=== PATIENT | female | born 1950 | race Caucasian/White ===

== ENCOUNTER 2020-01-17 21:38 | Emergency (ER) | payer MEDICARE, SELFPAY ==
[2020-01-17 21:39] VITALS: BP 162/93; PULSE 88; RESP 23; TEMP 37; O2SAT 93; BMI 21.2
[2020-01-17 21:54] VITALS: BP 162/93; PULSE 88; RESP 20; TEMP 37; O2SAT 93
[2020-01-17 21:55] VITALS: O2SAT 93
[2020-01-17] MEDS: predniSONE 20 MG Tablet 60 MG PO (22:27)
--- NOTE | 2020-01-17 22:35 | RAD_ITS ---
STUDY: X-RAY CHEST REASON FOR EXAM: Female, 69 years old. COUGH, SOB TECHNIQUE: PA and lateral views of the chest. COMPARISON: None. FINDINGS: Small rounded opaque is seen in the bilateral lower lobe regions is favored to be related to nipple markings. Possible small right lower lobe infiltrate is near the midline. There is hyperinflation of the lungs consistent with chronic obstructive lung disease (COPD). Diffuse cystic emphysematous changes are present. Interstitial scarring is also seen in both lungs. There is no demonstrated pleural abnormality. Normal size heart. Normal mediastinum and adali. Normal visualized pulmonary arteries. There is atherosclerotic calcification of the aortic arch with tortuosity. There is demineralization of the osseous structures. Multiple healed bilateral rib fractures noted, left greater than right . There is no demonstrated abnormality of the visualized soft tissue structures of the upper abdomen. RAD/Chest PA and Lateral IMPRESSION: 1. Small rounded opaque is seen in the bilateral lower lobe regions is favored to be related to nipple markings. Possible small right lower lobe infiltrate is near the midline. Suggest repeat examination with nipple markers and possible lordotic view for greater evaluation. Electronically Signed: Charan Mckeon MD at 23:17 EDT , Service support ,
--- NOTE | 2020-01-17 23:21 | ED.VIS.GEN ---
History of Present Illness Chief Complaint: Shortness of Breath Informant: Patient Onset: Days Narrative: 4-day history worsening cough mild productive sputum with wheeze. She states she was using a primary for paint inside the house when symptoms started. She has tobacco history denies diagnosed asthma or COPD history. No fevers. No chest pains. No vomiting or diarrhea. Prior similar symptoms: No Past Medical History - Allergies and Home Meds Allergies/Adverse Reactions: Allergies No Known Allergies Allergy (Verified 01/17/20 21:39) Primary Care Physician: Care Physician,No Primary [Primary Care Provider] - Past Medical History: - - Hypertension, osteopenia Smoking Status: Current every day smoker Review of Systems General: Denies: Chills, Fever, Sweats Eyes: Denies: Visual changes - bilaterally, Diplopia ENT: Denies: Rhinorrhea, Sore throat Cardiovascular: Denies: Chest pain, Palpitations Respiratory: Reports: Dyspnea, Cough, Sputum. Denies: Dyspnea on exertion Gastrointestinal: Denies: Abdominal pain, Nausea, Vomiting, Diarrhea, Melena, Hematochezia Genitourinary: Denies: Dysuria, Hematuria, Frequency Musculoskeletal: Denies: Back pain, Extremity Pain Skin: Denies: Rash, Wounds Neurological: Denies: Headache, Weakness, Numbness Physical Exam Vital Signs/Narrative: Vital Signs Temp Pulse Resp BP Pulse Ox 01/17/20 21:54 98.6 F 88 20 H 162/93 H 93 01/17/20 21:39 98.6 F 88 23 H 162/93 H 93 Inital Vital Signs reviewed: Yes General: Well nourished, Well developed, No Acute Distress Head: Normocephalic, Atraumatic Eyes: Perrl, EOMI ENT: Moist mucous membranes, No rhinorrhea Neck: Supple, Nontender Cardiovascular: Regular rate, Regular rhythm, No murmurs Respiratory: No distress, Chest nontender, Rhonchi, - - Mild rhonchi right mid lobe Abdomen: Soft, Nontender, Nondistended, Normal bowel sounds Back: Nontender, Normal Inspection Extremities: Nontender, No edema Skin: Normal color, No rash Neurological: Alert, Oriented x3, Cranial nerves II-XII grossly intact, Normal Strength, Normal Sensation Psychological: Normal affect, Normal Mood Diagnostic/Tx/Re-eval Clinical Impression(s) from Imaging Studies Chest X-Ray 01/17/20 22:35 IMPRESSION: 1. Small rounded opaque is seen in the bilateral lower lobe regions is favored to be related to nipple markings. Possible small right lower lobe infiltrate is near the midline. Suggest repeat examination with nipple markers and possible lordotic view for greater evaluation. Electronically Signed: Charan Mckeon MD at 23:17 EDT , Service support , - Medical Decision Making Patient nontoxic no respiratory distress. With her tobacco history concerns for COPD history. She had rhonchi improved with inhaler given in the ED and dispensed. She started on steroids, chest x-ray is concerning right lower lobe infiltrate, she had radiopaque nodules reported could be nipple linings from radiology. She started on Zithromax in the ED, strict signs symptom discussed return otherwise follow-up with her PCP for further testing as needed. All questions were answered. ED Disposition - Plan for ED Patient: Disposition: Home or Assisted Living Diagnosis: Pneumonia Instructions: Pneumonia, ED COPD Flare Prescriptions: predniSONE tablet 60 mg PO DAILY #12 tab Transmission Status: Pending to [facility] Azithromycin [Zithromax] 250 mg PO DAILY #4 tab Transmission Status: Pending to [facility] [address] Referrals: Care Physician,No Primary [Primary Care Provider] - Flip Santiago MD [NON-STAFF] - 5-7 Days Additional Instructions: Concerns for right lower lobe early infiltrate. COPD lungs, will need further testing as an outpatient for diagnosis. Continue her inhaler 1 puff every 2-4 hours as needed. Take steroids and antibiotics as prescribed.
[2020-01-17] MEDS: Azithromycin 250 MG Tablet 500 MG PO (23:52)
[2020-01-17 23:53] VITALS: BP 147/78; PULSE 72; RESP 19; TEMP 37; O2SAT 95
== END 2020-01-17 23:45 | disposition home or self-care (01) ==
PROVIDERS: Emergency Provider Emergency Medicine
DX: J18.9 Pneumonia, unspecified organism (principal); J44.1 Chronic obstructive pulmonary disease with (acute) exacerbation; I10 Essential (primary) hypertension; M85.80 Other specified disorders of bone density and structure, unspecified site; F17.210 Nicotine dependence, cigarettes, uncomplicated; Z79.899 Other long term (current) drug therapy
CPT/HCPCS: 36415; 71046; 99283

== ENCOUNTER → 2020-06-15 | Outpatient (CLI) | payer MEDICARE, SELFPAY ==
[2020-06-15 09:16] LABS: Bacteria 0 SEEN /hpf (None Seen); Mucous, Urine 0 SEEN /hpf (<or=2+); Red Blood Cells-Urine 0 SEEN /hpf (0-5); White Blood Cells 0 SEEN /hpf (0-5)
[2020-06-15 10:06] LABS: Absolute Lymphocyte Count 1.69 X10^3/uL (0.83-4.51); Absolute Neutrophil Count 3.2 X10^3/uL (2.0-7.7); Basophil# 0.05 X10^3/uL; Basophil% 0.9 % (0-1); Eosinophil# 0.09 X10^3/uL; Eosinophils% 1.7 % (0-5); Hematocrit 49.8 % (37-47); Hemoglobin 16.5 g/dL (12.0-15.0); Lymphocyte # 1.69 X10^3/ul (4.0); Lymphocyte % 31.1 % (19-41); Mean Corp Hgb Conc 33.1 g/dL (32-36); Mean Corpuscular Hgb 34.7 pg (27.0-32.0); Mean Corpuscular Volume 104.8 fL (81-99); Mean Platelet Vol. 11.1 fl (6.2-12.0); Monocyte# 0.44 X10^3/uL; Monocyte% 8.1 % (0-10); NRBC Flagged by Analyzer 0 % (0-5); Neutrophil # 3.16 X10^3/uL (2.7-7.7); Platelet Count 203 K/mm3 (150-450); RBC Distribution Width CV 12.9 % (11.6-14.6); RBC Distribution Width SD 50.6 fl (35.1-43.9); Red Blood Count 4.75 M/mm3 (4.2-5.4); White Blood Count 5.4 K/mm3 (4.4-11.0)
[2020-06-15 10:12] LABS: Color, Urine Yellow (Yellow); Glucose, Dipstick Normal (Normal); Ketone-Dipstick Negative (Negative); Leukocyte Esterase-Dipstick Negative /ul (Negative); Nitrite-Dipstick Negative (Negative); Occult Blood-Urine Negative /ul (Negative); Protein-Dipstick Negative (Negative); Urine Bilirubin Dipstick Negative (Negative); Urine Clarity Clear (Clear); Urine Urobilinogen Normal (Normal)
[2020-06-15 10:28] LABS: Squamous Epithelial Cells - UA 0-5 SEEN /hpf (5-10)
[2020-06-15 10:43] LABS: ALB/GLOB Ratio 1.1 RATIO (0.9-2.4); AST(SGOT) 18 U/L (15-37); Alanine Aminotransfer ALT/SGPT 18 U/L (13-56); Albumin, Serum 3.7 g/dL (3.2-5.0); Alkaline Phosphatase 104 U/L (45-117); Anion Gap 4 (5-15); BUN 9 mg/dL (7-18); BUN/Creat Ratio 12.6 RATIO (10-20); Calcium,Total 9.3 mg/dL (8.5-10.1); Chloride 105 mmol/L (98-107); Cholesterol 211 mg/dL (200); Creatinine, Serum 0.72 mg/dL (0.55-1.02); EST Glomerular Filtration Rate 86 mL/min (>60); Est Glom Filt Rate - Afr Amer 104 mL/min (>60); Globulin 3.3 g/dL (2.2-4.2); Glucose 77 mg/dL (74-106); High Density Lipoprotein 93 mg/dL; Phosphorus 4.3 mg/dL (2.5-4.9); Sodium Level 139 mmol/L (136-145); Thyroid Stim Hormone (TSH) 2.16 uIU/mL (0.358-3.74); Triglycerides 60 mg/dL; Very Low Density Lipoprotein 12 mg/dL (5-40)
[2020-06-16 14:26] LABS: Ferritin 101 ng/mL (8-252); Iron 106 ug/dL (50-170); Iron Binding Capacity,Total 354 ug/dL (250-450); PERCENT IRON SATURATION 29.9 % (15.0-55.0)
[2020-06-19 14:12] LABS: Transferrin 243 mg/dL (192-364)
== END | disposition home or self-care (01) ==
LOC: MFPLAB 09:13
PROVIDERS: PCP Family Medicine; Referring Provider Family Medicine; Visit Provider Family Medicine
DX: I10 Essential (primary) hypertension (principal); M81.0 Age-related osteoporosis without current pathological fracture; D75.1 Secondary polycythemia; Z72.0 Tobacco use
CPT/HCPCS: 36415; 80053; 80061; 81001; 82306; 82728; 83540; 83550; 83735; 84100; 84443; 84466; 85025

== ENCOUNTER → 2020-06-23 14:12 | Outpatient (CLI) | payer MEDICARE, MEDICAID, SELFPAY ==
--- NOTE | 2020-06-23 14:21 | CT_ITS ---
STUDY: CT CHEST WITHOUT CONTRAST- LOW DOSE SCREENING PROTOCOL REASON FOR EXAM: Female, 70 years old. Current smoker. 20 pack per year history. No current symptoms of lung cancer or pulmonary infection. Shared decision-making with referring PCP documented in patient''s record. RADIATION DOSAGE (If Supplied By Facility): CTDIvol = ( 2.01 ) mGy, DLP = ( 72.73 ) mGycm TECHNIQUE: Low dose screening CT examination performed from the base of the neck to the upper abdomen. Sagittal and coronal reformatted images performed. Sagittal and coronal MIP images provided. The measurements provided are average, rounded measurements per ACR guidelines. COMPARISON: Chest x-ray 01/17/2020 FINDINGS: Mild emphysematous changes. Bilateral linear scarring. 2.5 cm spiculated density in the apex of the right lung likely represents scarring but underlying mass including scar carcinoma cannot be excluded. Therefore correlation with PET CT scan is recommended. No other noncalcified nodule or mass. There is no demonstrated pleural abnormality. Normal heart and pericardium. There are calcifications of the coronary arteries. Normal mediastinum. Normal hilar regions. Normal unenhanced pulmonary arteries. There is atherosclerotic calcification of the aortic arch with tortuosity and elongation of the aortic arch and descending thoracic aorta. Normal osseous structures. There is no demonstrated abnormality of the visualized upper abdomen. CT/Low Dose CT Lung Screening IMPRESSION: 1. 2.5 cm area of probable scarring in the apex of the right lung bronchogenic carcinoma cannot be excluded and correlation with PET CT scan is recommended.. 2. Incidental findings include mild emphysema and calcified coronary artery plaque.. ASSESSMENT CATEGORY: LungRADS 4B - Suspicious. Recommend pulmonology consultation. Additional evaluation is warranted with chest CT with IV contrast, PET/CT, and/or tissue sampling depending on the probability of malignancy and patient comorbidities. Electronically Signed: Zoran Ludwig MD at 9:29 EDT Tel , Service support ,
== END ==
PROVIDERS: PCP Family Medicine; Referring Provider Family Medicine; Visit Provider Family Medicine
DX: F17.210 Nicotine dependence, cigarettes, uncomplicated (principal); Z12.2 Encounter for screening for malignant neoplasm of respiratory organs
CPT/HCPCS: G0297

== ENCOUNTER → 2020-07-03 13:57 | Outpatient (CLI) | payer MEDICARE, MEDICAID, SELFPAY ==
--- NOTE | 2020-07-03 13:45 | SPU_PTH ---
PATIENT: VAL HOWE LOC: [facility] U#:[id number] AGE/SX: 75/F ROOM: RE07/03/[address]: Dr. Ramon Schafer MD : 1950 BED: DIS: SPEC #: [id number] RECD: 07/03/20 14:39 STATUS: FRANDY REQ #: [id number] JESSICA: 07/03/20 13:[address]: Ramon Schafer V DEPT: CYTOLOGY RECD BY: Desi Wolf ENTERED: 07/03/20 14:40 SP TYPE: Sputum Cy OT DR: Dr. Doron Castaneda MD Tissues: Sputum Procedures: Pap Stain (control) Special Stain Group II Special Stain Group I AFB Stain (control) Cytospin Fluid HEADER OPERATION: Not noted PRE-OP DIAGNOSIS: Cough, lung nodule TISSUE SUBMITTED: Sputum for cytology DIAGNOSIS CYTOLOGY Sputum for cytology (smears and cytospin): Negative for malignant cells. Special stain for acid fast bacilli is negative for organisms; matched control is appropriate. JOSE:nuvia 07/04/20 CYTOLOGY STUDY Slides are reviewed. CYTOLOGY GROSS Received is 0.5 ml of white mucoidy fluid labeled with the patient's name and and designated per the requisition as sputum. Submitted for cytology preparation. / nuvia 07/03/20 TC:5 CPT: 48421, 29516
[2020-07-03 14:11] LABS: Cytology, Body Fluid / CSF SEE PATHOLOGY REPORT
== END ==
PROVIDERS: PCP Family Medicine; Referring Provider Internal Medicine Pulmonary Disease; Visit Provider Internal Medicine Pulmonary Disease
DX: R05 Cough (principal); R91.1 Solitary pulmonary nodule
CPT/HCPCS: 87015; 87070; 87101; 87116; 87205; 87206; 88108; 88312; 88313

== ENCOUNTER → 2020-07-11 15:03 | Outpatient (CLI) | payer MEDICARE, MEDICAID, SELFPAY ==
--- NOTE | 2020-07-11 15:00 | PET_ITS ---
EXAMINATION: FDG PET/CT INDICATIONS: A 70-year-old female with reported history of pulmonary nodularity. COMPARISON EXAMINATION: CT of the chest report dated 06/23/2020 INDEX LESION SIZE SUV INTERPRETATION Right upper lung-right upper lobe 29.6-mm (frame 205) 0.9 Quantitative criteria for viable neoplasm are not fulfilled, sequential radiologic investigation recommended NON-INDEX LESION SIZE SUV INTERPRETATION Left parotid space 2.4 Quantitative criteria for viable neoplasm are not fulfilled TECHNIQUE: Following the intravenous administration of 10.89 mCi of F-18 deoxyglucose via the left antecubital fossa, multiplanar image acquisitions of the neck, chest, abdomen and pelvis to level of mid thigh, obtained at one hour post radiopharmaceutical administration contemporaneously interpreted with the current CT of the neck, chest, abdomen and pelvis to level of mid thigh, dated 07/11/[address] of the chest report dated 06/23/2020 reveal: SERUM GLUCOSE LEVEL: 82 mg/dl. FINDINGS: 1. Subtle increased glucose metabolism is defined in the right apical lung field-right upper lobe generating a calculated maximal standard uptake value of 0.9. The maximal axial diameter of the corresponding parenchymal density-mass on review of CT of the chest dated 07/11/2020 is 29.6-mm. 2. Normal physiologic distribution of the radiopharmaceutical is apparent in the hepatic (2.8) and splenic parenchyma, both renal units, bladder and visualized intestinal tract. The visualized portion of the cerebral cortex demonstrate symmetric and preserved glucose metabolism. Diffuse radiopharmaceutical concentration is noted in all four quadrants of the abdomen and pelvis. The right and to a lesser extent left kidneys demonstrate prominent collecting system activity at the level of the renal pelvis and right kidney to include superior-inferior pole calyces. Asymmetric increased tracer concentration is observed in the left parotid space registering a calculated maximal standard uptake value of 2.4. Prominent radiopharmaceutical concentration is defined in the ascending and descending thoracic aorta commensurate with activated leukocytes associated with atherosclerotic plaque formation. Pertinent CT findings are as follows: CHEST: There is atherosclerotic calcification defined in the thoracic aorta without evidence of dilatation-aneurysm formation. Coronary arterial calcification is observed. Bilateral axillary soft tissue densities with fatty hilus are ametabolic. Mediastinal soft tissue densities reveal no evidence of increased tracer uptake. There are no additional parenchymal densities-nodules defined in the right and left hemithorax with discernible quantitatively significant increased FDG distribution. ABDOMEN AND PELVIS: A soft tissue nodule noted in the left upper abdomen is non-glucose avid and likely represents a visualized splenule. Cholelithiasis is defined. There is atherosclerotic calcification defined in the abdominal aorta without evidence of dilatation-aneurysm formation. Pelvic arterial calcification is observed. Right-left inguinal soft tissue densities with fatty hilus are ametabolic. SKELETAL: Degenerative changes are noted in the cervical, thoracic and lumbar spine. There is diffuse demineralization identified throughout the axial skeletal structures. PET/PET/CT Tumor Base -Thigh Init IMPRESSION: 1. NEGATIVE EXAMINATION. There is no definitive quantitative scintigraphic evidence of viable neoplasm. 2. Increased tracer concentration observed in the right upper lung-right upper lobe does not fulfill quantitative criteria for viable neoplasm. (Ena et al, Annals of Internal Medicine, 138:724, 2003). 3. Metabolic and/or anatomic stability may be ensured in the right upper lung-right upper lobe abnormality with repeat FDG PET study and/or CT of the thorax in 3-6 months if clinically indicated. (Xiu, Journal of Nuclear Medicine 45:88, P2004 Roc, Seminars in Thoracic and Cardiovascular Surgery 14:292, 2002). 4. The increase in fluorine labeled glucose uptake noted in the left parotid space does not fulfill quantitative criteria for malignant transformation. Correlation with CT of the neck with intravenous contrast may be of benefit. Electronic Signature Zoran Means D.O. Accurate Quantification of SUVs for this report are calculated using the exclusive [employer]. Electronically Signed: Zoran Means DO at 0:01 EST Tel , Service support ,
== END ==
PROVIDERS: PCP Family Medicine; Referring Provider Internal Medicine Pulmonary Disease; Visit Provider Internal Medicine Pulmonary Disease
DX: C34.90 Malignant neoplasm of unspecified part of unspecified bronchus or lung (principal); R91.8 Other nonspecific abnormal finding of lung field
CPT/HCPCS: 78815; A9552

== ENCOUNTER → 2020-07-14 14:15 | Outpatient (CLI) | payer MEDICARE, MEDICAID, SELFPAY ==
--- NOTE | 2020-07-14 14:32 | RAD_ITS ---
STUDY: X-RAY CHEST REASON FOR EXAM: Female, 70 years old. FOLLOW UP LUNG NODULE TECHNIQUE: PA and lateral views of the chest. COMPARISON: 01/17/2020 FINDINGS: Lungs are hyperexpanded with chronic interstitial changes. A previously described rounded opacification in the right lower lung field is no longer identified. There is no demonstrated pleural abnormality. Normal size heart. Normal mediastinum and adali. Normal visualized pulmonary arteries. Normal visualized aortic arch and descending thoracic aorta. There are diffuse degenerative changes of the visualized thoracic spine. There is degenerative osteoarthritis of the bilateral shoulders. There is no demonstrated abnormality of the visualized soft tissue structures of the upper abdomen. RAD/Chest PA and Lateral IMPRESSION: Hyperexpanded lungs with chronic interstitial changes, no superimposed acute pulmonary process, previously described oval nodule in the right lower lobe not seen on today''s study Electronically Signed: Zachery Padilla MD at 9:32 EST , Service support ,
== END ==
PROVIDERS: PCP Family Medicine; Referring Provider Internal Medicine Pulmonary Disease; Visit Provider Internal Medicine Pulmonary Disease
DX: R91.1 Solitary pulmonary nodule (principal)
CPT/HCPCS: 71046

== ENCOUNTER → 2020-10-16 13:06 | Outpatient (CLI) | payer MEDICARE, MEDICAID, SELFPAY ==
[2020-10-19 20:07] LABS: QNTFERON TB Mitogen Value > 10.00 IU/mL (.); QNTFERON TB Nil Value 0.06 IU/mL (.); QNTFERON TB1+ Ag Value 5.08 IU/mL (.); QNTFERON TB2+ Ag Value 5.06 IU/mL (.)
[2020-10-19 20:21] LABS: QNTIFERON TB Positive Criteria Positive (Negative)
== END ==
PROVIDERS: PCP Family Medicine; Referring Provider Internal Medicine Pulmonary Disease; Visit Provider Internal Medicine Pulmonary Disease
DX: J44.9 Chronic obstructive pulmonary disease, unspecified (principal); R91.1 Solitary pulmonary nodule
CPT/HCPCS: 36415; 86480

== ENCOUNTER → 2020-12-22 10:25 | Outpatient (CLI) | payer MEDICARE, MEDICAID, SELFPAY ==
--- NOTE | 2020-12-22 10:30 | BI_ITS ---
MAMMOGRAPHY - BILATERAL SCREENING REASON FOR EXAM: Female, 70 years old. Routine annual screening examination. PERTINENT HISTORY: Non-contributory. TECHNIQUE: Digital bilateral breast javier (3D mammographic acquisition) in the CC and MLO projections. 2-D mediolateral oblique (MLO) and craniocaudad (CC) views of both breasts were obtained. CAD: Full Field Digital Mammography with Computer Added Detection was performed. COMPARISON: Comparison is made with prior outside examination of 10/12/2019. FINDINGS: Breast Composition: The breasts are heterogeneously dense, which may obscure small masses. There are no dominant masses or suspicious calcifications. No other significant abnormalities are identified. There has been no significant change since the prior study. BI/SCRN MAMM (CAD)W/JAVIER BILAT IMPRESSION: Stable bilateral screening mammogram. Yearly follow-up mammogram recommended. (A) ASSESSMENT CATEGORY: BIRADS Category 1: Negative. A letter regarding these results will be sent to the patient by the facility within 30 days. Approximately 10% of breast cancers are not detected by mammography. A normal mammogram should not delay biopsy of a clinically suspicious abnormality. [id number] Electronically Signed: Chriss Palomo MD at 12:15 EDT , Service support ,
== END ==
PROVIDERS: PCP Family Medicine; Referring Provider Family Medicine; Visit Provider Family Medicine
DX: Z12.31 Encounter for screening mammogram for malignant neoplasm of breast (principal)
CPT/HCPCS: 77063; 77067

== ENCOUNTER 2020-12-24 02:10 | Inpatient (IN) | payer MEDICARE, MEDICAID, SELFPAY ==
[2020-12-24] VITALS (25 sets, daily range): BP systolic 79–165; BP diastolic 51–89; PULSE 64–99; RESP 16–18; TEMP 36.3–37; O2SAT 87–100; BMI 23.3; BMI 21.9
--- NOTE | 2020-12-24 02:21 | EDS_ITS ---
HPI History of Present Illness Chief Complaint: Lower Extremity Injury Informant: patient Onset/Context/Timing Onset: Today Context: Sudden Onset Timing: Continuous Current Severity: Moderate Maximum Severity: Moderate Worsened by: Right hip movement or attempting weightbearing. Narrative Narrative: 70-year-old female today was trying to open her car door in a parking lot she fell landing awkwardly on her right hip and has had pain since that time. She is unable to bear weight. She is never had any hip problems or hip surgeries. She denies any other complaints. Prior similar symptoms: No Recent Illness/Hospitalization: No PFSH PFSH Medical History Alcohol abuse COPD (chronic obstructive pulmonary disease) Hypertension Smoker Home Medications alendronate 70 mg PO Q7D@0700 01/17/20 [History Last Taken Unknown] amlodipine 10 mg PO DAILY 01/17/20 [History Last Taken Unknown] umeclidinium-vilanterol [Anoro Ellipta] 1 inh INHALATION DAILY 12/24/20 [History Last Taken Unknown] Allergy/AdvReac Type Severity Reaction Status Date / Time No Known Allergies Allergy Verified 01/17/20 21:39 Social History Smoking Status: Current every day smoker ROS ROS ED ROS Narrative Patient had an acute injury of her right hip today. She denies any recent illness. Review of Systems ROS Unobtainable: Denies due to encephalopathy Constitutional Constitutional ED: Denies fever(s) Eyes Eyes: Denies change in vision ENT ENT ED: Denies sore throat Cardiovascular Cardiovascular: Denies chest pain or palpitations Respiratory/Chest Respiratory/Chest: Denies dyspnea Gastrointestinal Gastrointestinal: Denies abdominal pain Genitourinary Genitourinary ED: Denies dysuria Musculoskeletal Musculoskeletal: Denies myalgias Integumentary Denies rash Neurologic Neurologic: Denies headache(s) Psychiatric Psychiatric: Denies depression Endocrine Endocrinology: Denies polyuria Allergic/Immunologic Allergic/Immunologic ED: Denies urticaria EXAM Physical Exam Narrative Exam Narrative: Older female no acute distress. Brought in by squad medicated with fentanyl prior to arrival. HEENT exam unremarkable atraumatic. Neck nontender. Lungs clear to auscultation bilaterally. Heart regular rhythm no murmur. Chest wall nontender. Abdomen soft nontender. Pelvic girdle intact. She is sitting with her right hip flexed. She has pain to palpation of the right hip and pelvis and also pain with passive range of motion of the right hip. Right distal femur, knee, lower leg ankle and foot are nontender neurovascular intact. Left lower extremity is unremarkable. Both upper extremities are nontender. 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 Back nontender. Her right foot has a normal pulse and sensation. Neurologically she is awake alert with no focal motor deficits. Const Vital Signs: 12/24/20 02:11 12/24/20 03:39 Temperature 98 F 98.4 F Temperature Source Temporal Oral Pulse Rate 81 70 Respiratory Rate 16 18 Blood Pressure 165/89 H 138/78 H Blood Pressure Mean 114 98 Pulse Ox 95 92 Oxygen Delivery Method Room Air Room Air Positive well nourished and well developed General Appearance ED: well developed HEENT Reports moist mucous membranes Negative for tenderness Eyes PERRL and EOMs intact bilaterally Neck no lymphadenopathy, supple and no JVD General: Negative for tenderness Chest Wall inspection of chest normal Resp normal respiratory effort and clear to auscultation bilaterally Cardio regular rate, regular rhythm and no murmurs GI normal to inspection, nondistended, normoactive bowel sounds Back/Spine no CVA tenderness Cervical Spine: Negative for cervical spine tenderness Thoracic Spine / Upper Back: Negative for thoracic spinal tenderness or paraspinal muscle tenderness Lumbar Spine / Lower Back: Negative for lumbar spinal tenderness Extremity normal to inspection Extremity Narrative: Right hip tender with pain with passive range of motion. No shortening or rotation noted at this time. Right foot neurovascular intact. Neuro oriented x3 and CN's II-XII intact bilaterally Sensorium / Orientation: alert Motor Exam: strength 5/5 throughout Psych mental status grossly normal Skin no rashes or lesions noted MDM MDM MDM Narrative Medical decision making narrative: 70-year-old female fell today in a parking lot and has right hip pain worse with movement and states she is unable to bear weight. X-ray being obtained. She is being medicated with IV morphine and Zofran. Patient has a right hip fracture on x-ray. I have already spoken orthopedic physician on-call and the hospitalist will admit the patient. Labs will be obtained an EKG for preoperative management. I have already discussed the patient's x-ray results with her and family. She is resting comfortably currently after the IV pain medication. Impression: Acute right hip femoral neck fracture Lab Data Lab results narrative: CBC showed a white count of 14. Hemoglobin 16. PT/INR normal. Chemistries normal. X-ray showed a right femoral neck fracture. Preop EKG showed a normal sinus rhythm rate of 69 with no acute signs of MS nor ischemia. Labs: Laboratory Results - last 24 hr 12/24/20 12/24/20 12/24/20 02:12 02:12 02:12 WBC 14.0 H RBC 4.70 Hgb 16.4 H Hct 48.5 H MCV 103.2 H MCH 34.9 H MCHC 33.8 RDW Std Deviation 45.6 H RDW Coeff of Andra 11.8 Plt Count 202 MPV 12.0 PT 13.2 INR 1.1 Sodium 134 L Potassium 3.6 Chloride 100 Carbon Dioxide 25.0 Anion Gap 9 BUN 8 Creatinine 0.59 Estim Creat Clear Calc 42.59 Est GFR (MDRD) Af Amer 131 Est GFR (MDRD) Non-Af 108 BUN/Creatinine Ratio 13.6 Glucose 106 Calcium 9.1 Radiography Diagnostic Testing: Radiology Impression Hip/Pelvis X-Ray 12/24/20 02:47 IMPRESSION: Right subcapital femoral neck fracture with mild impaction. Electronically Signed: Arcelia Bonner MD at 3:28 EDT , Service support , Right hip x-ray and pelvis 3 views interpreted by myself shows femoral neck fracture. Discharge Plan Dx/Rx/DC Orders Clinical Impression: Closed fracture of right hip requiring operative repair Disposition Disposition: Acute Care Hospital [facility]
[2020-12-24] MEDS: morphine 8 MG/ML Syringe 6 MG IV (02:27)
[2020-12-24] MEDS: Ondansetron 4 MG/2 ML Vial IV (02:28)
--- NOTE | 2020-12-24 02:47 | RAD_ITS ---
STUDY: X-RAY - PELVIS AND RIGHT HIP REASON FOR EXAM: Female, 70 years old. fall and right hip pain TECHNIQUE: 3 views of the pelvis and hip. COMPARISON: None. FINDINGS: There is a non-specific bowel gas pattern. Normal visualized soft tissue structures. There are multiple calcified phleboliths. There is diffuse osteopenia. There is narrowing with cortical sclerosis and osteophyte formation of the sacroiliac joint consistent with degenerative osteoarthritic changes. Normal bilateral superior and inferior pubic rami. There are degenerative changes of the pubic symphysis with articular narrowing and sclerosis. Normal bilateral ischial tuberosities. There is a right subcapital femoral fracture with mild impaction. There is osteoarthritic spur formation of the acetabular rim. There is mild articular joint space narrowing of the hip. RAD/HIP, UNI W/ Pelvis 2-3 Views IMPRESSION: Right subcapital femoral neck fracture with mild impaction. Electronically Signed: Arcelia Bonner MD at 3:28 EDT , Service support ,
--- NOTE | 2020-12-24 03:10 | EKG12_ITS ---
Test Reason : PRE-OP Blood Pressure : / mmHG Vent. Rate : 069 BPM Atrial Rate : 069 BPM P-R Int : 148 ms QRS Dur : 078 ms QT Int : 438 ms P-R-T Axes : 064 044 038 degrees QTc Int : 469 ms Normal sinus rhythm Normal ECG Confirmed by BEL ANDERSON, GAIL ([id number]), editor newspaper REJI KING ([id number]) on 12/26/2020 10:52:43 AM Referred By: KRISTA Confirmed By:GAIL STAPLES MD
[2020-12-24 03:17] LABS: Hematocrit 48.5 % (37-47); Hemoglobin 16.4 g/dL (12.0-15.0); Mean Corp Hgb Conc 33.8 g/dL (32-36); Mean Corpuscular Hgb 34.9 pg (27.0-32.0); Mean Corpuscular Volume 103.2 fL (81-99); Platelet Count 202 K/mm3 (150-450); RBC Distribution Width CV 11.8 % (11.6-14.6); RBC Distribution Width SD 45.6 fl (35.1-43.9)
[2020-12-24 03:26] LABS: International Normalized Ratio 1.1; Prothrombin Time (Protime)PT. 13.2 SECONDS (11.7-14.9)
[2020-12-24 03:27] LABS: Anion Gap 9 (5-15); BUN 8 mg/dL (7-18); BUN/Creat Ratio 13.6 RATIO (10-20); Calcium,Total 9.1 mg/dL (8.5-10.1); Chloride 100 mmol/L (98-107); Creatinine, Serum 0.59 mg/dL (0.55-1.02); EST Glomerular Filtration Rate 108 mL/min (>60); Est Glom Filt Rate - Afr Amer 131 mL/min (>60); Estimated Creatinine Clearance 42.59 ml/min; Glucose 106 mg/dL (74-106); Potassium 3.6 mmol/L (3.5-5.1); Sodium Level 134 mmol/L (136-145)
--- NOTE | 2020-12-24 03:36 | PCM.HP.STD ---
HPI - General General Date of Admission: 12/24/20 Chief Complaint: Fall HPI Narrative VAL HOWE, is a 70 F with a significant history of hypertension; COPD; tobacco abuse and alcohol dependence who presents to the emergency department with fall. Reportedly patient was at [employer] parking lot. In an attempt to open her car door she slipped and she fell. Following the fall she developed excruciating pain at her right hip. She described the pain as sharp and spasm. The pain improves with rest and the pain worsens with movement. The pain is nonradiating. PFSH Medical History Alcohol abuse COPD (chronic obstructive pulmonary disease) Hypertension Osteoporosis Smoker Home Medications alendronate 70 mg PO Q7D@0700 01/17/20 [History Last Taken Unknown] amlodipine 10 mg PO DAILY 01/17/20 [History Last Taken Unknown] umeclidinium-vilanterol [Anoro Ellipta] 1 inh INHALATION DAILY 12/24/20 [History Last Taken Unknown] Allergy/AdvReac Type Severity Reaction Status Date / Time No Known Allergies Allergy Verified 01/17/20 21:39 Family History Mother Cancer Father Heart disease Surgical History H/O: hysterectomy Social History Smoking Status: Current every day smoker alcohol intake: current details: Heavy drinker ROS ROS Narrative 12 point review of system is negative except as stated in HPI. Vital Signs Vital Signs Vital Signs: 12/24/20 02:11 Temperature 98 F Temperature Source Temporal Pulse Rate 81 Respiratory Rate 16 Blood Pressure 165/89 H Blood Pressure Mean 114 Pulse Ox 95 Oxygen Delivery Method Room Air Physical Exam Narrative Thin frame lady Alert and oriented x3 Nontraumatic; normocephalic Lung clear to auscultate Heart sounds S1-S2. No murmur, gallop or rubs. Abdomen bowel sounds present soft, nontender nondistended Extremity without edema cyanosis or clubbing. Lab / Micro Data Result Diagrams: 12/24/20 02:12 12/24/20 02:12 Labs: Laboratory Results - last 24 hr 12/24/20 12/24/20 12/24/20 02:12 02:12 02:12 WBC 14.0 H RBC 4.70 Hgb 16.4 H Hct 48.5 H MCV 103.2 H MCH 34.9 H MCHC 33.8 RDW Std Deviation 45.6 H RDW Coeff of Andra 11.8 Plt Count 202 MPV 12.0 PT 13.2 INR 1.1 Sodium 134 L Potassium 3.6 Chloride 100 Carbon Dioxide 25.0 Anion Gap 9 BUN 8 Creatinine 0.59 Estim Creat Clear Calc 42.59 Est GFR (MDRD) Af Amer 131 Est GFR (MDRD) Non-Af 108 BUN/Creatinine Ratio 13.6 Glucose 106 Calcium 9.1 Radiology Impression Hip/Pelvis X-Ray 12/24/20 02:47 IMPRESSION: Right subcapital femoral neck fracture with mild impaction. Electronically Signed: Arcelia Bonner MD at 3:28 EDT , Service support , Assessment & Plan Assessment/Plan (1) Closed fracture of right hip requiring operative repair: Status: Acute Code(s): S72.001A - Fracture of unspecified part of neck of right femur, initial encounter for closed fracture Qualifiers: Encounter type: initial encounter Qualified Code(s): S72.001A - Fracture of unspecified part of neck of right femur, initial encounter for closed fracture Plan: Impression of hip/pelvis x-ray by radiologist: Right subcapital femoral neck fracture with mild impaction. [place] right hip/pelvis x-ray was independently interpreted. I agree with the latest interpretation Pain control with IV morphine. Bowel protocol and antiemetics with IV Zofran ordered. Tylenol as needed ordered. We will keep n.p.o. except meds. While n.p.o. lactated Ringer's ordered. Preop evaluation: ACS NSQIP surgical risk calculator with below to risk of cardiopulmonary complications. See chart for paper. History of osteoporosis. Check vitamin D level. (2) Leukocytosis: Status: Acute Code(s): D72.829 - Elevated white blood cell count, unspecified Qualifiers: Leukocytosis type: unspecified Qualified Code(s): D72.829 - Elevated white blood cell count, unspecified Plan: Review of emergency department labs showed elevated white counts (14,000). Review of previous records shows that on 06/15/2020 has white count was 5,400. Likely reactive. Trend. (3) Erythrocytosis: Status: Acute Code(s): D75.1 - Secondary polycythemia Plan: Review of emergency department labs showed high hemoglobin and increased hematocrit.Review of previous records shows that this is chronic. Likely from tobacco abuse and COPD. Trend. (4) Smoker: Status: Chronic Code(s): F17.200 - Nicotine dependence, unspecified, uncomplicated Plan: Counseled. Declined nicotine patch. (5) Alcohol abuse: Status: Chronic Code(s): F10.10 - Alcohol abuse, uncomplicated Plan: Patient drinks about 6 packs of beer per day. Counseled. Folic acid, thiamine, multivitamins ordered. Ativan per [facility] protocol. Visit Charges Inpatient E&M: 50643 Init Hosp L3
--- NOTE | 2020-12-24 04:50 | NURSING ---
pt reports drinking 4-6 cans of beer a day
[2020-12-24] MEDS: Lactated Ringers 1,000 ML 50 ML IV ×2 (04:59→11:45)
[2020-12-24] MEDS: 0.9% Saline Lock 10 ML Syringe IV ×2 (04:59→07:44)
--- NOTE | 2020-12-24 05:37 | RAD_ITS ---
STUDY: X-RAY CHEST REASON FOR EXAM: Female, 70 years old. Preop TECHNIQUE: Single AP portable view of the chest. COMPARISON: 07/14/2020 FINDINGS: The lungs are clear and expanded. There is no demonstrated pleural abnormality. Normal size heart. Normal mediastinum and adali. Normal visualized pulmonary arteries. Normal visualized aortic arch and descending thoracic aorta. Normal visualized thoracic spine. Normal visualized ribs, clavicles, and shoulders. There is no demonstrated abnormality of the visualized soft tissue structures of the upper abdomen. RAD/Chest 1 View (Portable) IMPRESSION: Normal x-ray examination of the chest. Electronically Signed: Zoran Ludwig MD at 6:26 EDT Tel , Service support ,
[2020-12-24] MEDS: Ipratropium/Albuterol Sulfate 3 ML AMPUL.NEB INHALATION ×2 (07:30→20:15)
[2020-12-24] MEDS: Morphine 2 MG/ML Syringe IV (07:43)
--- NOTE | 2020-12-24 09:00 | FEM_PTH ---
PATIENT: VAL HOWE LOC: MS3 U#:[id number] AGE/SX: 70/F ROOM: GA318 RE12/24/[address]: Dr. Mandi Prado MD : 1950 BED: 1 DIS: 12/25/2020 SPEC #: [id number] RECD: 12/25/20 06:49 STATUS: FRANDY REDony #: [id number] JESSICA: 12/24/20 09:[address]: Eugene Chopra DEPT: SURGICAL PATHOLOGY RECD BY: Desi Wolf ENTERED: 12/25/20 08:05 SP TYPE: FEM HEAD OTHR DR: MD Dr. Doron Miles MD Dr. Nana Yaa Koram, MD Dr. Rodney Miller, MD Tissues: Femoral region, NOS Procedures: Decalcification bone/plaque Surgery Specimen Level IV Comments: @ Ordering doctor for DEC edited from to [email or web address] Marquez by GILA at 12/25/20 0947 @ Ordering doctor for SUV edited from to [email or web address] Marquez by GILA at 12/25/20 0947 @ Submitting doctor edited from to [email or web address] Marquez by GILA at 12/25/20 0947 HEADER OPERATION: Total hip replacement PRE-OP DIAGNOSIS: Closed fracture of right hip TISSUE SUBMITTED: Right hip bone and soft tissue MICROSCOPIC DIAGNOSIS Right hip bone and soft tissue, total hip replacement/resection: Femoral head with focal area of hemorrhage, clinically closed fracture right hip. JOSE:nuvia 12/28/2020 MICROSCOPIC DESCRIPTION Slides are reviewed. GROSS DESCRIPTION Received is one container labeled with the patient's name and designated right hip bone and tissue. The specimen consists of a femoral head measuring 6.5 x 4.5 x 4.5 cm. The neck of the femoral head is disrupted and dark reyes in color consistent with fracture site. The articular surfaces are grossly unremarkable. Fragments of adherent reyes tissue is present on the bone measuring 2 x 1 x 0.5 cm. [employer] sections are submitted in two cassettes after decalcification. / AM:nuvia 12/25/20 TC:5 CPT: 03341, 31060
[2020-12-24 09:07] LABS: Alcohol, Blood (Medical)-Serum < 3.0 mg/dL
--- NOTE | 2020-12-24 09:36 | CON.PCM_ITS ---
Assessment & Plan Assessment/Plan (1) Closed fracture of right hip requiring operative repair: Status: Acute Code(s): S72.001A - Fracture of unspecified part of neck of right femur, initial encounter for closed fracture Qualifiers: Encounter type: initial encounter Qualified Code(s): S72.001A - Fracture of unspecified part of neck of right femur, initial encounter for closed fracture Plan: 1. Right hip impacted femoral neck fracture, patient and her family given treatment options consisting of percutaneous pinning or total hip replacement surgery. Risks benefits and alternative procedures discussed. After explaining the treatment options and answering all of their questions they have decided to proceed with right total hip replacement. They understand this is a bigger procedure. They understand increased risk of dislocation, leg length discrepancy, increased blood loss. Also increased risk of DVT, PE, infection. However they understand with out hip replacement she would be at a higher risk for fracture nonunion malunion avascular necrosis. Also a longer recovery. Typically with hip pinning with limited weightbearing. We will plan on proceeding with a right total hip replacement. Appropriate preoperative antibiotics and postoperative DVT prevention. She will continue on the hospitalist service. Social service will be consulted for discharge planning. Risk of surgery including but not limited to from operative or postoperative complications. Risk of anesthetic complications such as heart attacks, strokes, seizures, or . Risk of infections. Risk of damage to nerves arteries tendons. Risk of inadvertent fractures or dislocations. Risk of bone or wound healing complications. Possibility of nonunion malunion pain stiffness weakness. Possible need for further surgery such as hardware removal. Risk of DVT PE and other potential complications could lead to or disability explained. No guarantees were stated or implied. All of their questions were answered. Appropriate informed consent was obtained and signed for surgical intervention. Patient was advised to stop smoking. Other medical comorbidities evaluated and treatment for hospitalist service HPI Consult Data Date of Consult: 12/24/20 HPI Narrative HPI Narrative: VAL HOWE, is a 70 F who presents with a right hip fracture after falling yesterday in a parking lot. She denies severe pre-existing right hip pain. She was not able to walk. Fracture occurred around 8 PM. I was notified about the patient around 3:30 AM. Patient had tried going home. Ambulance was called. Patient was admitted to hospitalist service. Orthopedics consulted. Denies head injury or loss of consciousness. [facility] Medical History Alcohol abuse COPD (chronic obstructive pulmonary disease) History of stress test Hypertension Injury of head and neck Kidney stones Osteoporosis Smoker Home Medications alendronate 70 mg PO Q7D@0700 01/17/20 [History Last Taken Unknown] amlodipine 10 mg PO DAILY 01/17/20 [History Last Taken Unknown] umeclidinium-vilanterol [Anoro Ellipta] 1 inh INHALATION DAILY 12/24/20 [History Last Taken Unknown] Allergy/AdvReac Type Severity Reaction Status Date / Time No Known Allergies Allergy Verified 01/17/20 21:39 Family History Mother Cancer Father Heart disease Surgical History (Updated 12/24/20 @ 04:24 by Liz Flores) H/O: hysterectomy S/P hysterectomy Social History Smoking Status: Current every day smoker alcohol intake: current details: Heavy drinker Physical Exam Narrative Patient is laying in bed comfortably. Right hip has mild shortening without severe rotation. Right hip has pain on palpation. She has no pain at the left hip or lower extremity. No pain with moving the left hip. Pain with moving the right hip. No calf pain or swelling bilaterally. Negative Homans' sign bilaterally. Legs are neurovascular intact. Good active motion toes and ankles. Distal pulses are intact. X-rays AP pelvis AP and lateral right hip shows an impacted displaced femoral neck fracture. There is no obvious left hip fracture. There is mild degenerative changes about the right hip. Degenerative changes of the lumbar spine are noted. Laboratory work and vital signs reviewed. Of note patient has a history of tuberculosis for which she says she was successfully treated and is no longer requiring treatment Lab / Micro Data Result Diagrams: 12/24/20 02:12 12/24/20 02:12 Labs: Laboratory Results - last 24 hr 12/24/20 12/24/20 12/24/20 02:12 02:12 02:12 WBC 14.0 H RBC 4.70 Hgb 16.4 H Hct 48.5 H MCV 103.2 H MCH 34.9 H MCHC 33.8 RDW Std Deviation 45.6 H RDW Coeff of Andra 11.8 Plt Count 202 MPV 12.0 PT 13.2 INR 1.1 Sodium 134 L Potassium 3.6 Chloride 100 Carbon Dioxide 25.0 Anion Gap 9 BUN 8 Creatinine 0.59 Estim Creat Clear Calc 42.59 Est GFR (MDRD) Af Amer 131 Est GFR (MDRD) Non-Af 108 BUN/Creatinine Ratio 13.6 Glucose 106 Calcium 9.1 Ethyl Alcohol Blood Type Antibody Screen 12/24/20 12/24/20 03:37 08:24 WBC RBC Hgb Hct MCV MCH MCHC RDW Std Deviation RDW Coeff of Andra Plt Count MPV PT INR Sodium Potassium Chloride Carbon Dioxide Anion Gap BUN Creatinine Estim Creat Clear Calc Est GFR (MDRD) Af Amer Est GFR (MDRD) Non-Af BUN/Creatinine Ratio Glucose Calcium Ethyl Alcohol < 3.0 Blood Type O POSITIVE Antibody Screen NEGATIVE Radiology Impression Hip/Pelvis X-Ray 12/24/20 02:47 IMPRESSION: Right subcapital femoral neck fracture with mild impaction. Electronically Signed: Arcelia Bonner MD at 3:28 EDT , Service support , Chest X-Ray 12/24/20 05:37 IMPRESSION: Normal x-ray examination of the chest. Electronically Signed: Zoran Ludwig MD at 6:26 EDT Tel , Service support ,
[2020-12-24] MEDS: Cefazolin 2 GM in 0.9% Normal Saline 100 ML IV (10:00)
--- NOTE | 2020-12-24 11:50 | RAD_ITS ---
STUDY: X-RAY - PELVIS AND RIGHT HIP REASON FOR EXAM: Female, 70 years old. Post op total hip TECHNIQUE: 2 views of the pelvis and hip. COMPARISON: 12/24/2020 at oh to 47 FINDINGS: There is a non-specific bowel gas pattern. Normal visualized soft tissue structures. Normal bilateral iliac wings, sacroiliac joints and visualized sacrum. Normal bilateral superior and inferior pubic rami. Normal pubic symphysis. Normal bilateral ischial tuberosities. Interval right hip arthroplasty for treatment of the subcapital femoral neck fracture. Subcutaneous emphysema consistent with recent surgery.. RAD/Hip Min 2 Views (Portable) IMPRESSION: Interval recent right hip arthroplasty for treatment of subcapital femoral neck fracture Electronically Signed: Zoran Ludwig MD at 12:40 EDT Tel , Service support ,
--- NOTE | 2020-12-24 12:11 | PCM.PN.HOSP ---
Subjective Subjective: Pain controlled in right leg at rest. Objective Data Objective Data Vital Signs: Vital Signs Temp Pulse Resp BP Pulse Ox 36.7 C 75 18 121/72 H 97 12/24/20 11:39 12/24/20 12:00 12/24/20 12:00 12/24/20 12:00 12/24/20 12:00 Oxygen Flow Rate (L/min) 2 Oxygen Delivery Method Nasal Cannula Weight: 120 lb Body Mass Index (BMI) 21.9 Intake & Output: Intake and Output for Last 24 Hours 12/22/20 12/23/20 12/24/20 23:59 23:59 23:59 Intake Total 1330 / 1330 Balance 1330 / 1330 Lab / Micro Data Result Diagrams: 12/24/20 02:12 12/24/20 02:12 Labs: Laboratory Results - last 24 hr 12/24/20 12/24/20 12/24/20 02:12 02:12 02:12 WBC 14.0 H RBC 4.70 Hgb 16.4 H Hct 48.5 H MCV 103.2 H MCH 34.9 H MCHC 33.8 RDW Std Deviation 45.6 H RDW Coeff of Andra 11.8 Plt Count 202 MPV 12.0 PT 13.2 INR 1.1 Sodium 134 L Potassium 3.6 Chloride 100 Carbon Dioxide 25.0 Anion Gap 9 BUN 8 Creatinine 0.59 Estim Creat Clear Calc 42.59 Est GFR (MDRD) Af Amer 131 Est GFR (MDRD) Non-Af 108 BUN/Creatinine Ratio 13.6 Glucose 106 Calcium 9.1 Ethyl Alcohol Blood Type Antibody Screen 12/24/20 12/24/20 03:37 08:24 WBC RBC Hgb Hct MCV MCH MCHC RDW Std Deviation RDW Coeff of Andra Plt Count MPV PT INR Sodium Potassium Chloride Carbon Dioxide Anion Gap BUN Creatinine Estim Creat Clear Calc Est GFR (MDRD) Af Amer Est GFR (MDRD) Non-Af BUN/Creatinine Ratio Glucose Calcium Ethyl Alcohol < 3.0 Blood Type O POSITIVE Antibody Screen NEGATIVE Radiography Diagnostic Testing: Radiology Impression Hip/Pelvis X-Ray 12/24/20 02:47 IMPRESSION: Right subcapital femoral neck fracture with mild impaction. Electronically Signed: Arcelia Bonner MD at 3:28 EDT , Service support , Chest X-Ray 12/24/20 05:37 IMPRESSION: Normal x-ray examination of the chest. Electronically Signed: Zoran Ludwig MD at 6:26 EDT Tel , Service support , Physical Exam Const alert and oriented x3 Resp normal respiratory effort and clear to auscultation bilaterally Cardio regular rate, regular rhythm, S1 normal heart sound and S2 normal heart sound GI normal to inspection, nondistended, normoactive bowel sounds Assessment & Plan Assessment/Plan (1) Closed fracture of right hip requiring operative repair: Status: Acute Code(s): S72.001A - Fracture of unspecified part of neck of right femur, initial encounter for closed fracture Qualifiers: Encounter type: initial encounter Qualified Code(s): S72.001A - Fracture of unspecified part of neck of right femur, initial encounter for closed fracture Plan: Impression of hip/pelvis x-ray by radiologist: Right subcapital femoral neck fracture with mild impaction. [place] right hip/pelvis x-ray was independently interpreted. I agree with the latest interpretation Pain control with IV morphine. Bowel protocol and antiemetics with IV Zofran ordered. Tylenol as needed ordered. We will keep n.p.o. except meds. While n.p.o. lactated Ringer's ordered. Preop evaluation: ACS NSQIP surgical risk calculator with below to risk of cardiopulmonary complications. See chart for paper. History of osteoporosis. Check vitamin D level. Plan for right total hip replacement SCDs in place (2) Leukocytosis: Status: Acute Code(s): D72.829 - Elevated white blood cell count, unspecified Qualifiers: Leukocytosis type: unspecified Qualified Code(s): D72.829 - Elevated white blood cell count, unspecified Plan: Review of emergency department labs showed elevated white counts (14,000). Review of previous records shows that on 06/15/2020 has white count was 5,400. Likely reactive. Trend. (3) Erythrocytosis: Status: Acute Code(s): D75.1 - Secondary polycythemia Plan: Review of emergency department labs showed high hemoglobin and increased hematocrit.Review of previous records shows that this is chronic. Likely from tobacco abuse and COPD. Trend. (4) Smoker: Status: Chronic Code(s): F17.200 - Nicotine dependence, unspecified, uncomplicated Plan: Counseled. Declined nicotine patch. (5) Alcohol abuse: Status: Chronic Code(s): F10.10 - Alcohol abuse, uncomplicated Plan: Patient drinks about 6 packs of beer per day. Counseled. Folic acid, thiamine, multivitamins ordered. Ativan per [facility] protocol. Visit Charges Inpatient E&M: 58297 Subs Hosp L2
--- NOTE | 2020-12-24 15:40 | NURSING ---
DR ARROYO NOTIFIED OF PT BP 79/51 - NEW ORDER RECEIVED
[2020-12-24] MEDS: Lactated Ringers 500 ML 999 ML IV (15:42)
[2020-12-24] MEDS: Cefazolin 1 GM/50 ML BAG IV ×2 (16:10→23:49)
--- NOTE | 2020-12-24 16:20 | RAD_ITS ---
STUDY: X-RAY - PELVIS AND RIGHT HIP REASON FOR EXAM: Female, 70 years old. Foreign Body removal TECHNIQUE: 3 fluoroscopic views of the pelvis and hip. Dose area product: 10.45 Gycm2 COMPARISON: Earlier today FINDINGS: Right hip replacement is grossly similar in visualized extent. Metallic foreign body has been removed.. RAD/Hip Min 2 Views (Portable) IMPRESSION: Fluoroscopic guidance for removal of metallic foreign body. Electronically Signed: Gama Trammell MD ([place]) at 17:13 EDT , Service support ,
--- NOTE | 2020-12-24 17:33 | PCM.OP.PRO ---
Assessment & Plan Assessment/Plan (1) Closed fracture of right hip requiring operative repair: Status: Acute Code(s): S72.001A - Fracture of unspecified part of neck of right femur, initial encounter for closed fracture Qualifiers: Encounter type: initial encounter Qualified Code(s): S72.001A - Fracture of unspecified part of neck of right femur, initial encounter for closed fracture Plan: Preoperative diagnosis: [Right] hip femoral neck fracture Postoperative diagnosis: Same Operation: [Right] total hip replacement surgery Surgeon: Dr. Eugene Chopra MD Gun Stock Maker: Patricia Dietz PA-C Anesthesia: General Anesthesiologist Dr. Joyce Special medications: IV [Ancef], IV Tranexamic acid Complications: None EBL: 100 Indications for surgery : Patient is a [ 70]-year-old with a a femoral neck fracture that occurred yesterday. Due to persistent pain and disability, they decided to proceed with hip replacement surgery. Appropriate informed consent was obtained and signed. Appropriate medical workup was performed preoperatively and patient was deemed safe for surgery by the anesthesia department as well. exceptional children teacher assistant, physician exceptional children teacher assistant, was utilized throughout the entire procedure. They were vital in helping with patient positioning, holding of retractors, exposing the tissues adequately for safe completion of the procedure including cutting of the bone, helping hog cutter appropriate alignment and sizing of the components, implantation of the components, as well as wound closure, bandage application, and safe patient transfer. Without surgical clinical reviewer, physician exceptional children teacher assistant, surgical time would have been significantly increased, and surgical outcome would have been less optimal. Operative findings: Patient had severe arthritis of the involved hip joint. They underwent a small posterior approach to the hip. We utilized a size [8 press-fit Accolade 2 stem] 127 degree neck angle, a press fit acetabular component size [52] titanium cluster, Trident X3 10? hooded polyethylene liner with a 36 mm inner diameter, a Biolox ceramic femoral head size [36] with a +0 neck length. This reproduced their anatomy nicely. Clinically good leg lengths were noted. Good hip stability through range of motion with no undue pistoning. Standard wound closure in layers, followed by waldemar, followed by Mepilex dressing Details of procedure: Patient was taken to the operating room and transferred to the operating table. Given appropriate anesthetic agent by that department. Patient was then rolled into a lateral decubitus position with the involved painful hip up in the air. Appropriate timeouts had been performed. Hip had been appropriately marked with my initials. Padded anterior and posterior position was utilized. Axillary roll placed. MARGARETTE hose and SCDs on the nonoperative limb utilized throughout the procedure. Tranexamic acid and IV antibiotics given preoperatively. Operative lower extremity was prepped padded and draped in the usual orthopedic sterile fashion for the procedure. I injected the pain relieving solution in the standard sterile technique of the soft tissues of the hip carefully. Incision was made curving over the tip of the greater trochanter posteriorly. Full thickness skin flaps are raised down on the fascia charly. Fascia charly was opened in length with our incision. Charnley self-retaining hip retractor was carefully placed by the surgeon. Leg was appropriately rotated and held by the exceptional children teacher assistant. Retractor was used to lift the abductors anteriorly to visualize the piriformis tendon and external rotators. Area was infiltrated with pain relieving cocktail. Piriformis tendon and external rotators released off the greater trochanter with the Bovie. Tagging suture was placed in each of these separately. We then split the tissue superior to the piriformis tendon through capsule and onto the pelvis. Acetabular labrum was also divided. With traction and manipulation arthritic femoral head was dislocated from the acetabulum. Extra care was taken due to known fracture. Retractors were carefully placed around the femoral neck. Cutting guide was utilized to map out the proposed cut approximately 1 fingerbreadth above the lesser trochanter. This femoral neck cut was carried out with a saw. Arthritic femoral head removed and measured and inspected. Inferior acetabular retractor was placed by the surgeon, held by the exceptional children teacher assistant. Bone hook utilized to pull the proximal femur anteriorly. Labrum removed from about the acetabulum a long knife. Tissue removed from the depth of the acetabulum with the Bovie. Arthritic acetabulum was noted. We began reaming with the appropriate sized reamer based on the measurement of the femoral head. Reaming was done with 45? of abduction, 20? of anteversion, reproducing there anatomy. Reaming was done incrementally up to the appropriate size creating a smooth cylindrical acetabulum and was done down to healthy bone. Trial acetabular component 1 millimeters smaller than the largest reamer was utilized with the outrigger device. Appropriate abduction and anteversion confirmed as well as size and position of cup. We irrigated with bulb syringe saline. Appropriate acetabular opponent was opened and hammered into position with the outrigger device, with 45? of abduction and 20 degrees of anteversion. We could see through the hole in the cup it was adequately down onto the bone in the pelvis. Good stability was noted. Trial liner with a 10? hudson was appropriately positioned. Any anterior and/ or posterior osteophytes removed with an osteotome, rondure. Acetabular retractors removed. A proximal femoral elevator utilized. Held by the exceptional children teacher assistant. We used a sharp awl entering down inside the bone of the proximal femur. Utilized the Shortlist cutting osteotome in the proximal lateral greater trochanteric region. The fragment removed. Broaching was then done from the smallest broach, upto the appropriate size. Good stability was confirmed. We then trialed the construct with a standard neck length and appropriate sized femoral head on 127? angle neck. We were happy with the construct. Good stability to flexion, rotation by the exceptional children teacher assistant. At this point trials removed. I now placed the appropriate polyethylene acetabular liner into a clean dry previously placed shell. This was hammered into position. Suction device was used to confirm its stability. We now exposed the proximal femur with appropriate retractors in place, held by the exceptional children teacher assistant, actual femoral stem was checked, opened, and then hammered into the proximal femur and seated down to a similar position as the trial had. We now again trialed appropriate neck length upon. It was then opened. Now impacted the appropriate sized femoral head, neck construct onto the clean dried trunion. Was noted to be stable. Hip was inspected, and joint was reduced for a final time. Good hip stability and leg lengths noted. This was then irrigated with saline and cleaned. Next the remainder of the pain relieving solution was injected carefully throughout the soft tissues of the hip joint. Closure was carried out with a combination of #1 Vicryl, running #2 strata fix in the fascia charly, followed by mid layer #1 Vicryl with #1 strata fix running. Next running 0 strata fix, followed by skin waldemar, Xeroform, Mepilex dressing. We placed MARGARETTE hose and SCD on the operative leg. Patient awoken from the anesthetic and transferred back to room bed in recovery room in satisfactory condition. Patient will be admitted for pain management, PT, IV antibiotics, medication for DVT prevention. Hospitalist consulted for postoperative medical management. Hopeful discharge to home in 1-3 days This note was generated with [employer] software. It may contain incorrect words, spelling, and punctuation that were not noted in checking the note before signing.
--- NOTE | 2020-12-24 17:37 | PRO.PCM_ITS ---
Assessment & Plan Assessment/Plan (1) Retained foreign body: Status: Acute Code(s): Z18.9 - Retained foreign body fragments, unspecified material Plan: Preoperative diagnosis: Status post right hip replacement with retained foreign body Postoperative diagnosis: Same Operation: Removal of deep retained foreign body right hip Surgeon: Dr. Eugene Chopra MD Circular Knitter Helper: None Anesthesia: General Anesthesiologist Dr. Joyce Special medications: IV [Ancef], Indications for surgery : Patient is a 70-year-old that underwent right hip replacement earlier today. Metal femoral cutting guide was inadvertently left in patient. This was discovered on postoperative x-rays. Patient and her family given options regarding surgical and nonsurgical treatment for this. They did wish to proceed with surgical removal of this today. I felt that was a very reasonable plan. Operative findings: Patient had metallic retained cutting guide along the proximal femur. It was removed with the help of fluoroscopy. Details of procedure: Patient was taken to the operating room and transferred to the operating table. Given appropriate anesthetic agent by that department. Patient was then rolled into a lateral decubitus position with the involved painful hip up in the air. Appropriate timeouts had been performed. Hip had been appropriately marked with my initials. Padded anterior and posterior position was utilized. Axillary roll placed. MARGARETTE hose and SCDs on the nonoperative limb utilized throughout the procedure. Tranexamic acid and IV antibiotics given preoperatively. Operative lower extremity was prepped padded and draped in the usual orthopedic sterile fashion for the procedure. Waldemar had been previously removed sterilely. Knife was used to enter the incision removing stitches along the way through the subcutaneous tissue, mid layer closure, fascial closure. At this point I attempted to palpate the retained foreign material and could not. Fluoroscopy was brought in to help guide my blunt dissection with my fingers. Ultimately with the help of a Moody I was able to remove the retained cutting guide without incident. Hip joint was not purposefully entered during this procedure, repair of the external rotators remained intact. No undue bleeding was noted. Area was thoroughly irrigated with irrisept. Fluoroscopy was utilized to confirm complete removal of the metallic cutting guide and showed no obvious hip dislocation or fractures. AP lateral and oblique films were taken. Several pictures were saved. Closure was carried out with a combination of #1 Vicryl, running #2 strata fix in the fascia charly, followed by mid layer #1 Vicryl with #1 strata fix running. Next running 0 strata fix, followed by skin waldemar, Xeroform, Mepilex dressing. We placed MARGARETTE hose and SCD on the operative leg. Patient awoken from the anesthetic and transferred back to room bed in recovery room in satisfactory condition. Patient will be admitted for pain management, PT, IV antibiotics, medication for DVT prevention. Hospitalist consulted for postoperative medical management. Hopeful discharge to home in 1-3 days This note was generated with [employer] dictation software. It may contain incorrect words, spelling, and punctuation that were not noted in checking the note before signing.
[2020-12-24] MEDS: Lactated Ringers 1,000 ML 125 ML IV (18:06)
[2020-12-24] MEDS: Thiamine Hydrochloride 100 MG Tablet PO (18:49)
[2020-12-24] MEDS: Acetaminophen 500 MG Tablet 1000 MG PO (20:37)
[2020-12-25 02:30] VITALS: BP 102/60; PULSE 73; RESP 16; TEMP 36.7; O2SAT 95
[2020-12-25] MEDS: Lactated Ringers 1,000 ML 125 ML IV (02:43)
[2020-12-25] MEDS: Mag Hydrox/Al Hydrox/Simeth 30 ML UDC PO ×2 (03:25→14:47)
[2020-12-25 05:43] LABS: Absolute Lymphocyte Count 0.64 X10^3/uL (0.83-4.51); Absolute Neutrophil Count 11.4 X10^3/uL (2.0-7.7); Basophil# 0.01 X10^3/uL; Basophil% 0.1 % (0-1); Hematocrit 36.3 % (37-47); Hemoglobin 11.7 g/dL (12.0-15.0); Lymphocyte # 0.64 X10^3/ul (0.83-4.51); Lymphocyte % 5.1 % (19-41); Mean Corp Hgb Conc 32.2 g/dL (32-36); Mean Corpuscular Hgb 34.1 pg (27.0-32.0); Mean Corpuscular Volume 105.8 fL (81-99); Mean Platelet Vol. 11.9 fl (6.2-12.0); NRBC Flagged by Analyzer 0 % (0-5); Neutrophil # 11.35 X10^3/uL (2.7-7.7); Neutrophil % 90.4 % (47-70); Platelet Count 164 K/mm3 (150-450); RBC Distribution Width CV 12.1 % (11.6-14.6); RBC Distribution Width SD 47.2 fl (35.1-43.9); Red Blood Count 3.43 M/mm3 (4.2-5.4); White Blood Count 12.6 K/mm3 (4.4-11.0)
[2020-12-25] MEDS: Acetaminophen 500 MG Tablet 1000 MG PO ×2 (05:47→14:43)
[2020-12-25 06:01] LABS: Anion Gap 6 (5-15); BUN 9 mg/dL (7-18); BUN/Creat Ratio 9.8 RATIO (10-20); Calcium,Total 8.4 mg/dL (8.5-10.1); Chloride 103 mmol/L (98-107); Creatinine, Serum 0.92 mg/dL (0.55-1.02); EST Glomerular Filtration Rate 64 mL/min (>60); Est Glom Filt Rate - Afr Amer 78 mL/min (>60); Estimated Creatinine Clearance 46.29 ml/min; Glucose 170 mg/dL (74-106); Potassium 3.7 mmol/L (3.5-5.1); Sodium Level 138 mmol/L (136-145)
[2020-12-25 06:45] VITALS: PULSE 66; RESP 16; O2SAT 92
[2020-12-25] MEDS: Ipratropium/Albuterol Sulfate 3 ML AMPUL.NEB INHALATION (06:45)
[2020-12-25 07:36] VITALS: BP 94/60; PULSE 72; RESP 16; TEMP 36.9; O2SAT 92
[2020-12-25] MEDS: Cefazolin 1 GM/50 ML BAG IV (07:47)
[2020-12-25] MEDS: Multivitamins,Ther W-Minerals Tablet 1 TABLET PO (07:47)
[2020-12-25] MEDS: Folic Acid 1 MG Tablet PO (07:48)
[2020-12-25] MEDS: Aspirin 81 MG TAB.CHEW PO (07:48)
[2020-12-25] MEDS: Thiamine Hydrochloride 100 MG Tablet PO (07:48)
[2020-12-25 09:31] LABS: Vitamin D,25 Hydroxy 29.7 ng/mL
[2020-12-25] MEDS: Senna/Docusate Sodium 1 Tablet 2 TABLET PO (10:29)
--- NOTE | 2020-12-25 10:30 | CASEMGMT ---
SAMIA CLAUDIO Face to Face with patient for initial transition planning/care coordination assessment. RN SHANON introduced self and role at [facility]. Patient sitting in chair, alert and oriented. Patient willing to participate in assessment and is able to answer all questions appropriately. Care providers, pharmacy, and demographics verified. Patient wishes to discharge home and would like outpatient therapy at discharge. Patient states she has no further needs or concerns at this time. CM to follow for discharge planning needs that may arise. PCP: Tonya Specialists: Brock López Pharmacy: [facility] Insurance: [employer] [facility] Prescription Benefit: yes Living Will/HPOA: none LNOK: Daughter Living Arrangements: Patient lives alone in a mobile home with 3 steps and railing to enter the home. Patient is independent at home. Transportation: daughter/son, information given regarding [facility] Transport Van DME/HHC: Patient denies previous DME or HHC. Patient will need walker at discharge. Patient was provided a list of DME providers consistent with the patient?s preferred geographic region, medical needs, and insurance network. The patient?s preferred provider is [facility]. Patient wishes to schedule her own outpatient therapy. Scripts for outpatient therapy and walker received. Referral made to [employer] and arranged for delivery to patient's room prior to discharge. Patient provided script for outpatient therapy and information on @Pay. Disposition Plan: Patient to discharge home with outpatient therapy, family support, and follow-up plans in place. Betty JOHNSON, RN, CM
--- NOTE | 2020-12-25 13:42 | PCM.PN.ORT ---
Subjective Subjective: 70-year-old female underwent right total hip replacement yesterday afternoon. No adverse events overnight pain has been well controlled she has gotten up and ambulated with physical therapy with a walker. She is using Tylenol for pain control. She currently denies chest pain shortness of breath dizziness or calf pain. She seems to be doing well overall. The plan is for discharge back to home later this afternoon with outpatient physical therapy. Objective Data Objective Data Vital Signs: Vital Signs Temp Pulse Resp BP Pulse Ox 98.4 F 72 16 94/60 92 12/25/20 07:36 12/25/20 07:36 12/25/20 07:36 12/25/20 07:36 12/25/20 07:36 Oxygen Flow Rate (L/min) 2 Oxygen Delivery Method Room Air Weight: 120 lb Body Mass Index (BMI) 21.9 Intake & Output: Intake and Output for Last 24 Hours 12/23/20 12/24/20 12/25/20 23:59 23:59 23:59 Intake Total 2192.5 / 2930.0 2060.42 / 2060.42 Output Total 125 / 125 Balance 2192.5 / 2805.0 1935.42 / 1935.42 Lab / Micro Data Result Diagrams: 12/25/20 05:22 12/25/20 05:22 Labs: Laboratory Results - last 24 hr 12/24/20 12/25/20 12/25/20 05:41 05:22 05:22 WBC 12.6 H RBC 3.43 L Hgb 11.7 L Hct 36.3 L MCV 105.8 H MCH 34.1 H MCHC 32.2 RDW Std Deviation 47.2 H RDW Coeff of Andra 12.1 Plt Count 164 MPV 11.9 Immature Gran % (Auto) 0.400 Neut % (Auto) 90.4 H Lymph % (Auto) 5.1 L [place] % (Auto) 4.0 Eos % (Auto) 0.0 Baso % (Auto) 0.1 Absolute Neuts (auto) 11.4 H Absolute Lymphs (auto) 0.64 L Nucleated RBC % 0 Sodium 138 Potassium 3.7 Chloride 103 Carbon Dioxide 29.0 Anion Gap 6 BUN 9 Creatinine 0.92 Estim Creat Clear Calc 46.29 Est GFR (MDRD) Af Amer 78 Est GFR (MDRD) Non-Af 64 BUN/Creatinine Ratio 9.8 L Glucose 170 H Calcium 8.4 L Vitamin D 25-Hydroxy 29.7 Radiography Diagnostic Testing: Radiology Impression Hip X-Ray 12/24/20 16:20 IMPRESSION: Fluoroscopic guidance for removal of metallic foreign body. Electronically Signed: Gama Trammell MD (Brooks) at 17:13 EDT , Service support , Physical Exam Narrative Patient is alert and oriented x3 no acute distress at rest breathing easily without respiratory distress inspection of right hip is with clean dry waterproof dressing without active drainage erythema warmth or signs of infection. Gentle range of motion right hip without significant increased pain. Mild bruising about the thigh laterally. Negative Luis Alberto bilaterally without signs of DVT sensation intact light touch patient is able to actively plantar and dorsiflex bilateral feet against resistance neurovascularly intact Laboratory results were discussed and reviewed with Dr. Eugene Chopra Assessment & Plan Assessment/Plan (1) Closed fracture of right hip requiring operative repair: Status: Acute Code(s): S72.001A - Fracture of unspecified part of neck of right femur, initial encounter for closed fracture Qualifiers: Encounter type: initial encounter Qualified Code(s): S72.001A - Fracture of unspecified part of neck of right femur, initial encounter for closed fracture Plan: Postoperative x-rays were discussed and reviewed at length with Dr. Eugene Chopra Postop day #1 following right total hip arthroplasty. Plan to continue Tylenol as needed for pain control. We will plan for use of aspirin 81 mg twice daily for blood clot prevention for 1 month postoperative. Continue with PT/OT weightbearing as tolerated right lower extremity with a walker. Continue with hip dislocation precautions. These were demonstrated to patient she voiced understanding. Encourage incentive spirometry. Continue discharge planning with case management. Plan for discharge with outpatient physical therapy. Continue postoperative medical management per hospitalist group. Patient is orthopedically stable and okay for discharge to home when cleared medically having adequate pain control and doing well with physical therapy. We will plan to see her in follow-up 2 weeks postoperative with x-rays and staple removal.
--- NOTE | 2020-12-25 14:32 | PCM.DC ---
Discharge Instructions Outpatient Procedure Reason For Visit: R FEMORAL NECK FRACTURE Follow Up Care Test Results: Test results from this visit will be discussed in further detail at your follow-up appointment, if applicable. Discharge Plan Admission Admit Date/Time: 12/24/20 03:36 Primary Reason for Your Visit: mechanical fall, hip fracture Attending Provider: Mandi Prado Primary Care Provider: Doron Castaneda Consulting Providers: Eugene Chopra Instructions Patient Instructions: ED Fracture, Lower Extremity, ED Abuse Drug Narcotic Sedative Rx Discharge Orders/Prescriptions Prescriptions: New aspirin 81 mg Tablet,Chewable 81 mg PO BIDCM Qty: 60 RF: 0 Continued alendronate 70 MG tablet 70 mg PO Q7D@0700 RF: 0 amlodipine 10 MG tablet 10 mg PO DAILY RF: 0 Anoro Ellipta 62.5-25 mcg/actuation blister with device 1 inh INHALATION DAILY RF: 0 Referrals: Doron Castaneda MD [Primary Care Provider] - In 1 Week Eugene Chopra MD [STAFF PHYSICIAN] - Within 2 Weeks Disposition Disposition (needs filled in before D/C Order can be placed): Home, self care
--- NOTE | 2020-12-25 14:33 | DS.PCM_ITS ---
Providers Date of Admission: 12/24/20 Primary Care Physician: Dr. Doron Castaneda MD Consultations 12/24/20 04:45 Consult: Orthopedics Routine Consulting Provider: Eugene Chopra Reason for Consult: R Femoral neck fracture EMERGENT Consult: No MD Notified: Yes Date Notified:: 12/24/20 Time Notified: 03:35 Method of Notification: Verbal Comments:: dr kirby pt in ER Reason For Visit: R FEMORAL NECK FRACTURE Diagnosis Discharge Diagnosis (1) Closed fracture of right hip requiring operative repair: Status: Acute Code(s): S72.001A - Fracture of unspecified part of neck of right femur, initial encounter for closed fracture Qualifiers: Encounter type: initial encounter Qualified Code(s): S72.001A - Frac ture of unspecified part of neck of right femur, initial encounter for closed fracture Medications at Discharge Home Medications alendronate 70 mg PO Q7D@0700 01/17/20 amlodipine 10 mg PO DAILY 01/17/20 Anoro Ellipta 1 inh INHALATION DAILY 12/24/20 aspirin 81 mg PO BIDCM #60 tab 12/25/20 Hospital Course Operations total hip replacement Procedures None Summary of Care Provided Minutes Spent on Discharge: 50 Hospital Course: Patient is a 70-year-old female with an extensive past medical history which includes hypertension, COPD, nicotine dependence and alcohol dependence who was admitted via the ED on 12/24/2020 with a complaint of mechanical fall. She fell while she was at the [employer] parking lot while she was trying to open her car. She had excruciating right hip pain and so she came into the ED. Imaging of the right hip done showed a right subcapital femoral neck fracture with mild impaction. She was placed on pain control with IV morphine and p.o. Tylenol. Orthopedic service was consulted. She had a right hip replacement done on 12/24/2020. Postop course was complicated by a metal femoral cutting guide which was inadvertently left in the patient and was disco mj on postoperative x-rays and patient chose to proceed with surgical removal of this. This was removed with fluoroscopy on 12/24/2020. Patient remained stable after surgery and ambulated well with physical therapy. Pain was well controlled. She remained stable and was discharged home with outpatient physical therapy on 12/25/2020. She was discharged on aspirin 81 mg twice daily for 1 month for DVT prophylaxis. She is follow-up with her primary care doctor and also to follow-up with orthopedic surgery. Patient was seen and examined prior to discharge. Pain was well controlled and she had no complaints. Review of symptoms otherwise negative. Labs and vitals reviewed. Her medication reviewed and reconciled. Physical Exam Const alert, oriented x3 and no apparent distress General Appearance: cooperative and comfortable HEENT normocephalic, head/scalp atraumatic and moist oral mucous membranes Eyes PERRL Resp normal respiratory effort, no retractions and no use of accessory muscles Cardio regular rate, regular rhythm, S1 normal heart sound, S2 normal heart sound and no murmurs Extremity normal to inspection Extremity Narrative: intact dressing over right hip Neuro oriented x3 Sensorium / Orientation: awake and alert Psych affect normal ABG / Lab / Microbiology Data Result Diagrams: 12/25/20 05:22 12/25/20 05:22 Laboratory: Laboratory Results - last 24 hr 12/24/20 12/25/20 12/25/20 05:41 05:22 05:22 WBC 12.6 H RBC 3.43 L Hgb 11.7 L Hct 36.3 L MCV 105.8 H MCH 34.1 H MCHC 32.2 RDW Std Deviation 47.2 H RDW Coeff of Andra 12.1 Plt Count 164 MPV 11.9 Immature Gran % (Auto) 0.400 Neut % (Auto) 90.4 H Lymph % (Auto) 5.1 L [place] % (Auto) 4.0 Eos % (Auto) 0.0 Baso % (Auto) 0.1 Absolute Neuts (auto) 11.4 H Absolute Lymphs (auto) 0.64 L Nucleated RBC % 0 Sodium 138 Potassium 3.7 Chloride 103 Carbon Dioxide 29.0 Anion Gap 6 BUN 9 Creatinine 0.92 Estim Creat Clear Calc 46.29 Est GFR (MDRD) Af Amer 78 Est GFR (MDRD) Non-Af 64 BUN/Creatinine Ratio 9.8 L Glucose 170 H Calcium 8.4 L Vitamin D 25-Hydroxy 29.7 Radiography Diagnostic Testing: Radiology Impression Hip X-Ray 12/24/20 16:20 IMPRESSION: Fluoroscopic guidance for removal of metallic foreign body. Electronically Signed: Gama Trammell MD (Brooks) at 17:13 EDT , Service support , Meaningful Use Info Meaningful Use Diagnoses (Choose all that apply): None applicable Discharge Plan Admission Admit Date/Time: 12/24/20 03:36 Primary Reason for Your Visit: mechanical fall, hip fracture Attending Provider: Mandi Prado Primary Care Provider: Doron Castaneda Consulting Providers: Eugene Chopra Instructions Patient Instructions: ED Fracture, Lower Extremity, ED Abuse Drug Narcotic Sedative Rx Discharge Orders/Prescriptions Prescriptions: New aspirin 81 mg Tablet,Chewable 81 mg PO BIDCM Qty: 60 RF: 0 Continued alendronate 70 MG tablet 70 mg PO Q7D@0700 RF: 0 amlodipine 10 MG tablet 10 mg PO DAILY RF: 0 Anoro Ellipta 62.5-25 mcg/actuation blister with device 1 inh INHALATION DAILY RF: 0 Referrals: Doron Castaneda MD [Primary Care Provider] - In 1 Week Eugene Chopra MD [STAFF PHYSICIAN] - Within 2 Weeks Disposition Disposition (needs filled in before D/C Order can be placed): Home, self care Visit Charges Inpatient E&M: 13166 Disch Hosp
[2020-12-25 14:38] VITALS: BP 111/68; PULSE 69; RESP 16; TEMP 37; O2SAT 94
--- NOTE | 2020-12-25 14:38 | CASEMGMT ---
Social Work Note JAVIER reviewed chart. Pt drinks 4-6 beers a day. SW in to speak with pt. SW introduced self and role at [facility]. Pt is alert and orientated x3. Initially pt denied any Mental Health or Substance Abuse. SW specifically asked pt about ETOH use. Pt confirms she drinks ETOH Daily. Pt states I drink a few beers in the afternoon. SW asked pt what a few means to her. Pt states I can drink 1-2, up to 4, pending how I feel. Pt states she drinks the small ones. SW asked pt if she wanted any substance use resources and pt denied. Pt denied additional needs or concerns at this time. Betty Caraballo OUTPATIENT ADMITTING CLERK, [employer]
--- NOTE | 2020-12-25 15:55 | CHAPLAIN ---
Type of Pastoral Visit _x__ Initial Visit ___ Follow-up Visit ___ On-call Visit ___ General Patient Visit ___ Spiritual Assessment ___ Family Conference ___ Bereavement ___ Rapid Response ___ Code Blue ___ Other (describe below) Pastoral Care Referral From _x__ Patient ___ Family ___ Nurse ___ Physician ___ Agricultural Education Professor ___ Biomedical Analytical Scientist ___ Other (describe below) Sacrament/Intervention _x__ Active listening ___ Anointing ___ Methodist ___ Bereavement ___ Communion ___ Rebecca exploration ___ ___ Life review ___ Prayer ___ Reconciliation ___ Sacrament of Sick ___ Supportive presence ___ Wedding ___ Other (describe below) Pastoral Comments patient states that she is doing much better and is going home today; pt says she has no concerns or needs at this time
== END 2020-12-25 16:35 | disposition home or self-care (01) | DRG 522 ==
LOC: ED 03:34 → MS3 04:16
PROVIDERS: Anesthesiology; Orthopaedic Surgery; Admitting Provider Hospitalist; Emergency Provider Emergency Medicine; PCP Family Medicine; Visit Provider Student in an Organized Health Care Education/Training Program
PROC: 0SR90JZ Replacement of Right Hip Joint with Synthetic Substitute, Open Approach (ICD-10-PCS; CPT 27130; principal; 2020-12-24 09:00)
PROC: 0SR902Z Replacement of Right Hip Joint with Metal on Polyethylene Synthetic Substitute, Open Approach (ICD-10-PCS; principal; 2020-12-24 15:30)
DX: S72.011A Unspecified intracapsular fracture of right femur, initial encounter for closed fracture (principal); T81.500A Unspecified complication of foreign body accidentally left in body following surgical operation, initial encounter; M16.11 Unilateral primary osteoarthritis, right hip; F17.210 Nicotine dependence, cigarettes, uncomplicated; I10 Essential (primary) hypertension; J44.9 Chronic obstructive pulmonary disease, unspecified; D72.829 Elevated white blood cell count, unspecified; D75.1 Secondary polycythemia; F10.10 Alcohol abuse, uncomplicated; Y79.3 Surgical instruments, materials and orthopedic devices (including sutures) associated with adverse incidents; W18.30XA Fall on same level, unspecified, initial encounter; Y93.89 Activity, other specified; Y92.481 Parking lot as the place of occurrence of the external cause; Y99.8 Other external cause status
CPT/HCPCS: 36415; 71045; 73502; 76000; 77063; 77067; 80048; 82077; 82306; 85025; 85027; 85610; 86850; 86900; 86901; 88305; 88307; 88311; 93005; 94640; 97162; 97166; 97530; 99285; C1776; J7120; A4216; J2405

== ENCOUNTER → 2021-01-08 08:06 | Outpatient (CLI) | payer MEDICARE, MEDICAID, SELFPAY ==
[2020-12-24 04:07] VITALS: BMI 21.9
--- NOTE | 2021-01-08 08:09 | CT_ITS ---
STUDY: CT CHEST WITHOUT CONTRAST REASON FOR EXAM: Female, 70 years old. Chest pain, pulmonary nodule RADIATION DOSAGE (If Supplied By Facility): CTDIvol = ( 5.26 ) mGy, DLP = ( 188.40 ) mGycm TECHNIQUE: Transaxial imaging was performed without the administration of intravenous contrast material. Multiplanar coronal and sagittal images were reformatted. Individualized dose optimization techniques were used for this CT. COMPARISON: 06/23/2020 FINDINGS: Lung windows again show underlying emphysema. Stable 2.5 cm spiculated nodule in the apex of the right lung is unchanged from the previous study. There is also a stable area of architectural distortion/nodularity in the right upper lobe on axial image 28. No new suspicious noncalcified mass or nodule. No organized infiltrate or effusion. Soft tissue windows show normal-appearing thyroid gland. No suspicious axillary or mediastinal adenopathy. No pleural or pericardial effusions. There are calcified coronary vessels. Bony structures show degenerative change. Normal unenhanced pulmonary arteries. Normal aorta arch and descending thoracic aorta. There is no demonstrated abnormality of the visualized upper abdomen. CT/Chest without Contrast IMPRESSION: Stable spiculated nodules in the right upper lobe unchanged from previous pet/CT scans dating back to 07/11/2020. No new suspicious noncalcified mass or nodule. No organized infiltrate or effusion. Degenerative bony changes Electronically Signed: Zachery Padilla MD at 9:52 EDT , Service support ,
== END ==
PROVIDERS: PCP Family Medicine; Referring Provider Internal Medicine Pulmonary Disease; Visit Provider Internal Medicine Pulmonary Disease
DX: R91.1 Solitary pulmonary nodule (principal)
CPT/HCPCS: 71250

== ENCOUNTER → 2021-02-15 11:37 | Outpatient (CLI) | payer MEDICARE, MEDICAID, SELFPAY ==
[2020-12-24 04:07] VITALS: BMI 21.9
--- NOTE | 2021-02-15 11:39 | RAD_ITS ---
STUDY: X-RAY CHEST REASON FOR EXAM: Female, 70 years old. COPD TECHNIQUE: 2 views COMPARISON: 12/24/2020. FINDINGS: The heart and mediastinum are within normal limits. Both lung ruby are clear but hyperinflated. There is a pleural parenchymal scarring involving the right apex. The visualized bones are somewhat osteoporotic. There is increase in the thoracic kyphosis. There is no pleural effusion or pneumothorax. RAD/Chest PA and Lateral IMPRESSION: Negative study for intrathoracic active. Electronically Signed: Pietro Pancho, at 12:32 EDT Tel , Service support ,
== END ==
PROVIDERS: PCP Family Medicine; Referring Provider Family Medicine; Visit Provider Family Medicine
DX: J44.9 Chronic obstructive pulmonary disease, unspecified (principal)
CPT/HCPCS: 71046

== ENCOUNTER 2021-03-19 13:00 | Outpatient (RCR) | payer MEDICARE, MEDICAID, SELFPAY ==
[2020-12-24 04:07] VITALS: BMI 21.9
--- NOTE | 2021-01-11 11:53 | HP.PTEVAL_ITS ---
Patient's Visit Information VAL HOWE is a 70 year old F referred to Physical Therapy by Dr. Mandi Prado MD with a diagnosis of Right THR 12/24/2020. Date of Evaluation: 01/11/21 Physical Therapist: Riya Ramos DPT - Visit Plan Frequency: 3x /Week Duration: 4 Weeks Plan: Right THR 12/24/2020 Focus on LE and core strength/stabilization with functional mobility. HEP Given IE: sit to stand, marching, hip abd, hip add, TR/HR all ex in sitting- educated to bring cane to next PT session - Subjective She locked her keys in the car and was trying to get the door open- she fell and landed on her hip- ended up in the ER with a hip fracture. Dr. Eugene Chopra performed a posterior THR on December 24, 2020. She stayed 2 nights and then went home. Lives in a mobile home with 4 stairs to enter with a single hand rail. Fully I prior to injury. She is able to do everything except bathing- her daughter helps due to fear of falling. Lives alone but daughter is close and can help as needed. Is using a FWW-no AD prior to injury. She now has a fear of falling. She did not have home health- came straight to outpatient. Was brought to [facility] by the van and plans to use if for transportation. Pain today is about a 1/10. He took the waldemar out and took x-rays yesterday and everything looked great. Worst: 2/10 Agg: sitting a lot Eases: getting up and moving around Best: 0/10. Pain is located in the side of the hip and radiates thigh and behind the knee. is aware and told her its from the surgery. Sleep: disturbed-but has found comfortable position- she is a normally a side sleeper. She is currently trying to sleep on her back. First major surgery/injury. No N/T in the LE. She was active prior to injury- mowed her yard- cleaned her house. Work: does not work. No loss or change in bowel or bladder. No falls prior to this fall and none since. PMHx/Meds: none since she was at the hospital - Objective Posture: FH, RS- can correct with verbal cues but does not maintain. Gait: FWW- antalgic step through pattern with decreased heel/toe pattern and stance phase- single point cane step to pattern. Stairs: asc/desc 8 recip with 2 HR- poor control with descent. Observation: incision healing well. HR/TR: able with UE A. SLS: weight shift but unable to SLS without UE A. Special Test: sit to stand 30 sec: 11 with UE A, TU.70 seconds with FWW. ROM: WFL in all planes- Hip: 90 degrees due to hip precautions. Strength: Core: fair, Hip: flexion: 4.3 lbs of force, extn: 16.6 lbs of force, abd: 4/5, add: 4/5, IR/ER: not tested. Knee: 4+/5, Ankle: 5/5 - Goals Goal 1:: Patient will be I with HEP and progression Goal Time Frame: 4-6 Weeks Goal 2:: Patient will ambulate >300 feet with normalized gait pattern and LRD Goal Time Frame: 4-6 Weeks Goal 3:: Patient will asc/desc 8 stairs recip with 1 HR Goal Time Frame: 4-6 Weeks Goal 4:: Patient will report sleeping through the night for 1 week Goal Time Frame: 4-6 Weeks - Rehabilitation Potential Physical Therapy Diagnosis: Patient presents with hypomobility- she has decreased strength, flex and muscular endurance s/p Right THR leading to decreased ability to perform ADL's and ambulate without AD. Rehabilitation Potential: Fair - Anticipated Interventions Patient/Client Instruction: Educate patient on: Benefits of Fitness Program Therapeutic Exercise to Include: Strength training, Endurance training, Balance training, Body mechanics, Postural training, Flexibilty training, Gait and locomotor training, Neuromotor development, Dynamic Lumbar Stabilization, Scapular Strength/Stabilization For the Purpose of:: To improve muscle performance and motor function Functional Training to Include: Gait training TENS: Yes Cryotherapy (ice pack, ice massage): Yes Thermo therapy (hot pack): Yes Ultrasound (thermal/non thermal): No Thank you for the opportunity to evaluate your patient. For Medicare and Medicare HMO plans, please review the plan of care and approve it. It will need to be FAXED BACK to us at [phone] for Medicare purposes. For Medicare only, by signing this I certify the plan of care. Please let me know if there are questions or concerns regarding this plan of care. Physician Signature: Date:
--- NOTE | 2021-02-19 14:19 | HP.PTREVAL ---
Dr. Doron Castaneda MD, It has been my pleasure to treat VAL HOWE over the last 13 visits for Right THR 12/24/2020. Please see the progress note below for an update on the physical therapy plan of care! Subjective: Patient reports that she is 70% back to normal due to lack of strength. Does have some pain but it comes and goes. Worst: 4/10 she rolled over onto the side in her sleep a few days ago. Best: 0/10 Eases: pain medication, ice and rest. Starting to walk without her cane- is doing better on stairs. Objective/Function: Posture: FH, RS- can correct with verbal cues but does not maintain. Gait: no AD- mildly antalgic- good maximo Stairs: asc/desc 8 recip with 1 HR- fair control with descent. HR/TR: able with UE A. SLS: 5 sec. Special Test: sit to stand 30 sex: 14 without UE A, TU.78 without AD. ROM: WFL in all planes- Hip: 90 degrees due to hip precautions. Strength: Core: fair, Hip: flexion: 10.5 lbs of force, extn: 24.8 lbs of force, abd: 4+/5, add: 4+/5, IR/ER: not tested. Knee: 12/27, Ankle: 12/27 Plan Plan: 02/19/2021: Continue to progress towards functional goals and strength of the LE. Pt to see PT next for reassessment or possible d/c. Goals Goal 1:: Patient will be I with HEP and progression Goal Time Frame: 4-6 Weeks Goal Progress: Progressing Goal 2:: Patient will ambulate >300 feet with normalized gait pattern and LRD Goal Time Frame: 4-6 Weeks Goal Progress: Progressing Goal 3:: Patient will asc/desc 8 stairs recip with 1 HR Goal Time Frame: 4-6 Weeks Goal Progress: Progressing Goal 4:: Patient will report sleeping through the night for 1 week Goal Time Frame: 4-6 Weeks Goal Progress: Progressing Anticipated Interventions Patient/Client Instruction: Educate patient on: Benefits of Fitness Program Therapeutic Exercise to Include: Strength training, Endurance training, Balance training, Body mechanics, Postural training, Flexibilty training, Gait and locomotor training, Neuromotor development, Dynamic Lumbar Stabilization, Scapular Strength/Stabilization For the Purpose of:: To improve muscle performance and motor function Functional Training to Include: Gait training TENS: Yes Cryotherapy (ice pack, ice massage): Yes Thermo therapy (hot pack): Yes Ultrasound (thermal/non thermal): No Please do not hesitate to contact me at [phone] by phone or if you have questions or concerns regarding this new plan of care! Sincerely, KARIN LezamaT
--- NOTE | 2021-03-19 13:45 | HP.PTDCSUM ---
It has been my pleasure to treat VAL HOWE referred by Dr. Doron Castaneda MD, with the diagnosis of Right THR 12/24/2020 for a total of 21 visit(s). Discharge Date: Please see the following information for a summary of their discharge status. Subjective: Patient reports that she is feeling really good. She has some soreness in the right hip on the lateral aspect. Spoke to the MD and told her to continue therapy and just tell them she was sore. Worst: -10/04. Has a hard time carrying objects up the stairs (ex dog food or heavy bag of groceries). % Improvement: 90 Objective/Function: Posture: good throughout Gait: no AD- no deviation noted- good maximo Stairs: asc/desc 8 recip with 1 HR- good technique HR/TR: able with UE A. SLS: 10 sec. Special Test: sit to stand 30 sex: 17 without UE A, TU.4 without AD. ROM: WFL in all planes- Hip: 90 degrees due to hip precautions. Strength: Core: fair, Hip: flexion: 15 lbs of force, extn: 30 lbs of force, abd: 4+/5, add: 4+/5, IR/ER: not tested. Knee: 5/5, Ankle: 5/5 Goal 1:: Patient will be I with HEP and progression Goal Progress: Progressing Goal 2:: Patient will ambulate >300 feet with normalized gait pattern and LRD Goal Progress: Progressing Goal 3:: Patient will asc/desc 8 stairs recip with 1 HR Goal Progress: Progressing Goal 4:: Patient will report sleeping through the night for 1 week Goal Progress: Progressing Plan: 03/19/2021: Discharge to I home exercise program If there are questions or concerns regarding this patient's physical therapy, please feel free to call me at [phone]. Thank you for the referral of this patient. Sincerely, KARIN LezamaT
== END 2021-03-19 16:12 | disposition home or self-care (01) ==
LOC: PT 13:00
PROVIDERS: PCP Family Medicine; Referring Provider Family Medicine; Visit Provider Family Medicine
DX: S72.001D Fracture of unspecified part of neck of right femur, subsequent encounter for closed fracture with routine healing (principal); X58.XXXD Exposure to other specified factors, subsequent encounter
CPT/HCPCS: 97110; 97116; 97164

== ENCOUNTER → 2021-05-09 15:39 | Outpatient (CLI) | payer MEDICARE, MEDICAID, SELFPAY ==
--- NOTE | 2021-05-09 | IMM_PTH ---
PATIENT: VAL HOWE LOC: PATIENCE U#:[id number] AGE/SX: 75/F ROOM: RE05/09/[address]: Dr. Rojelio Chen MD : 1950 BED: DIS: SPEC #: [id number] RECD: 05/11/21 15:02 STATUS: FRANDY SRAVANI #: [id number] JESSICA: 05/09/21 00:[address]: Rojelio Chen DEPT: IMMUNOHISTOCHEMISTRY RECD BY: Rachel Langford ENTERED: 05/11/21 15:03 SP TYPE: IMMUNO OTHR DR: Dr. Doron Castaneda MD Tissues: Tongue, NOS Procedures: p16 (initial) PHYSICIAN & INSTITUTION [place] [id number] SPECIMEN INFORMATION: Tissue Source: Left tongue mass Clinical Info: Left tongue mass Specimen Number: [id number] CPT code: 00604 METHODOLOGY: Deparaffinized sections of prefer/formalin-fixed tissue or PAP/DQ stained slides are incubated with monoclonal/polyclonal antibodies/oligonucleotide probes. Localization is made via biotin free immunoperoxidase method. Appropriate controls are performed and reacted as expected. Results on target cell population are indicated in the following table: RESULTS: ANTIBODY / CLONE RESULT P16 (E6H4) positive These tests were developed and their performance characteristics determined by [facility]. They may not have been cleared or approved by the U.S. Food and Drug Administration. The FDA has determined that such clearance or approval is not necessary. The above immunohistochemical/dualISH markers are ordered and reviewed by the Pathologist. 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 JOSE:nuvia 05/14/2021
--- NOTE | 2021-05-09 14:15 | TOBX_PTH ---
PATIENT: VAL HOWE LOC: PATIENCE U#:[id number] AGE/SX: 75/F ROOM: RE05/09/[address]: Dr. Rojelio Chen MD : 1950 BED: DIS: SPEC #: [id number] RECD: 05/10/21 13:12 STATUS: FRANDY SRAVANI #: [id number] JESSICA: 05/09/21 14:[address]: Rojelio Chen DEPT: SURGICAL PATHOLOGY RECD BY: Desi Wolf ENTERED: 05/10/21 13:13 SP TYPE: TONGUE BX OT DR: Dr. 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 See comment. JOSE:nuvia 05/11/2021 COMMENT Immunohistochemistry for surrogate HPV marker (p16) will be performed and results will be reported separately. Case has been reviewed in consultation with Dr. Jennings who concurs with the above diagnosis. IDC:AM MICROSCOPIC DESCRIPTION Slides are reviewed. GROSS DESCRIPTION Received in fixative is one container labeled with the patient's name and designated left tongue mass. The specimen consists of two irregular fragments of light reyes soft tissue that in aggregate measure 0.5 x 0.3 x 0.1 cm. The specimen is totally submitted in one cassette. / AM:nuvia 05/10/21 TC:0 CPT: 55574 ADDENDUM ADDENDUM ADDENDUM ADDENDUM ADDENDUM ADDENDUM ADDENDUM ADDENDUM ADDENDUM ADDENDUM 10/30/2021 11:45 ADDENDUM 10/30/2021 11:45 ADDENDUM 10/30/2021 11:45 ADDENDUM 10/30/2021 11:45 ADDENDUM 10/30/2021 11:45 This addendum is added to incorporate an outside pathology consultation report. The case was examined at [facility] (#[id number]) and the following diagnosis was rendered. 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 Please see complete above mentioned consultation report in EMR
== END ==
PROVIDERS: PCP Family Medicine; Visit Provider Otolaryngology
DX: K14.9 Disease of tongue, unspecified (principal)
CPT/HCPCS: 88305; 88342

== ENCOUNTER → 2021-05-29 15:23 | Outpatient (CLI) | payer MEDICARE, MEDICAID, SELFPAY ==
--- NOTE | 2021-05-29 15:00 | PET_ITS ---
EXAMINATION: FDG PET-CT INDICATIONS: A 71-year-old female with reported history of head and neck carcinoma presenting for restaging examination and reevaluation of pulmonary nodularity. COMPARISON EXAMINATION: FDG PET-CT report dated 07/11/20 NON-INDEX LESION SIZE SUV INTERPRETATION Left parotid space 8.8-mm (frame 229) 2.9 comp. to 2.4 (07/11/20) May be further investigated with CT of the neck with intravenous contrast secondary to the quantitative degree of uptake TECHNIQUE: Following the intravenous administration of 17.15 mCi of F-18 deoxyglucose via the left antecubital fossa, multiplanar image acquisitions of the neck, chest, abdomen and pelvis to level of mid thigh, obtained at one hour post radiopharmaceutical administration contemporaneously interpreted with the current CT of the neck, chest, abdomen and pelvis, to level of mid thigh, dated 05/29/21 via coregistration and FDG PET-CT report dated 07/11/20 reveals: BLOOD GLUCOSE LEVEL:?? 92 mg/dl?HEIGHT:?62 inches?WEIGHT: 119 lbs. FINDINGS: Head/Neck: Asymmetric increased FDG distribution remains apparent in the left parotid space generating a current calculated maximal standard uptake value of 2.9, compared to 2.4 defined on the previous examination. The maximal axial diameter of the corresponding metabolic abnormality on review of CT of the neck dated 05/29/21 is 8.8-mm (AP). There is no evidence of abnormal increased glucose metabolism in the pharyngeal mucosal space, parapharyngeal space, bilateral-lateral and anterior neck, hypopharynx and distribution of the laryngeal structures. The visualized portion of the cerebral cortical-subcortical structures demonstrate symmetric and preserved glucose metabolism. CHEST: There is no quantitative scintigraphic evidence of abnormal increased glucose metabolism within the context of the bilateral hemithorax pulmonary parenchyma, right and left hemithorax pleural interface, mediastinal structures and right-left thoracic perihilum. The previously identified subtle increase in glucose concentration observed in the right lung-right upper lobe is not apparent on the present examination. Review of CT of the chest demonstrates no significant interval changes compared to the examination dated 07/11/2020. Abdomen/Pelvis: Normal physiologic distribution of the radiopharmaceutical is apparent in the hepatic (2.4/2.8) and splenic parenchyma, both renal units, bladder and visualized intestinal tract. The previously described anatomic findings on CT of the abdomen and pelvis dated 07/11/2020 are unchanged on the present examination. Skeletal: There is a visualized right hip arthroplasty. PET/PET/CT Tumor Base -Thigh Init IMPRESSION: 1. The increase in FDG distribution redefined in the left parotid space may be further investigated with CT of the neck with intravenous contrast if clinically indicated. 2. There is no evidence of abnormal increased fluorine labeled glucose uptake within the context of the right upper lung-right upper lobe on the present examination. 3. Anatomic stability may be ensured in the nonglucose avid right upper lobe parenchymal density with repeat FDG PET-CT imaging and/or CT of the chest in 6-9 months if clinically indicated. (Roc, Seminars in Thoracic and Cardiovascular Surgery 14:292, 2002). 4. Overall compared to the previous FDG PET CT study dated 07/11/2020, there is no significant interval change. Electronic Signature Zoran Means D.O. Accurate Quantification of SUVs for this report are calculated using the exclusive [employer], (U.S. Patent No. 10, 674, 983). Standardization and correction of the FDG SUV metric exclusively available with [employer] intellectual property, allow for vendor non-specific objective quantitative sequential FDG PET-CT comparison and otherwise unobtainable optimization of the sensitivity and specificity of the examination. Electronically Signed: Zoran Means DO at 11:01 EDT Tel , Service support ,
== END ==
PROVIDERS: PCP Family Medicine; Referring Provider Otolaryngology; Visit Provider Otolaryngology
DX: C02.9 Malignant neoplasm of tongue, unspecified (principal); R91.8 Other nonspecific abnormal finding of lung field
CPT/HCPCS: 78815; A9552

== ENCOUNTER → 2021-06-04 | Outpatient (CLI) | payer MEDICARE, MEDICAID, SELFPAY ==
--- NOTE | 2021-06-04 09:30 | ASPOS_PTH ---
PATIENT: VAL HOWE LOC: PATIENCE U#:[id number] AGE/SX: 71/F ROOM: RE06/04/[address]: Dr. Rojelio Chen MD : 1950 BED: DIS: 06/04/2021 SPEC #: [id number] RECD: 06/04/21 10:30 STATUS: FRANDY REDony #: [id number] JESSICA: 06/04/21 09:[address]: Rojelio Chen DEPT: CYTOLOGY RECD BY: Desi Wolf ENTERED: 06/04/21 10:39 SP TYPE: ASP HERE OTHR DR: Dr. Doron Castaneda MD Tissues: Jaw, NOS Procedures: Surgery Specimen Level IV Cytology Other Fine Needle Asp on Site HEADER OPERATION: Fine needle aspiration, left angle of jaw mass PRE-OP DIAGNOSIS: Left angle of jaw mass TISSUE SUBMITTED: FNA, left angle of jaw mass DIAGNOSIS CYTOLOGY Fine needle aspiration, left angle jaw mass (smears and cell block): Negative for malignant cells. See comment. AM:nuvia 06/05/2021 COMMENT The specimen is evaluated at the time of FNA by Dr. Jennings. Immediate Evaluation = Benign salivary gland tissue and polymorphous lymphocytes present. The specimen contains benign salivary gland tissue and polymorphous lymphocytes. There is no evidence of carcinoma. The presence of polymorphous lymphocytes may represent chronic inflammation in the salivary gland and/or a benign lymph node. The differential diagnosis also includes a benign Warthin?s tumor. Clinical correlation is suggested. Reference is made to the patient's left tongue mass biopsy ([id number]) in which invasive well-differentiated squamous cell carcinoma was identified. Case has been reviewed in consultation with Dr. Ruiz who concurs with the above diagnosis. IDC:SJ CYTOLOGY STUDY Slides are reviewed. CYTOLOGY GROSS Received is 0.2 ml of reddish fluid labeled with the patient's name, and designated left angle of jaw mass. Four imprints and two paps are made from the submitted fluid and the rest is added to CytoL[employer] for cell block preparation. Submitted for cytology study. / AM:nuvia 06/04/2021 TC:5 CPT: 48431, 05190, 06288, 06517
== END | disposition home or self-care (01) ==
LOC: LABSPEC 09:24
PROVIDERS: PCP Family Medicine; Visit Provider Otolaryngology
DX: R91.8 Other nonspecific abnormal finding of lung field (principal)
CPT/HCPCS: 10021; 88161; 88305; 88307

== ENCOUNTER → 2021-07-06 10:34 | Outpatient (CLI) | payer MEDICARE, MEDICAID, SELFPAY ==
[2021-07-06 10:37] LABS: Bacteria 0 SEEN /hpf (None Seen); Mucous, Urine 0 SEEN /hpf (<or=2+); Red Blood Cells-Urine 0 SEEN /hpf (0-5); White Blood Cells 0 SEEN /hpf (0-5)
[2021-07-06 12:27] LABS: Absolute Lymphocyte Count 1.35 X10^3/uL (0.83-4.51); Absolute Neutrophil Count 5.5 X10^3/uL (2.0-7.7); Basophil# 0.06 X10^3/uL; Basophil% 0.8 % (0-1); Eosinophils% 1.3 % (0-5); Hematocrit 51.7 % (37-47); Hemoglobin 17.1 g/dL (12.0-15.0); Lymphocyte # 1.35 X10^3/ul (0.83-4.51); Lymphocyte % 17.9 % (19-41); Mean Corp Hgb Conc 33.1 g/dL (32-36); Mean Corpuscular Hgb 34.1 pg (27.0-32.0); Mean Corpuscular Volume 103.2 fL (81-99); Mean Platelet Vol. 11.9 fl (6.2-12.0); Monocyte# 0.57 X10^3/uL; Monocyte% 7.5 % (0-10); NRBC Flagged by Analyzer 0 % (0-5); Neutrophil # 5.46 X10^3/uL (2.7-7.7); Neutrophil % 72.2 % (47-70); Platelet Count 181 K/mm3 (150-450); RBC Distribution Width CV 12.4 % (11.6-14.6); RBC Distribution Width SD 47.8 fl (35.1-43.9); Red Blood Count 5.01 M/mm3 (4.2-5.4); White Blood Count 7.6 K/mm3 (4.4-11.0)
[2021-07-06 12:30] LABS: Color, Urine Yellow (Yellow); Glucose, Dipstick Normal (Normal); Ketone-Dipstick Negative (Negative); Leukocyte Esterase-Dipstick Negative /ul (Negative); Nitrite-Dipstick Negative (Negative); Occult Blood-Urine Negative /ul (Negative); Protein-Dipstick Negative (Negative); Urine Bilirubin Dipstick Negative (Negative); Urine Clarity Sl. Cloudy (Clear); Urine Urobilinogen Normal (Normal)
[2021-07-06 12:41] LABS: ALB/GLOB Ratio 0.9 RATIO (0.9-2.4); AST(SGOT) 19 U/L (15-37); Alanine Aminotransfer ALT/SGPT 30 U/L (13-56); Albumin, Serum 3.4 g/dL (3.2-5.0); Alkaline Phosphatase 97 U/L (45-117); Anion Gap 8 (5-15); BUN 10 mg/dL (7-18); BUN/Creat Ratio 16.3 RATIO (10-20); Calcium,Total 8.8 mg/dL (8.5-10.1); Chloride 103 mmol/L (98-107); Creatinine, Serum 0.62 mg/dL (0.55-1.02); EST Glomerular Filtration Rate 102 mL/min (>60); Est Glom Filt Rate - Afr Amer 124 mL/min (>60); Globulin 3.8 g/dL (2.2-4.2); Glucose 88 mg/dL (74-106); Protein, Total 7.2 g/dL (6.4-8.2); Sodium Level 138 mmol/L (136-145)
[2021-07-06 12:46] LABS: Squamous Epithelial Cells - UA 0-5 SEEN /hpf (5-10)
[2021-07-06 12:50] LABS: Vitamin D,25 Hydroxy 25.4 ng/mL
== END ==
PROVIDERS: PCP Family Medicine; Referring Provider Family Medicine; Visit Provider Family Medicine
DX: E55.9 Vitamin D deficiency, unspecified (principal); I10 Essential (primary) hypertension
CPT/HCPCS: 36415; 80053; 81001; 82306; 85025

== ENCOUNTER → 2021-07-11 08:08 | Outpatient (CLI) | payer MEDICARE, MEDICAID, SELFPAY ==
[2020-12-24 04:07] VITALS: BMI 21.9
--- NOTE | 2021-07-11 08:11 | CT_ITS ---
STUDY: CT CHEST WITHOUT CONTRAST REASON FOR EXAM: Female, 71 years old. PULM NODULE. History of tongue cancer. RADIATION DOSAGE (If Supplied By Facility): CTDIvol = ( 6.34 ) mGy, DLP = ( 228.23 ) mGycm TECHNIQUE: Transaxial imaging was performed without the administration of intravenous contrast material. Multiplanar coronal and sagittal images were reformatted. Individualized dose optimization techniques were used for this CT. COMPARISON: Comparison is made with prior study dated 01/08/2021. FINDINGS: There is a 2.7 cm x 1.9 cm pleural-based density in the posterior medial aspect of the right upper lobe with evidence of bronchiectasis and perinodular scarring. Posterior to this, there is a 6.5 mm noncalcified nodule in the medial aspect of the superior segment of the right lower lobe. Mild scarring in the anterior medial aspect of the right middle lobe. There is no demonstrated pleural abnormality. There are calcifications of the coronary arteries. There are multiple small lymph nodes within the mediastinum, which are normal in size and morphology most compatible with reactive lymph hyperplasia. Normal hilar regions. Normal unenhanced pulmonary arteries. There is atherosclerotic calcification of the aortic arch with tortuosity and elongation of the aortic arch and descending thoracic aorta. There are multi-level degenerative changes of the thoracic spine. There is no demonstrated abnormality of the visualized upper abdomen. CT/Chest without Contrast IMPRESSION: Stable appearance of the 2.7 cm x 1.9 cm spiculated nodule in the posterior medial right lung apex with surrounding bronchiectasis and scarring. Electronically Signed: Chriss Palomo MD at 10:35 EST , Service support ,
== END ==
PROVIDERS: PCP Family Medicine; Referring Provider Internal Medicine Pulmonary Disease; Visit Provider Internal Medicine Pulmonary Disease
DX: R91.1 Solitary pulmonary nodule (principal)
CPT/HCPCS: 71250

== ENCOUNTER 2021-10-31 11:09 | Outpatient (CLI) | payer MEDICARE, MEDICAID, SELFPAY ==
[2021-10-31 11:12] LABS: Mucous, Urine 0 SEEN /hpf (<or=2+); Red Blood Cells-Urine 0 SEEN /hpf (0-5); White Blood Cells 0 SEEN /hpf (0-5)
[2021-10-31 11:49] LABS: Color, Urine Yellow (Yellow); Glucose, Dipstick Normal (Normal); Ketone-Dipstick Negative (Negative); Leukocyte Esterase-Dipstick Negative /ul (Negative); Nitrite-Dipstick Negative (Negative); Occult Blood-Urine Negative /ul (Negative); Protein-Dipstick Negative (Negative); Urine Bilirubin Dipstick Negative (Negative); Urine Clarity Clear (Clear); Urine Urobilinogen Normal (Normal)
[2021-10-31 11:55] LABS: Bacteria RARE /hpf (None Seen); Squamous Epithelial Cells - UA 0-5 SEEN /hpf (5-10)
[2021-10-31 11:59] LABS: Absolute Lymphocyte Count 1.31 X10^3/uL (0.83-4.51); Absolute Neutrophil Count 3.4 X10^3/uL (2.0-7.7); Basophil# 0.05 X10^3/uL; Eosinophil# 0.06 X10^3/uL; Eosinophils% 1.1 % (0-5); Hematocrit 48.9 % (37-47); Hemoglobin 16.7 g/dL (12.0-15.0); Lymphocyte # 1.31 X10^3/ul (0.83-4.51); Mean Corp Hgb Conc 34.2 g/dL (32-36); Mean Corpuscular Hgb 36.4 pg (27.0-32.0); Mean Corpuscular Volume 106.5 fL (81-99); Mean Platelet Vol. 11.6 fl (6.2-12.0); Monocyte# 0.37 X10^3/uL; NRBC Flagged by Analyzer 0 % (0-5); Neutrophil % 64.8 % (47-70); Platelet Count 205 K/mm3 (150-450); RBC Distribution Width CV 12.5 % (11.6-14.6); RBC Distribution Width SD 49.6 fl (35.1-43.9); Red Blood Count 4.59 M/mm3 (4.2-5.4); White Blood Count 5.3 K/mm3 (4.4-11.0)
[2021-10-31 12:17] LABS: Microalbumin,Random Urine 23.1 mg/L (NO RANGE EST.)
[2021-10-31 12:32] LABS: Vitamin D,25 Hydroxy 22.4 ng/mL
[2021-10-31 12:48] LABS: ALB/GLOB Ratio 1.1 RATIO (0.9-2.4); AST(SGOT) 19 U/L (15-37); Alanine Aminotransfer ALT/SGPT 19 U/L (13-56); Albumin, Serum 3.6 g/dL (3.2-5.0); Alkaline Phosphatase 86 U/L (45-117); Anion Gap 5 (5-15); BUN 6 mg/dL (7-18); BUN/Creat Ratio 8.3 RATIO (10-20); Calcium,Total 8.8 mg/dL (8.5-10.1); Chloride 106 mmol/L (98-107); Cholesterol 190 mg/dL (200); Creatinine, Serum 0.73 mg/dL (0.55-1.02); EST Glomerular Filtration Rate 84 mL/min (>60); Est Glom Filt Rate - Afr Amer 102 mL/min (>60); Globulin 3.2 g/dL (2.2-4.2); Glucose 96 mg/dL (74-106); High Density Lipoprotein 101 mg/dL; Potassium 3.9 mmol/L (3.5-5.1); Protein, Total 6.8 g/dL (6.4-8.2); Sodium Level 138 mmol/L (136-145); Thyroid Stim Hormone (TSH) 0.65 uIU/mL (0.358-3.74); Triglycerides 90 mg/dL; Very Low Density Lipoprotein 18 mg/dL (5-40)
== END 2021-10-31 23:59 | disposition home or self-care (01) ==
LOC: MFPLAB 11:10
PROVIDERS: PCP Family Medicine; Referring Provider Family Medicine; Visit Provider Family Medicine
DX: I10 Essential (primary) hypertension (principal); E55.9 Vitamin D deficiency, unspecified
CPT/HCPCS: 36415; 80053; 80061; 81001; 82043; 82306; 84443; 85025

== ENCOUNTER → 2022-02-14 | Outpatient (CLI) | payer MEDICARE, MEDICAID, SELFPAY ==
--- NOTE | 2022-02-14 11:25 | RAD_ITS ---
EXAM: XR CHEST, 2 VIEWS CLINICAL INDICATION: COPD TECHNIQUE: Frontal and lateral views of the chest. This report was created using [employer] report generation technology. COMPARISON: 02/15/2021. FINDINGS: LUNGS AND PLEURAL SPACES: Hyperinflation. Parenchymal scarring right apex unchanged. No pneumothorax. No effusion. HEART: Unremarkable. Cardiac silhouette not enlarged. MEDIASTINUM: Central airways and mediastinal contour are unremarkable. BONES/JOINTS: Unremarkable. SOFT TISSUES: Unremarkable. RAD/Chest PA and Lateral IMPRESSION: 1. Hyperinflation. No acute abnormality. 2. Parenchymal scarring right apex unchanged. Electronically Signed: Joey Lamb MD at 3:39 EDT ,
== END | disposition home or self-care (01) ==
LOC: MTRAD 11:18
PROVIDERS: PCP Family Medicine; Referring Provider Family Medicine; Visit Provider Family Medicine
DX: J44.1 Chronic obstructive pulmonary disease with (acute) exacerbation (principal)
CPT/HCPCS: 71046

== ENCOUNTER → 2022-03-18 | Outpatient (CLI) | payer MEDICARE, SELFPAY ==
--- NOTE | 2022-03-18 12:01 | BI_ITS ---
MAMMOGRAPHY - BILATERAL SCREENING REASON FOR EXAM: Female, 72 years old. Routine annual screening examination. PERTINENT HISTORY: Non-contributory. TECHNIQUE: Digital bilateral breast javier (3D mammographic acquisition) in the CC and MLO projections. 2-D mediolateral oblique (MLO) and craniocaudad (CC) views of both breasts were obtained. CAD: Full Field Digital Mammography with Computer Added Detection was performed. COMPARISON: Comparison is made with prior study dated 12/22/2020. FINDINGS: Breast Composition: The breasts are heterogeneously dense, which may obscure small masses. There are no dominant masses or suspicious calcifications. No other significant abnormalities are identified. There has been no significant change since the prior study. BI/SCRN MAMM (CAD)W/JAVIER BILAT IMPRESSION: Stable bilateral screening mammogram. Yearly follow-up mammogram recommended. (A) ASSESSMENT CATEGORY: BIRADS Category 1: Negative. A letter regarding these results will be sent to the patient by the facility within 30 days. Approximately 10% of breast cancers are not detected by mammography. A normal mammogram should not delay biopsy of a clinically suspicious abnormality. [id number] Electronically Signed: Chriss Palomo MD at 13:26 EDT ,
== END | disposition home or self-care (01) ==
LOC: OPBI 11:59
PROVIDERS: PCP Family Medicine; Visit Provider Nurse Practitioner Family
DX: Z12.31 Encounter for screening mammogram for malignant neoplasm of breast (principal)
CPT/HCPCS: 77063; 77067

== ENCOUNTER 2022-06-22 15:53 | Emergency (ER) | payer MEDICARE, SELFPAY ==
[2022-06-22 15:54] VITALS: BP 120/81; PULSE 69; RESP 14; TEMP 36.2; O2SAT 97; BMI 19.8
--- NOTE | 2022-06-22 17:29 | ED.VIS.BACK ---
HPI History of Present Illness Chief Complaint: Back Informant: patient Narrative Narrative: 72-year-old female presenting to the emergency room with a chief complaint of back pain. Patient states she has had back pain for the past several days ever since she was attempting to hang a door inside of her house and came back on her causing her to really strain that she lifted. Since that time she has had pain in the left buttock that is traveling down to her foot. She denies any foot drop or muscle weakness. She denies any loss of sensation. Denies any bowel or bladder dysfunction. There is no red flag history. She is not on any steroids. [facility] Medical History Alcohol abuse COPD (chronic obstructive pulmonary disease) History of stress test Hypertension Injury of head and neck Kidney stones Osteoporosis Smoker Home Medications amlodipine 10 mg tablet 10 mg PO DAILY 01/17/20 [History Last Taken Unknown] hydrocodone-acetaminophen 5-325mg 5mg-325mg 1 tab PO Q6H PRN PRN Pain 3 days #12 TABLETS 06/22/22 [Rx Last Taken Unknown] methylprednisolone 4 mg tablets in a dose pack 4 mg PO UD ##1 06/22/22 [Rx Last Taken Unknown] Allergy/AdvReac Type Severity Reaction Status Date / Time No Known Allergies Allergy Verified 06/22/22 16:13 Family History Mother Cancer Father Heart disease Surgical History H/O: hysterectomy S/P hysterectomy Social History Smoking Status: Current every day smoker tobacco type: cigarettes alcohol intake: current details: Heavy drinker ROS ROS ED Constitutional Constitutional ED: Denies chills or weight loss Eyes Eyes: Denies change in vision or diplopia ENT ENT ED: Denies ear pain, rhinorrhea or sore throat Cardiovascular Cardiovascular: Denies chest pain, orthopnea, palpitations or racing heartbeat Respiratory/Chest Respiratory/Chest: Denies cough, dyspnea or orthopnea Gastrointestinal Gastrointestinal: Denies abdominal pain, diarrhea, nausea or vomiting Genitourinary Genitourinary ED: Denies dysuria, hematuria or urinary frequency Musculoskeletal Musculoskeletal: Reports back pain; Denies arthralgias, myalgias or neck pain Integumentary Denies abscess or rash Neurologic Neurologic: Denies headache(s) or weakness Psychiatric Psychiatric: Denies anxiety, depression, suicidal ideation or suicidal thoughts Endocrine Endocrinology: Denies polydipsia, polyphagia or polyuria Allergic/Immunologic Allergic/Immunologic ED: Denies mouth swelling, tongue swelling or urticaria EXAM Physical Exam Const Vital Signs: 06/22/22 15:54 Temperature 97.2 F L Temperature Source Temporal Pulse Rate 69 Respiratory Rate 14 Blood Pressure 120/81 H Blood Pressure Mean 94 Pulse Ox 97 Oxygen Delivery Method Room Air Positive well nourished and well developed General Appearance ED: well developed HEENT Reports normocephalic, head/scalp atraumatic and moist mucous membranes Eyes PERRL and EOMs intact bilaterally Neck no lymphadenopathy, supple and no JVD Resp normal respiratory effort and clear to auscultation bilaterally Cardio regular rate, regular rhythm and no murmurs GI normal to inspection, nondistended, normoactive bowel sounds and non-tender Palpation: soft Back/Spine no CVA tenderness Back/Spine Narrative: Patient has tenderness to palpation over the left SI joint and left sciatic notch. With palpation at the sciatic notch and the patient reproduces pain traveling down her leg. Extremity normal to inspection General Extremety ED: Negative for edema General Extremity: Negative for edema Neuro oriented x3 and CN's II-XII intact bilaterally Sensorium / Orientation: alert Motor Exam: strength 5/5 throughout Psych mental status grossly normal Mood & Affect: Negative for depressed or tearful Skin no rashes or lesions noted and no wounds MDM MDM MDM Narrative Medical decision making narrative: The patient will be discharged home with a prescription for pain medication and steroids. Instructions for stretching and anti-inflammatories. The patient is instructed to follow-up with primary care. Return if worsening or concerns. At this point I do not have any concerns of cauda equina or other acute spinal neurologic emergency. Discharge Plan Triage Chief Complaint: Back ED Provider: Justin Villegas Dx/Rx/DC Orders Clinical Impression: Sciatica, Acute low back pain Instructions: ED Back Sprain/Strain, ED Sciatica Prescriptions: New hydrocodone-acetaminophen [hydrocodone-acetaminophen] 5-325 mg tablet 1 tab PO Q6H PRN PRN (Reason: Pain) 3 Days Qty: 12 0RF methylprednisolone [methylprednisolone] 4 mg tablets,dose pack 4 mg PO UD Qty: 1 0RF No Action amlodipine 10 MG tablet 10 mg PO DAILY Primary Care Provider: Doron Castaneda Referrals: Doron Castaneda MD [Primary Care Provider] - 1 Week Disposition Disposition: Home, Self Care
== END 2022-06-22 17:37 | disposition home or self-care (01) ==
PROVIDERS: Emergency Provider Emergency Medicine; PCP Family Medicine; Visit Provider Emergency Medicine
DX: M54.40 Lumbago with sciatica, unspecified side (principal); J44.9 Chronic obstructive pulmonary disease, unspecified; I10 Essential (primary) hypertension; F17.210 Nicotine dependence, cigarettes, uncomplicated
CPT/HCPCS: 99282

== ENCOUNTER → 2022-07-12 | Outpatient (CLI) | payer MEDICARE, SELFPAY ==
--- NOTE | 2022-07-12 12:49 | CT_ITS ---
STUDY: CT CHEST WITHOUT CONTRAST REASON FOR EXAM: Female, 72 years old. History of lung nodule and COPD. History of carcinoma of the tongue.. RADIATION DOSAGE (If Supplied By Facility): CTDIvol = ( 6.82 ) mGy, DLP = ( 248.75 ) mGycm TECHNIQUE: Transaxial imaging was performed without the administration of intravenous contrast material. Multiplanar coronal and sagittal images were reformatted. Individualized dose optimization techniques were used for this CT. COMPARISON: Comparison is made with prior study 07/11/2021 FINDINGS: CHEST Stable 2.7 cm x 1.9 cm pleural based irregular density in the medial aspect of the right upper lobe. There is evidence of bronchiectasis and the perinodular scarring. Stable 6.5 mm noncalcified irregular nodule in the medial aspect of the superior segment of the right lower lobe as seen on axial image #29. Stable mild scarring in the anteromedial segment of the right middle lobe. There are calcifications of the coronary arteries. There are multiple small lymph nodes within the mediastinum, which are normal in size and morphology most compatible with reactive lymph hyperplasia. Normal hilar regions. Normal unenhanced pulmonary arteries. Normal aorta arch and descending thoracic aorta. There are multi-level degenerative changes of the thoracic spine. Increased kyphosis. There is no demonstrated abnormality of the visualized upper abdomen. CT/Chest without Contrast IMPRESSION: Stable examination. Electronically Signed: Chriss Palomo MD at 14:05 EST ,
== END | disposition home or self-care (01) ==
PROVIDERS: PCP Family Medicine; Visit Provider Internal Medicine Pulmonary Disease
DX: R91.1 Solitary pulmonary nodule (principal)
CPT/HCPCS: 71250

== ENCOUNTER → 2022-08-05 | Outpatient (CLI) | payer MEDICARE, MEDICAID, SELFPAY ==
--- NOTE | 2022-08-05 09:41 | RAD_ITS ---
CLINICAL HISTORY: Female, 72 years old. Left hip pain. PROCEDURE: ARTHROGRAM - LEFT HIP ARTHROGRAM. CONSENT: The procedure as well as the benefits and possible complications including infection and bleeding were explained to the patient. Informed consent was obtained. FLUOROSCOPY TIME (if supplied): (1 minute and 17 seconds) minutes/seconds Injection Information: 10 cc of dilute MRI contrast Number of images obtained: 1 TECHNIQUE: (All elements of maximal sterile barrier technique followed, including US elements as applicable) The patient was in the supine position. The overlying skin was prepped and draped in usual sterile fashion. Following local anesthetic application and under direct fluoroscopic guidance, a 22-gauge spinal needle was placed into the left hip joint. 2 cc of ISOVUE-300 was injected for confirmation. Following this, 10 cc of dilute MRI contrast was injected. The patient tolerated the procedure well. RAD/Arthrogram Hip w/ MRI IMPRESSION: Left hip arthrogram for MRI examination. The patient tolerated the procedure well. Electronically Signed: Chriss Palomo MD at 11:17 EST ,
--- NOTE | 2022-08-05 10:02 | MRI_ITS ---
EXAM: MR LEFT LOWER EXTREMITY WITH INTRAVENOUS CONTRAST, HIP CLINICAL INDICATION: hip pain -- MR LT HIP ARTHROGRAM TECHNIQUE: Multiplanar and multisequence MR images of the left hip with intravenous contrast. This report was created using Lulu report MEEP technology. CONTRAST: intra articular , 10ml arthrogram solution COMPARISON: X-ray December 24, 2020 FINDINGS: TENDONS: FLEXORS: Contrast/fluid signal along the myotendinous junction of the iliopsoas related to injection with suboptimal hip joint distention; there is suboptimal hip joint distention. EXTENSORS/HAMSTRING: Unremarkable. Intact. ABDUCTORS: Unremarkable. Intact. ADDUCTORS: Unremarkable. Intact. ROTATORS: Unremarkable. Intact. MUSCLES: Unremarkable. Normal bulk and signal. FLUID: Unremarkable. No joint effusion. No trochanteric bursitis. LABRUM: No definite acetabular labral tearing although study is limited by suboptimal joint distention. CARTILAGE: 4 mm cystic focus at the chondral labral junction at the anterior labrum for example on fluid sensitive sequences sagittal image 15 series 7. No other focal chondral defects. BONES/JOINTS: No bone marrow signal alterations. MRI/Lower Ext/Jt Only/W Contrast IMPRESSION: 1. Suboptimal contrast solution distention of the hip joint. 2. 4 mm cystic focus at the chondral-labral junction at the anterior labrum for example on fluid sensitive sequence sagittal image 15 series 7 appears chronic but could be from an old injury or could be degenerative. 3. No definite acetabular labral tearing although study is limited by suboptimal joint distention. Could repeat study if still concerned. Electronically Signed: Benedict Freire MD at 4:05 [facility] ,
[2022-08-05] MEDS: Lidocaine 2% (5ml sdv) 5 ML VIAL.MPF INFILT (10:47)
[2022-08-05] MEDS: Iopamidol 10 ML in Syringe 1 EACH 600 ML INTRAARTIC (10:49)
[2022-08-05] MEDS: Gadoterate Meglumine Diluted 10 ML, Iopamidol 5 ML, Lidocaine 1% (20 ml mdv) 5 ML, Epin... INTRAARTIC (10:49)
== END | disposition home or self-care (01) ==
LOC: RAD 09:34
PROVIDERS: PCP Family Medicine; Referring Provider Family Medicine; Visit Provider Family Medicine
DX: M25.552 Pain in left hip (principal)
CPT/HCPCS: 27093; 73722; 77002; Q9967

== ENCOUNTER → 2022-09-11 | Outpatient (CLI) | payer MEDICARE, SELFPAY ==
[2022-09-11 09:05] LABS: Bacteria 0 SEEN /hpf (None Seen); Mucous, Urine 0 SEEN /hpf (<or=2+); Red Blood Cells-Urine 0 SEEN /hpf (0-5); Squamous Epithelial Cells - UA 0 SEEN /hpf (5-10); White Blood Cells 0 SEEN /hpf (0-5)
[2022-09-11 10:27] LABS: Absolute Lymphocyte Count 1.17 X10^3/uL (0.83-4.51); Absolute Neutrophil Count 3.6 X10^3/uL (2.0-7.7); Basophil# 0.04 X10^3/uL; Basophil% 0.7 % (0-1); Eosinophil# 0.09 X10^3/uL; Eosinophils% 1.7 % (0-5); Hematocrit 45.5 % (37-47); Hemoglobin 15.1 g/dL (12.0-15.0); Lymphocyte # 1.17 X10^3/ul (0.83-4.51); Lymphocyte % 21.5 % (19-41); Mean Corp Hgb Conc 33.2 g/dL (32-36); Mean Corpuscular Volume 105.6 fL (81-99); Mean Platelet Vol. 11.8 fl (6.2-12.0); Monocyte# 0.47 X10^3/uL; Monocyte% 8.7 % (0-10); NRBC Flagged by Analyzer 0 % (0-5); Neutrophil # 3.64 X10^3/uL (2.7-7.7); Platelet Count 192 K/mm3 (150-450); RBC Distribution Width CV 13.3 % (11.6-14.6); RBC Distribution Width SD 52.9 fl (35.1-43.9); Red Blood Count 4.31 M/mm3 (4.2-5.4); White Blood Count 5.4 K/mm3 (4.4-11.0)
[2022-09-11 10:30] LABS: Glucose, Dipstick Normal (Normal); Ketone-Dipstick Negative (Negative); Leukocyte Esterase-Dipstick Negative /ul (Negative); Nitrite-Dipstick Negative (Negative); Occult Blood-Urine Negative /ul (Negative); Protein-Dipstick Negative (Negative); Specific Gravity, Urine 1.015 (1.002-1.030); Urine Bilirubin Dipstick Negative (Negative); Urine Urobilinogen Normal (Normal)
[2022-09-11 10:39] LABS: Color, Urine Yellow (Yellow); Urine Clarity Clear (Clear)
[2022-09-11 10:53] LABS: Vitamin D,25 Hydroxy 31.8 ng/mL
[2022-09-11 10:58] LABS: ALB/GLOB Ratio 1.3 RATIO (0.9-2.4); AST(SGOT) 13 U/L (15-37); Alanine Aminotransfer ALT/SGPT 17 U/L (13-56); Albumin, Serum 3.7 g/dL (3.2-5.0); Alkaline Phosphatase 75 U/L (45-117); Anion Gap 6 (5-15); BUN 9 mg/dL (7-18); BUN/Creat Ratio 12.4 RATIO (10-20); Calcium,Total 9.1 mg/dL (8.5-10.1); Chloride 105 mmol/L (98-107); Cholesterol 218 mg/dL (200); Creatinine, Serum 0.72 mg/dL (0.55-1.02); EST Glomerular Filtration Rate 85 mL/min (>60); Est Glom Filt Rate - Afr Amer 102 mL/min (>60); Globulin 2.9 g/dL (2.2-4.2); Glucose 82 mg/dL (74-106); High Density Lipoprotein 92 mg/dL; Magnesium 1.9 mg/dL (1.6-2.6); Protein, Total 6.6 g/dL (6.4-8.2); Sodium Level 140 mmol/L (136-145); Triglycerides 74 mg/dL; Very Low Density Lipoprotein 15 mg/dL (5-40)
== END | disposition home or self-care (01) ==
LOC: MFPLAB 08:55
PROVIDERS: PCP Family Medicine; Referring Provider Family Medicine; Visit Provider Family Medicine
DX: I10 Essential (primary) hypertension (principal); M81.0 Age-related osteoporosis without current pathological fracture
CPT/HCPCS: 36415; 80053; 80061; 81001; 82306; 83735; 84443; 85025

== ENCOUNTER → 2022-09-12 | Outpatient (CLI) | payer MEDICARE, SELFPAY ==
[2022-09-16 18:36] LABS: Fats, Neutral Normal (.); Fats, Total Normal (.)
== END | disposition home or self-care (01) ==
PROVIDERS: PCP Family Medicine; Visit Provider Family Medicine
DX: R19.7 Diarrhea, unspecified (principal)
CPT/HCPCS: 82274; 82705; 83630; 87177; 87209; 87493

== ENCOUNTER 2022-10-18 09:24 | Day surgery (SDC) | payer MEDICARE, MEDICAID, SELFPAY ==
[2022-10-18] VITALS (7 sets, daily range): BP systolic 91–122; BP diastolic 61–71; PULSE 65–77; RESP 16–20; TEMP 36.5–36.8; O2SAT 95–98
--- NOTE | 2022-10-18 | IMM_PTH ---
PATIENT: VAL HOWE LOC: EN U#:[id number] AGE/SX: 72/F ROOM: RE10/18/[address]: Dr. Audi Redd MD : 1950 BED: DIS: 10/18/2022 SPEC #: [id number] RECD: 10/21/22 12:47 STATUS: FRANDY REDony #: [id number] JESSICA: 10/18/22 00:[address]: Audi Redd DEPT: IMMUNOHISTOCHEMISTRY RECD BY: Rachel Langford ENTERED: 10/21/22 12:50 SP TYPE: IMMUNO OTHR DR: Dr. Doron Castaneda MD Tissues: A - Stomach, NOS Procedures: H Pylori (initial) PHYSICIAN & INSTITUTION [place] [id number] SPECIMEN INFORMATION: Tissue Source: A ? Body of stomach Clinical Info: Fecal occult blood test positive Specimen Number: [id number] CPT code: 67880 METHODOLOGY: Deparaffinized sections of prefer/formalin-fixed tissue or PAP/DQ stained slides are incubated with monoclonal/polyclonal antibodies/oligonucleotide probes. Localization is made via biotin free immunoperoxidase method. Appropriate controls are performed and reacted as expected. Results on target cell population are indicated in the following table: RESULTS: ANTIBODY / CLONE RESULT Block A H Pylori (polyclonal) negative These tests were developed and their performance characteristics determined by [facility]. They may not have been cleared or approved by the U.S. Food and Drug Administration. The FDA has determined that such clearance or approval is not necessary. The above immunohistochemical/dualISH markers are ordered and reviewed by the Pathologist. INTERPRETATION: Body of stomach, biopsy: Negative for Helicobacter pylori organisms. SJ:nuvia 10/22/2022
[2022-10-18] MEDS: Lactated Ringers 1,000 ML 15 ML IV (10:02)
--- NOTE | 2022-10-18 10:30 | EGD_PTH ---
PATIENT: VAL HOWE LOC: EN U#:[id number] AGE/SX: 72/F ROOM: RE10/18/[address]: Dr. Audi Redd MD : 1950 BED: DIS: 10/18/2022 SPEC #: [id number] RECD: 10/18/22 12:02 STATUS: FRANDY LASSITER #: [id number] JESSICA: 10/18/22 10:[address]: Audi Redd DEPT: SURGICAL PATHOLOGY RECD BY: Desi Wolf ENTERED: 10/18/22 13:03 SP TYPE: EGD BIOPSY OT DR: Dr. Doron Castaneda MD Tissues: A - Stomach, NOS B - Descending colon Procedures: Surgery Specimen Level IV HEADER OPERATION: Colonoscopy, EGD ([facility]), biopsy PRE-OP DIAGNOSIS: Fecal occult blood test positive TISSUE SUBMITTED: A ? Body of stomach, B ? Polyp descending colon MICROSCOPIC DIAGNOSIS A. Body of stomach, biopsy: Minimal gastritis. See microscopic description and comment. B. Polyp descending colon, biopsy: Tubular adenoma. JOSE:nuvia 10/21/2022 COMMENT A. The results of immunohistochemistry for Helicobacter pylori will be reported separately ([id number]). MICROSCOPIC DESCRIPTION Slides are reviewed. A. The specimen shows fragments of gastric mucosa with chronic inflammatory cell infiltrates in the lamina propria consisting of lymphocytes and plasma cells, consistent with minimal chronic gastritis. GROSS DESCRIPTION A - Received in fixative is one container labeled with the patient's name and designated body of stomach. The specimen consists of multiple irregular fragments of light reyes soft tissue that in aggregate measure 1.0 x 0.6 x 0.1 cm. The specimen is totally submitted in one cassette. B - Received in fixative is one container labeled with the patient's name and designated polyp descending colon. The specimen consists of one irregular fragment of light reyes soft tissue that measures 0.4 x 0.4 x 0.1 cm. The specimen is totally submitted in one cassette. / JOSE:nuvia 10/18/2022 TC:1 CPT: 69488
--- NOTE | 2022-10-18 10:35 | PCM.HP.BLA ---
History and Physical Date of Admission: 10/18/22 Intake Vital Signs ? 06/22/2215:54 09/19/2307:58 Height 5 ft 2 in 5 ft 1 in Weight: ? 109 lb BMI ? 20.5 BP ? 143/81 H Blood Pressure Location ? Rt brachial Position ? Sitting Respiration ? 18 Pulse ? 75 Pulse Source ? Monitor Temp ? 97.4 F L Temp Source ? Temporal Pulse Oximetry (%) ? 96 Oxygen Delivery Method ? room air Intake Visit Reasons:?HX OF POLYPS, DIARRHEA Chief Complaint: Positive Occult Blood Stool/diarrhea Assistant [employer] Required: No Is patient in pain?: No Allergies No Known Allergies Allergy (Verified 09/19/22 08:59) Medications alendronate 70 mg tablet (Fosamax) 70 mg PO QWEEK 09/19/22 [History Confirmed 09/19/22] amlodipine 10 mg tablet 5 mg PO DAILY 09/19/22 [History Confirmed 09/19/22] calcium carbonate 600 mg calcium (1,500 mg) tablet 600 mg PO BID 09/19/22 [History Confirmed 09/19/22] cholecalciferol (vitamin D3) 50 mcg (2,000 unit) capsule 50 mcg PO DAILY 09/19/22 [History Confirmed 09/19/22] PFSH Medical History?(Updated 09/19/22 @ 09:[address] Audi Redd MD) Alcohol abuse COPD (chronic obstructive pulmonary disease) Diarrhea History of stress test Hypertension Injury of head and neck Kidney stones Osteoporosis Positive fecal occult blood test Smoker Tongue cancer Surgical History?(Updated 09/19/22 @ 08:57 by Jordyn Hernandez) H/O: hysterectomy History of excision of mass S/P hysterectomy Family History? Mother CancerFather Heart disease Social History?(Updated 09/19/22 @ 08:57 by Jordyn Hernandez) Smoking Status:? Current every day smoker tobacco type: cigarettes alcohol intake:? current alcohol intake frequency: 0-2 drinks per day Alcohol type: beer details:? Heavy drinker HPI HPI HPI: Patient is a 72-year-old female here for positive fecal occult blood and history of polyps.? Her last colonoscopy was 2019 and she had about 8 polyps as far as she can remember.? She is not seeing any gross blood in her stool and says that occasionally she has lower abdominal pain. ROS General General: Yes weight change; No appetite, fatigue, colon cancer, breast cancer or weakness HEENT HEENT: Yes eye surgery; No difficulty swallowing, eye injury, swollen glands or hoarseness Endo Endocrine: No thyroid disease, diabetes mellitus, thyroid cancer, Hair loss, heat intolerance or cold intolerance Skin Skin: No rash or changing moles Breast Breast: No left breast lump, right breast lump, nipple discharge, breast pain, abnormal mammogram, abnormal US or breast enlargement Musc Musculoskeletal: No back problems, arthritis, rheumatoid arthritis, gout or joint pain Cardio Cardiovascular: Yes high blood pressure; No murmur, pacemaker, heart disease, atrial fibrillation, heart attack, heart stent, palpitations, shortness of breat with exertion or chest pain Psych Psychiatric: No depression, anxiety or hearing voices Resp Respiratory: No shortness of breath, No sleep apnea, No cough, Yes COPD, No asthma, No emphysema and No wheezing Gastro Gastrointestinal: Yes abdominal pain, No nausea or vomiting, Yes diarrhea, No constipation, Yes blood in stool, No acid reflux, Yes hemorrhoids, No ulcers, No gallbladder problem and No black,tarry stools Dre Hematologic: No blood thinners, No blood disorders, No bleeding, No anemia and No blood clots Neuro Neurologic: No system reviewed and no additional complaints, except as documented, No as per HPI, No abnormal gait, No abnormal hearing, No abnormal movements, No abnormal speech, No behavioral changes, No burning sensations, No confusion, No convulsions, No disequilibrium, No dizziness, No localized weakness, No frequent falls, No headache(s), No lack of coordination, No loss of vision, No memory loss, No numbness, No other visual disturbances, No radicular pain, No restless legs, No sensory deficit, No syncope, No tingling, No tremor(s), No weakness and No other Exam Const General: cooperative Orientation: alert and oriented x3 HENMT Head: normal to inspection Neck Neck: normal visual inspection and full ROM Chest Chest palpation & inspection: normal inspection of the chest Resp Effort & Inspection: normal respiratory effort Auscultation: clear to auscultation bilaterally Cardio Rate: regular rate Rhythm: regular rhythm GI Inspection: non-distended Palpation: soft and nontender Skin General: no rashes or lesions noted Neuro General: patient alert and patient oriented x3 Extrem General: full ROM Psych Appearance: grossly normal Mental Status: mental status grossly normal Assessment and Plan Assessment and Plan (1) Fecal occult blood test positive: ?Status:?Acute ?Plan: Patient had positive fecal occult blood test and she had multiple polyps on her colonoscopy 3 years ago.? Patient was sent here for colonoscopy but she is also complaining of weight loss so I would recommend EGD along with colonoscopy. I explained endoscopy in detail to the patient.? I explained the risks including but not limited to stroke or heart attack with anesthesia, perforation of the GI tract, bleeding, infection.? I explained that any of these could necessitate further emergency surgery.? The patient understands and all questions were answered sufficiently.? The patient wishes to proceed with procedure. Audi Redd MD Pager: [facility] [address] [place] [address], [address] [place] [address] Office: I have examined the patient and the H&P has been reviewed. There are no clinical changes since date of exam.
--- NOTE | 2022-10-18 11:21 | OP.EGD_ITS ---
Patient Name: Berna Price Procedure Date: 10/18/2022 10:39 AM Date of : 1950 Age: 72 Procedure: Upper GI endoscopy Indications: Occult blood in stool, Weight loss Providers: Audi Redd MD Medicines: Monitored Anesthesia Care Patient Profile: This is a 72 year old female. Refer to note in patient chart for documentation of history and physical. Complications: No immediate complications. Estimated blood loss: Minimal. Procedure: Pre-Anesthesia Assessment: - Prior to the procedure, a History and Physical was performed, and patient medications and allergies were reviewed. The patient's tolerance of previous anesthesia was also reviewed. The risks and benefits of the procedure and the sedation options and risks were discussed with the patient. All questions were answered, and informed consent was obtained. Prior Anticoagulants: The patient has taken no previous anticoagulant or antiplatelet agents. After reviewing the risks and benefits, the patient was deemed in satisfactory condition to undergo the procedure. After obtaining informed consent, the endoscope was passed under direct vision. Throughout the procedure, the patient's blood pressure, pulse, and oxygen saturations were monitored continuously. The gastroscope was introduced through the mouth, and advanced to the third part of duodenum. The upper GI endoscopy was accomplished without difficulty. The patient tolerated the procedure well. Scope In: 10:54:18 AM Scope Out: 10:57:46 AM Total Procedure Duration Time 0 hours 3 minutes 28 seconds Findings: A few dispersed, non-bleeding erosions were found in the stomach. There were no stigmata of recent bleeding. Biopsies were taken with a cold forceps for histology. The esophagus was normal. The examined duodenum was normal. Impression: - Non-bleeding erosive gastropathy. Biopsied. - Normal esophagus. - Normal examined duodenum. Recommendation: - Discharge patient to home. - Resume previous diet. - Continue present medications. - Await pathology results. Procedure Code(s): --- Professional --- 00576, Esophagogastroduodenoscopy, flexible, transoral; with biopsy, single or multiple Diagnosis Code(s): --- Professional --- K31.89, Other diseases of stomach and duodenum R19.5, Other fecal abnormalities R63.4, Abnormal weight loss CPT copyright 2017 [employer]. All rights reserved. The codes documented in this report are preliminary and upon surgical manager review may be revised to meet current compliance requirements. Audi Redd MD 10/18/2022 11:20:45 AM This report has been signed electronically. Number of Addenda: 0 Note Initiated On: 10/18/2022 10:39 AM
--- NOTE | 2022-10-18 11:22 | OP.CCLET_ITS ---
10/18/2022 Doron Castaneda [address] [place] [address] Re : Upper GI endoscopy procedure for Berna Dee Dear Dr. Castaneda This procedure was performed on Tuesday, October 18, 2022. My impressions and recommendations are as follows: Impressions : - Non-bleeding erosive gastropathy. Biopsied. - Normal esophagus. - Normal examined duodenum. Recommendations : - Discharge patient to home. - Resume previous diet. - Continue present medications. - Await pathology results. My findings are described in the full procedure note, which is enclosed. If I can be of further assistance, please feel free to contact me at Doctor phone number(s): , Work: . Sincerely, Audi Redd MD 10/18/2022 11:20:45 AM This report has been signed electronically.
--- NOTE | 2022-10-18 11:27 | OP.COLON_ITS ---
Patient Name: Berna Price Procedure Date: 10/18/2022 10:58 AM Date of : 1950 Age: 72 Procedure: Colonoscopy Indications: Gastrointestinal occult blood loss, Weight loss Providers: Audi Redd MD Medicines: Monitored Anesthesia Care Patient Profile: This is a 72 year old female. Refer to note in patient chart for documentation of history and physical. Last Colonoscopy: several years ago. Complications: No immediate complications. Procedure: Pre-Anesthesia Assessment: - Prior to the procedure, a History and Physical was performed, and patient medications and allergies were reviewed. The patient's tolerance of previous anesthesia was also reviewed. The risks and benefits of the procedure and the sedation options and risks were discussed with the patient. All questions were answered, and informed consent was obtained. Prior Anticoagulants: The patient has taken no previous anticoagulant or antiplatelet agents. After reviewing the risks and benefits, the patient was deemed in satisfactory condition to undergo the procedure. After I obtained informed consent, the scope was passed under direct vision. Throughout the procedure, the patient's blood pressure, pulse, and oxygen saturations were monitored continuously. The Colonoscope was introduced through the anus and advanced to the cecum, identified by appendiceal orifice and ileocecal valve. The colonoscopy was performed without difficulty. The patient tolerated the procedure well. The quality of the bowel preparation was good. Scope In: 11:01:59 AM Scope Withdrawal Time 0 hours 6 minutes 0 seconds Scope Out: 11:12:07 AM Total Procedure Duration Time 0 hours 10 minutes 8 seconds Findings: A small polyp was found in the descending colon. The polyp was removed with a hot snare. Resection and retrieval were complete. The exam was otherwise without abnormality on direct and retroflexion views. Impression: - One small polyp in the descending colon, removed with a hot snare. Resected and retrieved. - The examination was otherwise normal on direct and retroflexion views. Recommendation: - Discharge patient to home. - Resume previous diet. - Continue present medications. - Await pathology results. - Repeat colonoscopy in 5 years for surveillance based on pathology results. Procedure Code(s): --- Professional --- 97717, Colonoscopy, flexible; with removal of tumor(s), polyp(s), or other lesion(s) by snare technique Diagnosis Code(s): --- Professional --- D12.4, Benign neoplasm of descending colon R19.5, Other fecal abnormalities R63.4, Abnormal weight loss CPT copyright 2017 [employer]. All rights reserved. The codes documented in this report are preliminary and upon vaccine manager review may be revised to meet current compliance requirements. Audi Redd MD 10/18/2022 11:26:17 AM This report has been signed electronically. Number of Addenda: 0 Note Initiated On: 10/18/2022 10:58 AM
--- NOTE | 2022-10-18 11:27 | OP.CCLET_ITS ---
10/18/2022 Doron Castaneda [address] [place] [address] Re : Colonoscopy procedure for Berna Price Dear Dr. Castaneda This procedure was performed on Tuesday, October 18, 2022. My impressions and recommendations are as follows: Impressions : - One small polyp in the descending colon, removed with a hot snare. Resected and retrieved. - The examination was otherwise normal on direct and retroflexion views. Recommendations : - Discharge patient to home. - Resume previous diet. - Continue present medications. - Await pathology results. - Repeat colonoscopy in 5 years for surveillance based on pathology results. My findings are described in the full procedure note, which is enclosed. If I can be of further assistance, please feel free to contact me at Doctor phone number(s): , Work: . Sincerely, Audi Redd MD 10/18/2022 11:26:17 AM This report has been signed electronically.
== END 2022-10-18 12:31 | disposition home or self-care (01) ==
LOC: EN 09:26 → AC 10:03
PROVIDERS: PCP Family Medicine; Referring Provider Family Medicine; Visit Provider Surgery
PROC: 0DJD8ZZ Inspection of Lower Intestinal Tract, Via Natural or Artificial Opening Endoscopic (ICD-10-PCS; CPT 45378; principal; 2022-10-18 10:25)
DX: D12.4 Benign neoplasm of descending colon (principal); J44.9 Chronic obstructive pulmonary disease, unspecified; F17.210 Nicotine dependence, cigarettes, uncomplicated; Z86.010 Personal history of colon polyps; K29.70 Gastritis, unspecified, without bleeding
CPT/HCPCS: 45385; 43239; 88305; 88342; J7120; J2405

== ENCOUNTER → 2022-12-12 | Outpatient (CLI) | payer MEDICARE, MEDICAID, SELFPAY ==
[2022-12-12 12:14] LABS: Absolute Neutrophil Count 2.9 X10^3/uL (2.0-7.7); Basophil# 0.04 X10^3/uL; Basophil% 0.8 % (0-1); Eosinophils% 2.1 % (0-5); Hematocrit 48.8 % (37-47); Hemoglobin 16.5 g/dL (12.0-15.0); Lymphocyte % 31.1 % (19-41); Mean Corp Hgb Conc 33.8 g/dL (32-36); Mean Corpuscular Volume 103.6 fL (81-99); Mean Platelet Vol. 11.6 fl (6.2-12.0); Monocyte# 0.32 X10^3/uL; Monocyte% 6.6 % (0-10); NRBC Flagged by Analyzer 0 % (0-5); Neutrophil # 2.86 X10^3/uL (2.7-7.7); Neutrophil % 59.2 % (47-70); Platelet Count 193 K/mm3 (150-450); RBC Distribution Width CV 12.4 % (11.6-14.6); RBC Distribution Width SD 47.8 fl (35.1-43.9); Red Blood Count 4.71 M/mm3 (4.2-5.4); White Blood Count 4.8 K/mm3 (4.4-11.0)
[2022-12-12 12:47] LABS: Vitamin D,25 Hydroxy 39.1 ng/mL
[2022-12-12 12:56] LABS: ALB/GLOB Ratio 1.1 RATIO (0.9-2.4); AST(SGOT) 26 U/L (15-37); Alanine Aminotransfer ALT/SGPT 35 U/L (13-56); Albumin, Serum 3.6 g/dL (3.2-5.0); Alkaline Phosphatase 94 U/L (45-117); Anion Gap 4 (5-15); BUN 12 mg/dL (7-18); BUN/Creat Ratio 15.3 RATIO (10-20); Calcium,Total 8.8 mg/dL (8.5-10.1); Chloride 101 mmol/L (98-107); Cholesterol 212 mg/dL (200); Creatinine, Serum 0.78 mg/dL (0.55-1.02); EST Glomerular Filtration Rate 77 mL/min (>60); Est Glom Filt Rate - Afr Amer 93 mL/min (>60); Globulin 3.4 g/dL (2.2-4.2); Glucose 139 mg/dL (74-106); High Density Lipoprotein 93 mg/dL; Potassium 4.3 mmol/L (3.5-5.1); Sodium Level 132 mmol/L (136-145); Thyroid Stim Hormone (TSH) 1.28 uIU/mL (0.358-3.74); Triglycerides 71 mg/dL; Very Low Density Lipoprotein 14 mg/dL (5-40)
[2022-12-13 12:23] LABS: Hemoglobin A1c 5.6 % (3.8-5.6)
[2022-12-13 12:32] LABS: Ferritin 121 ng/mL (8-252); Iron 129 ug/dL (50-170); Iron Binding Capacity,Total 378 ug/dL (250-450); PERCENT IRON SATURATION 34.1 % (15.0-55.0)
[2022-12-14 10:08] LABS: Transferrin 255 mg/dL (192-364)
== END | disposition home or self-care (01) ==
LOC: MFPLAB 09:30
PROVIDERS: PCP Family Medicine; Visit Provider Family Medicine
DX: C02.9 Malignant neoplasm of tongue, unspecified (principal); D75.1 Secondary polycythemia; R73.09 Other abnormal glucose; I10 Essential (primary) hypertension; M81.0 Age-related osteoporosis without current pathological fracture
CPT/HCPCS: 36415; 80053; 80061; 82306; 82728; 83036; 83540; 83550; 84443; 84466; 85025

== ENCOUNTER → 2023-01-14 | Outpatient (CLI) | payer MEDICARE, SELFPAY ==
--- NOTE | 2023-01-14 09:40 | RAD_ITS ---
STUDY: X-RAY CHEST REASON FOR EXAM: Female, 72 years old. Fever and cough TECHNIQUE: PA and lateral views of the chest. COMPARISON: 02/14/2022 FINDINGS: Lungs are hyperexpanded with chronic interstitial changes, no superimposed acute pulmonary process. Normal size heart. Normal mediastinum and adali. Normal visualized pulmonary arteries. Normal visualized aortic arch and descending thoracic aorta. There are diffuse degenerative changes of the visualized thoracic spine. Old healed rib fractures. There is no demonstrated abnormality of the visualized soft tissue structures of the upper abdomen. RAD/Chest PA and Lateral IMPRESSION: Hyperexpanded lungs with chronic interstitial changes, no superimposed acute pulmonary process Electronically Signed: Zachery Padilla MD at 10:28 EDT ,
== END | disposition home or self-care (01) ==
LOC: MTRAD 09:39
PROVIDERS: PCP Family Medicine; Referring Provider Family Medicine; Visit Provider Family Medicine
DX: J44.1 Chronic obstructive pulmonary disease with (acute) exacerbation (principal)
CPT/HCPCS: 71046

== ENCOUNTER → 2023-04-25 | Outpatient (CLI) | payer MEDICARE, SELFPAY ==
--- NOTE | 2023-04-25 08:28 | BI_ITS ---
MAMMOGRAPHY - BILATERAL SCREENING REASON FOR EXAM: Female, 73 years old. Routine annual screening examination. PERTINENT HISTORY: Non-contributory. TECHNIQUE: Digital bilateral breast javier (3D mammographic acquisition) in the CC and MLO projections. 2-D mediolateral oblique (MLO) and craniocaudad (CC) views of both breasts were obtained. CAD: Full Field Digital Mammography with Computer Added Detection was performed. COMPARISON: Comparison is made with prior study dated March 18, 2022 and December 22, 2020. FINDINGS: Breast Composition: The breasts are extremely dense, which lowers the sensitivity of mammography. There are no dominant masses or suspicious calcifications. No other significant abnormalities are identified. There has been no significant change since the prior study. BI/SCRN MAMM (CAD)W/JAVIER BILAT IMPRESSION: Stable bilateral screening mammogram. Yearly follow-up mammogram recommended. (A) ASSESSMENT CATEGORY: BIRADS Category 1: Negative. A letter regarding these results will be sent to the patient by the facility within 30 days. Approximately 10% of breast cancers are not detected by mammography. A normal mammogram should not delay biopsy of a clinically suspicious abnormality. [id number] Electronically Signed: Chriss Palomo MD at 9:57 EDT ,
== END | disposition home or self-care (01) ==
LOC: OPBI 08:27
PROVIDERS: PCP Family Medicine; Referring Provider Nurse Practitioner Family; Visit Provider Nurse Practitioner Family
DX: Z12.31 Encounter for screening mammogram for malignant neoplasm of breast (principal)
CPT/HCPCS: 77063; 77067

== ENCOUNTER → 2023-07-02 | Outpatient (CLI) | payer MEDICARE, SELFPAY ==
[2023-07-02 10:45] LABS: Bacteria 0 SEEN /hpf (None Seen); Mucous, Urine 0 SEEN /hpf (<or=2+); Red Blood Cells-Urine 0 SEEN /hpf (0-5); White Blood Cells 0 SEEN /hpf (0-5)
[2023-07-02 12:18] LABS: Absolute Lymphocyte Count 1.61 X10^3/uL (0.83-4.51); Basophil# 0.06 X10^3/uL; Basophil% 1.2 % (0-1); Eosinophil# 0.07 X10^3/uL; Eosinophils% 1.4 % (0-5); Hematocrit 49.1 % (37-47); Hemoglobin 16.1 g/dL (12.0-15.0); Lymphocyte # 1.61 X10^3/ul (0.83-4.51); Lymphocyte % 31.4 % (19-41); Mean Corp Hgb Conc 32.8 g/dL (32-36); Mean Corpuscular Hgb 33.7 pg (27.0-32.0); Mean Corpuscular Volume 102.7 fL (81-99); Mean Platelet Vol. 11.7 fl (6.2-12.0); Monocyte# 0.37 X10^3/uL; Monocyte% 7.2 % (0-10); NRBC Flagged by Analyzer 0 % (0-5); Neutrophil # 2.99 X10^3/uL (2.7-7.7); Neutrophil % 58.2 % (47-70); Platelet Count 232 K/mm3 (150-450); RBC Distribution Width CV 12.4 % (11.6-14.6); RBC Distribution Width SD 47.7 fl (35.1-43.9); Red Blood Count 4.78 M/mm3 (4.2-5.4); White Blood Count 5.1 K/mm3 (4.4-11.0)
[2023-07-02 12:22] LABS: Color, Urine Yellow (Yellow); Glucose, Dipstick Normal (Normal); Ketone-Dipstick Negative (Negative); Leukocyte Esterase-Dipstick Negative /ul (Negative); Nitrite-Dipstick Negative (Negative); Occult Blood-Urine Negative /ul (Negative); Protein-Dipstick Negative (Negative); Urine Bilirubin Dipstick Negative (Negative); Urine Clarity Sl. Cloudy (Clear); Urine Urobilinogen Normal (Normal)
[2023-07-02 12:31] LABS: Squamous Epithelial Cells - UA 0-5 SEEN /hpf (5-10)
[2023-07-02 12:41] LABS: ALB/GLOB Ratio 1.1 RATIO (0.9-2.4); AST(SGOT) 16 U/L (15-37); Alanine Aminotransfer ALT/SGPT 19 U/L (13-56); Albumin, Serum 3.6 g/dL (3.2-5.0); Alkaline Phosphatase 82 U/L (45-117); Anion Gap 7 (5-15); BUN 9 mg/dL (7-18); BUN/Creat Ratio 12.4 RATIO (10-20); Calcium,Total 8.9 mg/dL (8.5-10.1); Chloride 102 mmol/L (98-107); Cholesterol 214 mg/dL (200); Creatinine, Serum 0.72 mg/dL (0.55-1.02); EST Glomerular Filtration Rate 84 mL/min (>60); Est Glom Filt Rate - Afr Amer 102 mL/min (>60); Globulin 3.4 g/dL (2.2-4.2); Glucose 126 mg/dL (74-106); High Density Lipoprotein 102 mg/dL; Potassium 3.6 mmol/L (3.5-5.1); Sodium Level 139 mmol/L (136-145); Thyroid Stim Hormone (TSH) 1.69 uIU/mL (0.358-3.74); Triglycerides 74 mg/dL; Very Low Density Lipoprotein 15 mg/dL (5-40)
[2023-07-02 12:45] LABS: Vitamin D,25 Hydroxy 39.4 ng/mL
[2023-07-03 14:40] LABS: Hemoglobin A1c 5.4 % (3.8-5.6)
== END | disposition home or self-care (01) ==
LOC: MFPLAB 10:42
PROVIDERS: PCP Family Medicine; Visit Provider Family Medicine
DX: R73.09 Other abnormal glucose (principal); I10 Essential (primary) hypertension; E55.9 Vitamin D deficiency, unspecified
CPT/HCPCS: 36415; 80053; 80061; 81001; 82306; 83036; 84443; 85025

== ENCOUNTER → 2023-07-16 | Outpatient (CLI) | payer MEDICARE, MEDICAID, SELFPAY ==
--- NOTE | 2023-07-16 13:13 | CT_ITS ---
EXAM: CT CHEST, LUNG CANCER SCREENING WITHOUT INTRAVENOUS CONTRAST CLINICAL INDICATION: Z87.981 nicotine dependence. TECHNIQUE: Helically acquired images were obtained of the chest without intravenous contrast using low dose (LDCT) lung cancer screening protocol. This CT exam was performed using one or more of the following dose reduction techniques: automated exposure control, adjustment of the mA and/or kV according to patient size, and/or use of iterative reconstruction technique. COMPARISON: CT chest, 07/11/2021 and 07/12/2022. FINDINGS: LUNGS AND PLEURAL SPACES: Right apical pleural-based spiculated density measuring up to approximately 2.7 cm associated with bronchiectasis and mild volume loss as well as nonspecific pleural thickening is unchanged compared to the prior examination. Additional pleural thickening in the periphery of the right upper lobe with associated calcification. Minimal left apical scarring is unchanged. Multiple unchanged partially calcified and noncalcified solid nodules are present within the right upper lobe, right lower lobe, and right middle lobe. These are unchanged in the largest measures up to approximately 3 mm. Superior segment right lower lobe spiculated nodule essentially unchanged since prior examination measuring up to approximately 7 mm. No new pulmonary nodules or masses are identified. Overall pulmonary hyperinflation. No pneumothorax. HEART: Coronary artery calcifications. Heart size is normal. No pericardial effusion. MEDIASTINUM: No significant abnormality. No mediastinal or hilar adenopathy. Esophagus is unremarkable. No hiatal hernia. THYROID: No significant abnormality. No thyroid lesions. BONES/JOINTS: Degenerative changes throughout the spine. No suspicious lytic or blastic abnormality. VASCULATURE: Atherosclerosis of the aorta and its branch vessels. LYMPH NODES: No significant abnormality. No enlarged lymph nodes. CT/Low Dose CT Lung Screening IMPRESSION: ACR Lung CT Screening Reporting And Data System (Lung-RADS) score: 2 - Benign Appearance or Behavior. Recommend continued annual screening with a low-dose CT (LDCT) in 12 months. Electronically Signed: Berlin Matute DO at 21:46 EST ,
== END | disposition home or self-care (01) ==
LOC: CT 13:12
PROVIDERS: PCP Family Medicine; Referring Provider Internal Medicine Pulmonary Disease; Visit Provider Internal Medicine Pulmonary Disease
DX: Z87.891 Personal history of nicotine dependence (principal)
CPT/HCPCS: 71271

== ENCOUNTER → 2023-12-31 | Outpatient (CLI) | payer MEDICARE, MEDICAID, SELFPAY ==
[2023-12-31 08:27] LABS: Bacteria 0 SEEN /hpf (None Seen); Mucous, Urine 0 SEEN /hpf (<or=2+); Red Blood Cells-Urine 0 SEEN /hpf (0-5); White Blood Cells 0 SEEN /hpf (0-5)
[2023-12-31 10:40] LABS: Absolute Lymphocyte Count 1.66 X10^3/uL (0.83-4.51); Absolute Neutrophil Count 3.1 X10^3/uL (2.0-7.7); Basophil# 0.06 X10^3/uL; Basophil% 1.1 % (0-1); Eosinophils% 3.6 % (0-5); Hematocrit 43.9 % (37-47); Hemoglobin 14.6 g/dL (12.0-15.0); Lymphocyte # 1.66 X10^3/ul (0.83-4.51); Mean Corp Hgb Conc 33.3 g/dL (32-36); Mean Corpuscular Hgb 37.5 pg (27.0-32.0); Mean Corpuscular Volume 112.9 fL (81-99); Monocyte# 0.46 X10^3/uL; Monocyte% 8.3 % (0-10); NRBC Flagged by Analyzer 0 % (0-5); Neutrophil # 3.14 X10^3/uL (2.7-7.7); Neutrophil % 56.8 % (47-70); Platelet Count 208 K/mm3 (150-450); RBC Distribution Width CV 12.9 % (11.6-14.6); RBC Distribution Width SD 53.9 fl (35.1-43.9); Red Blood Count 3.89 M/mm3 (4.2-5.4); White Blood Count 5.5 K/mm3 (4.4-11.0)
[2023-12-31 10:48] LABS: Color, Urine Yellow (Yellow); Glucose, Dipstick Normal (Normal); Ketone-Dipstick Negative (Negative); Leukocyte Esterase-Dipstick Negative /ul (Negative); Nitrite-Dipstick Negative (Negative); Occult Blood-Urine Negative /ul (Negative); Protein-Dipstick Negative (Negative); Urine Bilirubin Dipstick Negative (Negative); Urine Clarity Sl. Cloudy (Clear); Urine Urobilinogen Normal (Normal); Urine pH 6.5 (5.0 - 8.0)
[2023-12-31 10:55] LABS: ALB/GLOB Ratio 1.2 RATIO (0.9-2.4); AST(SGOT) 16 U/L (15-37); Alanine Aminotransfer ALT/SGPT 21 U/L (13-56); Albumin, Serum 3.7 g/dL (3.2-5.0); Alkaline Phosphatase 78 U/L (45-117); Anion Gap 3 (5-15); BUN 10 mg/dL (7-18); Calcium,Total 9.1 mg/dL (8.5-10.1); Chloride 107 mmol/L (98-107); Cholesterol 221 mg/dL (200); Creatinine, Serum 0.77 mg/dL (0.55-1.02); EST Glomerular Filtration Rate 79 mL/min (>60); Est Glom Filt Rate - Afr Amer 95 mL/min (>60); Globulin 3.2 g/dL (2.2-4.2); Glucose 108 mg/dL (74-106); High Density Lipoprotein 101 mg/dL; Magnesium 2.1 mg/dL (1.6-2.6); Potassium 4.2 mmol/L (3.5-5.1); Protein, Total 6.9 g/dL (6.4-8.2); Sodium Level 139 mmol/L (136-145); Thyroid Stim Hormone (TSH) 1.86 uIU/mL (0.358-3.74); Triglycerides 54 mg/dL; Very Low Density Lipoprotein 11 mg/dL (5-40)
[2023-12-31 11:00] LABS: Vitamin D,25 Hydroxy 25.9 ng/mL
[2023-12-31 11:14] LABS: Squamous Epithelial Cells - UA 0-5 SEEN /hpf (5-10)
[2024-01-05 14:36] LABS: Hemoglobin A1c 5.2 % (3.8-5.6)
== END | disposition home or self-care (01) ==
LOC: MFPLAB 08:25
PROVIDERS: PCP Family Medicine; Visit Provider Family Medicine
DX: R73.09 Other abnormal glucose (principal); D75.89 Other specified diseases of blood and blood-forming organs; I10 Essential (primary) hypertension; E55.9 Vitamin D deficiency, unspecified
CPT/HCPCS: 36415; 80053; 80061; 81001; 82306; 82607; 83036; 83735; 84443; 85025

== ENCOUNTER → 2024-01-13 | Outpatient (CLI) | payer MEDICARE, MEDICAID, SELFPAY ==
--- NOTE | 2024-01-13 14:24 | RAD_ITS ---
STUDY: X-RAY CHEST REASON FOR EXAM: Female, 73 years old. Flareup of COPD. TECHNIQUE: Frontal and lateral views of the chest. COMPARISON: January 14, 2023 FINDINGS: Stable hyperinflation with flattening of the hemidiaphragms. There is no demonstrated pleural abnormality. Normal size heart. Normal mediastinum and adali. Normal visualized pulmonary arteries. Aortic tortuosity with calcification unchanged. Diffuse thoracic osteopenia with mild diffuse spondylosis. Multiple left healed rib fractures unchanged. No abnormality of the visualized soft tissue structures of the upper abdomen. RAD/Chest PA and Lateral IMPRESSION: Stable chest with findings compatible with COPD. No acute abnormality. Electronically Signed: Eduardo Mcintyre MD at 15:52 EDT ,
[2024-01-13 17:59] LABS: Vitamin B12 628 pg/mL (211-911)
[2024-01-13 18:08] LABS: Hemoglobin A1c 5.2 % (3.8-5.6)
== END | disposition home or self-care (01) ==
PROVIDERS: PCP Family Medicine; Referring Provider Family Medicine; Visit Provider Family Medicine
DX: R73.09 Other abnormal glucose (principal); J44.1 Chronic obstructive pulmonary disease with (acute) exacerbation; D75.89 Other specified diseases of blood and blood-forming organs
CPT/HCPCS: 36415; 71046; 82607; 83036

== ENCOUNTER → 2024-05-20 | Outpatient (CLI) | payer MEDICARE, MEDICAID, SELFPAY ==
--- NOTE | 2024-05-20 08:46 | BI_ITS ---
MAMMOGRAPHY - BILATERAL SCREENING REASON FOR EXAM: Female, 74 years old. Routine annual screening examination. PERTINENT HISTORY: Non-contributory. TECHNIQUE: Digital bilateral breast javier (3D mammographic acquisition) in the CC and MLO projections. 2-D mediolateral oblique (MLO) and craniocaudad (CC) views of both breasts were obtained. CAD: Full Field Digital Mammography with Computer Added Detection was performed. COMPARISON: Comparison is made with prior study April 25, 2023. FINDINGS: Breast Composition: The breasts are extremely dense, which lowers the sensitivity of mammography. There are no dominant masses or suspicious calcifications. No other significant abnormalities are identified. There has been no significant change since the prior study. BI/SCRN MAMM (CAD)W/JAVIER BILAT IMPRESSION: Stable bilateral screening mammogram. Yearly follow-up mammogram recommended. (A) ASSESSMENT CATEGORY: BIRADS Category 1: Negative. A letter regarding these results will be sent to the patient by the facility within 30 days. Approximately 10% of breast cancers are not detected by mammography. A normal mammogram should not delay biopsy of a clinically suspicious abnormality. [id number] Electronically Signed: Chriss Palomo MD at 9:39 EDT ,
== END | disposition home or self-care (01) ==
LOC: OPBI 08:46
PROVIDERS: PCP Family Medicine; Referring Provider Family Medicine; Visit Provider Family Medicine
DX: Z12.31 Encounter for screening mammogram for malignant neoplasm of breast (principal)
CPT/HCPCS: 77063; 77067

== ENCOUNTER → 2024-07-19 | Outpatient (CLI) | payer MEDICARE, MEDICAID, SELFPAY ==
--- NOTE | 2024-07-19 08:36 | CT_ITS ---
STUDY: LOW DOSE CT LUNG CANCER SCREENING REASON FOR EXAM: Female, 74 years old. One half pack per day smoker x40 years. Quit 3 years ago. History of tongue cancer RADIATION DOSAGE (If Supplied By Facility): CTDIvol = ( 2.01 ) mGy, DLP = ( 68.71 ) mGycm TECHNIQUE: No contrast was administered. Low dose technique was utilized (average mAS-38 and kVp 120). 1.25 mm axial source images with a slice interval of 1.25-mm were reconstructed in lung windows. 2.5 mm axial source images with a slice interval of 2.5-mm were reconstructed in lung windows. 5.0 mm axial source images with a slice interval of 5.0-mm were reconstructed in soft tissue windows. COMPARISON: 07/16/2023 FINDINGS: There is underlying emphysema with a stable 2.7 cm noncalcified spiculated right upper lobe mass with associated traction bronchiectasis and pleural thickening. There is no significant change in its appearance since the previous study. No new suspicious noncalcified mass or nodule. Evidence of chronic bronchitis and interstitial scarring. No organized infiltrate or effusion. No significant interval change since the previous study. Limited soft tissue windows show normal-appearing thyroid gland. Stable subcentimeter in short axis dimension mediastinal and perihilar lymph nodes. The thoracic aorta tapers normally. Calcified coronary vessels noted. Limited cuts of the upper abdomen do not show a suspicious abnormality. Bony structures show degenerative change CT/Low Dose CT Lung Screening IMPRESSION: Lung-RADS category 2 - Continue annual screening with LDCT in 12 months. IMPORTANT NOTES FOR USE: ACR Lung-RADS Version 1.1 Assessment Categories Release Date: 2018 Category: Coded 0-4 bases on nodule(s) with highest degree of suspicion. Negative screen is defined as categories 1 and 2; a positive screen is defined as categories 3 and 4. Category 3 and 4A nodules that are unchanged on interval CT should be coded as category 2, and individuals returned to screening in 12 months. Category 4X: Category 3 or 4 nodules with additional imaging findings that increase the suspicion of lung cancer, such as spiculation, GGN that doubles in size in 1 year, enlarged lymph notes, etc. Category Modifiers: S (significant finding unrelated to lung cancer) Electronically Signed: Zachery Padilla MD at 9:20 EST ,
== END | disposition home or self-care (01) ==
LOC: CT 08:35
PROVIDERS: PCP Family Medicine; Referring Provider Nurse Practitioner Family; Visit Provider Nurse Practitioner Family
DX: Z12.2 Encounter for screening for malignant neoplasm of respiratory organs (principal); F17.210 Nicotine dependence, cigarettes, uncomplicated
CPT/HCPCS: 71271

== ENCOUNTER → 2024-09-03 | Outpatient (CLI) | payer MEDICARE, MEDICAID, SELFPAY ==
[2024-09-03 11:10] LABS: Mucous, Urine 0 SEEN /hpf (<or=2+)
[2024-09-03 15:21] LABS: Color, Urine Yellow (Yellow); Glucose, Dipstick Normal (Normal); Ketone-Dipstick Negative (Negative); Leukocyte Esterase-Dipstick Negative /ul (Negative); Nitrite-Dipstick Negative (Negative); Occult Blood-Urine Negative /ul (Negative); Protein-Dipstick Negative (Negative); Urine Bilirubin Dipstick Negative (Negative); Urine Clarity Clear (Clear); Urine Urobilinogen Normal (Normal)
[2024-09-03 15:22] LABS: Absolute Lymphocyte Count 1.18 X10^3/uL (0.83-4.51); Absolute Neutrophil Count 2.8 X10^3/uL (2.0-7.7); Basophil# 0.04 X10^3/uL; Basophil% 0.9 % (0-1); Eosinophil# 0.05 X10^3/uL; Eosinophils% 1.1 % (0-5); Hematocrit 46.1 % (37-47); Hemoglobin 14.7 g/dL (12.0-15.0); Lymphocyte # 1.18 X10^3/ul (0.83-4.51); Lymphocyte % 26.6 % (19-41); Mean Corp Hgb Conc 31.9 g/dL (32-36); Mean Corpuscular Hgb 33.7 pg (27.0-32.0); Mean Corpuscular Volume 105.7 fL (81-99); Mean Platelet Vol. 11.8 fl (6.2-12.0); Monocyte# 0.32 X10^3/uL; Monocyte% 7.2 % (0-10); NRBC Flagged by Analyzer 0 % (0-5); Neutrophil # 2.83 X10^3/uL (2.7-7.7); Platelet Count 209 K/mm3 (150-450); RBC Distribution Width SD 51.1 fl (35.1-43.9); Red Blood Count 4.36 M/mm3 (4.2-5.4); White Blood Count 4.4 K/mm3 (4.4-11.0)
[2024-09-03 15:27] LABS: Red Blood Cells-Urine 0-5 SEEN /hpf (0-5); Squamous Epithelial Cells - UA 0-5 SEEN /hpf (5-10); White Blood Cells 0-5 SEEN /hpf (0-5)
[2024-09-03 15:28] LABS: Bacteria RARE /hpf (None Seen)
[2024-09-03 15:37] LABS: Vitamin D,25 Hydroxy 30.8 ng/mL
[2024-09-03 16:32] LABS: ALB/GLOB Ratio 1.3 RATIO (0.9-2.4); AST(SGOT) 14 U/L (15-37); Alanine Aminotransfer ALT/SGPT 22 U/L (13-56); Albumin, Serum 3.6 g/dL (3.2-5.0); Alkaline Phosphatase 85 U/L (45-117); Anion Gap 4 (5-15); BUN 7 mg/dL (7-18); BUN/Creat Ratio 11.6 RATIO (10-20); Calcium,Total 9.5 mg/dL (8.5-10.1); Chloride 104 mmol/L (98-107); Cholesterol 199 mg/dL (200); EST Glomerular Filtration Rate 104 mL/min (>60); Est Glom Filt Rate - Afr Amer 126 mL/min (>60); Globulin 2.8 g/dL (2.2-4.2); Glucose 76 mg/dL (74-106); High Density Lipoprotein 92 mg/dL; Magnesium 1.8 mg/dL (1.6-2.6); Potassium 4.2 mmol/L (3.5-5.1); Protein, Total 6.4 g/dL (6.4-8.2); Sodium Level 139 mmol/L (136-145); Triglycerides 66 mg/dL; Very Low Density Lipoprotein 13 mg/dL (5-40)
== END | disposition home or self-care (01) ==
LOC: MFPLAB 11:06
PROVIDERS: PCP Family Medicine; Referring Provider Family Medicine; Visit Provider Family Medicine
DX: M81.0 Age-related osteoporosis without current pathological fracture (principal); I10 Essential (primary) hypertension; E55.9 Vitamin D deficiency, unspecified

== ENCOUNTER → 2024-12-30 | Outpatient (CLI) | payer MEDICARE, MEDICAID, SELFPAY ==
--- NOTE | 2024-12-30 16:50 | RAD_ITS ---
PROCEDURE: CHEST PA AND LATERAL 12/30/2024 REASON FOR EXAM: CHRONIC OBSTRUCTIVE PULMONARY DISEASE, UNSPECIFIED TECHNIQUE: Frontal and lateral views of the chest. COMPARISON: 01/13/2020 FINDINGS: Hardware: None Heart: The heart size is normal. Mediastinum: The mediastinal contour is unremarkable. Lungs: Upper lobe emphysema and scarring. No focal consolidation. No pneumothorax. No pleural effusion.. Bones: Degenerative changes are identified within the thoracic spine. RAD/Chest PA and Lateral IMPRESSION: No acute cardiopulmonary process. Emphysema. Reading Location: [facility]
== END | disposition home or self-care (01) ==
PROVIDERS: PCP Family Medicine; Referring Provider Family Medicine; Visit Provider Family Medicine
DX: J44.9 Chronic obstructive pulmonary disease, unspecified (principal)
CPT/HCPCS: 71046

== ENCOUNTER → 2025-03-02 | Outpatient (CLI) | payer MEDICARE, MEDICAID, SELFPAY ==
[2025-03-02 11:13] LABS: Mucous, Urine 0 SEEN /hpf (<or=2+); Red Blood Cells-Urine 0 SEEN /hpf (0-5)
[2025-03-02 12:49] LABS: Hematocrit 46.6 % (37-47); Hemoglobin 15.6 g/dL (12.0-15.0); Immature Granulocytes Count 0.010 X10^3/uL (0.0-0.0); Mean Corp Hgb Conc 33.5 g/dL (32-36); Mean Corpuscular Volume 103.6 fL (81-99); Mean Platelet Vol. 11.7 fl (6.2-12.0); NRBC Flagged by Analyzer 0 % (0-5); Platelet Count 205 K/mm3 (150-450); RBC Distribution Width CV 13.2 % (11.6-14.6); RBC Distribution Width SD 50.7 fl (35.1-43.9); Red Blood Count 4.50 M/mm3 (4.2-5.4); White Blood Count 5.2 K/mm3 (4.4-11.0)
[2025-03-02 13:05] LABS: Color, Urine Straw (Yellow); Glucose, Dipstick Normal (Normal); Ketone-Dipstick Negative (Negative); Leukocyte Esterase-Dipstick Negative /ul (Negative); Nitrite-Dipstick Negative (Negative); Occult Blood-Urine Negative /ul (Negative); Protein-Dipstick Negative (Negative); Specific Gravity, Urine 1.010 (1.002-1.030); Urine Bilirubin Dipstick Negative (Negative)
[2025-03-02 13:53] LABS: Squamous Epithelial Cells - UA 0-5 SEEN /hpf (5-10)
[2025-03-02 14:06] LABS: AST(SGOT) 24 U/L (<=31); Alanine Aminotransfer ALT/SGPT 16 U/L (<=34); Albumin, Serum 4.4 g/dL (3.4-4.8); Alkaline Phosphatase 91 U/L (35-104); Anion Gap 13 (5-15); BUN 8 mg/dL (4-19); BUN/Creat Ratio 12.8 RATIO (10-20); Calcium,Total 9.5 mg/dL (7.6-11.0); Carbon Dioxide 25.4 mmol/L (21.0-32.0); Chloride 99 mmol/L (98-108); Cholesterol 201 mg/dL (<=200); Globulin 2.4 g/dL (2.2-4.2); Glucose 85 mg/dL (70-99); Low Density Lipoprotein Calc. 74 mg/dL; Magnesium 1.9 mg/dL (1.5-2.2); Potassium 4.1 mmol/L (3.3-5.1); Triglycerides 61 mg/dL; Very Low Density Lipoprotein 12 mg/dL (5-40); Vitamin D,25 Hydroxy 38.2 ng/mL (30-100); cholesterol:hdl ratio screen 1.75
[2025-03-03 15:12] LABS: Ferritin 188 ng/mL (22-378); Iron 88 ug/dL (50-170)
[2025-03-05 05:07] LABS: Transferrin 221 mg/dL (192-364)
== END | disposition home or self-care (01) ==
LOC: MFPLAB 11:05
PROVIDERS: PCP Family Medicine; Referring Provider Family Medicine; Visit Provider Family Medicine
DX: I10 Essential (primary) hypertension (principal); E55.9 Vitamin D deficiency, unspecified; R71.8 Other abnormality of red blood cells
CPT/HCPCS: 36415; 80053; 80061; 81001; 82306; 82728; 83540; 83735; 84443; 84466; 85025

== ENCOUNTER → 2025-04-13 | Outpatient (CLI) | payer MEDICARE, MEDICAID, SELFPAY ==
[2025-04-13 11:12] LABS: Ferritin 221 ng/mL (22-378); Iron 104 ug/dL (50-170)
[2025-04-14 08:09] LABS: Transferrin 212 mg/dL (192-364)
== END | disposition home or self-care (01) ==
LOC: MTLAB 09:03
PROVIDERS: PCP Family Medicine; Referring Provider Family Medicine; Visit Provider Family Medicine
DX: R71.8 Other abnormality of red blood cells (principal)
CPT/HCPCS: 36415; 82728; 83540; 84466

== ENCOUNTER → 2025-06-03 | Outpatient (CLI) | payer MEDICARE, MEDICAID, SELFPAY ==
--- NOTE | 2025-06-03 08:49 | BI_ITS ---
EXAM: SCRN MAMM (CAD)W/JAVIER BILAT DATE: 06/03/2025 CLINICAL HISTORY: F, Age 75 y/o , SCREEN TECHNIQUE: Procedure Code: BISMWCADBTOM Modality: MG Procedure: SCRN MAMM (CAD)W/JAVIER BILAT COMPARISON: Prior exam(s) dated 05/20/2024. FINDINGS: TISSUE DENSITY: The breasts are extremely dense, which lowers the sensitivity of mammography. The mammogram demonstrates that the patient has dense breasts. Supplemental screening with whole breast ultrasound or MRI may be considered for further evaluation. Bilateral Breast Mammographic Findings: No significant masses, calcifications or other abnormalities are identified. BI/SCRN MAMM (CAD)W/JAVIER BILAT IMPRESSION: There is no mammographic evidence of malignancy. OVERALL FINAL ASSESSMENT BI-RADS 1: NEGATIVE... RECOMMENDATION: Routine annual follow-up in 1 Year Additional Recommendation none A letter with findings and recommendations will be mailed to the patient. Reading Location: [id number]
--- NOTE | 2025-06-03 08:49 | BI_ITS ---
EXAM: SCRN MAMM (CAD)W/JAVIER BILAT DATE: 06/03/2025 CLINICAL HISTORY: F, Age 75 y/o , SCREEN TECHNIQUE: Procedure Code: BISMWCADBTOM Modality: MG Procedure: SCRN MAMM (CAD)W/JAVIER BILAT COMPARISON: Prior exam(s) dated 05/20/2024. FINDINGS: TISSUE DENSITY: The breasts are extremely dense, which lowers the sensitivity of mammography. The mammogram demonstrates that the patient has dense breasts. Supplemental screening with whole breast ultrasound or MRI may be considered for further evaluation. Bilateral Breast Mammographic Findings: No significant masses, calcifications or other abnormalities are identified. BI/SCRN MAMM (CAD)W/JAVIER BILAT IMPRESSION: There is no mammographic evidence of malignancy. OVERALL FINAL ASSESSMENT BI-RADS 1: NEGATIVE... RECOMMENDATION: Routine annual follow-up in 1 Year Additional Recommendation none A letter with findings and recommendations will be mailed to the patient. Reading Location: [id number]
== END | disposition home or self-care (01) ==
PROVIDERS: PCP Family Medicine; Referring Provider Family Medicine; Visit Provider Family Medicine
DX: Z12.31 Encounter for screening mammogram for malignant neoplasm of breast (principal)
CPT/HCPCS: 77063; 77067

== ENCOUNTER → 2025-08-19 | Outpatient (CLI) | payer MEDICARE, MEDICAID, SELFPAY ==
--- NOTE | 2025-08-19 07:28 | CT_ITS ---
PROCEDURE: LOW DOSE CT LUNG SCREENING 08/19/2025 REASON FOR EXAM: TOBACCO ABUSE TECHNIQUE: Procedure Code: [id number] Modality: CT Procedure: LOW DOSE CT LUNG SCREENING Coronal and Sagittal reconstruction series were provided. One or more dose reduction techniques were used (e.g., Automated exposure control, adjustment of the mA and/or kV according to patient size, use of iterative reconstruction technique). REFERENCE LINK: [employer] Lung-RADS RADIATION DOSE SUMMARY: CTDlvol: 2 mGy DLP: 69 mGycm COMPARISON: 07/19/2024 FINDINGS: PULMONARY NODULES: (Only nodules >3mm are reported) Nodules described below are on series 2 unless otherwise specified. Pulmonary Nodules: Stable 2.7 cm spiculated nodule of the right upper lobe on image 34. Hardware:Unremarkable Lymph Nodes:Unremarkable Heart and Vasculature:Coronary artery calcifications are noted.Atherosclerotic calcifications of the thoracic aorta. Thoracic aorta and pulmonary arteries have normal contours; noncontrast technique limits evaluation. Coronary Artery Calcifications: Present Lungs and Airways: Advanced emphysematous changes are present. Pleura:Unremarkable Upper Abdomen:Unremarkable Bones:Degenerative changes of the thoracic spine. CT/Low Dose CT Lung Screening IMPRESSION: No new suspicious pulmonary nodules. Coronary artery calcification (CAC) is is present Lung-RADS Category: 2 BENIGN (BASED ON IMAGING FEATURES OR INDOLENT BEHAVIOR). RECOMMEND 12-MONTH SCREENING LDCT. Reading Location: [id number]
--- OUTSIDE RECORDS SUMMARY | 2025-08-19 07:47 | XMS RPT_ITS | CCD ---
Author Organization [facility] Care Team Providers Care Manager Office Name Role Phone Beatrice Arias Primary Care Provider Cal Paris Primary Care Provider Cal Paris Primary Care Provider Unknown, Referring Provider Unavailable Unav ailable Unavailable Unavailable Madelin Duckworth Unavailable Beatrice Arias MD Primary Care Provider Unavailable Unavailable Dr. Madelin Duckworth Primary Care Provider Dr. Madelin Duckworth Referring Provider Dr. Audi Redd Attending Provider Dr. Audi Redd Other Provider Dr. Madelin Duckworth Primary Care Provider Dr. Madelin Duckworth Referring Provider Dr. Audi Redd Attending Provider Dr. Audi Redd Other Provider Dr. Madelin Duckworth Primary Care Provider Dr. Madelin Duckworth Referring Provider Dr. Audi Redd Attending Provider MD ROBERTH ALSTON Attending Unavailable MD ROBERTH ALSTON Referring Unavailable Dr. Madelin Duckworth Primary Care Dr. Madelin Dyer Primary Care MD ROBERTH Camara Attending Unavailable MD ROBERTH ALSTON Referring Unavailable Dr. Madelin Duckworth [place] Primary Care MD ROBERTH Camara Attending Unavailable MD ROBERTH ALSTON Referring Unavailable Dr. Madelin Duckworth [place] Primary [facility] MD ROBERTH Camara Attending Unavailable Tonya ANDERSON, Madelin hussain Primary Care Provider Rojelio Chen MD Unavailable Tonya ANDERSON, Madelin hussain Primary Care Provider Rojelio Chen MD Unavailable Tonya ANDERSON, Dr. Madelin Gonzalez Primary Care Provider [phone] Tonya ANDERSON, Dr. Madelin Gonzalez Attending Provider Tonya ANDERSON, Dr. Madelin Gonzalez Referring Provider ROBERTH ALSTON Attending Unavailable MADELIN DUCKWORTH Primary Care UnavailROBERTH Barroso Attending Unavailable MADELIN DUCKWORTH Primary Care Unavailrebecca Torres SHOW HOST/HOSTESS, Riya Attending Unavailable Melissa SHOW HOST/HOSTESS, Riya Referring Unavailable Madelin Duckworth Primary Care Unavailable Madelin Duckworth Attending Unavailable Madelin Duckworth Referring Unavailable Madelin Duckworth Primary Care Unavailable Madelin Duckworth Referring Unavailable Madelin Duckworth Primary Care Unavailable aMdelin Duckworth Attending Unavailable Madelin Duckworth Referring Unavailable Madelin Duckworth Primary Care Unavailable Madelin Duckworth Attending Unavailable Madelin Duckworth Attending Unavailable Madelin Duckworth Referring Unavailable Madelin Duckworth Primary Care Unavailable Madelin Duckworth Attending Unavailable Madelin Duckworth Referring Unavailable Madelin Duckworth Primary Care Unavailable Madelin Duckworth Attending Unavailable Madelin Duckworth Referring Unavailable Madelin Duckworth Primary Care Unavailable Medications Current Medications Medication Drug Class(es) Dates Sig (Normalized) Sig (Original) alendronic acid 70 mg oral tablet (20 sources) Bisphosphonate Start: 01-17-2020 take 1 tablet by mouth every week Alendronate (Fosamax) 70 mg tablet Active 70 mg PO EVERY WEEK September 19, 2022 1:00am Start: 01-11-2020 alendronate (F OSAMAX) 70 MG tablet Take 1 tablet by mouth every 7 days 12 tablet 1 01/11/2020 Active Start: 10-13-2019 alendronate (F OSAMAX) 70 MG tablet Take 1 tablet by mouth every 7 days 12 tablet 1 10/13/2019 Active Fosamax TABS Andrew ntity: 0 Refills: 0 Ordered: 31-Jul-2022 DO Active amLODIPine 10 mg oral tablet (20 sources) Dihydropyridine Calcium Channel Alisson Start: 09-19-2022 take 5 mg by mouth once daily Amlodipine 10 mg tablet Active 5 mg PO DAILY September 19, 2022 10:00am Start: 09-19-2022 take 5 mg by mouth once daily Amlodipine Active 5 MG PO DAILY September 19, 2022 9:00am Start: 04-17-2021 amLODIPine (No rvasc) 5 mg tablet Take by mouth. 04/17/2021 Active Start: 04-17-2021 amLODIPine Bes ylate 5 MG Oral Tablet Quantity: 90 Refills: 0 Ordered: 17-Apr-2021 DO Start : 17-Apr-2021 Active Start: 03-01-2020 take 1 tablet by arnulfo th once daily amLODIPine (NORVASC) 5 MG tablet Take 1 tablet by mouth daily 30 tablet 3 03/01/2020 Active Start: 01-11-2020 End: 09-19-2022 take 1 tablet by mouth once daily Amlodipine 10 MG tablet Discontinued 10 mg PO DAILY January 17, 2020 12:00am September 19, 2022 10:03am Start: 11-05-2019 take 1 tablet by arnulfo th once daily amLODIPine (NORVASC) 10 MG tablet Indications: Hypertension, unspecified type Take 1 tablet by mouth daily 90 tablet 0 11/05/2019 Active Start: 10-08-2019 take 1 tablet by arnulfo th once daily amLODIPine (NORVASC) 5 MG tablet Indications: Hypertension, unspecified type Take 1 tablet by mouth daily 30 tablet 0 10/08/2019 Active ascorbic acid 1000 mg extended release oral tablet (12 sources) Vitamin C Start: 10-14-2022 Ascorbic Acid (Vitamin C) (Vitamin C) 1,000 mg Capsule, Extended Release Active 1 NMA PO DAILY October 14, 2022 1:00am Start: 10-14-2022 take 1 capsule by mo uth once daily Ascorbic Acid (Vitamin C) (Vitamin C) 1,000 mg Capsule, Extended Release Active 1 CAP PO DAILY October 14, 2022 12:00am ascorbic acid (V itamin C) 500 mg tablet Take by mouth. Active aspirin 81 mg chewable tablet (2 sources) Platelet Aggregation Inhibitor, Nonsteroidal Anti-inflammatory Drug Start: 12-25-2020 take 81 mg by mouth twice daily at mealtime Aspirin Active 81 MG PO TWICE DAILY WITH MEALS 60 December 25, 2020 12:00am 60 actuat budesonide 0.16 mg/actuat / formoterol fumarate 0.0045 mg/actuat metered dose inhaler (2 sources) Corticosteroid, beta2-Adrenergic Agonist Start: 05-10-2024 take 2 puff(s) by mouth twice daily Symbicort 160-4.5 mcg/actuation inhaler INHALE 2 (TWO) puffs BY MOUTH TWICE DAILY. rinse mouth after using the medicine. 05/10/2024 Active calcium carbonate 1500 mg oral tablet (1 source) Start: 09-19-2022 take 600 mg by mouth twice daily Calcium Carbonate Active 600 MG PO TWICE A DAY September 19, 2022 12:00am Calcium Carbonate / Cholecalciferol (9 sources) Vitamin D Start: 11-05-2019 take 2 tablets by mouth once daily calcium carbonate-benjamín min D (CALTRATE) 600-400 MG-UNIT TABS per tab Take 2 tablets by mouth daily 180 tablet 1 11/05/2019 Active Start: 10-13-2019 take 2 tablets by [facility] once daily calcium carbonate-vitamin D (CALTRATE) 600-400 MG-UNIT TABS per tab Take 2 tablets by mouth daily 180 tablet 1 10/13/2019 Active chlorthalidone 25 mg oral tablet (1 source) Thiazide-like Diuretic Start: 2020 take 1 tablet by mouth once daily chlorthalidone (HYGROTON) 25 MG tablet Indications: Essential hypertension Take 1 tablet by mouth daily 30 tablet 3 2020 Active cholecalciferol 0.05 mg oral capsule (9 sources) Vitamin D Start: 09-19-2022 take 1 capsule by mouth once daily Cholecalciferol (Vitamin D3) 50 mcg (2,000 unit) capsule Active 50 ug PO DAILY September 19, 2022 1:00am difluprednate 0.5 mg/ml ophthalmic suspension (2 sources) Start: 08-07-2024 take 1 drop(s) into the eye(s) twice daily difluprednate (Durezol) 0.05 % ophthalmic solution instill one drop into left eye twice a day 08/07/2024 Active doxycycline hyclate 100 mg oral tablet (1 source) Tetracycline-class Drug Start: 02-17-2020 End: 02-22-2020 take 1 tablet by mouth twice daily doxycycline hyclate (VIBRA-TABS) 100 MG tablet Indications: Chronic obstructive pulmonary disease with acute lower respiratory infection (HCC) Take 1 tablet by mouth 2 times daily for 5 days 10 tablet 0 02/17/2020 02/22/2020 Active ergocalciferol, vitamin D2, (VITAMIN D2 ORAL) (4 sources) ergocalciferol, vitamin D2, (VITAMIN D2 ORAL) Take by mouth. Active 12 hr guaiFENesin 600 mg extended release oral tablet (1 source) Start: 02-07-2020 End: 02-22-2020 take 1 tablet by mouth twice daily guaiFENesin (MUCINEX) 600 MG extended release tablet Indications: Chest congestion Take 1 tablet by mouth 2 times daily for 15 days 30 tablet 0 02/07/2020 02/22/2020 Active 200 actuat ipratropium bromide 0.017 mg/actuat metered dose inhaler (2 sources) Anticholinergic Start: 02-07-2020 take 2 puff(s) by inhalation every six hours ipratropium (ATROVENT HFA) 17 MCG/ACT inhaler Indications: Pulmonary emphysema, unspecified emphysema type (HCC) Inhale 2 puffs into the lungs every 6 hours 1 Inhaler 3 02/07/2020 Active lisinopril 10 mg oral tablet (1 source) Angiotensin Converting Enzyme Inhibitor Start: 09-06-2019 End: 10-06-2019 take 1 tablet by mouth once daily lisinopril (PRINIVIL;ZESTRIL) 10 MG tablet Indications: Hypertension, unspecified type Take 1 tablet by mouth daily 30 tablet 0 09/06/2019 10/06/2019 Active meloxicam 7.5 mg oral tablet (12 sources) Nonsteroidal Anti-inflammatory Drug Start: 01-11-2020 take 1 tablet by mouth once daily as needed for pain meloxicam (MOBIC) 7.5 MG tablet Indications: Neck pain, chronic Take 1 tablet by mouth daily as needed for Pain 30 tablet 0 01/11/2020 Active Start: 11-05-2019 take 1 tablet by arnulfo th once daily as needed for pain meloxicam (MOBIC) 7.5 MG tablet Indications: Neck pain, chronic Take 1 tablet by mouth daily as needed for Pain 30 tablet 0 11/05/2019 Active Start: 10-08-2019 take 1 tablet by arnulfo th once daily as needed for pain meloxicam (MOBIC) 7.5 MG tablet Indications: Neck pain, chronic , Chronic bilateral thoracic back pain Take 1 tablet by mouth daily as needed for Pain 15 tablet 0 10/08/2019 Active prednisoLONE acetate 10 mg/ml ophthalmic suspension (4 sources) Corticosteroid Start: 07-07-2023 take 1 drop(s) into the eye(s) three times daily prednisoLONE acetate (Pred-Forte) 1 % ophthalmic suspension instill 1 drop into left eye three times a day 07/07/2023 Active predniSONE 20 mg oral tablet (1 source) Start: 02-17-2020 End: 02-22-2020 take 2 tablets by mouth twice daily predniSONE (DELTASONE) 20 MG tablet Indications: Chronic obstructive pulmonary disease with acute lower respiratory infection (HCC) Take 2 tablets by mouth 2 times daily for 5 days 10 tablet 0 02/17/2020 02/22/2020 Active 1000 ml sodium chloride 9 mg/ml injection (1 source) Start: 10-11-2019 0.9 % sodium chloride infusion tiZANidine 4 mg oral tablet (1 source) Central alpha-2 Adrenergic Agonist Start: 09-06-2019 take 1 tablet by mouth every eight hours as needed for pain tiZANidine (ZANAFLEX) 4 MG tablet Indications: Neck pain, chronic Take 1 tablet by mouth every 8 hours as needed (neck pain) 40 tablet 0 09/06/2019 Active 7 actuat umeclidinium 0.0625 mg/actuat / vilanterol 0.025 mg/actuat dry powder inhaler (2 sources) Anticholinergic, beta2-Adrenergic Agonist Start: 12-24-2020 Umeclidinium-Vilan terol (Anoro Ellipta) 62.5-25 mcg/actuation blister with device Active 1 INH INHALATION DAILY December 24, 2020 12:00am valACYclovir 1000 mg oral tablet (4 sources) Herpesvirus Nucleoside Analog DNA Polymerase Inhibitor, Herpes Simplex Virus Nucleoside Analog DNA Polymerase Inhibitor, Herpes Zoster Virus Nucleoside Analog DNA Polymerase Inhibitor Start: 06-24-2023 take 1 tablet by mouth three times daily valACYclovir (Valtrex) 1 gram tablet Take 1 tablet (1,000 mg) by mouth 3 times a day. 06/24/2023 Active vitamin e 100 unt oral capsule (20 sources) Start: 06-06-2021 vitamin E 45 mg (100 unit) capsule Take by mouth. 06/06/2021 Active Start: 06-06-2021 Vitamin E 100 UNIT Oral Capsule Quantity: 0 Refills: 0 Ordered: 06-Jun-2021 DO Start : 06-Jun-2021 Active Completed/Discontinued Medications Medication Drug Class(es) Dates Sig (Normalized) Sig (Original) acetaminophen 325 mg / HYDROcodone bitartrate 5 mg oral tablet (12 sources) Opioid Agonist Start: 06-22-2022 End: 09-19-2022 Hydrocodone-Acetami nophen 5-325 mg tablet Discontinued 1 {tbl} PO EVERY 6 HOURS NEEDED as needed for Pain 12 3 0 June 22, 2022 September 19, 2022 10:00am Sciatica Sciatica, unspecified side Start: 06-22-2022 End: 09-19-2022 take 1 tablet by mouth every six hours as needed Hydrocodone-Acetaminophen Discontinued 1 TABLET PO EVERY 6 HOURS NEEDED 12 3 June 22, 2022 September 19, 2022 9:00am albuterol sulfate HFA 108 (90 Base) MCG/ACT inhaler 4 puff (1 source) Start: 01-28-2020 End: 01-28-2020 albuterol sulfate HFA 108 (90 Base) MCG/ACT inhaler 4 puff chlorhexidine gluconate 40 mg/ml medicated liquid soap (6 sources) Start: 06-22-2021 Hibiclens 4 % External Liquid USE DIRECTED. Quantity: 1 Refills: 0 Ordered: 22-Jun-2021 Mariam Cochran Start : 22-Jun-2021 Active lidocaine hydrochloride 20 mg/ml mucous membrane topical solution (11 sources) Antiarrhythmic, Amide Local Anesthetic Start: 06-06-2021 Lidocaine Viscous HCl - 2 % Mouth/Throat Solution apply small amount to affected area of tongue 5 minutes before a meal Quantity: 1 Refills: 0 Ordered: 06-Jun-2021 Roberth Alston MD Start : 06-Jun-2021 Active methylPREDNISolone 4 mg oral tablet (12 sources) Corticosteroid Start: 06-22-2022 End: 09-19-2022 Methylprednisolone 4 mg tablets,dose pack Discontinued 4 mg PO DIRECTED 1 0 June 22, 2022 12:00am September 19, 2022 10:00am mupirocin 0.02 mg/mg topical ointment (6 sources) RNA Synthetase Inhibitor Antibacterial Start: 06-22-2021 Mupirocin 2 % External Ointment APPLY SPARINGLY TO AFFECTED AREA(S) TWICE DAILY Quantity: 1 Refills: 0 Ordered: 22-Jun-2021 Mariam Cochran Start : 22-Jun-2021 Active traMADol hydrochloride 50 mg oral tablet (11 sources) Opioid Agonist Start: 06-06-2021 take 1 tablet by mouth every six hours as needed for pain traMADol HCl - 50 MG Oral Tablet Take one tablet every 6 hours as needed for pain Quantity: 28 Refills: 0 Ordered: 06-Jun-2021 Roberth Alston MD Start : 06-Jun-2021 Active Vitamin C TABS (1 source) Vitamin C TABS Quantity: 0 Refills: 0 Ordered: 31-Jul-2022 DO Active Vitamin D TABS (1 source) Vitamin D TABS Quantity: 0 Refills: 0 Ordered: 31-Jul-2022 DO Active Problems Active Problems Problem Classification Problem Date Documented Da te Episodic/Chronic Alcohol-related disorders (14 sources) Alcohol abuse; Translations: [Alcohol abuse, uncomplicated] 12-24-2020 Chronic Cancer of head and neck (20 sources) Malignant tumor of tongue; Translations: [Malignant neoplasm of tongue, unspecified] Onset: 04-18-2023 12-16-2023 Chronic Chronic obstructive pulmonary disease and bronchiectasis (1 source) Chronic obstructive pulmonary disease, unspecified; Translations: [Chronic obstructive pulmonary disease, unspecified] Onset: 01-04-2025 Chronic Diseases of white blood cells (14 sources) Leukocytosis; Translations: [Elevated white blood cell count, unspecified] 12-24-2020 Chronic Essential hypertension (4 sources) Essential hypertension; Translations: [Essential (primary) hypertension] Onset: 2020 2020 Chronic Fracture of neck of femur (hip) (14 sources) Closed fracture of hip; Translations: [Fracture of unspecified part of neck of right femur, initial encounter for closed fracture] 12-24-2020 Episodic Hemorrhoids (11 sources) Internal hemorrhoids grade I; Translations: [First degree hemorrhoids] 10-11-2019 Neoplasms of unspecified nature or uncertain behavior (10 sources) Neoplasm of parotid gland; Translations: [Neoplasm of unspecified behavior of digestive system] Onset: 07-22-2023 12-16-2023 Episodic Osteoporosis (20 sources) Osteoporosis; Translations: [Age-related osteoporosis without current pathological fracture] Onset: 10-13-2019 10-13-2019 Chronic Other gastrointestinal disorders (9 sources) Occult blood in stools; Translations: [Other fecal abnormalities] 09-19-2022 Episodic Other gastrointestinal disorders (3 sources) Other fecal abnormalities; Translations: [Nonspecific abnormal findings in stool contents] 09-19-2022 Episodic Other hematologic conditions (1 source) Other specified diseases of blood and blood-forming organs; Translations: [Other specified diseases of blood and blood-forming organs] Onset: 10-09-2024 Chronic Other hematologic conditions (14 sources) Erythrocytosis; Translations: [Secondary polycythemia] 12-24-2020 Episodic Other hematologic conditions (1 source) Other abnormality of red blood cells; Translations: [Other abnormality of red blood cells] Onset: 05-02-2025 Episodic Other injuries and conditions due to external causes (14 sources) Retained foreign body; Translations: [Retained foreign body fragments, unspecified material] 12-24-2020 Episodic Other lower respiratory disease (1 source) Dyspnea; Translations: [SOB (shortness of breath)] Episodic Other screening for suspected conditions (not mental disorders or infectious disease) (2 sources) Encounter for screening mammogram for malignant neoplasm of breast; Translations: [Encounter for screening for malignant neoplasm of respiratory organs] Onset: 08-17-2024 Episodic Pneumonia (except that caused by tuberculosis or sexually transmitted disease) (14 sources) Pneumonia; Translations: [Pneumonia, unspecified organism] 01-19-2020 Episodic Residual codes; unclassified (1 source) Menopause present Chronic Spondylosis; intervertebral disc disorders; other back problems (20 sources) Sciatica; Translations: [Sciatica, unspecified side] 06-22-2022 Episodic Substance-related disorders (14 sources) Smoker; Translations: [Nicotine dependence, unspecified, uncomplicated] 12-24-2020 Chronic Past or Other Problems Problem Classification Problem Date Documented Da te Episodic/Chronic Other and unspecified benign neoplasm (11 sources) Benign neoplasm of transverse colon; Translations: [Benign neoplasm of transverse colon] Resolved: 10-13-2019 10-11-2019 Episodic Other and unspecified benign neoplasm (11 sources) Benign neoplasm of sigmoid colon; Translations: [Benign neoplasm of sigmoid colon] Resolved: 10-13-2019 10-11-2019 Episodic Other and unspecified benign neoplasm (9 sources) History of adenomatous polyp of colon; Translations: [Hx of adenomatous colonic polyps] Onset: 10-13-2019 10-13-2019 Episodic Residual codes; unclassified (1 source) Edema of lower extremity; Translations: [Leg edema, left] Episodic Unclassified (11 sources) Patient encounter status; Translations: [Screen for colon cancer] Resolved: 10-13-2019 10-11-2019 Unclassified (4 sources) Onset: 07-22-2023 Resolved: 04-06-2024 07-22-2023 Results Test Name Value Interpretation Reference Range Facility SCRN MAMM (CAD)W/JAVIER BILATo n 06-03-2025 SCRN MAMM (CAD)W/JAVIER BILAT [facility] [address] [place] [id number] SCRN MAMM (CAD)W/JAVIER BILAT MR#: [id number] Acct: [id number] Name: BERNA HOWE Rep #: [id number] : 1950 F 75 From: Shannan Purdy MD PCP: Dr. Madelin Duckworth MD Status: REG CLI Study: SCRN MAMM (CAD)W/JAVIER BILAT Date of Exam: 05/25 Exam# [id number] Ordering Dr: Madelin Duckworth MD EXAM: SCRN MAMM (CAD)W/JAVIER BILAT DATE: 06/03/2025 CLINICAL HISTORY: F, Age 75 y/o , SCREEN TECHNIQUE: Procedure Code: [id number] Modality: MG Procedure: SCRN MAMM (CAD)W/JAVIER BILAT COMPARISON: Prior exam(s) dated 05/20/2024. FINDINGS: TISSUE DENSITY: The breasts are extremely dense, which lowers the sensitivity of mammography. The mammogram demonstrates that the patient has dense breasts. Supplemental screening with whole breast ultrasound or MRI may be considered for further evaluation. Bilateral Breast Mammographic Findings: No significant masses, calcifications or other abnormalities are identified. BI/SCRN MAMM (CAD)W/JAVIER BILAT IMPRESSION: There is no mammographic evidence of malignancy. OVERALL FINAL ASSESSMENT BI-RADS 1: NEGATIVE... RECOMMENDATION: Routine annual follow-up in 1 Year Additional Recommendation none A letter with findings and recommendations will be mailed to the patient. Reading Location: [id number] CC: Dr. Madelin Duckworth MD Speech Language Pathologist Travel: Signed Normal [facility] Transferrinon 04-14-2025 Transferrin [Mass/Vol] 212 mg/dL Normal 192-364 [facility] Comment on above: Result Comment: Perf ormed at: CB - [facility] [address] [id number] [employer] Pumper: Collin De La Cruz PhD, Phone: [phone] Performed By: #### L 501.5200, L500.4100, L100.0100, L506.1000, L500.4050, L501.9520 #### [facility] [address] [place], [address] Ferritinon 04-13-2025 Ferritin [Mass/Vol] 221 ng/mL Normal 22-378 [facility] Comment on above: Performed By: #### L 501.5200, L500.4100, L100.0100, L506.1000, L500.4050, L501.9520 #### [facility] [address] [place], [place], [id number] Ironon 04-13-2025 Iron [Mass/Vol] 104 ug/dL Normal 50-[address] [facility] Comment on above: Performed By: #### L 501.5200, L500.4100, L100.0100, L506.1000, L500.4050, L501.9520 #### [facility] [address] [place], [address] Iron measurement (mass/mass) Ordered By: Madelin Duckworth on 04-13-2025 Iron (Unsp spec) [Mass/Mass] 104 ug/dL 50-[address] [facility] Serum or plasma ferritin mya surement (mass/volume)Ordered By: Madelin Duckworth on 04-13-2025 Ferritin [Mass/Vol] 221 ng/mL 22-378 [facility] TransferrinOrdered By: Madelin Duckworth on 04-13-2025 Transferrin [Mass/Vol] 212 mg/dL 192-364 [facility] Comment on above: Performed at: [facility]olyn randall [address] [id number] Director: Collin De La Cruz PhD, Phone: [phone] Transferrinon 03-05-2025 Transferrin [Mass/Vol] 221 mg/dL Normal 192-364 [facility] Comment on above: Order Comment: Order Date: 09/03/24 Order Info: [id number] - [id number] Result Comment: Perf ormed at: [facility] [id number] [employer]: Collin De La Cruz PhD, Phone: [phone] Performed By: #### L 501.5200, L500.4100, L100.0100, L506.1000, L500.4050, L501.9520 #### [facility] [address] [place], [place], [id number] Ferritinon 03-03-2025 Ferritin [Mass/Vol] 188 ng/mL Normal 22-378 [facility] Comment on above: Order Comment: RICHARD Gonzalez ADD MOR FE TRF TO BLOOD DRAWN 03/02/25 USE GREEN TOP FOR SEND OUT WHEN DONE WITH ADD ON MOR FE Order Date: 03/02/25 Order Info: [id number] - CMP Order Info: [id number] - LIPID Order Info: [id number] - MG Order Info: [id number] - TSH Performed By: #### L 506.1001, L400.0001, L503.6150, L503.6550, L3400.3800 #### [facility] [address] [place], [place], [address] Ironon 03-03-2025 Iron [Mass/Vol] 88 ug/dL Normal 50-[address] [facility] Comment on above: Order Comment: RICHARD Gonzalez ADD MOR FE TRF TO BLOOD DRAWN 03/02/25 USE GREEN TOP FOR SEND OUT WHEN DONE WITH ADD ON MOR FE Order Date: 03/02/25 Order Info: [id number] - CMP Order Info: [id number] - LIPID Order Info: [id number] - MG Order Info: [id number] - TSH Performed By: #### L 506.1001, L400.0001, L503.6150, L503.6550, L3400.3800 #### [facility] [address] [place], [place], [address] Absolute lymphocyte countOrd ered By: Madelin Duckworth on 03-02-2025 Lymphocytes Auto (Unsp spec) [#/Vol] 1.07 10*3/uL 0.83-4.[address] [facility] Absolute neutrophil countOrd ered By: Madelin Duckworth on 03-02-2025 Neutrophils (Bld) [#/Vol] 3.5 10*3/uL 2.0-7.[address] [facility] Anion gap in Serum or Plasma Ordered By: Madelin Duckworth on 03-02-2025 Anion gap [Moles/Vol] 13 mmol/L 5-15 [facility] Automated lymphocyte count a s percentage of total leukocytesOrdered By: Madelin Duckworth on 03-02-2025 Lymphocytes/100 WBC Auto (Unsp spec) 20.6 % 19-[address] [facility] BUN/creatinine ratioOrdered By: Madelin Duckworth on 03-02-2025 Urea nitrogen/Creatinine [Mass ratio] 12.8 mg/mg 10-[address] [facility] Basophil percentageOrdered B y: Madelin Duckworth on 03-02-2025 Basophils/100 WBC (Bld) 0.8 % 0-[address] [facility] Bilirubin Test strip Ql (U)O rdered By: Madelin Duckworth on 03-02-2025 Bilirubin Ql (U) Negative Negative [facility] Bilirubin, totalOrdered By: Madelin Duckworth on 03-02-2025 Bilirubin [Mass/Vol] 0.67 mg/dL 0.00-1.30 [facility] CBC W/Diff, Automatedon 07-0 Absolute Lymph 1.07 X10 3/uL Normal 0.83-4.51 [facility] [facility] Comment on above: Order Comment: Order Date: 09/03/24 Order Info: [id number] - [id number] Performed By: #### L 501.5200, L500.4100, L100.0100, L506.1000, L500.4050, L501.9520 #### [facility] [address] [place], [address] Absolute Neut 3.5 X10 3/uL Normal 2.0-7.[address] [facility] Comment on above: Order Comment: Order Date: 09/03/24 Order Info: [id number] - [id number] Performed By: #### L 501.5200, L500.4100, L100.0100, L506.1000, L500.4050, L501.9520 #### [facility] [address] [place], [address] Basophils/100 WBC (Bld) 0.8 % Normal 0-[address] [facility] Comment on above: Order Comment: Order Date: 09/03/24 Order Info: [id number] - [id number] Performed By: #### L 501.5200, L500.4100, L100.0100, L506.1000, L500.4050, L501.9520 #### [facility] [address] [place], [address] Eosinophils/100 WBC (Bld) 1.5 % Normal 0-[address] [facility] Comment on above: Order Comment: Order Date: 09/03/24 Order Info: [id number] - [id number] Performed By: #### L 501.5200, L500.4100, L100.0100, L506.1000, L500.4050, L501.9520 #### [facility] [address] [place], [address] Erythrocyte distribution width (RBC) [Ratio] 13.2 % Normal 11.6-14.[address] [facility] Comment on above: Order Comment: Order Date: 09/03/24 Order Info: [id number] - VITD25 Performed By: #### L 501.5200, L500.4100, L100.0100, L506.1000, L500.4050, L501.9520 #### [facility] [address] [place], [address] Hematocrit (Bld) [Volume fraction] 46.6 % Normal 37-[address] [facility] Comment on above: Order Comment: Order Date: 09/03/24 Order Info: [id number] - VITD25 Performed By: #### L 501.5200, L500.4100, L100.0100, L506.1000, L500.4050, L501.9520 #### [facility] [address] [place], [address] Hemoglobin (Bld) [Mass/Vol] 15.6 g/dL High 12.0-15.[address] [facility] Comment on above: Order Comment: Order Date: 09/03/24 Order Info: [id number] - VITD25 Performed By: #### L 501.5200, L500.4100, L100.0100, L506.1000, L500.4050, L501.9520 #### [facility] [address] [place], [address] IG% 0.200 Normal 0.0-0.[address] [facility] Comment on above: Order Comment: Order Date: 09/03/24 Order Info: [id number] - [id number] Result Comment: IG% - Immature Granulocytes (promyelocytes, myelocytes and metamyelocytes) > 1% indicates that a LEFT SHIFT is Present. Performed By: #### L 501.5200, L500.4100, L100.0100, L506.1000, L500.4050, L501.9520 #### [facility] [address] [place], [address] Lymphocytes/100 WBC (Bld) 20.6 % Normal 19-[address] [facility] Comment on above: Order Comment: Order Date: 09/03/24 Order Info: [id number] - VITD25 Performed By: #### L 501.5200, L500.4100, L100.0100, L506.1000, L500.4050, L501.9520 #### [facility] [address] [place], [address] MCH (RBC) [Entitic mass] 34.7 pg High 27.0-32.[address] [facility] Comment on above: Order Comment: Order Date: 09/03/24 Order Info: [id number] - VITD25 Performed By: #### L 501.5200, L500.4100, L100.0100, L506.1000, L500.4050, L501.9520 #### [facility] [address] [place], [address] MCHC (RBC) [Mass/Vol] 33.5 g/dL Normal 32-36 [facility] Comment on above: Order Comment: Order Date: 09/03/24 Order Info: [id number] - VITD25 Performed By: #### L 501.5200, L500.4100, L100.0100, L506.1000, L500.4050, L501.9520 #### [facility] [address] [place], [address] MCV (RBC) [Entitic vol] 103.6 fL High 81-[address] [facility] Comment on above: Order Comment: Order Date: 09/03/24 Order Info: [id number] - VITD25 Performed By: #### L 501.5200, L500.4100, L100.0100, L506.1000, L500.4050, L501.9520 #### [facility] [address] [place], [address] Monocytes/100 WBC (Bld) 9.2 % Normal 0-[address] [facility] Comment on above: Order Comment: Order Date: 09/03/24 Order Info: [id number] - VITD25 Performed By: #### L 501.5200, L500.4100, L100.0100, L506.1000, L500.4050, L501.9520 #### [facility] [address] [place], [address] Neutrophils/100 WBC (Bld) 67.7 % Normal 47-[address] [facility] Comment on above: Order Comment: Order Date: 09/03/24 Order Info: [id number] - VITD25 Performed By: #### L 501.5200, L500.4100, L100.0100, L506.1000, L500.4050, L501.9520 #### [facility] [address] [place], [address] Nucleated RBC (Bld) [#/Vol] 0 10*3/uL Normal 0-[address] [facility] Comment on above: Order Comment: Order Date: 09/03/24 Order Info: [id number] - VITD25 Performed By: #### L 501.5200, L500.4100, L100.0100, L506.1000, L500.4050, L501.9520 #### [facility] [address] [place], [address] Platelet mean volume (Bld) [Entitic vol] 11.7 fL Normal 6.2-12.[address] [facility] Comment on above: Order Comment: Order Date: 09/03/24 Order Info: [id number] - VITD25 Performed By: #### L 501.5200, L500.4100, L100.0100, L506.1000, L500.4050, L501.9520 #### [facility] [address] [place], [address] Platelets (Bld) [#/Vol] 205 10*3/uL Normal 150-[address] [facility] Comment on above: Order Comment: Order Date: 09/03/24 Order Info: [id number] - [id number] Performed By: #### L 501.5200, L500.4100, L100.0100, L506.1000, L500.4050, L501.9520 #### [facility] [address] [place], [address] RBC (Bld) [#/Vol] 4.50 10*6/uL Normal 4.2-5.4 [facility] Comment on above: Order Comment: Order Date: 09/03/24 Order Info: [id number] - VITD25 Performed By: #### L 501.5200, L500.4100, L100.0100, L506.1000, L500.4050, L501.9520 #### [facility] [address] [place], [address] RDW SD 50.7 fl High 35.1-43.[address] [facility] Comment on above: Order Comment: Order Date: 09/03/24 Order Info: [id number] - VITD25 Performed By: #### L 501.5200, L500.4100, L100.0100, L506.1000, L500.4050, L501.9520 #### [facility] [address] [place], [address] WBC (Bld) [#/Vol] 5.2 10*3/uL Normal 4.4-11.0 [facility] Comment on above: Order Comment: Order Date: 09/03/24 Order Info: [id number] - [id number] Performed By: #### L 501.5200, L500.4100, L100.0100, L506.1000, L500.4050, L501.9520 #### [facility] [address] [place], [address] Calculated very low density lipoprotein (VLDL) cholesterol measurementOrdered By: Madelin Duckworth on 03-02-2025 Calculated very low density lipoprotein (VLDL) cholesterol measurement 12 mg/dL 5-[address] [facility] Carbon dioxide, total [Moles /volume] in Central venous bloodOrdered By: Madelin Duckworth on 03-02-2025 CO2 [Moles/Vol] 25.4 mmol/L 21.0-32.[address] [facility] Chloride assayOrdered By: Candida Duckworth on 03-02-2025 Chloride [Moles/Vol] 99 mmol/L 98-108 [facility] Comprehensive Metabolic Prof ilon 03-02-2025 Albumin [Mass/Vol] 4.4 g/dL Normal 3.4-4.8 [facility] Comment on above: Order Comment: Order Date: 09/03/24 Order Info: [id number] - [id number] Performed By: #### L 501.5200, L500.4100, L100.0100, L506.1000, L500.4050, L501.9520 #### [facility] [address] [place], [address] Albumin/Globulin [Mass ratio] 1.8 {ratio} Normal 0.9-2.[address] [facility] Comment on above: Order Comment: Order Date: 09/03/24 Order Info: [id number] - VITD25 Performed By: #### L 501.5200, L500.4100, L100.0100, L506.1000, L500.4050, L501.9520 #### [facility] [address] [place], [address] ALK PHOS 91 U/L Normal 35-[address] [facility] Comment on above: Order Comment: Order Date: 09/03/24 Order Info: [id number] - VITD25 Performed By: #### L 501.5200, L500.4100, L100.0100, L506.1000, L500.4050, L501.9520 #### [facility] [address] [place], [address] ALT [Catalytic activity/Vol] 16 U/L Normal <=[address] [facility] Comment on above: Order Comment: Order Date: 09/03/24 Order Info: [id number] - [id number] Performed By: #### L 501.5200, L500.4100, L100.0100, L506.1000, L500.4050, L501.9520 #### [facility] [address] [place], [address] AST [Catalytic activity/Vol] 24 U/L Normal <=[address] [facility] Comment on above: Order Comment: Order Date: 09/03/24 Order Info: [id number] - VITD25 Performed By: #### L 501.5200, L500.4100, L100.0100, L506.1000, L500.4050, L501.9520 #### [facility] [address] [place], [address] Bilirubin [Mass/Vol] 0.67 mg/dL Normal 0.00-1.30 [facility] Comment on above: Order Comment: Order Date: 09/03/24 Order Info: [id number] - VITD25 Performed By: #### L 501.5200, L500.4100, L100.0100, L506.1000, L500.4050, L501.9520 #### [facility] [address] [place], [address] BUN/CRE 12.8 RATIO Normal 10-[address] [facility] Comment on above: Order Comment: Order Date: 09/03/24 Order Info: [id number] - VITD25 Performed By: #### L 501.5200, L500.4100, L100.0100, L506.1000, L500.4050, L501.9520 #### [facility] [address] [place], [address] Calcium [Mass/Vol] 9.5 mg/dL Normal 7.6-11.0 [facility] Comment on above: Order Comment: Order Date: 09/03/24 Order Info: [id number] - VITD25 Performed By: #### L 501.5200, L500.4100, L100.0100, L506.1000, L500.4050, L501.9520 #### [facility] [address] [place], [address] Chloride [Moles/Vol] 99 mmol/L Normal 98-108 [facility] Comment on above: Order Comment: Order Date: 09/03/24 Order Info: [id number] - VITD25 Performed By: #### L 501.5200, L500.4100, L100.0100, L506.1000, L500.4050, L501.9520 #### [facility] [address] [place], [address] CO2 [Moles/Vol] 25.4 mmol/L Normal 21.0-32.[address] [facility] Comment on above: Order Comment: Order Date: 09/03/24 Order Info: [id number] - VITD25 Performed By: #### L 501.5200, L500.4100, L100.0100, L506.1000, L500.4050, L501.9520 #### [facility] [address] [place], [address] Creatinine [Mass/Vol] 0.61 mg/dL Low 0.70-1.20 [facility] Comment on above: Order Comment: Order Date: 09/03/24 Order Info: [id number] - VITD25 Performed By: #### L 501.5200, L500.4100, L100.0100, L506.1000, L500.4050, L501.9520 #### [facility] [address] [place], [address] GAP 13 Normal 5-[address] [facility] Comment on above: Order Comment: Order Date: 09/03/24 Order Info: [id number] - VITD25 Performed By: #### L 501.5200, L500.4100, L100.0100, L506.1000, L500.4050, L501.9520 #### [facility] [address] [place], [address] GFR/1.73 sq M.predicted among non-blacks MDRD (S/P/Bld) [Vol rate/Area] 94 mL/min/{1.73_m2} Normal >[address] [facility] Comment on above: Order Comment: Order Date: 09/03/24 Order Info: [id number] - VITD25 Result Comment: mL/m in/1.73m2 CKD-EPI Creatinine Equation (2020) Performed By: #### L 501.5200, L500.4100, L100.0100, L506.1000, L500.4050, L501.9520 #### [facility] [address] [place], [address] Globulin (S) [Mass/Vol] 2.4 g/dL Normal 2.2-4.[address] [facility] Comment on above: Order Comment: Order Date: 09/03/24 Order Info: [id number] - VITD25 Performed By: #### L 501.5200, L500.4100, L100.0100, L506.1000, L500.4050, L501.9520 #### [facility] [address] [place], [address] Glucose [Mass/Vol] 85 mg/dL Normal 70-99 [facility] Comment on above: Order Comment: Order Date: 09/03/24 Order Info: [id number] - VITD25 Performed By: #### L 501.5200, L500.4100, L100.0100, L506.1000, L500.4050, L501.9520 #### [facility] [address] [place], [address] Potassium [Moles/Vol] 4.1 mmol/L Normal 3.3-5.1 [facility] Comment on above: Order Comment: Order Date: 09/03/24 Order Info: [id number] - VITD25 Performed By: #### L 501.5200, L500.4100, L100.0100, L506.1000, L500.4050, L501.9520 #### [facility] [address] [place], [address] Sodium [Moles/Vol] 137 mmol/L Normal 133-145 [facility] Comment on above: Order Comment: Order Date: 09/03/24 Order Info: [id number] - VITD25 Performed By: #### L 501.5200, L500.4100, L100.0100, L506.1000, L500.4050, L501.9520 #### [facility] [address] [place], [address] T PROT 6.8 g/dL Normal 5.9-8.[address] [facility] Comment on above: Order Comment: Order Date: 09/03/24 Order Info: [id number] - VITD25 Performed By: #### L 501.5200, L500.4100, L100.0100, L506.1000, L500.4050, L501.9520 #### [facility] [address] [place], [address] Urea nitrogen [Mass/Vol] 8 mg/dL Normal 4-[address] [facility] Comment on above: Order Comment: Order Date: 09/03/24 Order Info: [id number] - VITD25 Performed By: #### L 501.5200, L500.4100, L100.0100, L506.1000, L500.4050, L501.9520 #### [facility] [address] [place], [address] Eosinophil percentageOrdered By: Madelin Duckworth on 03-02-2025 Eosinophils/100 WBC (Bld) 1.5 % 0-[address] [facility] Erythrocyte distribution wid th ratioOrdered By: Madelin Duckworth on 03-02-2025 Erythrocyte distribution width (RBC) [Ratio] 13.2 % 11.6-14.[address] [facility] Erythrocyte distribution wid th standard deviationOrdered By: Madelin Duckworth on 03-02-2025 Erythrocyte distribution width (RBC) [Ratio] 50.7 fl High 35.1-43.[address] [facility] Glomerular filtration rate ( GFR) estimation/1.73 sq m using serum, plasma, or whole bOrdered By: Madelin Duckworth on 03-02-2025 GFR/1.73 sq M.predicted among non-blacks MDRD (S/P/Bld) [Vol rate/Area] 94 mL/min/{1.73_m2} >[address] [facility] Comment on above: mL/min/1.73m2 CKD-EP I Creatinine Equation (2020) Hematocrit Auto (Bld) [Volum e fraction]Ordered By: Madelin Duckworth on 03-02-2025 Hematocrit (Bld) [Volume fraction] 46.6 % 37-[address] [facility] Hemoglobin measurementOrdere d By: Madelin Duckworth on 03-02-2025 Hemoglobin (Bld) [Mass/Vol] 15.6 g/dL High 12.0-15.[address] [facility] Immature granulocytes/100 WB C Auto (Bld)Ordered By: Madelin Duckworth on 03-02-2025 Immature granulocytes/100 WBC (Bld) 0.200 % 0.0-0.[address] [facility] Comment on above: IG% - Immature Granu locytes (promyelocytes, myelocytes and metamyelocytes) > 1% indicates that a LEFT SHIFT is Present. Iron measurement (mass/mass) Ordered By: Madelin Duckworth on 03-02-2025 Iron (Unsp spec) [Mass/Mass] 88 ug/dL 50-[address] [facility] Ketones Test strip Ql (U)Ord ered By: Madelin Duckworth on 03-02-2025 Ketones Ql (U) Negative Negative [facility] LDL calc ser/plasOrdered By: Madelin Duckworth on 03-02-2025 Cholesterol in LDL [Mass/Vol] 74 mg/dL [facility] Comment on above: Hmfuffwiin=348-481 m g/dL & Higher Dbqj=463 mg/dL or greater Laboratory - Chemistry and C hemistry - challengeOrdered By: Madelin Duckworth on 03-02-2025 AST [Catalytic activity/Vol] 24 U/L <[address] [facility] Lipid Profileon 03-02-2025 CHOL:HDL 1.[address] [facility] Comment on above: Order Comment: Order Date: 09/03/24 Order Info: [id number] - [id number] Performed By: #### L 501.5200, L500.4100, L100.0100, L506.1000, L500.4050, L501.9520 #### [facility] [address] [place], [address] Cholesterol [Mass/Vol] 201 mg/dL Normal <=200 [facility] Comment on above: Order Comment: Order Date: 09/03/24 Order Info: [id number] - [id number] Result Comment: Chol esterol level, Desirable <200 mg/dL Borderline high cholesterol 200-239 mg/dL High cholesterol >=240 mg/dL Recommendations of the NCEP Adult Treatment Panel for the following risk-cutoff thresholds for the [place] population. Performed By: #### L 501.5200, L500.4100, L100.0100, L506.1000, L500.4050, L501.9520 #### [facility] [address] [place], [address] Cholesterol in HDL [Mass/Vol] 115 mg/dL Normal [facility] Comment on above: Order Comment: Order Date: 09/03/24 Order Info: [id number] - VITD25 Result Comment: Margot onal Cholesterol Education Program (NCEP) guidelines: <40 mg/dL: Low HDL-cholesterol (major risk factor for CHD) >= 60 mg/dL: High HDL-cholesterol (negative risk factor for CHD) HDL-cholesterol is affected by a number of factors, e.g. smoking, exercise, hormones, sex and age. Performed By: #### L 501.5200, L500.4100, L100.0100, L506.1000, L500.4050, L501.9520 #### [facility] [address] [place], [address] Cholesterol in LDL [Mass/Vol] 74 mg/dL Normal [facility] Comment on above: Order Comment: Order Date: 09/03/24 Order Info: [id number] - VITD25 Result Comment: Bord sigaiw=659-226 mg/dL Higher Uqas=063 mg/dL or greater Performed By: #### L 501.5200, L500.4100, L100.0100, L506.1000, L500.4050, L501.9520 #### [facility] [address] [place], [address] Cholesterol in VLDL [Mass/Vol] 12 mg/dL Normal 5-[address] [facility] Comment on above: Order Comment: Order Date: 09/03/24 Order Info: [id number] - VITD25 Performed By: #### L 501.5200, L500.4100, L100.0100, L506.1000, L500.4050, L501.9520 #### [facility] [address] [place], [address] Triglyceride [Mass/Vol] 61 mg/dL Normal [facility] Comment on above: Order Comment: Order Date: 09/03/24 Order Info: [id number] - VITD25 Result Comment: The drugs N-Acetylcysteine and Metamizole may falsely depress this assay. Normal range: <150 mg/dL Borderline High: 150-199 mg/dL High: 200-499 mg/dL Very High: >500 mg/dL Performed By: #### L 501.5200, L500.4100, L100.0100, L506.1000, L500.4050, L501.9520 #### [facility] [address] [place], [address] MCV (mean corpuscular volume ) determinationOrdered By: Madelin Duckworth on 03-02-2025 MCV (RBC) [Entitic vol] 103.6 fL High 81-[address] [facility] Magnesiumon 03-02-2025 Magnesium [Mass/Vol] 1.9 mg/dL Normal 1.5-2.2 [facility] Comment on above: Order Comment: Order Date: 09/03/24 Order Info: [id number] - [id number] Performed By: #### L 501.5200, L500.4100, L100.0100, L506.1000, L500.4050, L501.9520 #### [facility] [address] [place], [place], [address] Magnesium measurement (mass/ volume)Ordered By: Madelin Duckworth on 03-02-2025 Magnesium (Unsp spec) [Mass/Vol] 1.9 mg/dL 1.5-2.[address] [facility] Mean corpuscular hemoglobin (MCH) determinationOrdered By: Madelin Duckworth on 03-02-2025 MCH (RBC) [Entitic mass] 34.7 pg High 27.0-32.[address] [facility] Mean corpuscular hemoglobin concentration (MCHC) determinationOrdered By: Madelin Duckworth on 03-02-2025 MCHC (RBC) [Mass/Vol] 33.5 g/dL 32-36 [facility] Mean platelet volume determi nationOrdered By: Madelin Duckworth on 03-02-2025 Platelet mean volume (Bld) [Entitic vol] 11.7 fL 6.2-12.[address] [facility] Microscopic analysis of urin e for red blood cells (RBC)Ordered By: Madelin Duckworth on 03-02-2025 Microscopic analysis of urine for red blood cells (RBC) 0 SEEN /hpf 0-[address] [facility] Monocyte percentageOrdered B y: Madelin Duckworth on 03-02-2025 Monocytes/100 WBC (Bld) 9.2 % 0-[address] [facility] Mucus LM Ql (Urine sed)Order ed By: Madelin Duckworth on 03-02-2025 Mucus Ql (Urine sed) 0 SEEN /hpf [facility] Neutrophil percentageOrdered By: Madelin Duckworth on 03-02-2025 Neutrophils/100 WBC (Bld) 67.7 % 47-[address] [facility] Nitrite Test strip Ql (U)Ord ered By: Madelin Duckworth on 03-02-2025 Nitrite Ql (U) Negative Negative [facility] Nucleated red blood cell per centageOrdered By: Madelin Duckworth on 03-02-2025 Nucleated RBC/100 WBC (Bld) [Ratio] 0 % 0-[address] [facility] Platelet countOrdered By: Candida Duckworth on 03-02-2025 Platelets (Bld) [#/Vol] 205 10*3/uL 150-[address] [facility] Potassium measurement (mass/ volume)Ordered By: Madelin Duckworth on 03-02-2025 Potassium (Unsp spec) [Mass/Vol] 4.1 mmol/L 3.3-5.[address] [facility] Protein Test strip Ql (U)Ord ered By: Madelin Duckworth on 03-02-2025 Protein Ql (U) Negative Negative [facility] RBC Auto (Bld) [#/Vol]Ordere d By: Madelin Duckworth on 03-02-2025 RBC (Bld) [#/Vol] 4.50 10*6/uL 4.2-5.4 [facility] Screening total cholesterol/ high density lipoprotein (HDL) cholesterol ratioOrdered By: Madelin Duckworth on 03-02-2025 Cholesterol.total/Chol esterol in HDL [Mass ratio] 1.75 {ratio} [facility] Serum creatinine measurement (mass/volume)Ordered By: Madelin Duckworth on 03-02-2025 Creatinine [Mass/Vol] 0.61 mg/dL Low 0.70-1.20 [facility] Serum globulin measurementOr dered By: Madelin Duckworth on 03-02-2025 Globulin (S) [Mass/Vol] 2.4 g/dL 2.2-4.[address] [facility] Serum glucose measurement (m ass/volume)Ordered By: Madelin Duckworth on 03-02-2025 Glucose [Mass/Vol] 85 mg/dL 70-99 [facility] Serum or plasma alanine chapin otransferase (ALT) measurementOrdered By: Madelin Duckworth on 03-02-2025 ALT [Catalytic activity/Vol] 16 U/L <[address] [facility] Serum or plasma albumin aida urement (mass/volume)Ordered By: Madelin Duckworth on 03-02-2025 Albumin [Mass/Vol] 4.4 g/dL 3.4-4.8 [facility] Serum or plasma albumin/glob ulin mass ratioOrdered By: Madelin Duckworth on 03-02-2025 Albumin/Globulin [Mass ratio] 1.8 {ratio} 0.9-2.[address] [facility] Serum or plasma alkaline matheus sphatase measurementOrdered By: Madelin Duckworth on 03-02-2025 ALP [Catalytic activity/Vol] 91 U/L 35-[address] [facility] Serum or plasma calcium aida urement (mass/volume)Ordered By: Madelin Duckworth on 03-02-2025 Calcium [Mass/Vol] 9.5 mg/dL 7.6-11.0 [facility] Serum or plasma cholesterol in HDL measurement (mass/volume)Ordered By: Madelin Duckworth on 03-02-2025 Cholesterol in HDL [Mass/Vol] 115 mg/dL >[address] [facility] Comment on above: National Cholesterol Education Program (NCEP) guidelines:<40 mg/dL: Low HDL-cholesterol (major risk factor for CHD)>= 60 mg/dL: High HDL-cholesterol (negative risk factor for CHD)HDL-cholesterol is affected by a number of factors, e.g. smoking, exercise, hormones, sex and age. Serum or plasma cholesterol measurement (mass/volume)Ordered By: Madelin Duckworth on 03-02-2025 Cholesterol [Mass/Vol] 201 mg/dL <201 [facility] Comment on above: Cholesterol level, D esirable <200 mg/dLBorderline high cholesterol 200-239 mg/dLHigh cholesterol >=240 mg/dLRecommendations of the NCEP Adult Treatment Panel for the following risk-cutoff thresholds for the [place] population. Serum or plasma ferritin mya surement (mass/volume)Ordered By: Madelin Duckworth on 03-02-2025 Ferritin [Mass/Vol] 188 ng/mL 22-378 [facility] Serum or plasma urea nitroge n measurement (mass/volume)Ordered By: Madelin Duckworth on 03-02-2025 Urea nitrogen [Mass/Vol] 8 mg/dL 4-[address] [facility] Sodium levelOrdered By: Madelin Duckworth on 03-02-2025 Sodium [Moles/Vol] 137 mmol/L 133-145 [facility] Squamous epithelial cells de tection in urine sediment by light microscopyOrdered By: Madelin Duckworth on 03-02-2025 Epithelial cells.squamous LM Ql (Urine sed) 0-5 SEEN /hpf 5-[address] [facility] TSH DL <= 0.005 mIU/L QnOrde red By: Madelin Duckworth on 03-02-2025 TSH Qn 1.620 uIU/mL 0.300-4.[address] [facility] Thyroid Stim Hormone (TSH)on 03-02-2025 TSH 1.620 uIU/mL Normal 0.300-4.[address] [facility] Comment on above: Order Comment: Order Date: 09/03/24 Order Info: [id number] - VITD25 Performed By: #### L 501.5200, L500.4100, L100.0100, L506.1000, L500.4050, L501.9520 #### [facility] [address] [place], [address] Total proteinOrdered By: Alexsander Duckworth on 03-02-2025 Protein [Mass/Vol] 6.8 g/dL 5.9-8.4 [facility] TransferrinOrdered By: Madelin Duckworth on 03-02-2025 Transferrin [Mass/Vol] 221 mg/dL 192-364 [facility] Comment on above: Performed at: [address] [id number] Director: Collin De La Cruz PhD, Phone: [phone] Triglycerides measurementOrd ered By: Madelin Duckworth on 03-02-2025 Triglyceride [Mass/Vol] 61 mg/dL <[address] [facility] Comment on above: The drugs N-Acetylcy steine and Metamizole may falsely depress this assay. Normal range: <150 mg/dLBorderline High: 150-199 mg/dLHigh: 200-499 mg/dLVery High: >500 mg/dL Urinalysis, Completeon 03-02 EPI,SQUAMOUS 0-5 SEEN Normal 5-[address] [facility] Comment on above: Order Comment: CLEAN CATCH Performed By: #### L 506.1001, L400.0001, L503.6150, L503.6550, L3400.3800 #### [facility] [address] [place], [address] BACTERIA 0 SEEN Normal None Seen [facility] Comment on above: Order Comment: CLEAN CATCH Performed By: #### L 506.1001, L400.0001, L503.6150, L503.6550, L3400.3800 #### [facility] [address] [place], [address] Mucus Ql (Urine sed) 0 SEEN Normal [facility] Comment on above: Order Comment: CLEAN CATCH Performed By: #### L 506.1001, L400.0001, L503.6150, L503.6550, L3400.3800 #### [facility] [address] [place], [address] RBC 0 SEEN Normal 0-[address] [facility] Comment on above: Order Comment: CLEAN CATCH Performed By: #### L 506.1001, L400.0001, L503.6150, L503.6550, L3400.3800 #### [facility] [address] [place], [address] WBC 0 SEEN Normal 0-[address] [facility] Comment on above: Order Comment: CLEAN CATCH Performed By: #### L 506.1001, L400.0001, L503.6150, L503.6550, L3400.3800 #### [facility] [address] [place], [address] Urine clarityOrdered By: Alexsander Duckworth on 03-02-2025 Clarity (U) Clear Clear [facility] Urine color determinationOrd ered By: Madelin Duckworth on 03-02-2025 Color (U) Straw Yellow [facility] Urine glucose detectionOrder ed By: Madelin Duckworth on 03-02-2025 Glucose Ql (U) Normal mg/dl Normal [facility] Urine leukocyte esterase det ection by dipstickOrdered By: Madelin Duckworth on 03-02-2025 Leukocyte esterase Test strip Ql (U) Negative Negative [facility] Urine pHOrdered By: Madelin chamberlain on 03-02-2025 pH (U) 6.0 [pH] 5.0 - 8.[address] [facility] Urine sediment bacteria coun t by microscopy (number/high power field)Ordered By: Madelin Duckworth on 03-02-2025 Bacteria LM.HPF (Urine sed) [#/Area] 0 /[HPF] None Seen [facility] Urine specific gravity measu rementOrdered By: Madelin Duckworth on 03-02-2025 Specific gravity (U) [Rel density] 1.010 1.002-1.[address] [facility] Urine urobilinogen measureme ntOrdered By: Madelin Duckworth on 03-02-2025 Urobilinogen Ql (U) Normal mg/dl Normal [facility] Vitamin D,25 Hydroxyon 03-02 Vitamin D 25-OH 38.2 ng/mL Normal 30-[address] [facility] Comment on above: Order Comment: Order Date: 03/02/25 Order Info: [id number] - CMP Order Info: [id number] - LIPID Order Info: [id number] - MG Order Info: [id number] - TSH Result Comment: Benjamín min D Status Deficiency: <20 ng/mL (50nmol/L) Insufficiency: 20-30 ng/mL (50-75 nmol/L) Sufficiency: 30-100 ng/mL (75-250 nmol/L) Toxicity: >100 ng/mL (>250 nmol/L) Performed By: #### L 506.1001, L400.0001, L503.6150, L503.6550, L3400.3800 #### [facility] [address] [place], [address] White blood cell (WBC) count Ordered By: Madelin Duckworth on 03-02-2025 WBC (Bld) [#/Vol] 5.2 10*3/uL 4.4-11.0 [facility] White blood cell countOrdere d By: Madelin Duckworth on 03-02-2025 White blood cell count 0 SEEN /hpf 0-5 [facility] Chest PA and Lateralon 12-30 Chest PA and Lateral [facility] [address] [place], [place] [address] Chest PA and Lateral MR#: [id number] Acct: [id number] Name: BERNA HOWE Rep #: [id number] : 1950 F 74 From: Zak gonzalez MD PCP: Dr. Madelin Duckworth MD Status: REG CLI Study: Chest PA and Lateral Date of Exam: 12/30/24 Exam# [id number] Ordering Dr: Madelin Duckworth MD PROCEDURE: CHEST PA AND LATERAL 12/30/2024 REASON FOR EXAM: CHRONIC OBSTRUCTIVE PULMONARY DISEASE, UNSPECIFIED TECHNIQUE: Frontal and lateral views of the chest. COMPARISON: 01/13/2020 FINDINGS: Hardware: None Heart: The heart size is normal. Mediastinum: The mediastinal contour is unremarkable. Lungs: Upper lobe emphysema and scarring. No focal consolidation. No pneumothorax. No pleural effusion.. Bones: Degenerative changes are identified within the thoracic spine. RAD/Chest PA and Lateral IMPRESSION: No acute cardiopulmonary process. Emphysema. Reading Location: [facility] CC: Dr. Madelin Duckworth MD Speech Language Pathologist Travel: Signed Normal [facility] CBC W/Diff, Automatedon 08-25 Absolute Lymph 1.18 X10 3/uL Normal 0.83-4.[address] [facility] Comment on above: Order Comment: Order Date: 09/03/24 Order Info: [id number] - CBCD Performed By: #### L 501.5200, L500.4100, L100.0100, L506.1000, L500.4050, L501.9520 #### [facility] [address] [place], [place], [id number] Absolute Neut 2.8 X10 3/uL Normal 2.0-7.[address] [facility] Comment on above: Order Comment: Order Date: 09/03/24 Order Info: [id number] - CBCD Performed By: #### L 501.5200, L500.4100, L100.0100, L506.1000, L500.4050, L501.9520 #### [facility] [address] [place], [address] Basophils/100 WBC (Bld) 0.9 % Normal 0-[address] [facility] Comment on above: Order Comment: Order Date: 09/03/24 Order Info: [id number]- - CBCD Performed By: #### L 501.5200, L500.4100, L100.0100, L506.1000, L500.4050, L501.9520 #### [facility] [address] [place], [address] Eosinophils/100 WBC (Bld) 1.1 % Normal 0-[address] [facility] Comment on above: Order Comment: Order Date: 09/03/24 Order Info: [id number] - CBCD Performed By: #### L 501.5200, L500.4100, L100.0100, L506.1000, L500.4050, L501.9520 #### [facility] [address] [place], [address] Erythrocyte distribution width (RBC) [Ratio] 13.0 % Normal 11.6-14.[address] [facility] Comment on above: Order Comment: Order Date: 09/03/24 Order Info: [id number] - CBCD Performed By: #### L 501.5200, L500.4100, L100.0100, L506.1000, L500.4050, L501.9520 #### [facility] [address] [place], [address] Hematocrit (Bld) [Volume fraction] 46.1 % Normal 37-[address] [facility] Comment on above: Order Comment: Order Date: 09/03/24 Order Info: 0184-1 - CBCD Performed By: #### L 501.5200, L500.4100, L100.0100, L506.1000, L500.4050, L501.9520 #### [facility] [address] [place], [address] Hemoglobin (Bld) [Mass/Vol] 14.7 g/dL Normal 12.0-15.[address] [facility] Comment on above: Order Comment: Order Date: 09/03/24 Order Info: 0184-1 - CBCD Performed By: #### L 501.5200, L500.4100, L100.0100, L506.1000, L500.4050, L501.9520 #### [facility] [address] [place], [address] IG% 0.200 Normal 0.0-0.[address] [facility] Comment on above: Order Comment: Order Date: 09/03/24 Order Info: [id number] - CBCD Result Comment: IG% - Immature Granulocytes (promyelocytes, myelocytes and metamyelocytes) > 1% indicates that a LEFT SHIFT is Present. Performed By: #### L 501.5200, L500.4100, L100.0100, L506.1000, L500.4050, L501.9520 #### [facility] [address] [place], [address] Lymphocytes/100 WBC (Bld) 26.6 % Normal 19-[address] [facility] Comment on above: Order Comment: Order Date: 09/03/24 Order Info: 0184-1 - CBCD Performed By: #### L 501.5200, L500.4100, L100.0100, L506.1000, L500.4050, L501.9520 #### [facility] [address] [place], [address] MCH (RBC) [Entitic mass] 33.7 pg High 27.0-32.[address] [facility] Comment on above: Order Comment: Order Date: 09/03/24 Order Info: 0184-1 - CBCD Performed By: #### L 501.5200, L500.4100, L100.0100, L506.1000, L500.4050, L501.9520 #### [facility] [address] [place], [address] MCHC (RBC) [Mass/Vol] 31.9 g/dL Low 32-36 [facility] Comment on above: Order Comment: Order Date: 09/03/24 Order Info: 0184-1 - CBCD Performed By: #### L 501.5200, L500.4100, L100.0100, L506.1000, L500.4050, L501.9520 #### [facility] [address] [place], [address] MCV (RBC) [Entitic vol] 105.7 fL High 81-[address] [facility] Comment on above: Order Comment: Order Date: 09/03/24 Order Info: 0184-1 - CBCD Performed By: #### L 501.5200, L500.4100, L100.0100, L506.1000, L500.4050, L501.9520 #### [facility] [address] [place], [address] Monocytes/100 WBC (Bld) 7.2 % Normal 0-[address] [facility] Comment on above: Order Comment: Order Date: 09/03/24 Order Info: 0184-1 - CBCD Performed By: #### L 501.5200, L500.4100, L100.0100, L506.1000, L500.4050, L501.9520 #### [facility] [address] [place], [address] Neutrophils/100 WBC (Bld) 64.0 % Normal 47-[address] [facility] Comment on above: Order Comment: Order Date: 09/03/24 Order Info: 0184-1 - CBCD Performed By: #### L 501.5200, L500.4100, L100.0100, L506.1000, L500.4050, L501.9520 #### [facility] [address] [place], [address] Nucleated RBC (Bld) [#/Vol] 0 10*3/uL Normal 0-[address] [facility] Comment on above: Order Comment: Order Date: 09/03/24 Order Info: 0184-1 - CBCD Performed By: #### L 501.5200, L500.4100, L100.0100, L506.1000, L500.4050, L501.9520 #### [facility] [address] [place], [address] Platelet mean volume (Bld) [Entitic vol] 11.8 fL Normal 6.2-12.[address] [facility] Comment on above: Order Comment: Order Date: 09/03/24 Order Info: 0184-1 - CBCD Performed By: #### L 501.5200, L500.4100, L100.0100, L506.1000, L500.4050, L501.9520 #### [facility] [address] [place], [address] Platelets (Bld) [#/Vol] 209 10*3/uL Normal 150-[address] [facility] Comment on above: Order Comment: Order Date: 09/03/24 Order Info: 0184-1 - CBCD Performed By: #### L 501.5200, L500.4100, L100.0100, L506.1000, L500.4050, L501.9520 #### [facility] [address] [place], [address] RBC (Bld) [#/Vol] 4.36 10*6/uL Normal 4.2-5.4 [facility] Comment on above: Order Comment: Order Date: 09/03/24 Order Info: 0184-1 - CBCD Performed By: #### L 501.5200, L500.4100, L100.0100, L506.1000, L500.4050, L501.9520 #### [facility] [address] [place], [address] RDW SD 51.1 fl High 35.1-43.[address] [facility] Comment on above: Order Comment: Order Date: 09/03/24 Order Info: [id number] - CBCD Performed By: #### L 501.5200, L500.4100, L100.0100, L506.1000, L500.4050, L501.9520 #### [facility] [address] [place], [address] WBC (Bld) [#/Vol] 4.4 10*3/uL Normal 4.4-11.0 [facility] Comment on above: Order Comment: Order Date: 09/03/24 Order Info: 0184-1 - CBCD Performed By: #### L 501.5200, L500.4100, L100.0100, L506.1000, L500.4050, L501.9520 #### [facility] [address] [place], [address] Comprehensive Metabolic Prof [facility] 09-03-2024 Albumin [Mass/Vol] 3.6 g/dL Normal 3.2-5.0 [facility] Comment on above: Order Comment: Order Date: 09/03/24 Order Info: [id number] - CMP Order Info: [id number] - LIPID Order Info: [id number] - MG Order Info: [id number] - TSH Performed By: #### L 501.5200, L500.4100, L100.0100, L506.1000, L500.4050, L501.9520 #### [facility] [address] [place], [address] Albumin/Globulin [Mass ratio] 1.3 {ratio} Normal 0.9-2.[address] [facility] Comment on above: Order Comment: Order Date: 09/03/24 Order Info: 86-1 - CMP Order Info: [id number] - LIPID Order Info: [id number] - MG Order Info: 3016-3 - TSH Performed By: #### L 501.5200, L500.4100, L100.0100, L506.1000, L500.4050, L501.9520 #### [facility] [address] [place], [address] ALK P 85 U/L Normal 45-[address] [facility] Comment on above: Order Comment: Order Date: 09/03/24 Order Info: 86-1 - CMP Order Info: [id number] - LIPID Order Info: [id number] - MG Order Info: [id number] - TSH Performed By: #### L 501.5200, L500.4100, L100.0100, L506.1000, L500.4050, L501.9520 #### [facility] [address] [place], [address] ALT [Catalytic activity/Vol] 22 U/L Normal 13-[address] [facility] Comment on above: Order Comment: Order Date: 09/03/24 Order Info: 86-1 - CMP Order Info: [id number] - LIPID Order Info: [id number] - MG Order Info: [id number] - TSH Performed By: #### L 501.5200, L500.4100, L100.0100, L506.1000, L500.4050, L501.9520 #### [facility] [address] [place], [address] AST [Catalytic activity/Vol] 14 U/L Low 15-[address] [facility] Comment on above: Order Comment: Order Date: 09/03/24 Order Info: [id number] - CMP Order Info: [id number] - LIPID Order Info: [id number] - MG Order Info: 3016-3 - TSH Performed By: #### L 501.5200, L500.4100, L100.0100, L506.1000, L500.4050, L501.9520 #### [facility] [address] [place], [address] Bilirubin [Mass/Vol] 0.50 mg/dL Normal 0.20-1.00 [facility] Comment on above: Order Comment: Order Date: 09/03/24 Order Info: [id number] - CMP Order Info: [id number] - LIPID Order Info: [id number] - MG Order Info: 3016-3 - TSH Result Comment: For patients on eltrombopag therapy, use of Dimension [place] TBIL is not recommended. Performed By: #### L 501.5200, L500.4100, L100.0100, L506.1000, L500.4050, L501.9520 #### [facility] [address] [place], [address] BUN/CRE 11.6 RATIO Normal 10-[address] [facility] Comment on above: Order Comment: Order Date: 09/03/24 Order Info: [id number]- - CMP Order Info: [id number] - LIPID Order Info: [id number] - MG Order Info: [id number] - TSH Performed By: #### L 501.5200, L500.4100, L100.0100, L506.1000, L500.4050, L501.9520 #### [facility] [address] [place], [address] CA,Total 9.5 mg/dL Normal 8.5-10.[address] [facility] Comment on above: Order Comment: Order Date: 09/03/24 Order Info: [id number] - CMP Order Info: [id number] - LIPID Order Info: [id number] - MG Order Info: [id number] - TSH Performed By: #### L 501.5200, L500.4100, L100.0100, L506.1000, L500.4050, L501.9520 #### [facility] [address] [place], [address] Chloride [Moles/Vol] 104 mmol/L Normal 98-107 [facility] Comment on above: Order Comment: Order Date: 09/03/24 Order Info: 86-1 - CMP Order Info: [id number] - LIPID Order Info: [id number] - MG Order Info: [id number] - TSH Performed By: #### L 501.5200, L500.4100, L100.0100, L506.1000, L500.4050, L501.9520 #### [facility] [address] [place], [address] CO2 [Moles/Vol] 30.0 mmol/L Normal 21.0-32.[address] [facility] Comment on above: Order Comment: Order Date: 09/03/24 Order Info: 86-1 - CMP Order Info: [id number] - LIPID Order Info: [id number] - MG Order Info: 6-3 - TSH Performed By: #### L 501.5200, L500.4100, L100.0100, L506.1000, L500.4050, L501.9520 #### [facility] [address] [place], [address] Creatinine [Mass/Vol] 0.60 mg/dL Normal 0.55-1.02 [facility] Comment on above: Order Comment: Order Date: 09/03/24 Order Info: 785-1 - CMP Order Info: [id number] - LIPID Order Info: [id number] - MG Order Info: [id number] - TSH Result Comment: The validity of the calculated GFR GFRAA in patients over 70 years has not been determined. Clinical correlation is essential. Performed By: #### L 501.5200, L500.4100, L100.0100, L506.1000, L500.4050, L501.9520 #### [facility] [address] [place], [address] EST GFR - AA 126 mL/min Normal >[address] [facility] Comment on above: Order Comment: Order Date: 09/03/24 Order Info: 86-1 - CMP Order Info: [id number] - LIPID Order Info: [id number] - MG Order Info: [id number] - TSH Result Comment: Afri can [place] GFR Calc Performed By: #### L 501.5200, L500.4100, L100.0100, L506.1000, L500.4050, L501.9520 #### [facility] [address] [place], [address] GAP 4 Low 5-[address] [facility] Comment on above: Order Comment: Order Date: 09/03/24 Order Info: 86-1 - CMP Order Info: [id number] - LIPID Order Info: [id number] - MG Order Info: [id number] - TSH Performed By: #### L 501.5200, L500.4100, L100.0100, L506.1000, L500.4050, L501.9520 #### [facility] [address] [place], [address] GFR/1.73 sq M.predicted among non-blacks MDRD (S/P/Bld) [Vol rate/Area] 104 mL/min/{1.73_m2} Normal >[address] [facility] Comment on above: Order Comment: Order Date: 09/03/24 Order Info: 07-1 - CMP Order Info: [id number] - LIPID Order Info: [id number] - MG Order Info: 6-3 - TSH Result Comment: Non- GFR Calc Performed By: #### L 501.5200, L500.4100, L100.0100, L506.1000, L500.4050, L501.9520 #### [facility] [address] [place], [address] Globulin (S) [Mass/Vol] 2.8 g/dL Normal 2.2-4.[address] [facility] Comment on above: Order Comment: Order Date: 09/03/24 Order Info: [id number] - CMP Order Info: [id number] - LIPID Order Info: [id number] - MG Order Info: 301-3 - TSH Performed By: #### L 501.5200, L500.4100, L100.0100, L506.1000, L500.4050, L501.9520 #### [facility] [address] [place], [address] Glucose [Mass/Vol] 76 mg/dL Normal 74-106 [facility] Comment on above: Order Comment: Order Date: 09/03/24 Order Info: [id number] - CMP Order Info: [id number] - LIPID Order Info: [id number] - MG Order Info: [id number] - TSH Performed By: #### L 501.5200, L500.4100, L100.0100, L506.1000, L500.4050, L501.9520 #### [facility] [address] [place], [address] Potassium [Moles/Vol] 4.2 mmol/L Normal 3.5-5.1 [facility] Comment on above: Order Comment: Order Date: 09/03/24 Order Info: [id number] - CMP Order Info: [id number] - LIPID Order Info: [id number] - MG Order Info: [id number] - TSH Performed By: #### L 501.5200, L500.4100, L100.0100, L506.1000, L500.4050, L501.9520 #### [facility] [address] [place], [address] Sodium [Moles/Vol] 139 mmol/L Normal 136-145 [facility] Comment on above: Order Comment: Order Date: 09/03/24 Order Info: [id number] - CMP Order Info: [id number] - LIPID Order Info: [id number] - MG Order Info: [id number] - TSH Performed By: #### L 501.5200, L500.4100, L100.0100, L506.1000, L500.4050, L501.9520 #### [facility] [address] [place], [address] T PROT 6.4 g/dL Normal 6.4-8.[address] [facility] Comment on above: Order Comment: Order Date: 09/03/24 Order Info: 07-1 - CMP Order Info: - LIPID Order Info: [id number] - MG Order Info: [id number] - TSH Performed By: #### L 501.5200, L500.4100, L100.0100, L506.1000, L500.4050, L501.9520 #### [facility] [address] [place], [address] Urea nitrogen [Mass/Vol] 7 mg/dL Normal 7-[address] [facility] Comment on above: Order Comment: Order Date: 09/03/24 Order Info: [id number]- - CMP Order Info: - LIPID Order Info: [id number] - MG Order Info: [id number] - TSH Performed By: #### L 501.5200, L500.4100, L100.0100, L506.1000, L500.4050, L501.9520 #### [facility] Laboratory [address] [place], [address] Lipid Profileon 09-03-2024 Cholesterol [Mass/Vol] 199 mg/dL Normal 200 [facility] Comment on above: Order Comment: Order Date: 09/03/24 Order Info: 07 - CMP Order Info: [id number] - LIPID Order Info: [id number] - MG Order Info: [id number] - TSH Result Comment: <200 mg/dL Desirable 200-240 mg/dL Borderline >240 mg/dL High Risk Performed By: #### L 501.5200, L500.4100, L100.0100, L506.1000, L500.4050, L501.9520 #### [facility] [address] [place], [address] Cholesterol in HDL [Mass/Vol] 92 mg/dL Normal [facility] Comment on above: Order Comment: Order Date: 09/03/24 Order Info: 07- - CMP Order Info: [id number] - LIPID Order Info: [id number] - MG Order Info: [id number] - TSH Result Comment: The drugs N-Acetylcysteine and Metamizole may falsely depress this assay. Reference Range HDL <40 mg/dL Low HDL Cholesterol HDL >or= 60 mg/dL High HDL Cholesterol Performed By: #### L 501.5200, L500.4100, L100.0100, L506.1000, L500.4050, L501.9520 #### [facility] [address] [place], [address] Cholesterol in LDL [Mass/Vol] 94 mg/dL Normal 0-[address] [facility] Comment on above: Order Comment: Order Date: 09/03/24 Order Info: [id number] - CMP Order Info: - LIPID Order Info: [id number] - MG Order Info: 3 - TSH Performed By: #### L 501.5200, L500.4100, L100.0100, L506.1000, L500.4050, L501.9520 #### [facility] [address] [place], [address] Cholesterol in VLDL [Mass/Vol] 13 mg/dL Normal 5-[address] [facility] Comment on above: Order Comment: Order Date: 09/03/24 Order Info: [id number] - CMP Order Info: - LIPID Order Info: [id number] - MG Order Info: 3 - TSH Performed By: #### L 501.5200, L500.4100, L100.0100, L506.1000, L500.4050, L501.9520 #### [facility] [address] [place], [address] Triglyceride [Mass/Vol] 66 mg/dL Normal [facility] Comment on above: Order Comment: Order Date: 09/03/24 Order Info: [id number] - CMP Order Info: [id number] - LIPID Order Info: [id number] - MG Order Info: 3 - TSH Result Comment: The drugs N-Acetylcysteine and Metamizole may falsely depress this assay. Serum Triglycerides Reference Interval Normal <150 mg/dL Borderline high 150 - 199 mg/dL High 200 - 499 mg/dL Very High > or = 500 mg/dL Performed By: #### L 501.5200, L500.4100, L100.0100, L506.1000, L500.4050, L501.9520 #### [facility] [address] [place], [address] Magnesiumon 09-03-2024 Magnesium [Mass/Vol] 1.8 mg/dL Normal 1.6-2.6 [facility] Comment on above: Order Comment: Order Date: 09/03/24 Order Info: [id number] - CMP Order Info: [id number] - LIPID Order Info: [id number] - MG Order Info: [id number] - TSH Performed By: #### L 501.5200, L500.4100, L100.0100, L506.1000, L500.4050, L501.9520 #### [facility] [address] [place], [address] Thyroid Stim Hormone (TSH)on 09-03-2024 TSH 1.660 uIU/mL Normal 0.358-3.[address] [facility] Comment on above: Order Comment: Order Date: 09/03/24 Order Info: [id number] - CMP Order Info: [id number] - LIPID Order Info: [id number] - MG Order Info: [id number] - TSH Performed By: #### L 501.5200, L500.4100, L100.0100, L506.1000, L500.4050, L501.9520 #### [facility] Laboratory [address] [place], [address] Urinalysis, Completeon 09-03 BACTERIA RARE Normal None Seen [facility] Comment on above: Order Comment: Order Date: 09/03/24 Order Info: [id number] - [id number] Performed By: #### L 501.5200, L500.4100, L100.0100, L506.1000, L500.4050, L501.9520 #### [facility] [address] [place], [address] EPI,SQUAMOUS 0-5 SEEN Normal 5-[address] [facility] Comment on above: Order Comment: Order Date: 09/03/24 Order Info: [id number] - VITD25 Performed By: #### L 501.5200, L500.4100, L100.0100, L506.1000, L500.4050, L501.9520 #### [facility] [address] [place], [address] RBC 0-5 SEEN Normal 0-[address] [facility] Comment on above: Order Comment: Order Date: 09/03/24 Order Info: [id number] - [id number] Performed By: #### L 501.5200, L500.4100, L100.0100, L506.1000, L500.4050, L501.9520 #### [facility] [address] [place], [address] WBC 0-5 SEEN Normal 0-[address] [facility] Comment on above: Order Comment: Order Date: 09/03/24 Order Info: [id number] - VITD25 Performed By: #### L 501.5200, L500.4100, L100.0100, L506.1000, L500.4050, L501.9520 #### [facility] [address] [place], [address] Mucus Ql (Urine sed) 0 SEEN Normal [facility] Comment on above: Order Comment: Order Date: 09/03/24 Order Info: [id number] - VITD25 Performed By: #### L 501.5200, L500.4100, L100.0100, L506.1000, L500.4050, L501.9520 #### [facility] [address] [place], [address] Vitamin D,25 Hydroxyon 09-03 Vitamin D 25-OH 30.8 ng/mL Normal [facility] Comment on above: Order Comment: Order Date: 09/03/24 Order Info: [id number] - [id number] Result Comment: Benjamín min D 25(OH) Status Range Deficiency <20 ng/mL (50nmol/L) Insufficiency 20 - 30 ng/mL (50 - 75 nmol/L) Sufficiency 30 - 100 ng/mL (75 - 250 nmol/L) Toxicity >100 ng/mL (>250 nmol/L) Performed By: #### L 501.5200, L500.4100, L100.0100, L506.1000, L500.4050, L501.9520 #### [facility] [address] [facility] [place], [place], [address] Low Dose CT Lung Screeningon 07-19-[address] Lung Screening [facility] [address] [place], [place] [address] Low Dose CT Lung Screening MR#: [id number] Acct: [id number] Name: BERNA HOWE Rep #: [id number] : 1950 F 74 From: Bentley Padilla MD PCP: Dr. Madelin Duckworth MD Status: [facility] Study: Low Dose CT Lung Screening Date of Exam: 07/19 Exam# [id number] Ordering Dr: Riya Torres SHOW HOST/HOSTESS SHOW HOST/HOSTESS-C [id number] STUDY: LOW DOSE CT LUNG CANCER SCREENING REASON FOR EXAM: Female, 74 years old. One half pack per day smoker x40 years. Quit 3 years ago. History of tongue cancer RADIATION DOSAGE (If Supplied By Facility): CTDIvol = ( 2.01 ) mGy, DLP = ( 68.71 ) mGycm TECHNIQUE: No contrast was administered. Low dose technique was utilized (average mAS-38 and kVp 120). 1.25 mm axial source images with a slice interval of 1.25-mm were reconstructed in lung windows. 2.5 mm axial source images with a slice interval of 2.5-mm were reconstructed in lung windows. 5.0 mm axial source images with a slice interval of 5.0-mm were reconstructed in soft tissue windows. COMPARISON: 07/16/2023 FINDINGS: There is underlying emphysema with a stable 2.7 cm noncalcified spiculated right upper lobe mass with associated traction bronchiectasis and pleural thickening. There is no significant change in its appearance since the previous study. No new suspicious noncalcified mass or nodule. Evidence of chronic bronchitis and interstitial scarring. No organized infiltrate or effusion. No significant interval change since the previous study. Limited soft tissue windows show normal-appearing thyroid gland. Stable subcentimeter in short axis dimension mediastinal and perihilar lymph nodes. The thoracic aorta tapers normally. Calcified coronary vessels noted. Limited cuts of the upper abdomen do not show a suspicious abnormality. Bony structures show degenerative change CT/Low Dose CT Lung Screening IMPRESSION: Lung-RADS category 2 - Continue annual screening with LDCT in 12 months. IMPORTANT NOTES FOR USE: ACR Lung-RADS Version 1.1 Assessment Categories Release Date: 2018 Category: Coded 0-4 bases on nodule(s) with highest degree of suspicion. Negative screen is defined as categories 1 and 2; a positive screen is defined as categories 3 and 4. Category 3 and 4A nodules that are unchanged on interval CT should be coded as category 2, and individuals returned to screening in 12 months. Category 4X: Category 3 or 4 nodules with additional imaging findings that increase the suspicion of lung cancer, such as spiculation, GGN that doubles in size in 1 year, enlarged lymph notes, etc. Category Modifiers: S (significant finding unrelated to lung cancer) Electronically Signed: Zachery Padilla MD at 9:20 EST , CC: JUNITO Torres; Dr. Madelin Duckworth MD Speech Language Pathologist Travel: Signed Normal [facility] Whole blood hemoglobin A1c/t otal hemoglobin ratio (mass fraction)Ordered By: Madelin Duckworth on 11-09-2023 HbA1c (Bld) [Mass fraction] 5.4 % 3.8-5.[address] [facility] Comment on above: Normal < 5.7 % Predi abetic 5.7 - 6.4 % Diabetic >or= 6.5 % Please note range changes. Absolute lymphocyte countOrd ered By: Madelin Duckworth on 07-02-2023 Lymphocytes Auto (Unsp spec) [#/Vol] 1.61 10*3/uL 0.83-4.[address] [facility] Basophil percentageOrdered B y: Madelin Eganerick on 07-02-2023 Basophil percentage 0 SEEN /hpf 0-5 [facility] Basophils/100 WBC (Bld) 1.2 % 0-[address] [facility] Bilirubin [Mass/Vol] 0.50 mg/dL 0.20-1.00 [facility] Comment on above: For patients on eltr ombopag therapy, use of Dimension [place] TBIL is not recommended. Chloride [Moles/Vol] 102 mmol/L 98-107 [facility] Cholesterol [Mass/Vol] 214 mg/dL <200 [facility] Comment on above: <200 mg/dL Desirable 200-240 mg/dL Borderline >240 mg/dL High Risk Eosinophils/100 WBC (Bld) 1.4 % 0-[address] [facility] Glucose [Mass/Vol] 126 mg/dL 74-106 [facility] Comment on above: Fasting Glucose resu lt greater than or equal to 126 mg/dL suggests DIABETES MELLITUS per A.D.A. criteria. Neutrophils (Bld) [#/Vol] 3.0 10*3/uL 2.0-7.[address] [facility] Neutrophils/100 WBC (Bld) 58.2 % 47-[address] [facility] Potassium [Moles/Vol] 3.6 mmol/L 3.5-5.1 [facility] Protein [Mass/Vol] 7.0 g/dL 6.4-8.2 [facility] Sodium [Moles/Vol] 139 mmol/L 136-145 [facility] Triglyceride [Mass/Vol] 74 mg/dL <[address] [facility] Comment on above: The drugs N-Acetylcy steine and Metamizole may falsely depress this assay.Serum Triglycerides Reference Interval Normal <150 mg/dL Borderline high 150 - 199 mg/dL High 200 - 499 mg/dL Very High > or = 500 mg/dL WBC (Bld) [#/Vol] 5.1 10*3/uL 4.4-11.0 [facility] Bilirubin Test strip Ql (U)O rdered By: Madelin Duckworth on 07-02-2023 Bilirubin Ql (U) Negative Negative [facility] Blood erythrocytes count (nu mber/volume)Ordered By: Madelin Duckworth on 07-02-2023 RBC (Bld) [#/Vol] 4.78 10*6/uL 4.2-5.4 [facility] Blood hemoglobin measurement (mass/volume)Ordered By: Madelin Duckworth on 07-02-2023 Hemoglobin (Bld) [Mass/Vol] 16.1 g/dL 12.0-15.[address] [facility] Blood lymphocytes/100 leukoc ytesOrdered By: Madelin Duckworth on 07-02-2023 Lymphocytes/100 WBC (Bld) 31.4 % 19-[address] [facility] Blood monocytes/100 leukocyt esOrdered By: Madelin Duckworth on 07-02-2023 Monocytes/100 WBC (Bld) 7.2 % 0-[address] [facility] Blood platelet mean volumeOr dered By: Madelin Duckworth on 07-02-2023 Platelet mean volume (Bld) [Entitic vol] 11.7 fL 6.2-12.[address] [facility] Determination of erythrocyte mean corpuscular volume (MCV)Ordered By: Madelin Duckworth on 07-02-2023 MCV (RBC) [Entitic vol] 102.7 fL 81-[address] [facility] Hematocrit Auto (Bld) [Volum e fraction]Ordered By: Madelin Duckworth on 07-02-2023 Hematocrit (Bld) [Volume fraction] 49.1 % 37-[address] [facility] Ketones Test strip Ql (U)Ord ered By: Madelin Duckworth on 07-02-2023 Ketones Ql (U) Negative Negative [facility] Laboratory - Chemistry and C hemistry - challengeOrdered By: Madelin Duckworth on 07-02-2023 ALP [Catalytic activity/Vol] 82 U/L 45-[address] [facility] ALT [Catalytic activity/Vol] 19 U/L 13-[address] [facility] CO2 [Moles/Vol] 30.0 mmol/L 21.0-32.[address] [facility] Globulin (S) [Mass/Vol] 3.4 g/dL 2.2-4.[address] [facility] Urea nitrogen/Creatinine [Mass ratio] 12.4 mg/mg 10-[address] [facility] Laboratory - Hematology and Cell countsOrdered By: Madelin Duckworth on 07-02-2023 Erythrocyte distribution width (RBC) [Entitic vol] 47.7 fL 35.1-43.[address] [facility] Erythrocyte distribution width (RBC) [Ratio] 12.4 % 11.6-14.[address] [facility] Immature granulocytes/100 WBC (Bld) 0.600 % 0.0-0.[address] [facility] Comment on above: IG% - Immature Granu locytes (promyelocytes, myelocytes and metamyelocytes) > 1% indicates that a LEFT SHIFT is Present. MCH (RBC) [Entitic mass] 33.7 pg 27.0-32.[address] [facility] Nucleated RBC/100 WBC (Bld) [Ratio] 0 % 0-[address] [facility] MCHC Auto (RBC) [Mass/Vol]Or dered By: Madelin Duckworth on 07-02-2023 MCHC (RBC) [Mass/Vol] 32.8 g/dL 32-36 [facility] Mucus LM Ql (Urine sed)Order ed By: Madelin Duckworth on 07-02-2023 Mucus Ql (Urine sed) 0 SEEN /hpf [facility] Nitrite Test strip Ql (U)Ord ered By: Madelin Duckworth on 07-02-2023 Nitrite Ql (U) Negative Negative [facility] No Panel InformationOrdered By: Madelin Duckworth on 07-02-2023 Estimated GFR (MDRD) Amer 102 mL/min >[address] [facility] Comment on above: GFR Calc Estimated GFR (MDRD) Non-Af Amer 84 mL/min >[address] [facility] Comment on above: Non- GFR Calc Thyroid Stimulating Hormone (TSH) 1.69 uIU/mL 0.358-3.[address] [facility] Vitamin D 25-Hydroxy 39.4 ng/mL [facility] Comment on above: Vitamin D 25(OH) Sta tus Range Deficiency <20 ng/mL (50nmol/L) Insufficiency 20 - 30 ng/mL (50 - 75 nmol/L) Sufficiency 30 - 100 ng/mL (75 - 250 nmol/L) Toxicity >100 ng/mL (>250 nmol/L) Platelets bldOrdered By: Alexsander Duckworth on 07-02-2023 Platelets (Bld) [#/Vol] 232 10*3/uL 150-[address] [facility] Protein Test strip Ql (U)Ord ered By: Madelin Duckworth on 07-02-2023 Protein Ql (U) Negative Negative [facility] Serum or plasma albumin aida urement (mass/volume)Ordered By: Madelin Duckworth on 07-02-2023 Albumin [Mass/Vol] 3.6 g/dL 3.2-5.0 [facility] Serum or plasma albumin/glob ulin mass ratioOrdered By: Madelin Duckworth on 07-02-2023 Albumin/Globulin [Mass ratio] 1.1 {ratio} 0.9-2.[address] [facility] Serum or plasma calcium aida urement (mass/volume)Ordered By: Madelin Duckworth on 07-02-2023 Calcium [Mass/Vol] 8.9 mg/dL 8.5-10.1 [facility] Serum or plasma cholesterol in HDL measurement (mass/volume)Ordered By: Madelin Duckworth on 07-02-2023 Cholesterol in HDL [Mass/Vol] 102 mg/dL >[address] [facility] Comment on above: The drugs N-Acetylcy steine and Metamizole may falsely depress this assay. Reference Range HDL <40 mg/dL Low HDL Cholesterol HDL >or= 60 mg/dL High HDL Cholesterol Serum or plasma cholesterol in VLDL measurement (mass/volume)Ordered By: Madelin Duckworth on 07-02-2023 Cholesterol in VLDL [Mass/Vol] 15 mg/dL 5-[address] [facility] Serum or plasma creatinine m easurement (mass/volume)Ordered By: Madelin Duckworth on 07-02-2023 Creatinine [Mass/Vol] 0.72 mg/dL 0.55-1.02 [facility] Comment on above: The validity of the calculated GFR & GFRAA in patients over 70 years has not been determined. Clinical correlation is essential. Serum or plasma low density lipoprotein (LDL) cholesterol measurement (mass/volume)Ordered By: Madelin Duckworth on 07-02-2023 Cholesterol in LDL [Mass/Vol] 97 mg/dL 0-[address] [facility] Serum or plasma urea nitroge n measurement (mass/volume)Ordered By: Madelin Duckworth on 07-02-2023 Urea nitrogen [Mass/Vol] 9 mg/dL 7-[address] [facility] Squamous epithelial cells de tection in urine sediment by light microscopyOrdered By: Madelin Duckworth on 07-02-2023 Epithelial cells.squamous LM Ql (Urine sed) 0-5 SEEN /hpf 5-[address] [facility] Thin prep Papanicolaou smear with manual screeningOrdered By: Madelin Duckworth on 07-02-2023 Thin prep Papanicolaou smear with manual screening 16 U/L 15-[address] [facility] Thin prep Papanicolaou smear with manual screening 7 5-[address] [facility] Urine blood detectionOrdered By: Madelin Duckworth on 07-02-2023 RBC Ql (U) Negative Negative [facility] RBC Ql (U) 0 SEEN /hpf 0-[address] [facility] Urine clarityOrdered By: Alexsander Duckworth on 07-02-2023 Clarity (U) Sl. Cloudy Clear [facility] Urine color determinationOrd ered By: Madelin Duckworth on 07-02-2023 Color (U) Yellow Yellow [facility] Urine glucose detectionOrder ed By: Madelin Duckworth on 07-02-2023 Glucose Ql (U) Normal mg/dl Normal [facility] Urine leukocyte esterase det ection by dipstickOrdered By: Madelin Duckworth on 07-02-2023 Leukocyte esterase Test strip Ql (U) Negative Negative [facility] Urine pHOrdered By: Madelin chamberlain on 07-02-2023 pH (U) 7.0 [pH] 5.0 - 8.[address] [facility] Urine sediment bacteria coun t by microscopy (number/high power field)Ordered By: Madelin Duckworth on 07-02-2023 Bacteria LM.HPF (Urine sed) [#/Area] 0 /[HPF] None Seen [facility] Urine specific gravity measu rementOrdered By: Madelin Duckworth on 07-02-2023 Specific gravity (U) [Rel density] 1.010 1.002-1.[address] [facility] Urobilinogen Auto test strip Ql (U)Ordered By: Madelin Duckworth on 07-02-2023 Urobilinogen Ql (U) Normal mg/dl Normal [facility] Absolute lymphocyte countOrd ered By: Dr. Duckworth on 12-12-2022 Lymphocytes Auto (Unsp spec) [#/Vol] 1.50 10*3/uL 0.83-4.[address] [facility] Basophil percentageOrdered B y: Dr. Duckworth on 12-12-2022 Basophils/100 WBC (Bld) 0.8 % 0-[address] [facility] Bilirubin [Mass/Vol] 0.60 mg/dL 0.20-1.00 [facility] Comment on above: For patients on eltr ombopag therapy, use of Dimension [place] TBIL is not recommended. Chloride [Moles/Vol] 101 mmol/L 98-107 [facility] Cholesterol [Mass/Vol] 212 mg/dL <200 [facility] Comment on above: <200 mg/dL Desirable 200-240 mg/dL Borderline >240 mg/dL High Risk Eosinophils/100 WBC (Bld) 2.1 % 0-[address] [facility] Glucose [Mass/Vol] 139 mg/dL 74-106 [facility] Comment on above: Fasting Glucose resu lt greater than or equal to 126 mg/dL suggests DIABETES MELLITUS per A.D.A. criteria. Neutrophils (Bld) [#/Vol] 2.9 10*3/uL 2.0-7.[address] [facility] Neutrophils/100 WBC (Bld) 59.2 % 47-[address] [facility] Potassium [Moles/Vol] 4.3 mmol/L 3.5-5.1 [facility] Protein [Mass/Vol] 7.0 g/dL 6.4-8.2 [facility] Sodium [Moles/Vol] 132 mmol/L 136-145 [facility] Triglyceride [Mass/Vol] 71 mg/dL <[address] [facility] Comment on above: The drugs N-Acetylcy steine and Metamizole may falsely depress this assay.Serum Triglycerides Reference Interval Normal <150 mg/dL Borderline high 150 - 199 mg/dL High 200 - 499 mg/dL Very High > or = 500 mg/dL WBC (Bld) [#/Vol] 4.8 10*3/uL 4.4-11.0 [facility] Blood erythrocytes count (nu mber/volume)Ordered By: Dr. Duckworth on 12-12-2022 RBC (Bld) [#/Vol] 4.71 10*6/uL 4.2-5.4 [facility] Blood hemoglobin measurement (mass/volume)Ordered By: Dr. Duckworth on 12-12-2022 Hemoglobin (Bld) [Mass/Vol] 16.5 g/dL 12.0-15.[address] [facility] Blood lymphocytes/100 leukoc ytesOrdered By: Dr. Duckworth on 12-12-2022 Lymphocytes/100 WBC (Bld) 31.1 % 19-[address] [facility] Blood monocytes/100 leukocyt esOrdered By: Dr. Duckworth on 12-12-2022 Monocytes/100 WBC (Bld) 6.6 % 0-[address] [facility] Blood platelet mean volumeOr dered By: Dr. Duckworth on 12-12-2022 Platelet mean volume (Bld) [Entitic vol] 11.6 fL 6.2-12.[address] [facility] Determination of erythrocyte mean corpuscular volume (MCV)Ordered By: Dr. Duckworth on 12-12-2022 MCV (RBC) [Entitic vol] 103.6 fL 81-[address] [facility] Hematocrit Auto (Bld) [Volum e fraction]Ordered By: Dr. Duckworth on 12-12-2022 Hematocrit (Bld) [Volume fraction] 48.8 % 37-[address] [facility] Iron measurement (mass/mass) Ordered By: Dr. Duckworth on 12-12-2022 Iron (Unsp spec) [Mass/Mass] 129 ug/dL 50-[address] [facility] Laboratory - Chemistry and C hemistry - challengeOrdered By: Dr. Duckworth on 12-12-2022 ALP [Catalytic activity/Vol] 94 U/L 45-[address] [facility] ALT [Catalytic activity/Vol] 35 U/L 13-[address] [facility] CO2 [Moles/Vol] 27.0 mmol/L 21.0-32.[address] [facility] Globulin (S) [Mass/Vol] 3.4 g/dL 2.2-4.[address] [facility] Transferrin [Mass/Vol] 255 mg/dL 192-364 [facility] Comment on above: Performed at: - [address] [id number] Director: Collin De La Cruz PhD, Phone: [phone] Urea nitrogen/Creatinine [Mass ratio] 15.3 mg/mg - [facility] Laboratory - Hematology and Cell countsOrdered By: Dr. Duckworth on 12-12-2022 Erythrocyte distribution width (RBC) [Entitic vol] 47.8 fL 35.1-43.[address] [facility] Erythrocyte distribution width (RBC) [Ratio] 12.4 % 11.6-14.[address] [facility] Immature granulocytes/100 WBC (Bld) 0.200 % 0.0-0.[address] [facility] Comment on above: IG% - Immature Granu locytes (promyelocytes, myelocytes and metamyelocytes) > 1% indicates that a LEFT SHIFT is Present. MCH (RBC) [Entitic mass] 35.0 pg 27.0-32.[address] [facility] Nucleated RBC/100 WBC (Bld) [Ratio] 0 % 0-[address] [facility] MCHC Auto (RBC) [Mass/Vol]Or dered By: Dr. Duckworth on 12-12-2022 MCHC (RBC) [Mass/Vol] 33.8 g/dL 32-36 [facility] No Panel InformationOrdered By: Dr. Duckworth on 12-12-2022 Estimated GFR (MDRD) Amer 93 mL/min >[address] [facility] Comment on above: GFR Calc Estimated GFR (MDRD) Non-Af Amer 77 mL/min >[address] [facility] Comment on above: Non- GFR Calc Thyroid Stimulating Hormone (TSH) 1.28 uIU/mL 0.358-3.[address] [facility] Total Iron Binding Capacity 378 ug/dL 250-[address] [facility] Vitamin D 25-Hydroxy 39.1 ng/mL [facility] Comment on above: Vitamin D 25(OH) Sta tus Range Deficiency <20 ng/mL (50nmol/L) Insufficiency 20 - 30 ng/mL (50 - 75 nmol/L) Sufficiency 30 - 100 ng/mL (75 - 250 nmol/L) Toxicity >100 ng/mL (>250 nmol/L) Platelets bldOrdered By: Dr. Duckworth on 12-12-2022 Platelets (Bld) [#/Vol] 193 10*3/uL 150-[address] [facility] Serum or plasma albumin aida urement (mass/volume)Ordered By: Dr. Duckworth on 12-12-2022 Albumin [Mass/Vol] 3.6 g/dL 3.2-5.0 [facility] Serum or plasma albumin/glob ulin mass ratioOrdered By: Dr. Duckworth on 12-12-2022 Albumin/Globulin [Mass ratio] 1.1 {ratio} 0.9-2.[address] [facility] Serum or plasma calcium aida urement (mass/volume)Ordered By: Dr. Duckworth on 12-12-2022 Calcium [Mass/Vol] 8.8 mg/dL 8.5-10.1 [facility] Serum or plasma cholesterol in HDL measurement (mass/volume)Ordered By: Dr. Duckworth on 12-12-2022 Cholesterol in HDL [Mass/Vol] 93 mg/dL >[address] [facility] Comment on above: The drugs N-Acetylcy steine and Metamizole may falsely depress this assay. Reference Range HDL <40 mg/dL Low HDL Cholesterol HDL >or= 60 mg/dL High HDL Cholesterol Serum or plasma cholesterol in VLDL measurement (mass/volume)Ordered By: Dr. Duckworth on 12-12-2022 Cholesterol in VLDL [Mass/Vol] 14 mg/dL 5-[address] [facility] Serum or plasma creatinine m easurement (mass/volume)Ordered By: Dr. Duckworth on 12-12-2022 Creatinine [Mass/Vol] 0.78 mg/dL 0.55-1.02 [facility] Comment on above: The validity of the calculated GFR & GFRAA in patients over 70 years has not been determined. Clinical correlation is essential. Serum or plasma ferritin mya surement (mass/volume)Ordered By: Dr. Duckworth on 12-12-2022 Ferritin [Mass/Vol] 121 ng/mL 8-252 [facility] Serum or plasma iron saturat ion measurement (mass fraction)Ordered By: Dr. Duckworth on 12-12-2022 Iron saturation [Mass fraction] 34.1 % 15.0-55.[address] [facility] Serum or plasma low density lipoprotein (LDL) cholesterol measurement (mass/volume)Ordered By: Dr. Duckworth on 12-12-2022 Cholesterol in LDL [Mass/Vol] 105 mg/dL 0-[address] [facility] Serum or plasma urea nitroge n measurement (mass/volume)Ordered By: Dr. Duckworth on 12-12-2022 Urea nitrogen [Mass/Vol] 12 mg/dL 7-[address] [facility] Thin prep Papanicolaou smear with manual screeningOrdered By: Dr. Duckworth on 12-12-2022 Thin prep Papanicolaou smear with manual screening 26 U/L 15-[address] [facility] Thin prep Papanicolaou smear with manual screening 4 5-[address] [facility] Whole blood hemoglobin A1c/t otal hemoglobin ratio (mass fraction)Ordered By: Dr. Duckworth on 12-12-2022 HbA1c (Bld) [Mass fraction] 5.6 % 3.8-5.[address] [facility] Comment on above: Normal < 5.7 % Predi abetic 5.7 - 6.4 % Diabetic >or= 6.5 % Please note range changes. Ova and parasitesOrdered By: Dr. Duckworth on 09-19-2022 Ova and parasites identified LM Nom (Unsp spec) [facility] No Panel InformationOrdered By: Dr. Duckworth on 09-12-2022 Miscellaneous Test See comment [facility] Comment on above: TEST RESULT LIMITSSt ool CultureSalmonella/Shigella Screen Final reportResult 1 No Salmonella or Shigella recovered.Campylobacter Culture Final reportResult 1No Salmonella or Shigella recovered.E coli Shiga Toxin EIA Negative Negative __ TESTING PERFORMED AT [facility]. ORIGINAL REPORT ON FILE IN LAB CONTAINS ADDITIONAL TEST SITE INFORMATION. Stool Neutral Fats Normal . [facility] Comment on above: Normal (<60 Droplets /HPF) Qualitative fecal fat or lip idsOrdered By: Dr. Duckworth on 09-12-2022 Fat Ql (Stl) Normal . [facility] Comment on above: Normal (<100 Droplet s/HPF)Performed at: [facility] [id number] Director: Collin De La Cruz PhD, Phone: [phone] Absolute lymphocyte countOrd ered By: Dr. Duckworth on 09-11-2022 Lymphocytes Auto (Unsp spec) [#/Vol] 1.17 10*3/uL 0.83-4.[address] [facility] Basophil percentageOrdered B y: Dr. Duckworth on 09-11-2022 Basophil percentage 0 SEEN /hpf 0-5 [facility] Basophils/100 WBC (Bld) 0.7 % 0-[address] [facility] Bilirubin [Mass/Vol] 1.00 mg/dL 0.20-1.00 [facility] Comment on above: For patients on eltr ombopag therapy, use of Dimension [place] TBIL is not recommended. Chloride [Moles/Vol] 105 mmol/L 98-107 [facility] Cholesterol [Mass/Vol] 218 mg/dL <200 [facility] Comment on above: <200 mg/dL Desirable 200-240 mg/dL Borderline >240 mg/dL High Risk Eosinophils/100 WBC (Bld) 1.7 % 0-[address] [facility] Glucose [Mass/Vol] 82 mg/dL 74-106 [facility] Neutrophils (Bld) [#/Vol] 3.6 10*3/uL 2.0-7.[address] [facility] Neutrophils/100 WBC (Bld) 67.0 % 47-[address] [facility] Potassium [Moles/Vol] 4.0 mmol/L 3.5-5.1 [facility] Protein [Mass/Vol] 6.6 g/dL 6.4-8.2 [facility] Sodium [Moles/Vol] 140 mmol/L 136-145 [facility] Triglyceride [Mass/Vol] 74 mg/dL <[address] [facility] Comment on above: The drugs N-Acetylcy steine and Metamizole may falsely depress this assay.Serum Triglycerides Reference Interval Normal <150 mg/dL Borderline high 150 - 199 mg/dL High 200 - 499 mg/dL Very High > or = 500 mg/dL WBC (Bld) [#/Vol] 5.4 10*3/uL 4.4-11.0 [facility] Bilirubin Test strip Ql (U)O rdered By: Dr. Duckworth on 09-11-2022 Bilirubin Ql (U) Negative Negative [facility] Blood erythrocytes count (nu mber/volume)Ordered By: Dr. Duckworth on 09-11-2022 RBC (Bld) [#/Vol] 4.31 10*6/uL 4.2-5.4 [facility] Blood hemoglobin measurement (mass/volume)Ordered By: Dr. Duckworth on 09-11-2022 Hemoglobin (Bld) [Mass/Vol] 15.1 g/dL 12.0-15.[address] [facility] Blood lymphocytes/100 leukoc ytesOrdered By: Dr. Duckworth on 09-11-2022 Lymphocytes/100 WBC (Bld) 21.5 % 19-[address] [facility] Blood monocytes/100 leukocyt esOrdered By: Dr. Duckworth on 09-11-2022 Monocytes/100 WBC (Bld) 8.7 % 0-[address] [facility] Blood platelet mean volumeOr dered By: Dr. Duckworth on 09-11-2022 Platelet mean volume (Bld) [Entitic vol] 11.8 fL 6.2-12.[address] [facility] Determination of erythrocyte mean corpuscular volume (MCV)Ordered By: Dr. Duckworth on 09-11-2022 MCV (RBC) [Entitic vol] 105.6 fL 81-[address] [facility] Hematocrit Auto (Bld) [Volum e fraction]Ordered By: Dr. Duckworth on 09-11-2022 Hematocrit (Bld) [Volume fraction] 45.5 % 37-[address] [facility] Ketones Test strip Ql (U)Ord ered By: Dr. Duckworth on 09-11-2022 Ketones Ql (U) Negative Negative [facility] Laboratory - Chemistry and C hemistry - challengeOrdered By: Dr. Duckworth on 09-11-2022 ALP [Catalytic activity/Vol] 75 U/L 45-[address] [facility] ALT [Catalytic activity/Vol] 17 U/L 13-[address] [facility] CO2 [Moles/Vol] 29.0 mmol/L 21.0-32.[address] [facility] Globulin (S) [Mass/Vol] 2.9 g/dL 2.2-4.[address] [facility] Magnesium [Mass/Vol] 1.9 mg/dL 1.6-2.6 [facility] Urea nitrogen/Creatinine [Mass ratio] 12.4 mg/mg 10-[address] [facility] Laboratory - Hematology and Cell countsOrdered By: Dr. Duckworth on 09-11-2022 Erythrocyte distribution width (RBC) [Entitic vol] 52.9 fL 35.1-43.[address] [facility] Erythrocyte distribution width (RBC) [Ratio] 13.3 % 11.6-14.[address] [facility] Immature granulocytes/100 WBC (Bld) 0.400 % 0.0-0.[address] [facility] Comment on above: IG% - Immature Granu locytes (promyelocytes, myelocytes and metamyelocytes) > 1% indicates that a LEFT SHIFT is Present. MCH (RBC) [Entitic mass] 35.0 pg 27.0-32.[address] [facility] Nucleated RBC/100 WBC (Bld) [Ratio] 0 % 0-[address] [facility] MCHC Auto (RBC) [Mass/Vol]Or dered By: Dr. Duckworth on 09-11-2022 MCHC (RBC) [Mass/Vol] 33.2 g/dL 32-36 [facility] Mucus LM Ql (Urine sed)Order ed By: Dr. Duckworth on 09-11-2022 Mucus Ql (Urine sed) 0 SEEN /hpf [facility] Nitrite Test strip Ql (U)Ord ered By: Dr. Duckworth on 09-11-2022 Nitrite Ql (U) Negative Negative [facility] No Panel InformationOrdered By: Dr. Duckworth on 09-11-2022 Estimated GFR (MDRD) Amer 102 mL/min >[address] [facility] Comment on above: GFR Calc Estimated GFR (MDRD) Non-Af Amer 85 mL/min >[address] [facility] Comment on above: Non- GFR Calc Thyroid Stimulating Hormone (TSH) 1.30 uIU/mL 0.358-3.[address] [facility] Vitamin D 25-Hydroxy 31.8 ng/mL [facility] Comment on above: Vitamin D 25(OH) Sta tus Range Deficiency <20 ng/mL (50nmol/L) Insufficiency 20 - 30 ng/mL (50 - 75 nmol/L) Sufficiency 30 - 100 ng/mL (75 - 250 nmol/L) Toxicity >100 ng/mL (>250 nmol/L) Platelets bldOrdered By: Dr. Duckworth on 09-11-2022 Platelets (Bld) [#/Vol] 192 10*3/uL 150-[address] [facility] Protein Test strip Ql (U)Ord ered By: Dr. Duckworth on 09-11-2022 Protein Ql (U) Negative Negative [facility] Serum or plasma albumin aida urement (mass/volume)Ordered By: Dr. Duckworth on 09-11-2022 Albumin [Mass/Vol] 3.7 g/dL 3.2-5.0 [facility] Serum or plasma albumin/glob ulin mass ratioOrdered By: Dr. Duckworth on 09-11-2022 Albumin/Globulin [Mass ratio] 1.3 {ratio} 0.9-2.[address] [facility] Serum or plasma calcium aida urement (mass/volume)Ordered By: Dr. Duckworth on 09-11-2022 Calcium [Mass/Vol] 9.1 mg/dL 8.5-10.1 [facility] Serum or plasma cholesterol in HDL measurement (mass/volume)Ordered By: Dr. Duckworth on 09-11-2022 Cholesterol in HDL [Mass/Vol] 92 mg/dL >[address] [facility] Comment on above: The drugs N-Acetylcy steine and Metamizole may falsely depress this assay. Reference Range HDL <40 mg/dL Low HDL Cholesterol HDL >or= 60 mg/dL High HDL Cholesterol Serum or plasma cholesterol in VLDL measurement (mass/volume)Ordered By: Dr. Duckworth on 09-11-2022 Cholesterol in VLDL [Mass/Vol] 15 mg/dL 5-[address] [facility] Serum or plasma creatinine m easurement (mass/volume)Ordered By: Dr. Duckworth on 09-11-2022 Creatinine [Mass/Vol] 0.72 mg/dL 0.55-1.02 [facility] Comment on above: The validity of the calculated GFR & GFRAA in patients over 70 years has not been determined. Clinical correlation is essential. Serum or plasma low density lipoprotein (LDL) cholesterol measurement (mass/volume)Ordered By: Dr. Duckworth on 09-11-2022 Cholesterol in LDL [Mass/Vol] 111 mg/dL 0-[address] [facility] Serum or plasma urea nitroge n measurement (mass/volume)Ordered By: Dr. Duckworth on 09-11-2022 Urea nitrogen [Mass/Vol] 9 mg/dL 7-[address] [facility] Squamous epithelial cells de tection in urine sediment by light microscopyOrdered By: Dr. Duckworth on 09-11-2022 Epithelial cells.squamous LM Ql (Urine sed) 0 SEEN /hpf 5-[address] [facility] Thin prep Papanicolaou smear with manual screeningOrdered By: Dr. Duckworth on 09-11-2022 Thin prep Papanicolaou smear with manual screening 13 U/L 15-[address] [facility] Thin prep Papanicolaou smear with manual screening 6 5-[address] [facility] Urine blood detectionOrdered By: Dr. Duckworth on 09-11-2022 RBC Ql (U) Negative Negative [facility] RBC Ql (U) 0 SEEN /hpf 0-[address] [facility] Urine clarityOrdered By: Dr. Duckworth on 09-11-2022 Clarity (U) Clear Clear [facility] Urine color determinationOrd ered By: Dr. Duckworth on 09-11-2022 Color (U) Yellow Yellow [facility] Urine glucose detectionOrder ed By: Dr. Duckworth on 09-11-2022 Glucose Ql (U) Normal mg/dl Normal [facility] Urine leukocyte esterase det ection by dipstickOrdered By: Dr. Duckworth on 09-11-2022 Leukocyte esterase Test strip Ql (U) Negative Negative [facility] Urine pHOrdered By: Dr. Vu ya on 09-11-2022 pH (U) 6.0 [pH] 5.0 - 8.[address] [facility] Urine sediment bacteria coun t by microscopy (number/high power field)Ordered By: Dr. Duckworth on 09-11-2022 Bacteria LM.HPF (Urine sed) [#/Area] 0 /[HPF] None Seen [facility] Urine specific gravity measu rementOrdered By: Dr. Duckworth on 09-11-2022 Specific gravity (U) [Rel density] 1.015 1.002-1.[address] [facility] Urobilinogen Auto test strip Ql (U)Ordered By: Dr. Duckworth on 09-11-2022 Urobilinogen Ql (U) Normal mg/dl Normal [facility] Tobacco Screening.on 022 Adult depression screening assessment No [facility] Work Phone: Fall risk assessment a) No falls within the last year [facility] Work Phone: Tobacco use status CP b) No [facility] Work Phone: Tobacco Screening.on 022 Adult depression screening assessment No [facility] Work Phone: Fall risk assessment a) No falls within the last year [facility] Work Phone: Tobacco use status CPHS b) No [facility] Work Phone: Tobacco Screening.on 022 Fall risk assessment a) No falls within the last year [facility] Work Phone: Tobacco use status CP b) No [facility] Work Phone: Absolute lymphocyte counton 10-31-2021 Lymphocytes Auto (Unsp spec) [#/Vol] 1.31 10*3/uL 0.83-4.[address] [facility] Work Phone: Basophil percentageon 2021 Basophil percentage 0 SEEN /hpf 0-5 [facility] Work Phone: Basophils/100 WBC (Bld) 1.0 % 0-[address] [facility] Work Phone: Bilirubin [Mass/Vol] 0.50 mg/dL 0.20-1.00 [facility] Work Phone: Comment on above: For patients on eltr ombopag therapy, use of Dimension [place] TBIL is not recommended. Chloride [Moles/Vol] 106 mmol/L 98-107 [facility] Work Phone: Cholesterol [Mass/Vol] 190 mg/dL <200 [facility] Work Phone: Comment on above: <200 mg/dL Desirable 200-240 mg/dL Borderline >240 mg/dL High Risk Eosinophils/100 WBC (Bld) 1.1 % 0-[address] [facility] Work Phone: Glucose [Mass/Vol] 96 mg/dL 74-106 [facility] Work Phone: Neutrophils (Bld) [#/Vol] 3.4 10*3/uL 2.0-7.[address] [facility] Work Phone: Neutrophils/100 WBC (Bld) 64.8 % 47-[address] [facility] Work Phone: Potassium [Moles/Vol] 3.9 mmol/L 3.5-5.1 [facility] Work Phone: Protein [Mass/Vol] 6.8 g/dL 6.4-8.2 [facility] Work Phone: Sodium [Moles/Vol] 138 mmol/L 136-145 [facility] Work Phone: Triglyceride [Mass/Vol] 90 mg/dL <[address] [facility] Work Phone: Comment on above: The drugs N-Acetylcy steine and Metamizole may falsely depress this assay.Serum Triglycerides Reference Interval Normal <150 mg/dL Borderline high 150 - 199 mg/dL High 200 - 499 mg/dL Very High > or = 500 mg/dL WBC (Bld) [#/Vol] 5.3 10*3/uL 4.4-11.0 [facility] Work Phone: Bilirubin Test strip Ql (U)o n 10-31-2021 Bilirubin Ql (U) Negative Negative [facility] Work Phone: Blood erythrocytes count (nu mber/volume)on 10-31-2021 RBC (Bld) [#/Vol] 4.59 10*6/uL 4.2-5.4 [facility] Work Phone: Blood hemoglobin measurement (mass/volume)on 10-31-2021 Hemoglobin (Bld) [Mass/Vol] 16.7 g/dL 12.0-15.[address] [facility] Work Phone: Blood lymphocytes/100 leukoc yteson 10-31-2021 Lymphocytes/100 WBC (Bld) 25.0 % 19-[address] [facility] Work Phone: Blood monocytes/100 leukocyt eson 10-31-2021 Monocytes/100 WBC (Bld) 7.0 % 0-[address] [facility] Work Phone: Blood platelet mean volumeon 10-31-2021 Platelet mean volume (Bld) [Entitic vol] 11.6 fL 6.2-12.[address] [facility] Work Phone: Determination of erythrocyte mean corpuscular volume (MCV)on 10-31-2021 MCV (RBC) [Entitic vol] 106.5 fL 81-[address] [facility] Work Phone: Hematocrit Auto (Bld) [Volum e fraction]on 10-31-2021 Hematocrit (Bld) [Volume fraction] 48.9 % 37-[address] [facility] Work Phone: Ketones Test strip Ql (U)on 10-31-2021 Ketones Ql (U) Negative Negative [facility] Work Phone: Laboratory - Chemistry and C hemistry - challengeon 10-31-2021 ALP [Catalytic activity/Vol] 86 U/L 45-[address] [facility] Work Phone: ALT [Catalytic activity/Vol] 19 U/L 13-[address] [facility] Work Phone: CO2 [Moles/Vol] 27.0 mmol/L 21.0-32.[address] [facility] Work Phone: Globulin (S) [Mass/Vol] 3.2 g/dL 2.2-4.[address] [facility] Work Phone: Urea nitrogen/Creatinine [Mass ratio] 8.3 mg/mg 10-[address] [facility] Work Phone: Laboratory - Hematology and Cell countson 10-31-2021 Erythrocyte distribution width (RBC) [Entitic vol] 49.6 fL 35.1-43.[address] [facility] Work Phone: Erythrocyte distribution width (RBC) [Ratio] 12.5 % 11.6-14.[address] [facility] Work Phone: Immature granulocytes/100 WBC (Bld) 1.100 % 0.0-0.[address] [facility] Work Phone: Comment on above: IG% - Immature Granu locytes (promyelocytes, myelocytes and metamyelocytes) > 1% indicates that a LEFT SHIFT is Present. MCH (RBC) [Entitic mass] 36.4 pg 27.0-32.[address] [facility] Work Phone: Nucleated RBC/100 WBC (Bld) [Ratio] 0 % 0-[address] [facility] Work Phone: MCHC Auto (RBC) [Mass/Vol]on 10-31-2021 MCHC (RBC) [Mass/Vol] 34.2 g/dL 32-36 [facility] Work Phone: Mucus LM Ql (Urine sed)on Mucus Ql (Urine sed) 0 SEEN /hpf [facility] Work Phone: Nitrite Test strip Ql (U)on 10-31-2021 Nitrite Ql (U) Negative Negative [facility] Work Phone: No Panel Informationon 10-31 Estimated GFR (MDRD) Amer 102 mL/min >[address] [facility] Work Phone: Comment on above: GFR Calc Estimated GFR (MDRD) Non-Af Amer 84 mL/min >[address] [facility] Work Phone: Comment on above: Non- GFR Calc Thyroid Stimulating Hormone (TSH) 0.65 uIU/mL 0.358-3.[address] [facility] Work Phone: Vitamin D 25-Hydroxy 22.4 ng/mL [facility] Work Phone: Comment on above: Vitamin D 25(OH) Sta tus Range Deficiency <20 ng/mL (50nmol/L) Insufficiency 20 - 30 ng/mL (50 - 75 nmol/L) Sufficiency 30 - 100 ng/mL (75 - 250 nmol/L) Toxicity >100 ng/mL (>250 nmol/L) Platelets bldon 10-31-2021 Platelets (Bld) [#/Vol] 205 10*3/uL 150-[address] [facility] Work Phone: Protein Test strip Ql (U)on 10-31-2021 Protein Ql (U) Negative Negative [facility] Work Phone: Serum or plasma albumin aida urement (mass/volume)on 10-31-2021 Albumin [Mass/Vol] 3.6 g/dL 3.2-5.0 [facility] Work Phone: Serum or plasma albumin/glob ulin mass ratioon 10-31-2021 Albumin/Globulin [Mass ratio] 1.1 {ratio} 0.9-2.[address] [facility] Work Phone: Serum or plasma calcium aida urement (mass/volume)on 10-31-2021 Calcium [Mass/Vol] 8.8 mg/dL 8.5-10.1 [facility] Work Phone: Serum or plasma cholesterol in HDL measurement (mass/volume)on 10-31-2021 Cholesterol in HDL [Mass/Vol] 101 mg/dL >[address] [facility] Work Phone: Comment on above: The drugs N-Acetylcy steine and Metamizole may falsely depress this assay. Reference Range HDL <40 mg/dL Low HDL Cholesterol HDL >or= 60 mg/dL High HDL Cholesterol Serum or plasma cholesterol in VLDL measurement (mass/volume)on 10-31-2021 Cholesterol in VLDL [Mass/Vol] 18 mg/dL 5-[address] [facility] Work Phone: Serum or plasma creatinine m easurement (mass/volume)on 10-31-2021 Creatinine [Mass/Vol] 0.73 mg/dL 0.55-1.02 [facility] Work Phone: Comment on above: The validity of the calculated GFR & GFRAA in patients over 70 years has not been determined. Clinical correlation is essential. Serum or plasma low density lipoprotein (LDL) cholesterol measurement (mass/volume)on 10-31-2021 Cholesterol in LDL [Mass/Vol] 71 mg/dL 0-[address] [facility] Work Phone: Serum or plasma urea nitroge n measurement (mass/volume)on 10-31-2021 Urea nitrogen [Mass/Vol] 6 mg/dL 7-[address] [facility] Work Phone: Squamous epithelial cells de tection in urine sediment by light microscopyon 10-31-2021 Epithelial cells.squamous LM Ql (Urine sed) 0-5 SEEN /hpf 5-[address] [facility] Work Phone: Thin prep Papanicolaou smear with manual screeningon 10-31-2021 Thin prep Papanicolaou smear with manual screening 19 U/L 15-[address] [facility] Work Phone: Thin prep Papanicolaou smear with manual screening 5 5-[address] [facility] Work Phone: Thin prep Papanicolaou smear with manual screening 23.1 mg/L NO RANGE EST. [facility] Work Phone: Urine blood detectionon RBC Ql (U) Negative Negative [facility] Work Phone: RBC Ql (U) 0 SEEN /hpf 0-[address] [facility] Work Phone: Urine clarityon 10-31-2021 Clarity (U) Clear Clear [facility] Work Phone: Urine color determinationon 10-31-2021 Color (U) Yellow Yellow [facility] Work Phone: Urine glucose detectionon Glucose Ql (U) Normal mg/dl Normal [facility] Work Phone: Urine leukocyte esterase det ection by dipstickon 10-31-2021 Leukocyte esterase Test strip Ql (U) Negative Negative [facility] Work Phone: Urine pHon 10-31-2021 pH (U) 5.0 [pH] 5.0 - 8.[address] [facility] Work Phone: Urine sediment bacteria coun t by microscopy (number/high power field)on 10-31-2021 Bacteria LM.HPF (Urine sed) [#/Area] RARE /hpf None Seen [facility] Work Phone: Urine specific gravity measu rementon 10-31-2021 Specific gravity (U) [Rel density] 1.010 1.002-1.[address] [facility] Work Phone: Urobilinogen Auto test strip Ql (U)on 10-31-2021 Urobilinogen Ql (U) Normal mg/dl Normal [facility] Work Phone: Tobacco Screening.on 022 Fall risk assessment a) No falls within the last year [facility] Work Phone: Tobacco use status CPHS b) No [facility] Work Phone: Laboratory - Blood bankon ABO group Nom (Bld) O MG[facility]Ot olaryn [facility] Work Phone: Rh immune globulin screen (Bld) [Interp] Positive Pau n Jessie dominguez Work Phone: No Panel Informationon 06-29 Simone hassan Work Phone: Coronavirus 2019 RNA by PCR, Screening Asymptomticon 06-26-2021 Coronavirus 2019 RNA by PCR, Screening Asymptomtic Not detected Normal See Below Simone dominguez Work Phone: Comment on above: SOURCE: Nasal, Nasop haryngealReference Range: Not Detected.This assay is designed to detect the N, ORF1ab and/or S genes of SARS-CoV-2 via nucleic acid amplification. A Negative (NOT DETECTED) result does not preclude 2019-nCoV infection since the adequacy of sample collection and/or low viral burden may result in presence of viral nucleic acids below the clinical sensitivity of this test method. Negative (NOT DETECTED) result should not be used as the sole basis for treatment or other patient management decisions. Rather negative results should be combined with clinical observations, patient history, and epidemiological information to make patient management decisions.Fact sheet for providers: https://www.fda.gov/media/735877/downloadFact sheet for patients: https://www.fda.gov/media/549538/downloadThis test has received FDA Emergency Use Authorization (EUA) and has been verified by [facility] ([facility]). This test is only authorized for the duration of time that circumstances exist to justify the authorization of the emergency use of in vitro diagnostic tests for the detection of SARS-CoV-2 virus and/or diagnosis of COVID-19 infection under section 564(b)(1) of the Act, 21 U.S.C. 360bbb-3(b)(1), unless the authorization is terminated or revoked sooner. [facility] is certified under CLIA-88 as qualified to perform high complexity testing. Testing is performed in the [facility] laboratories located at [address] [place] [address]. [address] Neck with Contraston 10-2 CT Neck W contrast IV Normal - Yanet [facility] Work Phone: Laboratory - Blood bankon ABO group Nom (Bld) O MG-Ot kingan [facility] Work Phone: [phone] Blood group antibody screen Ql Negative -Otolarernesto [facility] Work Phone: [phone] Rh immune globulin screen (Bld) [Interp] Positive -Otolary n [facility] Work Phone: [phone] Laboratory - Chemistry and C hemistry - challengeon 06-22-2021 Anion gap [Moles/Vol] 15 mmol/L 10 - 20 - Yanet [facility] Work Phone: [phone] Calcium [Mass/Vol] 9.6 mg/dL 8.6 - 10.6 MG-[place] clarice [facility] Work Phone: [phone] Chloride [Moles/Vol] 101 mmol/L 98 - 107 MG-O deisin [facility] Work Phone: [phone] CO2 [Moles/Vol] 26 mmol/L 21 - 32 MG-Otolar yn [facility] Work Phone: [phone] Creatinine [Mass/Vol] 0.63 mg/dL See Below x.ai Ottea [facility] Work Phone: [phone] Comment on above: Reference Range: 0.5 0 - 1.05 Glucose [Mass/Vol] 76 mg/dL 74 - 99 MG-Nazario clarice [facility] Work Phone: [phone] Potassium [Moles/Vol] 4.2 mmol/L 3.5 - 5.3 MG- Ottea [facility] Work Phone: [phone] Sodium [Moles/Vol] 138 mmol/L 136 - 145 MG-Nazario reubenyn [facility] Work Phone: [phone] Urea nitrogen [Mass/Vol] 7 mg/dL 6 - 23 MG-Yanet [facility] Work Phone: Laboratory - Hematology and Cell countson 06-22-2021 Erythrocyte distribution width (RBC) [Ratio] 13.1 % See Below CogniKYanet GFG GroupavocadostoreAlexandria dominguez Work Phone: Comment on above: Reference Range: 11. 5 - 14.5 Hematocrit (Bld) [Volume fraction] 53.4 % above high threshold See Below CogniKYanet [facility] GroupiPowerUpCastle [facility] Work Phone: Comment on above: Reference Range: 36. 0 - 46.0 Hemoglobin (Bld) [Mass/Vol] 17.5 g/dL above high threshold See Below CogniKYanet GFG GroupluísFour [facility] dominguez Work Phone: Comment on above: Reference Range: 12. 0 - 16.0 MCHC (RBC) [Mass/Vol] 32.8 g/dL See Below CogniK Vernongerlachernesto [facility] Work Phone: Comment on above: Reference Range: 32. 0 - 36.0 MCV (RBC) [Entitic vol] 103 fL above high threshold 80 - 100 CogniKVernongerlachernesto [facility] GroupSt[facility] dominguez Work Phone: Platelets (Bld) [#/Vol] 216 10*3/uL 150 - 450 CogniKVernongerlachernesto [facility] Work Phone: RBC (Bld) [#/Vol] 5.17 {x10E12/L} See Below Privacy NetworksYanet GFG GroupavocadostoreSouth [facility] Work Phone: Comment on above: Reference Range: 4.0 0 - 5.20 WBC (Bld) [#/Vol] 5.5 10*3/uL 4.4 - 11.3 CogniKMaugansville chestnut hill hospitalernesto GFG GroupiPowerUpFour [facility]ers [facility] dominguez Work Phone: MRSA Screenon 06-22-2021 Staphylococcus sp identified Org specific cx Nom (Unsp spec) x.aiVernongerlachernesto [facility] Group[facility] ardmorex.aiAlexandria dominguez Work Phone: No Panel Informationon 06-22 >60 >60 CogniKVernongerlachernesto [employer] Work Phone: Comment on above: CALCULATIONS OF JINA MATED GFR ARE PERFORMED USING THE MDRD STUDY EQUATION FOR THE IDMS-TRACEABLE CREATININE METHODS. CLIN CHEM 2007;53:766-72 0.0 {/100_WBC} 0.0-0.0 MG-Otolary n GFG Groupogy-[employer] Work Phone: [email or web address] ?RetrieveTestByDateTime?P alegyqFP=[email or web address]&Date=2 05-04-2021&Time=11%3a09%3a 58%3a00&TestType=ECG&Site =1&OutputType=PDF&Ext=PDF MG-Otolaryn GFG Groupogy-[employer] Work Phone: [phone] Normal sinus rhythm MG-Ot olaryn GFG Groupogy-[employer] Work Phone: [phone] Normal MG-Otolaryn GFG Groupogy-[employer] Work Phone: [phone] 1 MG-Otolaryn GFG Groupogy-[employer] Work Phone: [phone] 1 MG-Otolaryn gology-[employer] Work Phone: [phone] 1 MG-Otolaryn gology-[employer] Work Phone: [phone] 1 MG-Otolaryn gology-[employer] Work Phone: [phone] 1 MG-Otolaryn gology-[employer] Work Phone: [phone] 1 MG-Otolaryn gology-[employer] Work Phone: [phone] 1 MG-Otolaryn gology-[employer] Work Phone: [phone] 1 MG-Otolaryn gology-[employer] Work Phone: [phone] 1 MG-Otolaryn gology-[employer] Work Phone: [phone] MG-Otolaryn gology-[employer] Work Phone: [phone] MG-Otolaryn gology-Jamie dominguez Work Phone: [phone] MG-Otolaryn gology-Jamie dominguez Work Phone: [phone] MG-Otolaryn gology-Jamie dominguez Work Phone: No Panel Informationon 06-13 MG-Otolaryn gology-Jamie dominguez Work Phone: Tobacco Screening.on 021 Fall risk assessment a) No falls within the last year MG-Otolaryn gology-[facility] 4100 Work Phone: Tobacco use status CPHS a) Yes MG-Otolaryn gology-[facility] 4100 Work Phone: US Lower Extremity Bilateral Venous Duplexon 03-30-2020 [facility] Lower Extremity Venous Duplex Report Ordering Physician: Mag Hernandez Diagram Clerk: Yoel Landin Physician: Madelin Tracy MD Location: [facility] Indications: Localized edema. Conclusions 1. There is no evidence of acute deep or superficial venous thrombosis noted in the right lower extremity. 2. There is no evidence of acute deep or superficial venous thrombosis noted in the left lower extremity. 3. Lymph nodes are noted in the right inguinal region. 4. Lymph nodes are noted in the left inguinal region. History: Risk factors: Hypercoagulable state. Age over 65 years. Study data: Complete lower extremity venous duplex evaluation. Grayscale 2D imaging, color Doppler imaging, and spectral Doppler analysis. Location: Vascular laboratory. Objective: Diagnostic evaluation. Procedure: A vascular evaluation was performed with the patient in the supine position. Images were obtained using a [employer] E9 vascular ultrasound machine. Venous flow and imaging: + -+-------+ + +Location +Overall+Properties + + -+-------+ + +R CFV +Patent +Normal phasicity; spontaneous; + + + +normal augmentation; compressible + + -+-------+ + +R saphenofemoral junction+Patent +Compressible + + -+-------+ + +R profunda femoral +Patent +Normal phasicity; spontaneous; + + + +normal augmentation + + -+-------+ + +R FV - prox. +Patent +Compressible + + -+-------+ + +R FV - mid +Patent +Normal phasicity; spontaneous; + + + +normal augmentation; compressible + + -+-------+ + +R FV - distal +Patent +Compressible + + -+-------+ + +R popliteal +Patent +Normal phasicity; spontaneous; + + + +normal augmentation; compressible + + -+-------+ + +R gastrocnemius +Patent +Compressible + + -+-------+ + +R PTV +Patent +Compressible + + -+-------+ + +R peroneal +Patent +Compressible + + -+-------+ + +R soleal +Patent +Compressible + + -+-------+ + +R GSV +Patent +Compressible + + -+-------+ + +L CFV +Patent +Normal phasicity; spontaneous; + + + +normal augmentation; compressible + + -+-------+ + +L saphenofemoral junction+Patent +Compressible + + -+-------+ + +L profunda femoral +Patent +Normal phasicity; spontaneous; + + + +normal augmentation + + -+-------+ + +L FV - prox. +Patent +Compressible + + -+-------+ + +L FV - mid +Patent +Normal phasicity; spontaneous; + + + +normal augmentation; compressible + + -+-------+ + +L FV - distal +Patent +Compressible + + -+-------+ + +L popliteal +Patent +Normal phasicity; spontaneous; + + + +normal augmentation; compressible + + -+-------+ + +L gastrocnemius +Patent +Compressible + + -+-------+ + +L PTV +Patent +Compressible + + -+-------+ + +L peroneal +Patent +Compressible + + -+-------+ + +L soleal +Patent +Compressible + + -+-------+ + +L GSV +Patent +Compressible + + -+-------+ + Prepared and electronically signed by Madelin Tracy MD 03/30/2020 16:28 [facility] [place] [place] [facility] From [facility] - 03/30/2020 4:28 PM EDT [facility] Lower Extremity Venous Duplex Report Ordering Physician: Mag Hernandez Diagram Clerk: Yoel Landin Interpreting Physician: Madelin Tracy MD Location: [facility] Indications: Localized edema. Conclusions 1. There is no evidence of acute deep or superficial venous thrombosis noted in the right lower extremity. 2. There is no evidence of acute deep or superficial venous thrombosis noted in the left lower extremity. 3. Lymph nodes are noted in the right inguinal region. 4. Lymph nodes are noted in the left inguinal region. History: Risk factors: Hypercoagulable state. Age over 65 years. Study data: Complete lower extremity venous duplex evaluation. Grayscale 2D imaging, color Doppler imaging, and spectral Doppler analysis. Location: Vascular laboratory. Objective: Diagnostic evaluation. Procedure: A vascular evaluation was performed with the patient in the supine position. Images were obtained using a [employer] E9 vascular ultrasound machine. Venous flow and imaging: + -+-------+ + +Location +Overall+Properties + + -+-------+ + +R CFV +Patent +Normal phasicity; spontaneous; + + + +normal augmentation; compressible + + -+-------+ + +R saphenofemoral junction+Patent +Compressible + + -+-------+ + +R profunda femoral +Patent +Normal phasicity; spontaneous; + + + +normal augmentation + + -+-------+ + +R FV - prox. +Patent +Compressible + + -+-------+ + +R FV - mid +Patent +Normal phasicity; spontaneous; + + + +normal augmentation; compressible + + -+-------+ + +R FV - distal +Patent +Compressible + + -+-------+ + +R popliteal +Patent +Normal phasicity; spontaneous; + + + +normal augmentation; compressible + + -+-------+ + +R gastrocnemius +Patent +Compressible + + -+-------+ + +R PTV +Patent +Compressible + + -+-------+ + +R peroneal +Patent +Compressible + + -+-------+ + +R soleal +Patent +Compressible + + -+-------+ + +R GSV +Patent +Compressible + + -+-------+ + +L CFV +Patent +Normal phasicity; spontaneous; + + + +normal augmentation; compressible + + -+-------+ + +L saphenofemoral junction+Patent +Compressible + + -+-------+ + +L profunda femoral +Patent +Normal phasicity; spontaneous; + + + +normal augmentation + + -+-------+ + +L FV - prox. +Patent +Compressible + + -+-------+ + +L FV - mid +Patent +Normal phasicity; spontaneous; + + + +normal augmentation; compressible + + -+-------+ + +L FV - distal +Patent +Compressible + + -+-------+ + +L popliteal +Patent +Normal phasicity; spontaneous; + + + +normal augmentation; compressible + + -+-------+ + +L gastrocnemius +Patent +Compressible + + -+-------+ + +L PTV +Patent +Compressible + + -+-------+ + +L peroneal +Patent +Compressible + + -+-------+ + +L soleal +Patent +Compressible + + -+-------+ + +L GSV +Patent +Compressible + + -+-------+ + Prepared and electronically signed by Madelin Tracy MD 03/30/2020 16:28 [place], [place] VL Venous Duplex US Lower Ex t Bilateralon 03-30-2020 VL Venous Duplex US Lower Ext Bilateral Patient Name: BERNA HOWE Ultrasound Exam Date/Time 03/30/2020 16:20:03 EDT Exam VL Venous Duplex US Lower Ext Bilateral Ordering Physician MD HERNANDEZ ELISABETH Accession Number [id number] CPT4 Codes 35768 () Reason For Exam Localized edema Report [facility] Lower Extremity Venous Duplex Report Ordering Physician: Mag Hernandez Diagram Clerk: Yoel Landin Interpreting Physician: Madelin Tracy MD Location: [facility] Indications: Localized edema. Conclusions 1. There is no evidence of acute deep or superficial venous thrombosis noted in the right lower extremity. 2. There is no evidence of acute deep or superficial venous thrombosis noted in the left lower extremity. 3. Lymph nodes are noted in the right inguinal region. 4. Lymph nodes are noted in the left inguinal region. History: Risk factors: Hypercoagulable state. Age over 65 years. Study data: Complete lower extremity venous duplex evaluation. Grayscale 2D imaging, color Doppler imaging, and spectral Doppler analysis. Location: Vascular laboratory. Objective: Diagnostic evaluation. Procedure: A vascular evaluation was performed with the patient in the supine position. Images were obtained using a [employer] E9 vascular ultrasound machine. Venous flow and imaging: + -+-------+ + +Location +Overall+Properties + + -+-------+ + +R CFV +Patent +Normal phasicity; spontaneous; + + + +normal augmentation; compressible + + -+-------+ + +R saphenofemoral junction+Patent +Compressible + + -+-------+ + +R profunda femoral +Patent +Normal phasicity; spontaneous; + + + +normal augmentation + + -+-------+ + +R FV - prox. +Patent +Compressible + + -+-------+ + +R FV - mid +Patent +Normal phasicity; spontaneous; + + + +normal augmentation; compressible + + -+-------+ + +R FV - distal +Patent +Compressible + + -+-------+ + +R popliteal +Patent +Normal phasicity; spontaneous; + + + +normal augmentation; compressible + + -+-------+ + +R gastrocnemius +Patent +Compressible + + -+-------+ + +R PTV +Patent +Compressible + + -+-------+ + +R peroneal +Patent +Compressible + + -+-------+ + +R soleal +Patent +Compressible + + -+-------+ + +R GSV +Patent +Compressible + + -+-------+ + +L CFV +Patent +Normal phasicity; spontaneous; + + + +normal augmentation; compressible + + -+-------+ + +L saphenofemoral junction+Patent +Compressible + + -+-------+ + +L profunda femoral +Patent +Normal phasicity; spontaneous; + + + +normal augmentation + + -+-------+ + +L FV - prox. +Patent +Compressible + + -+-------+ + +L FV - mid +Patent +Normal phasicity; spontaneous; + + + +normal augmentation; compressible + + -+-------+ + +L FV - distal +Patent +Compressible + + -+-------+ + +L popliteal +Patent +Normal phasicity; spontaneous; + + + +normal augmentation; compressible + + -+-------+ + +L gastrocnemius +Patent +Compressible + + -+-------+ + +L PTV +Patent +Compressible + + -+-------+ + +L peroneal +Patent +Compressible + + -+-------+ + +L soleal +Patent +Compressible + + -+-------+ + +L GSV +Patent +Compressible + + -+-------+ + Prepared and electronically signed by Madelin Tracy MD 03/30/2020 16:28 Final Dictated: 03/30/2020 4:28 pm Dictating Physician: MADELIN TRACY Signed Date and Time: 03/30/2020 4:28 pm Signed by: MADELIN TRACY [facility] Full PFT Study With Bronchod ilatoron 01-28-2020 Name: BERNA HOWE PatientID: [id number] Gender: Female Birthdate: 1950 Study Date: 01/28/2020 9:10:46 AM Age: 69 Race: White or Height: 62.0 in, 157.5 cm Weight: 117.0 lbs, 53.2 kg Smoke Status: Smokes Pack Years: 45 Tbco Prod: Cigarettes Ordering Physician: [id number] Interpreting Physician: [id number] Core Manager: FORTINO Testing Location: [facility] Diagnosis: SOB; HX PNEUMONIA 3 WEEKS AGO Spirometry Units Pred PreDrug Pre%Pred Post Post%Pred %Change FVC L,btps 2.86 1.69 59. 1.96 69. 16. FEV1 L,btps 2.17 0.99 46. 1.09 50. 10. FEV1/FVC (%) % 77. 58. 76. 55. 72. -5. SMI45-44% L/s 1.93 0.49 26. 0.58 30. 18. FEFmax L/s 5.56 1.25 22. 1.48 27. 19. MVV in,btps 81.82 22.53 28. Lung Volumes (Body Box) Units Pred PreDrug Pre%Pred TLC L,btps 4.78 VC L,btps 2.86 IC L,btps 2.18 FRC L,btps 2.59 ERV L,btps 0.67 RV L,btps 1.92 RV/TLC (%) % 40. VTG L,btps RAW H2O/L/s 1.48 SGaw cmH2O/L 0.26 Diffusion (DLCO) Units Pred PreDrug Pre%Pred DLCO ml/min/mmHg,stpd 21.26 10.45 49. DLCOHb ml/min/mmHg,stpd 21.26 10.45 49. VAsb L,btps 4.66 2.61 56. D/VAsb ml/min/mmHg/L,stpd 4.57 4.00 88. D/VAsbHb ml/min/mmHg/L,stpd 4.57 4.00 88. VInsp L 1.80 Hgb g/dl 13.40 COHb % Nitrogen Washout Units Pred PreDrug Pre%Pred TLC L,btps 4.78 5.49 115. VC L,btps 2.86 2.99 105. FRC L,btps 2.59 2.68 103. IC L,btps 2.18 2.80 128. ERV L,btps 0.67 0.18 27. RV L,btps 1.92 2.50 130. RV/TLC (%) % 40. 46. 113. 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 PMH: RECENT DX OF PNEUMONIA. FINISHED MEDS LAST WEEK. NO CURRENT BD. STATES WAS ON PREDNISONE AND AN INHALER BUT FINISHED BOTH LAST WEEK. RETESTED AFTER 4 PUFFS ALBUTEROL; SPACER AND INSTRUCTIONS GIVEN. AUD EXP WHEEZE NOTED. UNABLE TO WASHOUT WITHIN 7 MIN TIME LIMIT FOR N2 LUNG VOLUMES. PROD COUGH OF LG AMT CREAMY TENATIOUS SPUTUM. 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 Significant improvement of FEV1, FVC, and/or FEV1/FVC was observed with administration of a bronchodilator. The patient should benefit from Asthma therapy. The diffusion capacity of the patient is moderately decreased due to early stages of emphysema, even when the values are adjusted for alveolar volume. Entering the hemoglobin values confirmed, rather than altering this result. Lung volumes were demonstrated to be normal by the Nitrogen Washout test. An Severe degree of air trapping was demonstrated with the Nitrogen Washout test, which corroborates the obstructive pattern observed with spirometry. TLC, RV, and the RV/TLC levels were all significantly elevated. Forced expiratory spirogram reveals a severe large airways obstructive lung disease. Spirograms are of good quality and do not plateau, indicating slowly emptying areas of the lungs. The respiratory flow volume loop reveals decreased expiratory flow rates at all lung volumes consistent with large and small airways obstruction. Severe large airways obstructive lung disease. Objective evidence of bronchodilator response is noted. Diffusion capacity for singel breath carbon monoxide is moderately reduced. This suggests a decrease in the alveolar capillary surface area for gas exchange and may be under estimated due to inadequate inspired volume. Lung volumes were measured by determining the Functional Residual Capacity (FRC) and determining the lung divisions by a Vital Capacity (VC) maneuver. The Total Lung Capacity (TLC) is normal. The Residual Volume (RV) and RV/TLC ratio are elevated suggesting early airway closure and gas trapping. [place], [place] Aram, [facility] Results From [facility] - 01/28/2020 2:06 PM EDT Name: BERNA HOWE PatientID: [id number] Gender: Female Birthdate: 1950 Study Date: 01/28/2020 9:10:46 AM Age: 69 Race: White or Height: 62.0 in, 157.5 cm Weight: 117.0 lbs, 53.2 kg Smoke Status: Smokes Pack Years: 45 Tbco Prod: Cigarettes Ordering Physician: [id number] Interpreting Physician: [id number] Core Manager: FORTINO Testing Location: [facility] Diagnosis: SOB; HX PNEUMONIA 3 WEEKS AGO Spirometry Units Pred PreDrug Pre%Pred Post Post%Pred %Change FVC L,btps 2.86 1.69 59. 1.96 69. 16. FEV1 L,btps 2.17 0.99 46. 1.09 50. 10. FEV1/FVC (%) % 77. 58. 76. 55. 72. -5. YKQ18-32% L/s 1.93 0.49 26. 0.58 30. 18. FEFmax L/s 5.56 1.25 22. 1.48 27. 19. MVV in,btps 81.82 22.53 28. Lung Volumes (Body Box) Units Pred PreDrug Pre%Pred TLC L,btps 4.78 VC L,btps 2.86 IC L,btps 2.18 FRC L,btps 2.59 ERV L,btps 0.67 RV L,btps 1.92 RV/TLC (%) % 40. VTG L,btps RAW H2O/L/s 1.48 SGaw cmH2O/L 0.26 Diffusion (DLCO) Units Pred PreDrug Pre%Pred DLCO ml/min/mmHg,stpd 21.26 10.45 49. DLCOHb ml/min/mmHg,stpd 21.26 10.45 49. VAsb L,btps 4.66 2.61 56. D/VAsb ml/min/mmHg/L,stpd 4.57 4.00 88. D/VAsbHb ml/min/mmHg/L,stpd 4.57 4.00 88. VInsp L 1.80 Hgb g/dl 13.40 COHb % Nitrogen Washout Units Pred PreDrug Pre%Pred TLC L,btps 4.78 5.49 115. VC L,btps 2.86 2.99 105. FRC L,btps 2.59 2.68 103. IC L,btps 2.18 2.80 128. ERV L,btps 0.67 0.18 27. RV L,btps 1.92 2.50 130. RV/TLC (%) % 40. 46. 113. 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 PMH: RECENT DX OF PNEUMONIA. FINISHED MEDS LAST WEEK. NO CURRENT BD. STATES WAS ON PREDNISONE AND AN INHALER BUT FINISHED BOTH LAST WEEK. RETESTED AFTER 4 PUFFS ALBUTEROL; SPACER AND INSTRUCTIONS GIVEN. AUD EXP WHEEZE NOTED. UNABLE TO WASHOUT WITHIN 7 MIN TIME LIMIT FOR N2 LUNG VOLUMES. PROD COUGH OF LG AMT CREAMY TENATIOUS SPUTUM. 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 Significant improvement of FEV1, FVC, and/or FEV1/FVC was observed with administration of a bronchodilator. The patient should benefit from Asthma therapy. The diffusion capacity of the patient is moderately decreased due to early stages of emphysema, even when the values are adjusted for alveolar volume. Entering the hemoglobin values confirmed, rather than altering this result. Lung volumes were demonstrated to be normal by the Nitrogen Washout test. An Severe degree of air trapping was demonstrated with the Nitrogen Washout test, which corroborates the obstructive pattern observed with spirometry. TLC, RV, and the RV/TLC levels were all significantly elevated. Forced expiratory spirogram reveals a severe large airways obstructive lung disease. Spirograms are of good quality and do not plateau, indicating slowly emptying areas of the lungs. The respiratory flow volume loop reveals decreased expiratory flow rates at all lung volumes consistent with large and small airways obstruction. Severe large airways obstructive lung disease. Objective evidence of bronchodilator response is noted. Diffusion capacity for singel breath carbon monoxide is moderately reduced. This suggests a decrease in the alveolar capillary surface area for gas exchange and may be under estimated due to inadequate inspired volume. Lung volumes were measured by determining the Functional Residual Capacity (FRC) and determining the lung divisions by a Vital Capacity (VC) maneuver. The Total Lung Capacity (TLC) is normal. The Residual Volume (RV) and RV/TLC ratio are elevated suggesting early airway closure and gas trapping. [place], [place] COVID-19on 01-25-2020 SARS-CoV-2 Not Detected Expected Result: Not Detected _ Real-time, RT-PCR performed on the [employer] System by the [facility]. Negative results do not preclude SARS-CoV-2 infection and should not be used as the sole basis for treatment or other patient management decisions. This assay was developed by [employer] and [employer] and distributed under an Emergency Use Authorization (EUA) granted by the FDA for the qualitative detection of SARS-CoV-2 nucleic acid. [place], [place] Test Performed by [facility], [address] [place] [id number] [place], [place] [id number] 01-25-2020 SARS-CoV-2 SARS-CoV-2 --> Statu s: F Not Detected Expected Result: Not Detected _ Real-time, RT-PCR performed on the [employer] MAX System by the [facility]. Negative results do not preclude SARS-CoV-2 infection and should not be used as the sole basis for treatment or other patient management decisions. This assay was developed by [employer] and distributed under an Emergency Use Authorization (EUA) granted by the FDA for the qualitative detection of SARS-CoV-2 nucleic acid. Expected Result: Not Detected _ Real-time, RT-PCR performed on the [employer] MAX System by the [facility]. Negative results do not preclude SARS-CoV-2 infection and should not be used as the sole basis for treatment or other patient management decisions. This assay was developed by [employer] and distributed under an Emergency Use Authorization (EUA) granted by the FDA for the qualitative detection of SARS-CoV-2 nucleic acid. Normal [facility] Comment on above: Performed By: #### C OVID #### [email or web address] [address] [place] [id number] DEXA Bone Density Axial [facility] 10-12-2019 Patient Name: BERNA HOWE ---Bone Density--- Exam Date/Time 10/12/2019 10:55:44 EST Exam OT Bone Density DEXA Axial Skeleton Ordering Physician MD FORMAN NANCY LOUISE Accession Number [id number] CPT4 Codes 52311 () Reason For Exam Asymptomatic menopausal state Report DXA BONE DENSITOMETRY: CLINICAL INDICATION: Asymptomatic post-menopausal status. Screening for osteoporosis. COMPARISON: None TECHNIQUE: Quantitative bone mineral densitometry of the hip and lumbar spine was performed with a dual energy x-ray observed absorptiometry device - Focus IPigiPowerUp Advance at some institutions, HOLOGIC at others. Regions of interest were obtained through the proximal femur and compared to the normal value of young adult women. Regions of interest were also obtained through the lumbar vertebrae with an average value determined and compared to the normal value of young adult women. The difference between your measured bone density and the bone density of a normal young woman is expressed in standard deviations as the T score. Similarly, your measured bone density is also compared to age and race matched values, and expressed in standard deviations as the Z score. According to World Health Organization criteria: T-score of -1.0 or higher is normal. T-score between -1.1 to < -2.5 is low bone density or osteopenia. T-score of -2.5 or lower is abnormally low, compatible with osteoporosis. T-score of -2.5 or less plus fragility fracture indicates severe osteoporosis. FINDINGS: Femoral neck LEFT Density: 0.536 g/cm2 T-score: -2.8. This falls within the osteoporotic range. Z-score: -1.2 Total Hip LEFT Density: 0.661 g/cm2 T-score: -2.3. This falls within the osteopenic range. Z-score: -0.9 Comparison from prior examination: The bone mineralization has not siginficantly changed when compared to the previous study. Spine: L1-L4 Density 1.040 g/cm2 T-score: -0.1. This falls within the normal range. Z-score: 1.9 Comparison from prior examination: The bone mineralization has not significantly changed when compared to the previous study. IMPRESSION: 1. Osteopenia/osteoporosis (especially in the femoral neck). 2. The bone mineralization has not significantly changed when compared to the previous study. FRACTURE RISK: The estimated 10 year risk for a hip fracture is 10% and for a major osteoporosis-related fracture is 26%. (FRAX web version 3.11). RECOMMENDATIONS: General recommendations for prevention of bone loss include: 8779-8471 mg calcium intake per day for adults >50yrs, and no history of renal calculi 800-1000 IU of vitamin D3 per day for adults >50yrs, and no history of renal calculi Weight bearing exercise Discontinue smoking Avoid excessive use of caffeine, soft drinks, and alcoholic beverages In addition, balance training and fall prevention programs can help reduce the risk of fractures Pharmacologic treatment recommendations: Initiate pharmacologic treatment in patients with hip or vertebral fracture. In those with T scores spine by DXA In postmenopausal women and men age 50 or older with low bone mass (T score between -1.0 and -2.5 [osteopenia]) at the femoral neck, total hip, or lumbar spine by DXA have a 10 year hip fracture probability >/= 3% or a 10 year major osteoporosis-related fracture probability >/= 20% based on the [place]-adapted WHO fracture risk model (FRAX). Current FDA-approved pharmacologic options for osteoporosis treatment include bisphosphonates (Fosamax), ibandronate (Boniva), risedronate (Actonel), zoledronic acid (Reclast), estrogens and other hormonal therapies (Evista), parathyroid hormone (Forteo), and denosumab (Prolia). Initiation of pharmacologic therapy should happen only after thorough medical evaluation, discussion of risks and benefits, and with regular monitoring of the therapeutic regimen. Follow-up recommendations: Patients with osteoporosis or or at high risk for fracture should have follow-up bone density tests. For Medicare patients, routine testing is allowed every 2 years. Patients who have low bone mass (T score -2.0 to -2.49), who are currently on treatment for low bone mass, or having risk factors for accelerated bone loss (glucocorticoids, aromatase inhibitors, etc.), consider repeat DXA in 1-2 years. Patients with osteopenia and no risk factors may consider follow-up every 3-5 years. References: National Osteoporosis Foundation. Clinician's Guide to Prevention and Treatment of Osteoporosis. Osteoporosis International. Harden, 2014. DXA Scan Screening, Reporting (FRAX Score) and Follow-up. Sil of Knowledge Evidence - based Summaries. [facility] Entrisphere for Education and Research 2017. Report Dictated on --- Final --- Dictating Physician: MD FIELDS JEFFREY Signed Date and Time: 10/12/2019 2:20 pm Signed by: MD FIELDS JEFFREY Transcribed Date and Time: 10/12/2019 2:21 [facility] Work Phone: [facility], [facility] Incoming Radiology Results From Replaced By [facility] - 10/12/2019 2:22 PM EST Patient Name: BERNA HOWE ---Bone Density--- Exam Date/Time 10/12/2019 10:55:44 EST Exam OT Bone Density DEXA Axial Skeleton Ordering Physician MD DICKSON, RUPESH CHAN Accession Number [id number] CPT4 Codes 55538 () Reason For Exam Asymptomatic menopausal state Report DXA BONE DENSITOMETRY: CLINICAL INDICATION: Asymptomatic post-menopausal status. Screening for osteoporosis. COMPARISON: None TECHNIQUE: Quantitative bone mineral densitometry of the hip and lumbar spine was performed with a dual energy x-ray observed absorptiometry device - Pet[employer]ia at some institutions, HOLOGIC at others. Regions of interest were obtained through the proximal femur and compared to the normal value of young adult women. Regions of interest were also obtained through the lumbar vertebrae with an average value determined and compared to the normal value of young adult women. The difference between your measured bone density and the bone density of a normal young woman is expressed in standard deviations as the T score. Similarly, your measured bone density is also compared to age and race matched values, and expressed in standard deviations as the Z score. According to World Health Organization criteria: T-score of -1.0 or higher is normal. T-score between -1.1 to < -2.5 is low bone density or osteopenia. T-score of -2.5 or lower is abnormally low, compatible with osteoporosis. T-score of -2.5 or less plus fragility fracture indicates severe osteoporosis. FINDINGS: Femoral neck LEFT Density: 0.536 g/cm2 T-score: -2.8. This falls within the osteoporotic range. Z-score: -1.2 Total Hip LEFT Density: 0.661 g/cm2 T-score: -2.3. This falls within the osteopenic range. Z-score: -0.9 Comparison from prior examination: The bone mineralization has not siginficantly changed when compared to the previous study. Spine: L1-L4 Density 1.040 g/cm2 T-score: -0.1. This falls within the normal range. Z-score: 1.9 Comparison from prior examination: The bone mineralization has not significantly changed when compared to the previous study. IMPRESSION: 1. Osteopenia/osteoporosis (especially in the femoral neck). 2. The bone mineralization has not significantly changed when compared to the previous study. FRACTURE RISK: The estimated 10 year risk for a hip fracture is 10% and for a major osteoporosis-related fracture is 26%. (FRAX web version 3.11). RECOMMENDATIONS: General recommendations for prevention of bone loss include: 4331-6445 mg calcium intake per day for adults >50yrs, and no history of renal calculi 800-1000 IU of vitamin D3 per day for adults >50yrs, and no history of renal calculi Weight bearing exercise Discontinue smoking Avoid excessive use of caffeine, soft drinks, and alcoholic beverages In addition, balance training and fall prevention programs can help reduce the risk of fractures Pharmacologic treatment recommendations: Initiate pharmacologic treatment in patients with hip or vertebral fracture. In those with T scores spine by DXA In postmenopausal women and men age 50 or older with low bone mass (T score between -1.0 and -2.5 [osteopenia]) at the femoral neck, total hip, or lumbar spine by DXA have a 10 year hip fracture probability >/= 3% or a 10 year major osteoporosis-related fracture probability >/= 20% based on the [place]-adapted WHO fracture risk model (FRAX). Current FDA-approved pharmacologic options for osteoporosis treatment include bisphosphonates (Fosamax), ibandronate (Boniva), risedronate (Actonel), zoledronic acid (Reclast), estrogens and other hormonal therapies (Evista), parathyroid hormone (Forteo), and denosumab (Prolia). Initiation of pharmacologic therapy should happen only after thorough medical evaluation, discussion of risks and benefits, and with regular monitoring of the therapeutic regimen. Follow-up recommendations: Patients with osteoporosis or or at high risk for fracture should have follow-up bone density tests. For Medicare patients, routine testing is allowed every 2 years. Patients who have low bone mass (T score -2.0 to -2.49), who are currently on treatment for low bone mass, or having risk factors for accelerated bone loss (glucocorticoids, aromatase inhibitors, etc.), consider repeat DXA in 1-2 years. Patients with osteopenia and no risk factors may consider follow-up every 3-5 years. References: National Osteoporosis Foundation. Clinician's Guide to Prevention and Treatment of Osteoporosis. Osteoporosis International. Harden, 2014. DXA Scan Screening, Reporting (FRAX Score) and Follow-up. Sil of Knowledge Evidence - based Summaries. [facility] Entrisphere for Education and Research 2017. Report Dictated on --- Final --- Dictating Physician: MD FIELDS JEFFREY Signed Date and Time: 10/12/2019 2:20 pm Signed by: MD FIELDS JEFFREY Transcribed Date and Time: 10/12/2019 2:21 [facility] Work Phone: MG Breast Tomosynthesis Scr Blon 10-12-2019 MG Breast Tomosynthesis Scr Bl Patient Name: BERNA HOWE Mammography Exam Date/Time 10/12/2019 10:28:14 EST Exam MG Breast Tomosynthesis BI Scr Ordering Physician MD DICKSON, RUPESH CHAN Accession Number [id number] CPT4 Codes 47128 (MG Breast Tomosynthesis Scr Bl), 24315 (MG MAMMO 2D SCREENING) Reason For Exam screening Report TIME SINCE LAST MAMMOGRAM: Baseline mammogram. REASON FOR EXAM: screening, asymptomatic. PROCEDURE: MG BREAST TOMOSYNTHESIS BL SCR: OCTOBER 12, 2019 - 2D/3D Procedure 3D Bilateral CC and MLO view(s) were taken. 2D Bilateral CC and MLO view(s) were taken. TISSUE DENSITY: There are scattered fibroglandular densities. . FINDINGS: No suspicious masses, architectural distortions or suspiciously clustered microcalcifications are identified. Vascular calcifications are noted. There is no evidence of skin thickening or nipple retraction. There are no studies available for comparison. Markings on images: BB's = Nipples; skin lesions Open mashpee = Palpable Line = Scar 2D digital mammography and tomosynthesis imaging were performed and reviewed with CAD. ASSESSMENT: Category 1 Negative RECOMMENDATION: Routine screening mammogram of both breasts in 1 year. . Report Dictated on Cancer Risk Assessment: This risk assessment is based on patient provided information collected in a risk survey taken at the time of this examination. Lifetime breast cancer risk: 5.8% - If greater than or equal to 20%, consider annual mammogram and annual screening Breast MRI or follow up in high risk clinic. Is the patient at elevated risk based on the HBOC criteria? No (Hereditary Breast and Ovarian Cancer) - If yes, consider genetic counseling and testing with high risk follow up. HNPCC mutation risk (Medrano Syndrome): 1% - if greater than or equal to 5%, consider genetic counseling, testing and screening colonoscopy. Final Signed Date and Time: 10/12/2019 12:43 pm Signed by: MD BENNY, [facility] OT Bone Density DEXA Axial S marquitaalvarez 10-12-2019 OT Bone Density DEXA Axial Skeleton Patient Name: BERNA HOWE Bone Density Exam Date/Time 10/12/2019 10:55:44 EST Exam OT Bone Density DEXA Axial Skeleton Ordering Physician MD DICKSON, RUPESH CHAN Accession Number [id number] CPT4 Codes 18106 () Reason For Exam Asymptomatic menopausal state Report DXA BONE DENSITOMETRY: CLINICAL INDICATION: Asymptomatic post-menopausal status. Screening for osteoporosis. COMPARISON: None TECHNIQUE: Quantitative bone mineral densitometry of the hip and lumbar spine was performed with a dual energy x-ray observed absorptiometry device - Focus IPigStorefront at some institutions, HOLOGIC at others. Regions of interest were obtained through the proximal femur and compared to the normal value of young adult women. Regions of interest were also obtained through the lumbar vertebrae with an average value determined and compared to the normal value of young adult women. The difference between your measured bone density and the bone density of a normal young woman is expressed in standard deviations as the T score. Similarly, your measured bone density is also compared to age and race matched values, and expressed in standard deviations as the Z score. According to World Health Organization criteria: T-score of -1.0 or higher is normal. T-score between -1.1 to < -2.5 is low bone density or osteopenia. T-score of -2.5 or lower is abnormally low, compatible with osteoporosis. T-score of -2.5 or less plus fragility fracture indicates severe osteoporosis. FINDINGS: Femoral neck LEFT Density: 0.536 g/cm2 T-score: -2.8. This falls within the osteoporotic range. Z-score: -1.2 Total Hip LEFT Density: 0.661 g/cm2 T-score: -2.3. This falls within the osteopenic range. Z-score: -0.9 Comparison from prior examination: The bone mineralization has not siginficantly changed when compared to the previous study. Spine: L1-L4 Density 1.040 g/cm2 T-score: -0.1. This falls within the normal range. Z-score: 1.9 Comparison from prior examination: The bone mineralization has not significantly changed when compared to the previous study. IMPRESSION: 1. Osteopenia/osteoporosis (especially in the femoral neck). 2. The bone mineralization has not significantly changed when compared to the previous study. FRACTURE RISK: The estimated 10 year risk for a hip fracture is 10% and for a major osteoporosis-related fracture is 26%. (FRAX web version 3.11). RECOMMENDATIONS: General recommendations for prevention of bone loss include: 8893-5110 mg calcium intake per day for adults >50yrs, and no history of renal calculi 800-1000 IU of vitamin D3 per day for adults >50yrs, and no history of renal calculi Weight bearing exercise Discontinue smoking Avoid excessive use of caffeine, soft drinks, and alcoholic beverages In addition, balance training and fall prevention programs can help reduce the risk of fractures Pharmacologic treatment recommendations: Initiate pharmacologic treatment in patients with hip or vertebral fracture. In those with T scores spine by DXA In postmenopausal women and men age 50 or older with low bone mass (T score between -1.0 and -2.5 [osteopenia]) at the femoral neck, total hip, or lumbar spine by DXA have a 10 year hip fracture probability >/= 3% or a 10 year major osteoporosis-related fracture probability >/= 20% based on the [place]-adapted WHO fracture risk model (FRAX). Current FDA-approved pharmacologic options for osteoporosis treatment include bisphosphonates (Fosamax), ibandronate (Boniva), risedronate (Actonel), zoledronic acid (Reclast), estrogens and other hormonal therapies (Evista), parathyroid hormone (Forteo), and denosumab (Prolia). Initiation of pharmacologic therapy should happen only after thorough medical evaluation, discussion of risks and benefits, and with regular monitoring of the therapeutic regimen. Follow-up recommendations: Patients with osteoporosis or or at high risk for fracture should have follow-up bone density tests. For Medicare patients, routine testing is allowed every 2 years. Patients who have low bone mass (T score -2.0 to -2.49), who are currently on treatment for low bone mass, or having risk factors for accelerated bone loss (glucocorticoids, aromatase inhibitors, etc.), consider repeat DXA in 1-2 years. Patients with osteopenia and no risk factors may consider follow-up every 3-5 years. References: National Osteoporosis Foundation. Clinician's Guide to Prevention and Treatment of Osteoporosis. Osteoporosis International. Harden, 2014. DXA Scan Screening, Reporting (FRAX Score) and Follow-up. Sil of Knowledge Evidence - based Summaries. [facility] Entrisp[facility] for Education and Research 2017. Report Dictated on Final Dictating Physician: MD FIELDS JEFFREY Signed Date and Time: 10/12/2019 2:20 pm Signed by: MD FIELDS JEFFREY Transcribed Date and Time: 10/12/2019 2:21 Normal [facility] Surgical Pathologyon 020 Surgical Pathology [id number] [facility] PATHOLOGY AND LABORATORY MEDICINE [address] [place] [id number] FINAL SURGICAL PATHOLOGY REPORT NAME: BERNA HOWE : 1950 69 Y F [facility] NO.: [id number] LOCATION: 1XEO PROCEDURE 10/11/2019 DATE: SURGEON: MIKI GLEASON MD RECEIVED 10/11/2019 DATE: ATTENDING: MIKI GLEASON MD REPORT DATE: 10/12/2019 COPIES TO: DIAGNOSIS: A. COLON, SIGMOID, POLYP X4, BIOPSIES - TUBULAR ADENOMAS. B. COLON, TRANSVERSE, POLYP X2, BIOPSIES - TUBULAR ADENOMAS. ASJ/JAF Signature> JAZMINE ESTES MD CLINICAL INFORMATION: Screening SPECIMEN: (A) COLON POLYP, BIOPSY (B) COLON POLYP, BIOPSY GROSS DESCRIPTION: A. Colon - sigmoid, polyps x4 Received in formalin are multiple portions of pink-reyes tissue and debris aggregating to 1 x 1 cm. The specimen is entirely submitted in a single cassette. (bits ns, 1) B. Colon - transverse, polyps x2 per requisition Received in formalin are three segments of reyes tissue measuring 0.1 to 0.2 cm. Submitted in toto. (3 ns, 1) [id number] Disclaimer: The following statement applies to all immunohistochemistry, in situ hybridization, molecular studies, and immunofluorescence testing. The use of one or more reagents in the above tests is regulated as an analyte specific reagent (ASR). These tests were developed and their performance characteristics determined by the clinical laboratories of [facility]. They have not been cleared by the US Food and Drug Administration (FDA). The FDA has determined that such clearance or approval is not necessary. All the above immunostains were performed on paraffin embedded tissue. Appropriate positive and negative controls (where applicable) were run in parallel with the patient's specimen; these controls showed expected staining pattern, with acceptable intensity of staining. Immunohistochemical assays have not been validated on decalcified tissues. Results should be interpreted with caution given the raised possibility of false negativity on decalcified specimens. Professional Performing Location: [place] [address]. DEPARTMENT OF PATHOLOGY AND LABORATORY MEDICINE [facility] [place] [place] [address] Normal [facility] Vital Signs Date Time Vital Sign Value Performing Clinician Facility 05-17-2025 12:23-0400 Body height 154.9 cm Roberth Alston MD Work Phone: [facility] 05-17-2025 12:23-0400 Body mass index (BMI) [Ratio] 18.52 kg/m2 Roberth Alston MD Work Phone: [facility] 05-17-2025 12:23-0400 Body weight 44.45 kg Roberth Alston MD Work Phone: [facility] 10-19-2024 14:18-0500 Body height 157.5 cm Roberth Alston MD Work Phone: [facility] 10-19-2024 14:18-0500 Body mass index (BMI) [Ratio] 20.49 kg/m2 Roberth Alston MD Work Phone: [facility] 10-19-2024 14:18-0500 Body weight 50.8 kg Roberth Alston MD Work Phone: [facility] 04-06-2024 10:00-0400 Body height 154.9 cm Roberth Alston MD Work Phone: [phone] [place] [address] 04-06-2024 10:00-0400 Body mass index (BMI) [Ratio] 21.9 kg/m2 Roberth Alston MD Work Phone: [facility] 04-06-2024 10:00-0400 Body weight 52.57 kg Roberth Alston MD Work Phone: [phone] [place] [address] 12-16-2023 10:18-0400 Body height 154.9 cm Roberth Alston MD Work Phone: [phone] [place] [address] 12-16-2023 10:18-0400 Body mass index (BMI) [Ratio] 21.54 kg/m2 Roberth Alston MD Work Phone: [facility] 12-16-2023 10:18-0400 Body weight 51.71 kg Roberth Alston MD Work Phone: [phone] [place] [address] 10-18-2022 11:35-0500 Body temperature 97.7 [degF] Dr. Madelin Duckworth Work Phone: [facility] 10-18-2022 11:35-0500 Diastolic blood pressure 66 mm[Hg] Dr. Madelin Duckworth Work Phone: [facility] 10-18-2022 11:35-0500 Heart rate 65 /min Dr. Madelin Duckworth Work Phone: [facility] 10-18-2022 11:35-0500 Respiratory rate 16 /min Dr. Madelin Duckworth Work Phone: [facility] 10-18-2022 11:35-0500 SaO2% (BldA) [Mass fraction] 98 % Dr. Madelin Duckworth Work Phone: [facility] [facility] 10-18-2022 11:35-0500 Systolic blood pressure 111 mm[Hg] Dr. Madelin Duckworth Work Phone: [facility] 10-18-2022 10:03-0500 Body height 154.[address] Madelin Duckworth Work Phone: [facility] 10-18-2022 10:03-0500 Body mass index (BMI) [Ratio] 20 kg/m2 Dr. Madelin Duckworth Work Phone: [facility] 10-18-2022 10:03-0500 Body weight [address] Madelin Duckworth Work Phone: [facility] 09-19-2022 08:58-0500 Body height 154.[address] Madelin Duckworth Work Phone: [facility] 09-19-2022 08:58-0500 Body mass index (BMI) [Ratio] 20.5 kg/m2 Dr. Madelin Duckworth Work Phone: [facility] 09-19-2022 08:58-0500 Body temperature 97.4 [degF] Dr. Madelin Duckworth Work Phone: [facility] 09-19-2022 08:58-0500 Body weight 49.[address] Madelin Duckworth Work Phone: [facility] 09-19-2022 08:58-0500 Diastolic blood pressure 81 mm[Hg] Dr. Madelin Duckworth Work Phone: [facility] 09-19-2022 08:58-0500 Heart rate 75 /min Dr. Madelin Duckworth Work Phone: [facility] 09-19-2022 08:58-0500 Respiratory rate 18 /min Dr. Madelin Duckworth Work Phone: [facility] 09-19-2022 08:58-0500 SaO2% (BldA) [Mass fraction] 96 % Dr. Madelin Duckworth Work Phone: [facility] 09-19-2022 08:58-0500 Systolic blood pressure 143 mm[Hg] Dr. Madelin Duckworth Work Phone: [facility] 07-31-2022 10:20-0500 Body height 152.4 cm Madelin Duckworth Work Phone: GO-Iygavqngcfsrep-C [employer] Work Phone: 07-31-2022 10:20-0500 Body mass index (BMI) [Ratio] 21.57 kg/m2 Madelin Duckworth Work Phone: OD-Oiqhspuiwnbefz-B [employer] Work Phone: 07-31-2022 10:20-0500 Body surface area Derived from formula 1.45 m2 Madelin Duckworth Work Phone: BC-Qzivjwbxoqxiop-E [employer] Work Phone: 07-31-2022 10:20-0500 Body temperature 97.8 [degF] Madelin Duckworth Work Phone: TP-Xdlkfvlhemfkjr-J [employer] Work Phone: 07-31-2022 10:20-0500 Body weight 50.1 kg Madelin Duckworth Work Phone: JG-Uzzkajxxsqkwbs-K [employer] Work Phone: 06-22-2022 15:54-0400 Body height 157.48 cm [facility] Work Phone: 06-22-2022 15:54-0400 Body mass index (BMI) [Ratio] 19.8 kg/m2 [facility] 06-22-2022 15:54-0400 Body temperature 97.2 [degF] [facility] 06-22-2022 15:54-0400 Body weight 49.3 kg [facility] 06-22-2022 15:54-0400 Diastolic blood pressure 81 mm[Hg] [facility] 06-22-2022 15:54-0400 Heart rate 69 /min [facility] 06-22-2022 15:54-0400 Respiratory rate 14 /min [facility] 06-22-2022 15:54-0400 SaO2% (BldA) [Mass fraction] 97 % [facility] 06-22-2022 15:54-0400 Systolic blood pressure 120 mm[Hg] [facility] 04-10-2022 10:57-0400 Body height 152.4 cm Madelin Duckworth Work Phone: FO-Idcftwjtkqmlyx-A [employer] Work Phone: 04-10-2022 10:57-0400 Body mass index (BMI) [Ratio] 21.48 kg/m2 Madelin Duckworth Work Phone: KJ-Yqbiezphsqfuxo-E [employer] Work Phone: 04-10-2022 10:57-0400 Body surface area Derived from formula 1.45 m2 Madelin Duckworth Work Phone: FY-Sndbrdstqiogfe-P [employer] Work Phone: 04-10-2022 10:57-0400 Body temperature 97.4 [degF] Madelin Duckworth Work Phone: JT-Pppmnmloufmnsf-G [employer] Work Phone: 04-10-2022 10:57-0400 Body weight 49.9 kg Madelin Duckworth Work Phone: OW-Pfinrhmsmpmnnu-J [employer] Work Phone: 11-21-2021 11:59-0400 Body height 152.4 cm Madelin Duckworth Work Phone: ZJ-Ylfizpffbvxlbs-V [place] Work Phone: 11-21-2021 11:59-0400 Body mass index (BMI) [Ratio] 22.19 kg/m2 Madelin Duckworth Work Phone: BD-Jyyiqsnghrugzq-J [place] Work Phone: 11-21-2021 11:59-0400 Body surface area Derived from formula 1.47 m2 Madelin Duckworth Work Phone: ZA-Wooyyievbhwccd-X [place] Work Phone: 11-21-2021 11:59-0400 Body temperature 97.5 [degF] Madelin Duckworth Work Phone: XN-Jypwmtxngfbofl-X [place] Work Phone: 11-21-2021 11:59-0400 Body weight 51.53 kg Madelin Duckworth Work Phone: AK-Mynnarzqfmgqke-Q [place] Work Phone: 09-19-2021 10:49-0500 Body height 152.4 cm Madelin Duckworth Work Phone: BG-Bddgllklxzevsr-U [place] Work Phone: 09-19-2021 10:49-0500 Body mass index (BMI) [Ratio] 22.94 kg/m2 Madelin Duckworth Work Phone: QH-Eomdgzjcksukle-S [place] Work Phone: 09-19-2021 10:49-0500 Body surface area Derived from formula 1.49 m2 Madelin Duckworth Work Phone: FS-Jqnsprqphxsqwa-K [place] Work Phone: 09-19-2021 10:49-0500 Body temperature 96.7 [degF] Madelin Duckworth Work Phone: ZF-Ekaronpvgqbkop-Z [place] Work Phone: 09-19-2021 10:49-0500 Body weight 53.27 kg Madelin Sergio Tonya Work Phone: RE-Vugupjcjtyrusn-L [place] Work Phone: 09-19-2021 10:49-0500 Respiratory rate 16 /min Madelin Sergio Tonya Work Phone: CA-Sfparvyjspvuub-M [place] Work Phone: 06-06-2021 11:48-0400 Body height 152.4 cm Referring Provider Unknown [place]ni[place] [id number] Work Phone: 06-06-2021 11:48-0400 Body mass index (BMI) [Ratio] 22.75 kg/m2 Referring Provider Unknown [place] [id number] Work Phone: 06-06-2021 11:48-0400 Body surface area Derived from formula 1.48 m2 Referring Provider Unknown [place] [id number] Work Phone: 06-06-2021 11:48-0400 Body temperature 97.5 [degF] Referring Provider Unknown [facility] 4[address] Work Phone: 06-06-2021 11:48-0400 Body weight 52.84 kg Referring Provider Unknown KU-Aqkyfywjfosrak-[place] [id number] Work Phone: 01-28-2020 09:10-0400 BMI (Body Mass Index) 21.4 kg/m2 [facility], [place] 01-28-2020 09:10-0400 Body weight 53.07 kg [facility] , [place] 01-28-2020 09:10-0400 Height 157.5 cm [facility] , [place] 10-11-2019 12:18-0500 BP Diastolic 79 mm[Hg] Miki CLARK Work Phone: 10-11-2019 12:18-0500 BP Systolic 108 mm[Hg] Miki CLARK Work Phone: 10-11-2019 12:18-0500 Pulse (Heart Rate) 71 /min Miki CLARK Work Phone: 10-11-2019 12:18-0500 Pulse Oximetry 98 % Miki CLARK Work Phone: 10-11-2019 12:18-0500 Respiratory Rate 18 /min Miki CLARK Work Phone: 10-11-2019 10:23-0500 BMI (Body Mass Index) 22.31 kg/m2 Miki CLARK Work Phone: 10-11-2019 10:23-0500 Body Temperature 97.5 [degF] Miki CLARK Work Phone: 10-11-2019 10:23-0500 Body weight 55.34 kg Miki CLARK Work Phone: 10-11-2019 10:23-0500 Height 157.5 cm Miki CLARK Work Phone: Encounters Encounter Date Encounter Type Care Provider Facility Start: 06-03-2025 End: 06-03-2025 ambulatory Madelin Duckworth Facility:[facility] Start: 05-17-2025 End: 05-17-2025 Office outpatient visit 15 minutes Roberth Alston MD Work Phone: [facility] Comment on above: Tongue cancer (Multi ) (Primary Dx); Parotid neoplasm Start: 05-17-2025 End: 05-17-2025 ambulatory [facility] Ambulatory Start: 04-13-2025 End: 04-13-[address] Madelin Duckworth MD Work Phone: -[facility] [place] Start: 04-13-2025 End: 04-13-[address] Madelin Duckworth MD -Laboratory [place] Work Phone: Start: 04-13-2025 End: 04-13-2025 ambulatory Madelin Duckworth Facility:[facility] Start: 03-02-2025 End: 03-02-[address] Madelin Duckworth MD Work Phone: -Laboratory [place] Start: 03-02-2025 End: 03-02-[address] Madelin Duckworth MD -Laboratory [facility] Start: 03-02-2025 End: 03-02-2025 ambulatory Madelin Duckworth Facility:[facility] Start: 12-30-2024 End: 12-30-[address] Madelin Duckworth MD Work Phone: [facility] Work Phone: Start: 12-30-2024 End: 12-30-[address] Madelin Duckworth MD -Radiology, [facility] Work Phone: Start: 12-30-2024 End: 12-30-2024 ambulatory Madelin Duckworth Facility:[facility] Start: 10-19-2024 End: 10-19-2024 Office outpatient visit 15 minutes Roberth Alston MD Work Phone: [facility] Comment on above: Tongue cancer (Multi ) (Primary Dx); Parotid neoplasm Start: 10-19-2024 End: 10-19-2024 ambulatory [facility] Ambulatory Start: 09-06-2024 ambulatory Madelin Salomon y:[facility] Start: 09-03-2024 End: 09-03-2024 ambulatory Madelin Duckworth Facility:[facility] Start: 07-19-2024 End: 07-19-2024 ambulatory Riya Torres NP Facility:[facility] Start: 04-06-2024 End: 04-06-2024 Office outpatient visit 15 minutes Roberth Alston MD Work Phone: [facility] Comment on above: Tongue cancer (Multi ) (Primary Dx); Parotid neoplasm Start: 12-16-2023 End: 12-16-2023 Office outpatient visit 15 minutes Roberth Alston MD Work Phone: [facility] Comment on above: Tongue cancer (Multi ) (Primary Dx); Parotid neoplasm Start: 07-16-2023 End: 07-16-[address] [facility] Work Phone: Start: 07-16-2023 End: 07-16-2023 Patient encounter procedure [facility]-Cat [facility] Work Phone: Start: 07-02-2023 End: 07-02-[address] [facility] Work Phone: Start: 07-02-2023 End: 07-02-2023 Patient encounter procedure [facility] Start: 04-25-2023 End: 04-25-2023 Patient encounter procedure [facility]-Outpatient Breast Imaging Work Phone: Start: 01-14-2023 End: 01-14-[address] Madelin Duckworth Work Phone: [facility] Work Phone: Start: 01-14-2023 End: 01-14-[address] Madelin Duckworth Work Phone: [facility] Start: 12-18-2022 ambulatory MD ROBERTH ALSTON Fac ility:[id number] Start: 12-12-2022 End: 12-12-[address] Madelin Duckworth Work Phone: [facility] Work Phone: Start: 12-12-2022 End: 12-12-[address] Madelin Duckworth Work Phone: [facility] Start: 10-18-2022 Non-patient / Non-visit Dr. Candida Duckworth Work Phone: [facility] Start: 10-18-2022 End: 10-18-2022 Admission to same day surgery center Dr. Madelin Duckworth Work Phone: [facility]-Endoscopy Start: 10-18-2022 End: 10-18-[address] Madelin Duckworth Work Phone: [facility] Work Phone: Start: 09-19-2022 End: 09-19-[address] Madelin Duckworth Work Phone: [facility] Start: 09-12-2022 End: 09-12-[address] Madelin Duckworth Work Phone: [facility]-Laboratory, Specimen Start: 09-11-2022 End: 09-11-[address] Madelin Duckworth Work Phone: [facility] Work Phone: Start: 09-11-2022 End: 09-11-[address] Madelin Duckworth Work Phone: [facility], [facility] Start: 08-05-2022 End: 08-05-[address] [facility] Work Phone: Start: 08-05-2022 End: 08-05-2022 Patient encounter procedure [facility]-Radiology, [facility] Start: 07-31-2022 ambulatory MD ROBERTH ALSTON Fac ility:[id number] Start: 07-31-2022 Office outpatient vi sit 15 minutes Madelin Duckworth Work Phone: DB-Iqnacwlzwdjyvs-Hmyb rban Work Phone: Start: 07-12-2022 End: 07-12-[address] [facility] Work Phone: Start: 07-12-2022 End: 07-12-2022 Patient encounter procedure [facility]-Cat Scan, [facility] Start: 06-22-2022 End: 06-22-2022 Emergency department patient visit [facility]-Emergency Department Start: 06-12-2022 Telephone encounter Madelin chamberlain Work Phone: GP-Mzinlyvdragwkp-Tira rban Work Phone: Start: 06-12-[address] Madelin Duckworth Facility:[id number] Start: 04-10-2022 ambulatory MD ROBERTH ALSTON Fac ility:[id number] Start: 04-10-2022 Office outpatient vi sit 15 minutes Madelin Duckworth Work Phone: UR-Kdiqwlrhqjhggw-Yvov rban Work Phone: Start: 03-18-2022 End: 03-18-2022 Patient encounter procedure [facility]-Outpatient Breast Imaging Start: 02-14-2022 End: 02-14-2022 Patient encounter procedure [facility]-Radiology, [place] Start: 01-16-2022 Telephone encounter Madelin chamberlain Work Phone: WG-Iyeluzwdsbqxls-Ngay rban Work Phone: Start: 11-21-2021 Office outpatient vi sit 15 minutes Madelin Duckworth Work Phone: XD-Qujpyhrrlnsedn-Xywu [place] Work Phone: Start: 10-31-2021 End: 10-31-2021 Patient encounter procedure [facility]-Laboratory, [facility] Start: 09-19-2021 Postop follow up vis it related to original px Madelin Duckworth Work Phone: US-Vbppbwewfexrau-[place] Work Phone: Start: 07-06-2021 Chart Update Madelin dia Work Phone: CM-Qhkbtyyeqsbulh-Lbwc man Work Phone: Start: 06-29-2021 Chart Update Madelin dia Work Phone: IG-Audogoxkwdecvv-Zwnq [place] Work Phone: Start: 06-27-2021 Chart Update Referring Prov ider Unknown DD-Khakuknhzruyuj-Arxv dominguez Work Phone: Start: 06-25-2021 Telephone encounter Referring Provider Unknown MF-Ygiveergrjhyyj-Hixr n [place] [address] Work Phone: Start: 06-23-2021 Chart Update Referring Prov ider Unknown EQ-Drqeteozebxjak-Zcad [place] Work Phone: Start: 06-22-2021 AUDIT Referring Prov ider Unknown MG-[facility] Medicine-[facility] 1200 Work Phone: Start: 06-15-2021 Chart Update Referring Prov ider Unknown RG-Zachdvsrtajblu-Xokp [place] Work Phone: Start: 06-07-2021 Telephone encounter Referring Provider Unknown KN-Weicitvvlsdrhr-Lmzs n [place] [address] Work Phone: Start: 06-07-2021 AUDIT Referring Prov ider Unknown DM-Zwzguitzgkqsab-Wdcf [facility] 50[facility] Work Phone: Start: 06-06-2021 AUDIT Referring Prov ider Unknown WF-Ecnpsylvysqemp-[place] Work Phone: Start: 06-06-2021 Office consultation new/estab patient 60 min Referring Provider Unknown YR[facility]ollso[facility]ne[facility] Work Phone: Start: 03-30-2020 End: 03-30-2020 Subsequent hospital visit by physician Michael Angel Work Phone: [facility] Vascular Lab Comment on above: Leg edema, left Start: 03-27-2020 End: 03-27-2020 Subsequent hospital visit by physician Sophia Wise Work Phone: [facility] Start: 2020 End: 2020 Subsequent hospital visit by physician Michael Angel Work Phone: [facility] Start: 02-17-2020 End: 02-17-2020 Subsequent hospital visit by physician Tanja Judge Work Phone: [facility] Start: 01-28-2020 End: 01-28-2020 Subsequent hospital visit by physician Tanja Judge Work Phone: [facility] Pulm Function Test Comment on above: SOB (shortness of br eath) Start: 01-25-2020 End: 01-25-2020 Subsequent hospital visit by physician Tanja Judge Work Phone: [facility] Start: 01-11-2020 End: 01-11-2020 Subsequent hospital visit by physician Rupesh Forman Work Phone: [facility] [place] [facility] Start: 11-05-2019 End: 11-05-2019 Subsequent hospital visit by physician Rupesh Fomran Work Phone: [facility] [place] [facility] Start: 10-14-2019 End: 10-14-2019 Subsequent hospital visit by physician Rupesh Forman Work Phone: [facility] [place] [facility] Start: 10-12-2019 End: 10-12-2019 Subsequent hospital visit by physician Rupesh Forman Work Phone: [facility] Mammography Comment on above: Menopause Start: 10-11-2019 End: 10-11-2019 Subsequent hospital visit by physician Miki Gleason Work Phone: [facility] Comment on above: Arrived Start: 10-08-2019 End: 10-08-2019 Subsequent hospital visit by physician Rupesh Forman Work Phone: [facility] [place] [facility] Start: 09-06-2019 End: 09-06-2019 Subsequent hospital visit by physician Rupesh Forman MD Work Phone: [facility] [place] [facility] Procedures Date Procedure Procedure Detail Performing Clinician Start: 03-02-2025 Urnls dip stick/tabl et reagent auto microscopy Dr. Madelin Duckworth MD Work Phone: Start: 03-02-2025 Vitamin D, 25-hydrox y measurement Dr. Madelin Duckworth MD Work Phone: Comment on above: Vitamin D StatusDefi ciency: <20 ng/mL (50nmol/L)Insufficiency: 20-30 ng/mL (50-75 nmol/L)Sufficiency: 30-100 ng/mL (75-250 nmol/L)Toxicity: >100 ng/mL (>250 nmol/L) Start: 12-30-2024 X-ray of chest, PA a nd lateral views Dr. Madelin Duckworth MD Work Phone: Start: 07-16-2023 CT of chest Start: 04-25-2023 Screening mammography Start: 01-14-2023 Plain chest X-ray Dr. Mary Duckworth Work Phone: Start: 10-18-2022 End: 10-18-[address] Madelin Duckworth Work Phone: Start: 08-05-2022 MRI of joint of lowe r extremity Start: 08-05-2022 MRI arthrography of hip Start: 07-12-2022 CT of chest without contrast Start: 03-18-2022 Screening mammography Start: 02-14-2022 Plain chest X-ray Start: 03-30-2020 Dup-scan xtr veins c omplete bilateral study Mag Hernandez Work Phone: Start: 01-28-2020 Brncdilat rspse spmt ry pre&post-brncdilat admn John Palma Work Phone: Start: 01-25-2020 COVID-19 John Palma Work Phone: Start: 10-12-2019 Dxa bone density grabiel dy 1/> sites axial skel Rupesh Forman Work Phone: Start: 10-12-2019 Mammography Roberth vega MD Work Phone: Start: 10-11-2019 End: 10-11-2019 Colonoscopy 3m Scanning Ova OR parasites identification Dr. Madelin Duckworth Work Phone: Plan of Treatment Date Care Activity Detail Author Start: 10-18-2032 Screening for malign ant neoplasm of colon [facility] Start: 10-11-2029 Colon cancer screen colonoscopy Colon cancer screen colonoscopy [facility] Work Phone: Start: 10-11-2029 Screening for malign ant neoplasm of colon [facility] Start: 09-06-2029 DTaP/Tdap/Td vaccine (2 - Td) DTaP/Tdap/Td vaccine (2 - Td) [facility] Work Phone: Start: 09-06-2029 DTaP/Tdap/Td Vaccine s (2 - Td or Tdap) DTaP/Tdap/Td Vaccines (2 - Td or Tdap) [facility] Start: 02-27-2027 RSV High Risk: (Elde rly (60+) or Population) (1 - 1-dose 75+ series) RSV High Risk: (Elderly (60+) or Population) (1 - 1-dose 75+ series) [facility] Start: 04-25-2025 COVID-19 Vaccine ( season) COVID-19 Vaccine ( season) [facility] Start: 04-25-2025 Influenza vaccination Influenza Vacc ine (#1) [facility] Start: 09-06-2024 Lipid panel Lipid screen [facility] [place] Start: 09-06-2024 Lipid screen Lipid screen [facility] Work Phone: Start: 08-03-2024 End: 08-03-2024 Patient encounter procedure 08/03/2024 9:45 AM EST Office Visit [facility] [address] [place] [id number] [place] [address] [place] [address] [facility] Start: 04-25-2024 COVID-19 Vaccine ( season) COVID-19 Vaccine ( season) [facility] Start: 04-25-2024 Influenza vaccination [facility] Start: 04-06-2024 End: 04-06-2024 Patient encounter procedure 04/06/2024 10:15 AM EDT Office Visit [facility] [address] [place] [id number] [place] [address] [facility] [place] [address] [facility] Start: 04-25-2023 COVID-19 Vaccine ( season) COVID-19 Vaccine ( season) [facility] Start: 11-13-2022 FUV, Provider: Roberth Alston, Status: Pen, Time: 11:15 AM FUV, Provider: Roberth Alston, Status: Pen, Time: 11:15 AM YF-Mvrzgenoqdrhnx-Rzf [place] Work Phone: Start: 10-18-2022 Colsc flx w/rmvl of tumor polyp lesion snare tq COLONOSCOPY W/LESION REMOVAL [facility] Start: 10-18-2022 Egd transoral biopsy single/multiple EGD BIOPSY SINGLE/MULTIPLE [facility] Start: 10-18-2022 Patient discharge [facility] Start: 10-11-2022 Colon cancer screen colonoscopy Colon cancer screen colonoscopy [place], [place] Start: 10-11-2022 Screening for malign ant neoplasm of colon Colon cancer screen colonoscopy [place] Start: 07-31-2022 FUV, Provider: Roberth Alston, Status: Pen, Time: 10:00 AM FUV, Provider: Roberth Alston, Status: Pen, Time: 10:00 AM YQ-Jlsjguxtrhheet-Pbx [place] Work Phone: Start: 06-12-2022 FUV, Provider: Roberth Alston, Status: Pen, Time: 8:15 AM FUV, Provider: Roberth Alston, Status: Pen, Time: 8:15 AM JO-Yfznwyzoeqjfmi-Hdl [place] Work Phone: Start: 01-16-2022 FUV, Provider: Roberth Alston, Status: Pen, Time: 10:30 AM FUV, Provider: Roberth Alston, Status: Pen, Time: 10:30 AM AG-Jqcmdjeymlwwvz-Uho ake Work Phone: Start: 11-07-2021 FUV, Provider: Roberth Alston, Status: Pen, Time: 12:45 PM FUV, Provider: Roberth Alston, Status: Pen, Time: 12:45 PM ID-Ukmuamfzvueznp-Pzo [place] Work Phone: Start: 10-12-2021 Breast cancer screen Breast cancer s creen [place], [place] Start: 10-12-2021 Screening for malign ant neoplasm of breast Breast cancer screen [place], [place] Start: 10-12-2021 Screening for osteoporosis Bone Density Scan [facility] Start: 07-11-2021 POV, Provider: Roberth Alston, Status: Pen, Time: 2:10 PM POV, Provider: Roberth Alston, Status: Pen, Time: 2:10 PM KB-Rfeievwqpnzkzr-Wah in [place] [address] Work Phone: Start: 06-29-2021 SURGCMC, Provider: Roberth Alston, Status: Pen, Time: 12:00 PM SURGCMC, Provider: Roberth Alston, Status: Pen, Time: 12:00 PM AI-Tfayegaphradfo-Ocl in [place] [address] Work Phone: Start: 10-12-2020 Screening for malign ant neoplasm of breast Mammogram [facility] Start: 09-06-2020 Creatinine measurement Creatinine mo nitoring [place], [place] Start: 09-06-2020 Influenza vaccination S [facility] Work Phone: Comment on above: Postponed from 04/25 (Patient Refused) Postponed from 04/25 (Patient Refused) Start: 09-06-2020 Pneumococcal vaccination Pneum ococcal Vaccine (2 of 2 - PCV) [facility] Start: 09-06-2020 Pneumococcal Vaccine : 65+ Years (2 of 2 - PCV) Pneumococcal Vaccine: 65+ Years (2 of 2 - PCV) [facility] Start: 09-06-2020 Potassium monitoring Potassium monit oring [place], [place] Start: 04-25-2020 Influenza vaccination Flu vaccine (# 1) [place] Start: 04-12-2020 End: 04-12-2020 Office Visit 04/12/2020 Office Visit Family Medicine Cinthia Reyes MD [address] [place] [address] [phone] [facility] Start: 03-30-2020 End: 03-30-2020 Appointment 03/30/2020 Appointment Vascular Lab Michael Angel MD [address] [place] [address] [phone] [facility] Vascular Lab Start: 03-27-2020 End: 03-27-2020 Office Visit 03/27/2020 Office Visit Family Medicine Cinthia Reyes MD [address] [place] [address] [phone] [facility] Start: 03-09-2020 End: 03-09-2020 Appointment 03/09/2020 Appointment Vascular Lab B [facility]ascular Lab Start: 01-28-2020 End: 01-28-2020 Appointment 01/28/2020 Appointment [facility] [place] [facility]m Function Test Start: 01-26-2020 End: 01-26-2020 Virtual Visit 01/26/2020 Virtual Visit Family Medicine John Palma MD [address] [place] [address] [phone] [facility] Start: 01-11-2020 End: 01-11-2020 Office Visit 01/11/2020 Office Visit Family Medicine Beatrice Arias MD [address] [place] [address] [phone] [facility] Start: 12-31-2019 Shingles Vaccine (2 of 2) Shingles Vaccine (2 of 2) [place], [place] Start: 12-31-2019 Zoster Vaccines (2 of 2) Zoste r Vaccines (2 of 2) [facility] Start: 11-11-2019 End: 11-11-2019 Office Visit 11/11/2019 Office Visit General Surgery Sage Bahena MD [address] [place] [address] [address] [place] [address] [phone] Gen Surg - [facility] Start: 11-05-2019 End: 11-05-2019 Office Visit 11/05/2019 Office Visit Family Medicine Beatrice Arias MD [address] [place] [address] [phone] [facility] Start: 10-14-2019 End: 10-14-2019 Office Visit 10/14/2019 Office Visit General Surgery Sage Bahena MD [address] [place], [place] [address] [place] [address] [phone] Gen Surg - [facility] Start: 10-12-2019 End: 10-12-2019 Appointment [facility] Start: 10-11-2019 End: 10-11-2019 Appointment 10/11/2019 Appointment IP Unit Miki Gleason MD [address] [facility] [address] [place], [place] [id number] [facility] Start: 10-08-2019 End: 10-08-2019 Patient encounter procedure 10/08/2019 Office Visit Family Medicine Beatrice Arias MD [address] [place], [place] [id number] [facility] Start: 09-06-2019 Annual Wellness Visi t (AWV) Annual Wellness Visit (AWV) [facility] Work Phone: Start: 02-27-2017 DEXA (modify frequen cy per FRAX score) DEXA (modify frequency per FRAX score) [facility] Work Phone: Start: 2012 RSV High Risk: (Elde rly (60+) or Population) (1 - Risk 60-74 years 1-dose series) RSV High Risk: (Elderly (60+) or Population) (1 - Risk 60-74 years 1-dose series) [facility] Start: 2012 RSV patient s and/or patients aged 60+ years (1 - 1-dose 60+ series) RSV patients and/or patients aged 60+ years (1 - 1-dose 60+ series) [facility] Start: 02-27-[address] lung screening Low dose CT lung screening [facility] Work Phone: Start: 02-27-2007 Screening for malign ant neoplasm of lung Low [facility] Start: 02-27-2002 Breast cancer screen Breast cancer s creen [facility] Work Phone: Start: 02-27-2002 Colon cancer screen colonoscopy Colon cancer screen colonoscopy [facility] Work Phone: Start: 02-27-2002 Shingles Vaccine (1 of 2) Shingles Vaccine (1 of 2) [facility] Work Phone: Start: 1992 Lipid screen Lipid screen [facility] Work Phone: Start: 1992 Screening for malign ant neoplasm of breast Mammogram [facility] Start: 02-27-1970 Hepatitis C screening Hepatitis C Sc [facility] Start: 02-27-1953 MMR Vaccines (1 of 1 - Standard series) MMR Vaccines (1 of 1 - Standard series) [facility] Start: 1952 Creatinine monitoring Creatinine mon itoring [facility] Work Phone: Start: 1952 Hepatitis C screen Hepatitis C scree n [facility] Work Phone: Start: 1952 Lipid panel Lipid Panel [facility] Start: 1952 Medicare Annual Well ness Visit Medicare Annual Wellness Visit (AWV) [facility] Start: 1952 Potassium monitoring Potassium monit oring [facility] Work Phone: Start: 1952 Screening for malign ant neoplasm of colon [facility] Start: 1952 Screening for osteoporosis Bone Density Scan [facility] End: 01-25-2020 COVID-19 COVID-19 Lab Routine Once for 1 Occurrences starting 01/25/2020 until 01/25/2020 [facility] Comment on above: Once for 1 Occurrenc es starting 01/25/2020 until 01/25/2020 Patient Education ED Back Sprain /Strain ED Sciatica [facility] Work Phone: Patient referral [facility] Work Phone: End: 10-12-2019 Screening digital breast tomosynthesis bi PHYLLIS JAVIER DIGITAL SCREEN BILATERAL Imaging Routine Once for 1 Occurrences starting 10/12/2019 until 10/12/2019 [facility] Work Phone: Comment on above: Once for 1 Occurrenc es starting 10/12/2019 until 10/12/2019 Screening digital br east tomosynthesis bi PHYLLIS JAVIER DIGITAL SCREEN BILATERAL Imaging Routine 10/12/2019 10:06 AM EST [facility] Work Phone: End: 10-11-2019 Surgical Pathology Surgical Pathology Lab Routine Once for 1 Occurrences starting 10/11/2019 until 10/11/2019 [facility] Work Phone: Comment on above: Once for 1 Occurrenc es starting 10/11/2019 until 10/11/2019 Surgical Pathology Surgical Path ology Lab Routine 10/11/2019 11:12 AM EST [facility] Work Phone: Immunizations Immunization Date Immunization Notes Care Provider [facility] 10-30-2020 Covid (Moderna) [facility] 10-02-2020 Covid ([facility] 11-05-2019 [facility]oster vaccine [facility] [place] 09-06-2019 pneumococcal polysaccharide vaccine, 23 valent Rupesh Forman MD Work Phone: [facility] Work Phone: 09-06-2019 tetanus toxoid, redu trey diphtheria toxoid, and acellular pertussis vaccine, adsorbed Rupesh Forman MD Work Phone: [facility] Work Phone: Payers Date Payer Category Payer Medicare (Managed Care) DAVID DELGADO [id number] 2024 Unknown [id number] 2024 Self-pay [id number] 2024 Medicaid [id number] 2024 Private Health Insurance [id number] 2022 Dual Eligibility Medicare/Medicaid Organization [id number] 2022 Private Health Insurance [facility] DUAL COMPLETE [facility] DUAL COMPLETE [id number] 2022-Present [address] [address] [place] [address] [id number] 2019 Private Health Insurance [facility] DUAL xxxxxxxxx 2019-Present [address] [place] [address] xxxxxxxxx [id number] 2019 Private Health Insurance [facility] DUAL [id number] 2019-Present [address] [place] [address] [id number] 2019 Private Health Insurance [id number] 2019 Medicaid MEDICAID [facility] DEPT OF JOB xxxxxxxxxxxx 2019-Present [phone] [address] [place] [address] xxxxxxxxxxxx [id number] 2017 Medicare MEDICARE MEDICAR E PART A AND B xxxxxxxxxxx 2017-Present [phone] [address] [address] [place] [address] xxxxxxxxxxx [id number] 1952 Unknown [id number]. 2.356 1952 Unknown [id number]. 2.356 1952 Unknown [id number] [id number]. 2.356 1952 Unknown [id number] [id number]. 2.356 1952 Unknown [id number] [id number]. 2.1244 1952 Unknown [id number]. 2.1244 Unknown Unknown [id number] [id number]. 2.462 Unknown [id number] [id number]. 2.462 Unknown [id number] [id number]. 2.462 Unknown [id number] [id number]. 2.462 Unknown [id number] [id number]. 2.462 Unknown [id number] [id number]. 2.462 Unknown [id number]. 2.462 Social History Date Type Detail Facility Start: 10-08-2019 End: 10-14-2022 Tobacco smoking status NHIS Current every day smoker [facility] Start: 10-08-2019 End: 04-06-2024 Cigarettes smoked current (pack per day) - Reported [employer] Work Phone: Start: 09-06-2019 End: 10-08-2019 Alcohol intake Current drinker of alcohol (finding) [facility] Work Phone: Start: 09-06-2019 History SDOH Alcohol Frequency 2 [facility] Work Phone: Start: 09-06-2019 History SDOH Financial 4 [facility] Work Phone: Start: 09-06-2019 History SDOH Food Worry 1 [employer] Work Phone: Start: 1950 Sex Assigned At Not on file [facility] Work Phone: Start: 10-11-2019 Alcohol Comment daily [employer] Work Phone: History of tobacco use [facility]igarette Sm[facility] [employer] [facility] [place] Exposure to SARS-CoV-2 (event) Unable to assess [facility] [place] Start: 2020 Tobacco Comment 7 daily [facility], [place] Start: 03-27-2020 Tobacco use and exposure Never used [employer] [facility] [place] Start: 12-24-2020 End: 10-14-2022 Tobacco smoking status NHIS Unknown if ever smoked [facility] Start: 12-24-2020 Cigarettes [facility] Start: 1950 Sex Assigned At Female [facility] Start: 07-22-2023 Tobacco smoking status NHIS Ex-smoker [facility] History of tobacco use Current smoker [facility] Work Phone: Start: 07-22-2023 Tobacco use and exposure Former smokeless tobacco user [facility] Work Phone: Start: 07-22-2023 End: 04-06-2024 Tobacco use panel [facility] Work Phone: Start: 12-06-2023 End: 10-19-2024 Exposure to SARS-CoV-2 (event) Not sure [facility] Start: 07-20-2022 Sex Female [facility] NEGATED: Highlighted row [facility] Medical Equipment Procedure Code Equipment Code Equipment Origin al Text Equipment Identifier Dates clusterhole acet abular shell FDA Start: 12-24-2020 femoral head FDA Start: 12-24-2020 neck angle hip stem FDA Start : 12-24-2020 polyethylene insert FDA Start : 12-24-2020 clusterhole acet abular shell FDA Start: 12-24-2020 femoral head FDA Start: 12-24-2020 neck angle hip stem FDA Start : 12-24-2020 polyethylene insert FDA Start : 12-24-2020 clusterhole acet abular shell FDA Start: 12-24-2020 femoral head FDA Start: 12-24-2020 neck angle hip stem FDA Start : 12-24-2020 polyethylene insert FDA Start : 12-24-2020 clusterhole acet abular shell FDA Start: 12-24-2020 femoral head FDA Start: 12-24-2020 neck angle hip stem FDA Start : 12-24-2020 polyethylene insert FDA Start : 12-24-2020 clusterhole acet abular shell FDA Start: 12-24-2020 femoral head FDA Start: 12-24-2020 neck angle hip stem FDA Start : 12-24-2020 polyethylene insert FDA Start : 12-24-2020 clusterhole acet abular shell FDA Start: 12-24-2020 femoral head FDA Start: 12-24-2020 neck angle hip stem FDA Start : 12-24-2020 polyethylene insert FDA Start : 12-24-2020 clusterhole acet abular shell FDA Start: 12-24-2020 femoral head FDA Start: 12-24-2020 neck angle hip stem FDA Start : 12-24-2020 polyethylene insert FDA Start : 12-24-2020 clusterhole acet abular shell FDA Start: 12-24-2020 femoral head FDA Start: 12-24-2020 neck angle hip stem FDA Start : 12-24-2020 polyethylene insert FDA Start : 12-24-2020 clusterhole acet abular shell FDA Start: 12-24-2020 femoral head FDA Start: 12-24-2020 neck angle hip stem FDA Start : 12-24-2020 polyethylene insert FDA Start : 12-24-2020 clusterhole acet abular shell FDA Start: 12-24-2020 femoral head FDA Start: 12-24-2020 neck angle hip stem FDA Start : 12-24-2020 polyethylene insert FDA Start : 12-24-2020 clusterhole acet abular shell FDA Start: 12-24-2020 femoral head FDA Start: 12-24-2020 neck angle hip stem FDA Start : 12-24-2020 polyethylene insert FDA Start : 12-24-2020 clusterhole acet abular shell FDA Start: 12-24-2020 femoral head FDA Start: 12-24-2020 neck angle hip stem FDA Start : 12-24-2020 polyethylene insert FDA Start : 12-24-2020 clusterhole acet abular shell FDA Start: 12-24-2020 femoral head FDA Start: 12-24-2020 neck angle hip stem FDA Start : 12-24-2020 polyethylene insert FDA Start : 12-24-2020 clusterhole acet abular shell FDA Start: 12-24-2020 femoral head FDA Start: 12-24-2020 neck angle hip stem FDA Start : 12-24-2020 polyethylene insert FDA Start : 12-24-2020 Goals Date Patient Goal Desired Activity /State Mental Status Date Assessment Result Facility 10-18-2022 Cognitive function Voice/Name [facility] Work Phone: Clinical Notes 03-06-2021 to 05-17-2025 Roberth Alston MD - 05/17/2025 12:15 PM Javon Alston MD - 10/19/2024 2:15 PM Lizzette Alston MD - 04/06/2024 10:15 AM Javon Alston MD - 12/16/2023 10:00 AM EDT Note Date & Type Note Facility 05-17-2025 History of Present illness Narrative Provider Impressions Status post surgery for an anterior tongue cancer. There is no evidence of any tumor recurrence. I could not appreciate this parotid lesion. I will see her in 6 months Chief Complaint Status post surgery for the management of an anterior tongue cancer History of Present Illness This lady was seen in May 2021 at the request of a local colleague. For a few months she had some discomfort on the left side of her tongue. 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 The patient had a PET scan done on May 29, 2021. I personally reviewed that scan that did not show the primary lesion. It did show a lesion in the left parotid which is most likely benign. On June 29, 2021 she underwent a left partial glossectomy. The margins were felt to be clear. The depth of the tumor was 4 mm. She was discussed at our tumor board and it was felt that she could be followed clinically. She denies any symptoms. She was able to stop smoking in July 2021. She had a chest x-ray done at home in June 2024. This was normal. Physical Exam Examination of the oral cavity shows the scarring from the prior surgery which is minimal. There is no worrisome mucosal lesions. There is good mobility of the tongue and palate. There is good mandibular excursion. Palpation of the parotid, neck, and thyroid field is negative. A flexible laryngoscopy was carried out. Under topical Xylocaine and Robbie-Synephrine the scope was introduced through the nostril. The nasopharynx, base of tongue, hypopharynx, and larynx are visualized. The vocal cords are normally mobile. There is no pooling of secretions in the piriform sinuses. There is no evidence of any mucosal lesions. documented in this encounter [facility] Work Phone: 12-30-2024 Radiology Diagnostic study note [facility] Imaging Services [address] [place], [place] [address] Chest PA and Lateral MR#: [id number] Acct: [id number] Name: BERNA HOWE Rep #: [id number] : 1950 F 74 From: Lashaun Spivey MD PCP: Dr. Madelin Duckworth MD Status: RE G CLI Study:Chest PA and Lateral Date of Exam: 12/30/24 Exam# [id number] Ordering Dr: Madelin Duckworth MD PROCEDURE: CHEST PA AND LATERAL 12/30/2024 REASON FOR EXAM: CHRONIC OBSTRUCTIVE PULMONARY DISEASE, UNSPECIFIED TECHNIQUE: Frontal and lateral views of the chest. COMPARISON: 01/13/2020 FINDINGS: Hardware: None Heart: The heart size is normal. Mediastinum: The mediastinal contour is unremarkable. Lungs: Upper lobe emphysema and scarring. No focal consolidation. No pneumothorax. No pleural effusion.. Bones: Degenerative changes are identified within the thoracic spine. RAD/Chest PA and Lateral IMPRESSION: No acute cardiopulmonary process. Emphysema. Reading Location: [place] CC: Dr. Madelin Duckworth MD ~ Speech Language Pathologist Travel: Signed [facility] 10-19-2024 History of Present illness Narrative Provider Impressions Status post surgery for an anterior tongue cancer. There is no evidence of any tumor recurrence. I could not appreciate this parotid lesion. I will see her in 6 months Chief Complaint Status post surgery for the management of an anterior tongue cancer History of Present Illness This lady was seen in May 2021 at the request of a local colleague. For a few months she had some discomfort on the left side of her tongue. 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 The patient had a PET scan done on May 29, 2021. I personally reviewed that scan that did not show the primary lesion. It did show a lesion in the left parotid which is most likely benign. On June 29, 2021 she underwent a left partial glossectomy. The margins were felt to be clear. The depth of the tumor was 4 mm. She was discussed at our tumor board and it was felt that she could be followed clinically. She does have some tingling around the tongue. She was able to stop smoking in July 2021. She had a chest x-ray done at home in June 2024. This was normal. Cannot access those results. Physical Exam Examination of the oral cavity shows the scarring from the prior surgery which is minimal. There is no worrisome mucosal lesions. There is good mobility of the tongue and palate. There is good mandibular excursion. Palpation of the parotid, neck, and thyroid field is negative. A flexible laryngoscopy was carried out. Under topical Xylocaine and Robbie-Synephrine the scope was introduced through the nostril. The nasopharynx, base of tongue, hypopharynx, and larynx are visualized. The vocal cords are normally mobile. There is no pooling of secretions in the piriform sinuses. There is no evidence of any mucosal lesions. documented in this encounter [facility] Work Phone: 04-06-2024 History of Present illness Narrative Provider Impressions Status post surgery for an anterior tongue cancer. There is no evidence of any tumor recurrence. She is to get a chest image at home. I could not appreciate this parotid lesion. I will see her in 4 months Chief Complaint Status post surgery for the management of an anterior tongue cancer History of Present Illness This lady was seen in May 2021 at the request of a local colleague. For a few months she had some discomfort on the left side of her tongue. 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 The patient had a PET scan done on May 29, 2021. I personally reviewed that scan that did not show the primary lesion. It did show a lesion in the left parotid which is most likely benign. On June 29, 2021 she underwent a left partial glossectomy. The margins were felt to be clear. The depth of the tumor was 4 mm. She was discussed at our tumor board and it was felt that she could be followed clinically. She does have some tingling around the tongue. She was able to stop smoking in July 2021. She had a chest x-ray done at home in May 2023. This was normal. She is due to get another 1 in the near future. Physical Exam Examination of the oral cavity shows the scarring from the prior surgery which is minimal. There is no worrisome mucosal lesions. There is good mobility of the tongue and palate. There is good mandibular excursion. Palpation of the parotid, neck, and thyroid field is negative. I do not seem to feel this retromandibular nodularity any further. A flexible laryngoscopy was carried out. Under topical Xylocaine and Robbie-Synephrine the scope was introduced through the nostril. The nasopharynx, base of tongue, hypopharynx, and larynx are visualized. The vocal cords are normally mobile. There is no pooling of secretions in the piriform sinuses. There is no evidence of any mucosal lesions. documented in this encounter [facility] Work Phone: 12-16-2023 History of Present illness Narrative Provider Impressions Status post surgery for an anterior tongue cancer. There is no evidence of any tumor recurrence. Left posterior and superior neck mass which is most likely arising from the parotid. This is seems to have been biopsied in the past. This is not any larger. I will see her in 4 months Chief Complaint Status post surgery for the management of an anterior tongue cancer History of Present Illness This lady was seen in May 2021 at the request of a local colleague. For a few months she had some discomfort on the left side of her tongue. 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 The patient had a PET scan done on May 29, 2021. I personally reviewed that scan that did not show the primary lesion. It did show a lesion in the left parotid which is most likely benign. On June 29, 2021 she underwent a left partial glossectomy. The margins were felt to be clear. The depth of the tumor was 4 mm. She was discussed at our tumor board and it was felt that she could be followed clinically. She does have some tingling around the tongue. She was able to stop smoking in July 2021. She had a chest x-ray done at home in May 2023. It seems to have been normal. She is followed by a lung doctor. Physical Exam Examination of the oral cavity shows the scarring from the prior surgery which is minimal. There is no worrisome mucosal lesions. There is good mobility of the tongue and palate. There is good mandibular excursion. Palpation of the parotid, neck, and thyroid field is negative except for this 1 cm left retromandibular nodularity that has been stable. A flexible laryngoscopy was carried out. Under topical Xylocaine and Robbie-Synephrine the scope was introduced through the nostril. The nasopharynx, base of tongue, hypopharynx, and larynx are visualized. The vocal cords are normally mobile. There is no pooling of secretions in the piriform sinuses. There is no evidence of any mucosal lesions. documented in this encounter [facility] Work Phone: 10-18-2022 Procedure note [facility] 10-18-2022 Procedure note [facility] 10-18-2022 Procedure note [facility] 10-18-2022 Procedure note [facility] 05-25-2021 History of Present illness Narrative This lady was seen in May 2021 at the request of a local colleague. For a few months she had some discomfort on the left side of her tongue. 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 The patient had a PET scan done on May 29, 2021. I personally reviewed that scan that did not show the primary lesion. It did show a lesion in the left parotid which is most likely benign. On June 29, 2021 she underwent a left partial glossectomy. The margins were felt to be clear. The depth of the tumor was 4 mm. She was discussed at our tumor board and it was felt that she could be followed clinically. She has noticed a very small bump around the surgical site. [facility] Work Phone: 05-25-2021 History of Present illness Narrative This lady was seen in May 2021 at the request of a local colleague. For a few months she had some discomfort on the left side of her tongue. 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 The patient had a PET scan done on May 29, 2021. I personally reviewed that scan that did not show the primary lesion. It did show a lesion in the left parotid which is most likely benign. On June 29, 2021 she underwent a left partial glossectomy. The margins were felt to be clear. The depth of the tumor was 4 mm. She was discussed at our tumor board and it was felt that she could be followed clinically. She does have some tingling around the tongue. She was able to stop smoking in July 2021. [facility] Work Phone: 05-25-2021 History of Present illness Narrative This lady was seen in May 2021 at the request of a local colleague. For a few months she had some discomfort on the left side of her tongue. 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 The patient had a PET scan done on May 29, 2021. I personally reviewed that scan that did not show the primary lesion. It did show a lesion in the left parotid which is most likely benign. On June 29, 2021 she underwent a left partial glossectomy. The margins were felt to be clear. The depth of the tumor was 4 mm. She was discussed at our tumor board and it was felt that she could be followed clinically. She does have some tingling around the tongue. She was able to stop smoking in July 2021. She had a chest x-ray at home in February 2022. We do not have the results but nothing bad was identified. PL-Eraxswgqmgtadx-Ymnzfzxj Work Phone: 05-25-2021 History of Present illness Narrative This lady was seen in May 2021 at the request of a local colleague. For a few months she had some discomfort on the left side of her tongue. 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 The patient had a PET scan done on May 29, 2021. I personally reviewed that scan that did not show the primary lesion. It did show a lesion in the left parotid which is most likely benign. On June 29, 2021 she underwent a left partial glossectomy. The margins were felt to be clear. The depth of the tumor was 4 mm. She was discussed at our tumor board and it was felt that she could be followed clinically. She does have some tingling around the tongue. She was able to stop smoking in July 2021. Unfortunately she lives with someone that continues to smoke in the house. She had a chest x-ray at home in February 2022. We do not have the results but nothing bad was identified. TR-Goobnodqxsjrsq-Lrrcdavc Work Phone: 03-06-2021 History of Present illness Narrative This is a 71 year-old lady is seen at the request of a local colleague. For the past few months she has had some discomfort on the left side of her tongue. 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 The patient had a PET scan done on May 29, 2021. I personally reviewed that scan that does not show the primary lesion. It does show a lesion in the left parotid which is most likely benign. A biopsy of that was also obtained but the results are not available. [facility] Work Phone: Chief complaint Narrative - Reported Consultation for the management of an anterior tongue cancer [facility] Work Phone: Evaluation note No assessment inform ation available [facility] Work Phone: Evaluation note Diagnosis Onset Date Fecal occult blood test positive acute 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 documented in this encounter [facility] Work Phone: Evaluation note* Diagnosis Tongue cancer (Multi)- Primary Malignant neoplasm of tongue, unspecified site 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 Redd [facility] October 18, 2022 10:35am Note Date/Time October 18, 2022 10:35am [facility] Medical Records Department [address] [place] [address] History & Physical Exam 10/18/22 1035 MR#: [id number] Acct: [id number] Name: BERNA HOWE Rep #:[id number] : 1950 72 From: Audi tidwell MD PCP: Dr. Madelin Duckworth MD Status:[facility] Location: [place] [address] History and Physical Date of Admission: 10/18/22 Intake Vital Signs ? 06/22/2215:54 09/19/2307:58 Height 5 ft 2 in 5 ft 1 in Weight: ? 109 lb BMI ? 20.5 BP ? 143/81 H Blood Pressure Location ? Rt brachial Position ? Sitting Respiration ? 18 Pulse ? 75 Pulse Source ? Monitor Temp ? 97.4 F L Temp Source ? Temporal Pulse Oximetry (%) ? 96 Oxygen Delivery Method ? 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 Audi Redd MD) Alcohol abuse COPD (chronic obstructive pulmonary disease) Diarrhea History of stress test Hypertension Injury of head and neck Kidney stones Osteoporosis Positive fecal occult blood test Smoker Tongue cancer Surgical History?(Updated 09/19/22 @ 08:57 by Jordyn Hernandez) H/O: hysterectomy History of excision of mass S/P hysterectomy Family History? Mother CancerFather Heart disease Social History?(Updated 09/19/22 @ 08:57 by Jordyn Hernandez) Smoking Status:? Current every day smoker tobacco type: cigarettes alcohol intake:? current alcohol intake frequency: 0-2 drinks per day Alcohol type: beer details:? Heavy drinker HPI HPI HPI: Patient is a 72-year-old female here for positive fecal occult blood and historyof polyps.? Her last colonoscopy was 2019 and she had about 8 polyps as far as she can remember.? She is not seeing any gross blood in her stool and says that occasionally she has lower abdominal pain. ROS General General: Yes weight change; No appetite, fatigue, colon cancer, breast cancer or weakness HEENT HEENT: Yes eye surgery; No difficulty swallowing, eye injury, swollen glands or hoarseness Endo Endocrine: No thyroid disease, diabetes mellitus, thyroid cancer, Hair loss, heat intolerance or cold intolerance Skin Skin: No rash or changing moles Breast Breast: No left breast lump, right breast lump, nipple discharge, breast pain, abnormal mammogram, abnormal US or breast enlargement Musc Musculoskeletal: No back problems, arthritis, rheumatoid arthritis, gout or joint pain Cardio Cardiovascular: Yes high blood pressure; No murmur, pacemaker, heart disease, atrial fibrillation, heart attack, heart stent, palpitations, shortness of breat with exertion or chest pain Psych Psychiatric: No depression, anxiety or hearing voices Resp Respiratory: No shortness of breath, No sleep apnea, No cough, Yes COPD, No asthma, No emphysema and No wheezing Gastro Gastrointestinal: Yes abdominal pain, No nausea or vomiting, Yes diarrhea, No constipation, Yes blood in stool, No acid reflux, Yes hemorrhoids, No ulcers, Nogallbladder problem and No black,tarry stools Dre Hematologic: No blood thinners, No blood disorders, No bleeding, No anemia and No blood clots Neuro Neurologic: No system reviewed and no additional complaints, except as documented, No as per HPI, No abnormal gait, No abnormal hearing, No abnormal movements, No abnormal speech, No behavioral changes, No burning sensations, No confusion, No convulsions, No disequilibrium, No dizziness, No localized weakness, No frequent falls, No headache(s), No lack of coordination, No loss ofvision, No memory loss, No numbness, No other visual disturbances, No radicular pain, No restless legs, No sensory deficit, No syncope, No tingling, No tremor(s), No weakness and No other Exam Const General: cooperative Orientation: alert and oriented x3 HENMT Head: normal to inspection Neck Neck: normal visual inspection and full ROM Chest Chest palpation & inspection: normal inspection of the chest Resp Effort & Inspection: normal respiratory effort Auscultation: clear to auscultation bilaterally Cardio Rate: regular rate Rhythm: regular rhythm GI Inspection: non-distended Palpation: soft and nontender Skin General: no rashes or lesions noted Neuro General: patient alert and patient oriented x3 Extrem General: full ROM Psych Appearance: grossly normal Mental Status: mental status grossly normal Assessment and Plan Assessment and Plan (1) Fecal occult blood test positive: ?Status:?Acute ?Plan: Patient had positive fecal occult blood test and she had multiple polyps on her colonoscopy 3 years ago.? Patient was sent here for colonoscopy but she is also complaining of weight loss so I would recommend EGD along with colonoscopy. I explained endoscopy in detail to the patient.? I explained the risks includingbut not limited to stroke or heart attack with anesthesia, perforation of the GItract, bleeding, infection.? I explained that any of these could necessitate further emergency surgery.? The patient understands and all questions were answered sufficiently.? The patient wishes to proceed with procedure. Audi Redd MD Pager: [facility] [address] [place] [address], [address] [place] [address] Office: I have examined the patient and the H&P has been reviewed. There are no clinicalchanges since date of exam. 10/18/22 1035 <Electronically signed by Audi Redd MD> Cosigner Signature (if applicable): CC: Dr. Audi Redd MD; Dr. Madelin Duckworth MD~ Signed 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 Advance Directives and Jessica lawrence Will has a living will Power of Licensed Mortician Latest Code Status on File Code Status Date Activated Date Inactivated Comments Full Code 10/11/2019 10:03 AM 10/12/2019 2:40 AM Latest Code Status on File Code Status Date Activated Date Inactivated Comments Full Code 10/11/2019 10:03 AM 10/12/2019 2:40 AM Documents on File Type Date Recorded 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 Advance Directives and Living Will seed above Power of Licensed Mortician papers giv en to pt 11/05/19 gb Documents on File Type Date Recorded 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 Advance Directives and Living Will seed above Power of Licensed Mortician papers giv en to pt 11/05/19 gb Advance Directive Response Recorded Date/ Time Living Will No December 24, 2020 4: 08am Power of Licensed Mortician No December 24, 2020 4:08am Advance Directive Response Recorded Date/ Time Living Will No June 22 4:11pm Power of Licensed Mortician No June 22, 2022 4:11pm Advance Directive Response Recorded Date/ Time Living Will No June 22 3:11pm Power of Licensed Mortician No June 22, 2022 3:11pm Advance Directive Response Recorded Date/ Time Living Will No October 14, 2 023 2:10pm Power of Licensed Mortician No October 14, 2022 2:10pm Advance Directive Response Recorded Date/ Time Living Will No October 14, 2 023 3:10pm Power of Licensed Mortician No October 14, 2022 3:10pm Discharge Instructions * Instructions* Cecille Diaz, RN - 10/11/2019 Colonoscopy: What to expect at home ACTIVITY: DO NOT DRIVE, OPERATE MACHINERY, OR DRINK ANY ALCOHOL TODAY. Avoid making critical decisions, signing legal documents, or performing any activity that requires alertness for the rest of the day. You may be bloated or have gas pains since air was introduced into the colon for the procedure. Youmay need to pass the gas throughout the day. You may experience a small amount of rectal bleeding; this can be normal after your colonoscopy. Notify your physician if the bleeding is enough to saturate your clothes. Rest the remainder of the day. You may resume normal activity tomorrow. You may return to work tomorrow. DIET: You may resume a normal diet unless notified or recommended by your physician. You may be eager to eat a large meal after fasting, but it is a good idea to start with light mealsand ease into solid foods the first day. (*) If your stomach is upset, try clear liquids and bland, low-fat foods like plain toast or rice. Drink plenty of fluids for the first 24 hours (unless your physician states otherwise). MEDICATION: Resume your normal home medications unless notified or recommended by your physician. If you take blood thinners (such as Coumadin, Eliquis, Plavix, Aspirin, etc.) or anti-inflammatory medications (Advil, Motrin, Aleve, etc.), ask your physician when you may resume these medications. FOLLOW-UP APPOINTMENT: Follow up with or call your physician as needed. When to call for help: Call your doctor IMMEDIATELY or seek medical care if you experience: ? Severe pain or vomiting ? A large amount (filling the toilet) of maroon, bloody stools or tar-like stools ? Your belly is swollen and firm with severe pain ? A fever greater than 101 degrees ? Redness or swelling of arm from the IV site for more than 48 hours ? Sudden onset of chest pain or shortness of breath ? If you become extremely dizzy or pass out (lose consciousness) IF YOU ARE UNABLE TO REACH YOUR PHYSICIAN GO TO NEAREST EMERGENCY DEPARTMENT documented in this encounter Reason for Referral Status Reason Specialty Diagnoses / Procedures Referre d By Contact Referred To Contact [facility] Radiology Diagnoses Menopause Procedures DEXA Bone Density Axial Skeleton Rupesh Forman MD [address] [place] [address] Status Reason Specialty Diagnoses / Procedures Re ferred By Contact Referred To Contact [facility] Pulmonology Diagnoses SOB (shortness of breath) Procedures Full PFT Study With Bronchodilator John Palam MD [address] [place] [id number] Status Reason Specialty Diagnoses / Procedures Referre d By Contact Referred To Contact [facility] Radiology Diagnoses Leg edema, left Procedures US Lower Extremity Bilateral Venous Duplex Mag Hernandez MD [address] [place] [address] Assessments Diagnosis Menopause Symptomatic menopausal or female climacteric states Diagnosis SOB (shortness of breath) Shortness of breath Diagnosis Leg edema, left Edema Summary Purpose Family History No Family History Records Found Relationship Condition Age at Onset Recorded Date/T brandin mother Malignant neoplasm Unknown father Cardiac disease Unknown Chief Complaint Status post surgery for the management of an anterior tongue cancerStatus post surgery for the management of an anterior tongue cancerStatus post surgery for the management of an anterior tongue cancerStatus post surgery for the management of an anterior tongue cancer Chief Complaint and Reason for Visit Chief Complaint SCREENING Chief Complaint SCREENING BACK Chief Complaint BACK Solitary pulmonary nodule Chief Complaint BACK Solitary pulmonary nodule HIP PAIN Chief Complaint BACK Solitary pulmonary nodule HIP PAIN HX OF POLYPS, DIARRHEA Reason for Visit Fecal occult blood t est positive Chief Complaint HX OF POLYPS, DIARRH EA Reason for Visit Fecal occult blood t est positive Chief Complaint COPD Chief Complaint SCREENING Personal history of nicotine dependence Chief Complaint Admit Date Chronic obstructive pulmonary disease, u nspecified December 30, 2024 4:38pm Additional Source Comments INFORMATION SOURCE (unrecogn ized section and content) DATE CREATED AUTHOR 01/27/2020 [facility] DATE CREATED AUTHOR AUTHOR'S ORGANIZ ATION 04/06/2020 [facility] DATE CREATED AUTHOR AUTHOR'S ORGANIZ ATION 03/31/2023 [facility] DATE CREATED AUTHOR AUTHOR'S ORGANIZ ATION 05/18/2025 [facility] DATE CREATED AUTHOR AUTHOR'S ORGANIZ ATION 06/19/2025 [facility] Goals (unrecognized section and content) Goals may be documented in a n alternate sectionGoals may be documented in an alternate sectionGoals may be documented in an alternate sectionGoals may be documented in an alternate sectionGoals may be documented in an alternate sectionGoals may be documented in an alternate sectionGoals may be documented in an alternate sectionGoals may be documented in an alternate sectionGoals may be documented in an alternate sectionGoals may be documented in an alternate sectionGoals may be documented in an alternate section Care Teams (unrecognized sec tion and content) Team Status: Active Member Role Status Dates Dr. Madelin Duckworth MD Primary Care Provider Active Team Status: Inactive Member Role Status Dates Dr. Madelin Duckworth MD Primary Care Provider Active Whitney Oh SHOW HOST/HOSTESS-C Attending Provider, Referring Pr ovider Active Team Status: Inactive Member Role Status Dates Dr. Madelin Duckworth MD Primary Care Provider, Attend ing Provider Active Team Status: Active Member Role Status Dates Dr. Madelin Duckworth MD Primary Care Provider, Referr ing Provider Active Dr. Audi Redd MD Attending Provider, Other Provider Active Team Status: Inactive Member Role Status Dates Dr. Madelin Duckworth MD Primary Care Provider, Referr ing Provider Active Dr. Audi Redd MD Attending Provider Active Team Status: Inactive Member Role Status Dates Dr. Madelin Duckworth MD Primary Care Pr ovider, Attending Provider, Referring Provider Active Team Status: Inactive Member Role Status Dates Dr. Madelin Duckworth MD Primary Care Provider Active Dr. Ramon Schafer MD Attending Provider Active Team Status: Inactive Member Role Status Dates Dr. Madelin Duckworth MD Primary Care Provider Active Dr. Justin Villegas DO Attending Provider, [facility] Scarlett juarez Active Team Status: Active Member Role Status Dates Dr. Madelin Duckworth MD Primary Care Provider, Attend ing Provider Active Team Status: Inactive Member Role Status Dates Dr. Madelin Duckworth MD Primary Care Provider Active Dr. Ramon Schafer MD Attending Provider, Referrin g Provider Active Manager Office Relationship Specialty Start Date End Date Madelin Duckworth MD [address] [place] [address] PCP - General 06/29/21 Rojelio Chen MD [address] [place], [place] [id number] Referring Physician Otolaryngology 06/20/23 Manager Office Relationship Specialty Start Date End Date Madelin Duckworth MD [address] [place] [address] PCP - General 06/29/21 Rojelio Chen MD [address] [place], [place] [address] Referring Physician Otolaryngology 06/20/23 Manager Office Relationship Specialty Start Date End Date Madelin Duckworth MD [address] [place] [facility] [place] [address] PCP - General 06/29/21 Rojelio Chen MD [address] [place] [address] Referring Physician Otolaryngology 06/20/23 Team Status: Inactive Member Role Status Dates Dr. Madelin Duckworth MD Primary Care Provider Active Start: December 30, 2024 End: December 30, 2024 Dr. Madelin Duckworth MD Attending Provider Active Start: December 30, 2024 End: December 30, 2024 Dr. Madelin Duckworth MD Referring Provider Active Start: December 30, 2024 End: December 30, 2024 Team Status: Active Member Role/Relationship Status Dates Dr. Madelin Duckworth MD Primary Care Provider Active Team Status: Inactive Member Role/Relationship Status Dates Dr. Madelin Duckworth MD Primary Care Provider Active Start: December 30, 2024 End: December 30, 2024 Dr. Madelin Duckworth MD Attending Provider Active Start: December 30, 2024 End: December 30, 2024 Dr. Madelin Duckworth MD Referring Provider Active Start: December 30, 2024 End: December 30, 2024 Team Status: Inactive Member Role/Relationship Status Dates Dr. Madelin Duckworth MD Primary Care Provider Active Start: March 02, 2025 End: March 02, 2025 Dr. Madelin Duckworth MD Attending Provider Active Start: March 02, 2025 End: March 02, 2025 Dr. Madelin Duckworth MD Referring Provider Active Start: March 02, 2025 End: March 02, 2025 Team Status: Inactive Member Role/Relationship Status Dates Dr. Madelin Duckworth MD Primary Care Provider Active Start: April 13, 2025 End: April 13, 2025 Dr. Madelin Duckworth MD Attending Provider Active Start: April 13, 2025 End: April 13, 2025 Dr. Madelin Duckworth MD Referring Provider Active Start: April 13, 2025 End: April 13, 2025 Manager Office Relationship Specialty Start Date End Date Madelin Duckworth MD [address] [place] [address] PCP - General 06/29/21 Rojelio Chen MD [address] [place] [address] Referring Physician Otolaryngology 06/20/23 Reason for Visit (unrecogniz ed section and content) Reason Comments Follow-up FOR RECORDS PERTAINING TO PATIENTS WHO ARE OR HAVE BEEN ENROLLED IN A CHEMICAL DEPENDENCY/SUBSTANCEABUSE PROGRAM, SOME INFORMATION MAY BE OMITTED. This clinical summary was aggregated from multiple sources. Caution should be exercised in using it in the provision of clinical care. This summary normalizes information from multiple sources, and as a consequence, information in this document may materially change the coding, format and clinical context of patient data. In addition, data may be omitted in some cases. CLINICAL DECISIONS SHOULD BE BASED ON THE PRIMARY CLINICAL RECORDS. [employer] provides no warranty or guarantee of the accuracy or completeness of information in this document.
== END | disposition home or self-care (01) ==
LOC: CT 07:27
PROVIDERS: PCP Family Medicine
DX: Z87.891 Personal history of nicotine dependence (principal)
CPT/HCPCS: 71271